=== PATIENT | male | born 1940 | race Caucasian/White ===

== ENCOUNTER 2018-01-15 08:14 | Day surgery (SDC) | payer OTHER, SELFPAY ==
[2018-01-15 08:55] VITALS: BP 142/69; PULSE 58; RESP 16; TEMP 36.2; O2SAT 99; BMI 28.5
[2018-01-15] MEDS: CATARACT EYE COMPOUND (10 DROPS/SYRINGE) 3 DROPS EYE-OP (09:00)
[2018-01-15] MEDS: PROPARACAINE 0.5% OPHTH SOL 2 DROPS EYE-OP (09:00)
--- NOTE | 2018-01-15 09:47 | P.OP_ITS ---
Operative Date/Time/Diagnoses Pre-op diagnosis: Cataract Right eye Post-op diagnosis: same Procedure & Clinicians Procedure: Cataract Surgery Same procedure as scheduled: Yes Surgeon: Ramiro Lubin Anesthesia Type: MAC +/- and Sedation Operative Notes Procedure in detail: Patient brought to the operating suite. Tetracaine drops placed in the right eye. Patient was prepped and draped in sterile manner. Wire lid speculum was placed in the eye. Betadine drops were placed on the eye. This was irrigated. Lidocaine jelly was placed on the eye. A paracentesis port was created with a side-port blade. 0.1 mL 1% preservative free lidocaine was injected into the anterior chamber. The anterior chamber was deepened with viscoelastic. 2.6 mm keratome was used to create a temporal clear corneal incision. Cystotome and Utrata forceps were used to create continuous tear capsulorrhexis. Balanced salt solution was used to hydro dissect the nucleus. The phacoemulsification handpiece was inserted and the nucleus was removed using the stop and chop technique. The irrigation aspiration handpiece was inserted and the remaining cortex was removed. Anterior chamber was deepened with viscoelastic. An Lua ZCB00 intraocular lens with a power of 20.0 was injected into the capsular bag. Irrigation aspiration handpiece was inserted and the remaining viscoelastic was removed. Incision was hydrated with balanced salt solution and found to be leak free with pressure with Weck- Esmer sponges. 0.1 mL Vigamox injected anterior chamber. 0.3 mL Kenalog 10 mg was injected subconjunctivally. Lid speculum was removed. The patient left the operating room in excellent condition. Complications: none Condition: stable Disposition: same day surgery
--- NOTE | 2018-01-15 09:47 | P.OP.PRE_ITS ---
Pre-operative Note Interval Note Changes: No
--- NOTE | 2018-01-15 09:47 | PM.PREOP ---
Pre-operative Note Interval Note Changes: No
--- NOTE | 2018-01-15 09:57 | SUR.OPER ---
Supine on eye stretcher, head on extension cradle secured with tape. Arms tucked at sides with blanket. Pillow under knees.
[2018-01-15] MEDS: BALANCED SALT IRRIG SOLN NO.2 500 ML, EPINEPHrine 1 MG IRR (10:00)
[2018-01-15] MEDS: TETRACAINE 0.5% OPHTH DROPS 15 ML 2 DROPS EYE-RIGHT (10:01)
[2018-01-15] MEDS: PHENYLEPHRINE/LIDOCAINE 3ML VIAL (OR) EYE-OP (10:02)
[2018-01-15] MEDS: MOXIFLOXACIN OPHTH DROPS 3 ML BOTTLE 2 DROPS INJ (10:02)
[2018-01-15] MEDS: LIDOCAINE JELLY 2% 5 ML 1 APPLIC TOP (10:02)
[2018-01-15] MEDS: TRIAMCINOLONE 50 MG/5 ML VIAL INJ (10:03)
[2018-01-15 10:19] VITALS: BP 120/62; PULSE 65; RESP 15; TEMP 36.1; O2SAT 99
== END 2018-01-15 10:34 | disposition home or self-care (01) ==
PROVIDERS: Family Provider Internal Medicine; PCP Internal Medicine; Visit Provider Ophthalmology
DX: H25.11 Age-related nuclear cataract, right eye (principal); I10 Essential (primary) hypertension
CPT/HCPCS: J0171; J2250; J3010; J3301

== ENCOUNTER 2018-01-29 08:52 | Day surgery (SDC) | payer OTHER, SELFPAY ==
[2018-01-29] MEDS: PROPARACAINE 0.5% OPHTH SOL 2 DROPS EYE-OP (09:15)
[2018-01-29 09:16] VITALS: BP 112/59; PULSE 66; RESP 20; TEMP 36; O2SAT 97; BMI 29.1
[2018-01-29] MEDS: CATARACT EYE COMPOUND (10 DROPS/SYRINGE) 3 DROPS EYE-OP (09:20)
--- NOTE | 2018-01-29 10:08 | SUR.OPER ---
Supine on eye stretcher, head on extension cradle secured with tape. Arms tucked at sides with blanket. Pillow under knees.
[2018-01-29] MEDS: MOXIFLOXACIN OPHTH DROPS 3 ML BOTTLE 2 DROPS INJ (10:13)
[2018-01-29] MEDS: TRIAMCINOLONE 50 MG/5 ML VIAL INJ (10:13)
[2018-01-29] MEDS: TETRACAINE 0.5% OPHTH DROPS 15 ML 2 DROPS EYE-LEFT (10:14)
[2018-01-29] MEDS: PHENYLEPHRINE/LIDOCAINE 3ML VIAL (OR) EYE-OP (10:14)
[2018-01-29] MEDS: LIDOCAINE JELLY 2% 5 ML 1 APPLIC TOP (10:14)
[2018-01-29] MEDS: BALANCED SALT IRRIG SOLN NO.2 500 ML, EPINEPHrine 1 MG IRR (10:15)
[2018-01-29] MEDS: CHONDROIDTIN/SOD HYALURONATE 1.05 ML SYRINGE INTRAOCULA (10:15)
--- NOTE | 2018-01-29 10:26 | P.OP.PRE_ITS ---
Pre-operative Note Interval Note Changes: No
--- NOTE | 2018-01-29 10:26 | P.OP_ITS ---
Operative Date/Time/Diagnoses Pre-op diagnosis: Cataract Left eye Post-op diagnosis: same Procedure & Clinicians Surgeon: Ramiro Lubin Anesthesia Type: MAC +/- and Sedation Operative Notes Procedure in detail: Patient brought to the operating suite. Tetracaine drops placed in the left eye. Patient was prepped and draped in sterile manner. Wire lid speculum was placed in the eye. Betadine drops were placed on the eye. This was irrigated. Lidocaine jelly was placed on the eye. A paracentesis port was created with a side-port blade. 0.1 mL 1% preservative free lidocaine was injected into the anterior chamber. The anterior chamber was deepened with viscoelastic. 2.6 mm keratome was used to create a temporal clear corneal incision. Cystotome and Utrata forceps were used to create continuous tear capsulorrhexis. Balanced salt solution was used to hydro dissect the nucleus. The phacoemulsification handpiece was inserted and the nucleus was removed using the stop and chop technique. The irrigation aspiration handpiece was inserted and the remaining cortex was removed. Anterior chamber was deepened with viscoelastic. An Lua ZCB00 intraocular lens with a power of 19.5 was injected into the capsular bag. Irrigation aspiration handpiece was inserted and the remaining viscoelastic was removed. Incision was hydrated with balanced salt solution and found to be leak free with pressure with Weck- Esmer sponges. 0.1 mL Vigamox injected anterior chamber. 0.3 mL Kenalog 10 mg was injected subconjunctivally. Lid speculum was removed. The patient left the operating room in excellent condition. Complications: none Condition: stable Disposition: same day surgery
--- NOTE | 2018-01-29 10:26 | PM.PREOP ---
Pre-operative Note Interval Note Changes: No
[2018-01-29 10:30] VITALS: BP 101/61; PULSE 66; RESP 20; TEMP 35.9; O2SAT 95
== END 2018-01-29 10:43 | disposition home or self-care (01) ==
PROVIDERS: Visit Provider Ophthalmology
DX: H25.12 Age-related nuclear cataract, left eye (principal); I10 Essential (primary) hypertension
CPT/HCPCS: J0171; J3301

== ENCOUNTER → 2018-09-27 12:10 | Outpatient (CLI) | payer MEDICARE, SELFPAY ==
--- NOTE | 2018-09-27 | DI.US.S_ITS ---
PROCEDURE: US SCROTUM INDICATIONS: PAIN IN SCROTUM TECHNIQUE: Real-time scanning was performed of the scrotum and testicles, with image documentation. Color and pulse Doppler interrogation was performed of both testicles. COMPARISON: None. FINDINGS: Right: Testicle is normal in size at 4.2 x 3.5 x 2.7 cm, and homogenous in echotexture. Epididymis is normal in overall size and morphology. No hydrocele or varicoceles. Overlying scrotal skin is normal in thickness. Left: Testicle is normal in size at 4.1 x 3.4 x 2.5 cm, and homogeneous in echotexture. 9 x 5 x 4 mm heterogeneously hypoechoic structure is noted in head of epididymis with no internal vascularity. No hydrocele or varicoceles. Overlying scrotal skin is normal in thickness. Doppler: Color and pulse Doppler demonstrate normal and symmetric arterial flow in both testicles. IMPRESSION: 1. Normal appearing bilateral testes. 2. Normal appearing right epididymis. 9 x 5 x 4 mm hypoechoic and avascular structure involving left epididymal head and is of indeterminant etiology. A followup ultrasound in six-month is recommended. 3. No significant hydrocele or varicocele. Dictated by: Ventura Ray M.D. on 09/27/2018 at 13:53 Approved by: Ventura Ray M.D. on 09/27/2018 at 14:02
== END ==
PROVIDERS: PCP Family Medicine; Visit Provider Urology
DX: N50.82 Scrotal pain (principal)
CPT/HCPCS: 76870

== ENCOUNTER → 2018-10-30 15:14 | Outpatient (CLI) | payer MEDICARE, SELFPAY ==
[2018-10-30 15:22] LABS: Bacteria Urine None Seen
[2018-10-30 15:56] LABS: Appearance Urine UA CLEAR; Bilirubin Urine UA NEGATIVE (NEGATIVE); Color Urine UA YELLOW; Glucose Urine UA NEGATIVE (Negative); Ketones Urine UA NEGATIVE (NEGATIVE); Leukocyte Esterase Urine UA NEGATIVE (NEGATIVE); Nitrite Urine UA NEGATIVE (Negative); Occult Blood Urine UA NEGATIVE (Negative); Protein Urine UA NEGATIVE (Negative); Urobilinogen Urine UA 0.2 E.U./dL (0.2); pH Urine UA 5.5 (4.5-8.0)
[2018-10-30 16:09] LABS: Add Manual Diff / Slide Review NO; Basophils Absolute Auto 0 /uL (0-100); Basophils Percent Auto 0.8 % (0-2); Eosinophils Absolute Auto 200 /uL (0-450); Eosinophils Percent Auto 2.9 % (2-4); Hematocrit 43.8 % (41-53); Hemoglobin 14.4 g/dL (13.5-17.5); Lymphocytes Absolute Auto 800 /uL (1100-4500); Lymphocytes Percent Auto 13.6 % (25-40); Mean Corpuscular HGB Conc 32.8 % (30-36); Mean Corpuscular Hemoglobin 29.7 PG (26-34); Mean Corpuscular Volume 90.6 fL (80-100); Monocytes Absolute Auto 400 /uL (0-900); Monocytes Percent Auto 7.3 % (3-14); Neutrophils Absolute Auto 4400 /uL (1500-7000); Neutrophils Percent Auto 75.4 % (50-75); Platelet Count 234 X10^3/uL (150-400); Red Blood Cell Count 4.83 X10^6/uL (4.5-5.9); Red Cell Distribution Width 14.1 % (11.6-14.8); White Blood Cell Count 5.8 X10^3/uL (4.5-11.0)
[2018-10-30 16:11] LABS: Hemoglobin A1C% w Est Avg Glu 5.4 % (4.0-6.0)
[2018-10-30 16:16] LABS: Culture Indicated Urine Cult Not Indicated; RBC Urine 0-1/HPF (0-5/HPF); Squamous Epithelial Cell Urine 0-1 /HPF (0-5/HPF); WBC Urine 0-1/HPF (0-5/HPF)
[2018-10-30 16:46] LABS: Blood Urea Nitrogen 16 mg/dL (9-20); Calcium 9.2 mg/dL (8.4-10.2); Carbon Dioxide 28 mmol/L (22-32); Chloride 93 mmol/L (98-107); Estimated Glomerular Filt Rate > 60.0 mL/min (>60); Glucose 99 mg/dL (80-110); HEMOLYSIS < 15 (0-50); Potassium 3.9 mmol/L (3.4-5.1); Sodium 132 mmol/L (137-145)
== END ==
PROVIDERS: PCP Family Medicine; Visit Provider Orthopaedic Surgery
DX: Z01.818 Encounter for other preprocedural examination (principal); N39.9 Disorder of urinary system, unspecified; R73.9 Hyperglycemia, unspecified; Z01.812 Encounter for preprocedural laboratory examination; Z13.1 Encounter for screening for diabetes mellitus
CPT/HCPCS: 36415; 80048; 81001; 83036; 85025; 93005

== ENCOUNTER 2018-11-11 11:03 | Inpatient (IN) | payer MEDICARE, SELFPAY ==
[2018-11-08 09:30] VITALS: BMI 30.2
[2018-11-11] VITALS (14 sets, daily range): BP systolic 83–166; BP diastolic 42–69; PULSE 51–63; RESP 10–16; TEMP 35.8–36.7; O2SAT 92–100; BMI 30.2
--- NOTE | 2018-11-11 | DI.RAD.S_ITS ---
PROCEDURE: XR PELVIS 1-2V INDICATIONS: INNER OP PELVIS TECHNIQUE: 1 view of the lower pelvis acquired. COMPARISON: [facility], RG, BILATERAL HIP 2VW, 12/06/2012, 14:52. [facility], CR, PELVIS W UNILATERAL HIP RIGHT, 11/09/2011, 13:07. FINDINGS: Bones: Patient is status post left hip arthroplasty, with hardware components in expected positions. The hip joint appears congruent. The visualized bony structures appear intact. Previous right hip arthroplasty is stable. Soft tissues: Overlying postoperative changes are noted. No suspicious soft tissue densities. IMPRESSION: Left hip arthroplasty as above. Dictated by: Sydni Del Cid M.D. on 11/11/2018 at 16:45 Approved by: Sydni Del Cid M.D. on 11/11/2018 at 16:45
--- NOTE | 2018-11-11 11:04 | DI.RAD.S_ITS ---
PROCEDURE: XR HIP W PEL IF DONE LT 2V INDICATIONS: post operative total left hip TECHNIQUE: AP pelvis and lateral view of the left hip acquired. COMPARISON: None. FINDINGS: Bones: Patient is status post bilateral hip arthroplasty, with hardware components in expected positions. The hip joint appears congruent. The visualized bony structures appear intact. Soft tissues: Overlying postoperative changes are noted. No suspicious soft tissue densities. IMPRESSION: Expected appearance of hip arthroplasty. Dictated by: Swapna Higgins M.D. on 11/11/2018 at 18:21 Approved by: Swapna Higgins M.D. on 11/11/2018 at 18:21
[2018-11-11] MEDS: PREGABALIN 75 MG CAPSULE PO (11:42)
[2018-11-11] MEDS: CELECOXIB 200 MG CAPSULE PO (11:42)
[2018-11-11] MEDS: ACETAMINOPHEN 325 MG TABLET 975 MG PO ×2 (11:43→21:02)
[2018-11-11] MEDS: LACTATED RINGERS 1,000 ML 42 ML IV ×2 (11:45→17:05)
[2018-11-11] MEDS: VANCOMYCIN 1,000 MG/200 ML FROZ.PIGGY 200 MG IV (13:10)
--- NOTE | 2018-11-11 14:14 | PM.PREOP ---
Pre-operative Note Interval Note History & Physical reviewed/Exam performed by Physician: Yes Changes to H&P: No
[2018-11-11] MEDS: CEFAZOLIN 2 GM/100 ML FROZ.PIGGY IV ×2 (14:17→21:05)
[2018-11-11] MEDS: BUPIVACAINE 0.25% W/ EPI 30 ML VIAL 60 ML INJ (15:11)
[2018-11-11] MEDS: BUPIVACAINE LIPOSOME 266 MG/20 ML VIAL INJ (15:12)
[2018-11-11] MEDS: POVIDONE-IODINE 15 ML, SODIUM CHLORIDE 0.9% 250 ML TOP (15:13)
[2018-11-11] MEDS: EPINEPHrine 1 MG/ML AMPUL IRR (15:22)
--- NOTE | 2018-11-11 17:36 | PM.OP.1 ---
Operative Date/Time/Diagnoses Date of procedure: 11/11/18 Time of procedure: 14:36 Pre-op diagnosis: Left hip osteoarthritis Post-op diagnosis: same Procedure & Clinicians Procedure: Left total hip arthroplasty Same procedure as scheduled: Yes Surgeon: Lena Valenzuela Heater Room Helper: Sommer Foster Anesthesia Type: General and Spinal Operative Notes Findings: Severe left hip osteoarthritis. Multiple loose bodies with a fairly large loose body in the posterolateral hip. Adequate quality bone, good stability. Closure Type: primary Specimen(s): none sent Prosthetic devices, grafts, tissues, transplants, or devices: Valenzuela and Nephew R3 size 56 cup, 56 neutral poly liner, +0 head, standard size 10 anthology stem Applied: drain(s) Estimated Blood Loss (mL): 250 Blood products transfused: none Procedure in detail: The patient was seen in the pre-operative area, where the patient identified the left hip as the operative site and this was marked with my initials. The patient received pre-operative antibiotics and was taken to the operating room and placed on the operative table in the right lateral decubitus position after satisfactory anesthesia. A time study technologist out was performed. The left leg was prepared from the ankle to the iliac crest with ChloroPrep in the usual fashion and draped through sterile drapes. The hip was approached through an approximately 20 cm incision centered over the greater trochanter and curving gently posteriorly as it went proximally. This was carried sharply to the fascia jewel, which was divided and retracted with a self retaining retractor. The trochanteric bursa was excised with care being taken to avoid the sciatic nerve, which was identified and protected throughout the case. The short external rotators were incised and the capsulomuscular flap was raised and tagged for later repair. The hip was dislocated, and a femoral neck osteotomy performed approximately 15 mm above the lesser trochanter. Retractors were placed around the femur. The canal was opened with a box cutting osteotome, followed by a T handled reamer and a lateralizing reamer. The chili pepper broach was then used, followed by sequential broaching until there was good stability of the broach in the femur. Retractors were placed to expose the acetabulum. The labrum and central soft tissues were removed. Reaming was performed initially going up in 2 mm increments, then 1 mm increments until good bite was obtained with an odd sized reamer. The cup 1 mm larger than the last reamer was then inserted using the appropriate anteversion guides. A trial neutral liner was placed. The broach was placed in the canal. A trial head and neck were then placed and the hip relocated and checked for leg length and stability. An intraoperative film confirmed the component position and no evidence of fracture. The patient was stable in the position of sleep, of squatting, and could be put through a range of motion with 45 degrees internal rotation without dislocation. At 90 degrees flexion, internal rotation to 70 was possible before dislocation. This was felt to be satisfactory and the appropriate components were opened, and the trials were removed. The acetabular liner was impacted into position. The final stem was then impacted into the prepared femoral canal. A brief Betadine soak was performed while trialing with head options. The hip was meticulously irrigated with normal saline. Finally the femoral head was impacted onto the stem. The acetabulum was cleared of all material and the hip relocated one final time. The capsulomuscular flap was then repaired to the greater trochanter though an awl hole using the tag sutures. The short external rotators were repaired with a nonabsorbable sutures. A deep drain was placed and brought out anteriorly. The fascia jewel was closed with Vicryl. The subcutaneous layer was closed with barbed sutures and SteriStrips. An Aquacel Ag dressing was applied and the patient was taken to recovery having tolerated the procedure well. Complications: none Condition: stable Disposition: Acute Care Plan for aftercare: The patient will be maintained on a standard total hip replacement protocol with weight bearing as tolerated and posterior hip precautions. The patient will receive Aspirin and sequential compression devices for DVT prophylaxis. The patient will be discharged home when safe for the home environment.
--- NOTE | 2018-11-11 17:36 | SUR.PHASEI ---
Dr. Corea and Nicolas have checked on the patient. Awake, oriented, denies pain, nausea. Tolerating ice chips well.
--- NOTE | 2018-11-11 18:03 | SUR.PHASEI ---
To room 207, family at bedside. Bed down and locked, call light within reach. Remains awake, oriented. Denies pain/nausea; L foot warm, + PP, refill 2 seconds. Clothing bag placed in closet. No questions from pt/staff. Pillow was in place between knees upon arrival from the OR and throughout the PACU stay.
[2018-11-11] MEDS: LACTATED RINGERS 1,000 ML 125 ML IV (18:55)
--- NOTE | 2018-11-11 20:48 | PC.NURSE ---
Roxana shift note: 1825 Patient admitted to AC S/P Left LYNN from PACU with Carmen RN. Awake, alert, and pleasant. NO c/o pain or nausea. Posterior Aqaucel CDI. CMS intact except mild numbness to LLE. Oriented to room, environment and plan of care. Call light within reach. Dr. Valenzuela stopped by to follow up at bedside.
[2018-11-11] MEDS: CILOSTAZOL 50 MG TABLET 100 MG PO (21:02)
[2018-11-11] MEDS: PANTOPRAZOLE 40 MG TABLET PO (21:02)
[2018-11-11] MEDS: ASPIRIN EC 81 MG TABLET PO (21:02)
[2018-11-11] MEDS: TAMSULOSIN 0.4 MG CAPSULE PO (21:02)
[2018-11-11] MEDS: DOCUSATE 100 MG CAPSULE PO (21:02)
[2018-11-12] VITALS (7 sets, daily range): BP systolic 120–139; BP diastolic 52–88; PULSE 56–80; RESP 14–20; TEMP 36.6–37.2; O2SAT 92–97
--- NOTE | 2018-11-12 00:47 | PC.NURSE ---
2300- Pt POD#0 L total hip posterior approach w/ hemovac in place. Ice pack to L hip w/ limited ROM; pt has not worked w/ PT yet. Cont SpO2 w/ stable sats on RA. R hand IV running LR as ordered; pt has not urinated yet--declining bladder scan until 0200. Will cont to monitor. CMS intact. 0200- Pt bladder scanned and 486 present in his bladder 0230- Pt straight cath'd w/ 55o cc out. This RN met no resistance and pt is now comfortable in bed.
[2018-11-12] MEDS: LACTATED RINGERS 1,000 ML 125 ML IV (02:44)
[2018-11-12] MEDS: PANTOPRAZOLE 40 MG TABLET PO ×2 (06:11→20:37)
[2018-11-12] MEDS: CEFAZOLIN 2 GM/100 ML FROZ.PIGGY IV (06:11)
[2018-11-12 06:52] LABS: Hematocrit 38.5 % (41-53); Hemoglobin 12.8 g/dL (13.5-17.5)
--- NOTE | 2018-11-12 07:24 | PM.PNPO.1 ---
Subjective Date Patient Seen: 11/12/18 Time Patient Seen: 07:24 Interval history: POD #1 s/p left total hip arthroplasty with Dr. Valenzuela. Patient's pain was well-controlled last night. He did need to be straight cathed and had 550 ml out. He is on Flomax. He has not been up with PT. Exam Vital Signs (past 8 hours): - 11/12/18 00:15 11/12/18 03:45 Temperature 97.8 F 97.8 F Pulse Rate 56 L 64 Respiratory Rate 14 16 Blood Pressure 120/69 134/88 Pulse Oximetry 97 96 Oxygen Delivery Method Nasal Cannula Narrative Exam Narrative: Patient is sitting up in bed in no acute distress. He is alert and oriented x3. Dressing on left hip is CDI. Drain in place. He is able to actively dorsiflex plantar flex. Calves are soft, compressible, nontender bilaterally. Pulses are symmetrical. Objective Labs Result Diagrams: 11/12/18 06:15 Labs: Laboratory Results - last 24 hr 11/12/18 06:15 Hgb 12.8 L Hct 38.5 L Assessment & Plan Post-op (1) S/P total hip arthroplasty: Postoperative Procedures Operation Date: 11/11/18 13:15 Actual Procedures Side Surgeon p Total Hip Arthroplasty-Posterior Left Lena Cori Valenzuela MD Patient will continue mobilize with physical therapy. Continue current pain management. Monitor urine output. Continue Flomax. Patient is mobilizing safely and urinating on his own may go home tonight or tomorrow.
[2018-11-12] MEDS: ONDANSETRON 4 MG/2 ML INJ IV (09:00)
[2018-11-12] MEDS: ACETAMINOPHEN 325 MG TABLET 975 MG PO ×3 (09:40→20:37)
[2018-11-12] MEDS: AMLODIPINE 5 MG TABLET PO (09:41)
[2018-11-12] MEDS: ASPIRIN EC 81 MG TABLET PO ×2 (09:41→20:37)
[2018-11-12] MEDS: DOCUSATE 100 MG CAPSULE PO ×2 (09:42→20:37)
[2018-11-12] MEDS: hydroCHLOROthiazide 25 MG TABLET PO (09:42)
[2018-11-12] MEDS: CILOSTAZOL 50 MG TABLET 100 MG PO ×2 (09:42→20:37)
[2018-11-12] MEDS: LOSARTAN 50 MG TABLET PO (09:43)
[2018-11-12] MEDS: TAMSULOSIN 0.4 MG CAPSULE PO ×2 (09:45→20:37)
--- NOTE | 2018-11-12 12:10 | PC.NURSE ---
Addendum entered by Danielle Nj R.N. 11/12/18 14:53: PAIN/MS - ambul hallway w/fww, gait slow, steady with phys therapy, ret to chair, states pain 1-2 on scale 0/10 and will continue with the scheduled tylenol and declines narcotic at this time. Original Note: AM NOTE - pt is alert, states l hip pain 1 on scale 0/10, +cms, edema greater r than l, per pt this is wnl for him, theo dsg cdi, hemovac compressed w/serosang, discussed pain medication, phys therapy in this am at breakfast and pt did get up slowly, some initial dizziness and has had some underlying nausea overnight, given 4mg zofran, after up w/PT, belching, states dizziness and nausea later resolved, was able to ambulate hallway and practice stairs, discussed pain mgt and pt continues to feel comfortable with the scheduled tylenol, later am ivf saline locked, mid am, assisted pt to brt, flatus and attempted to void only a few drops, had pt ret to bed and bladder scan indicated 569ml, called ortho parts counterperson pa and new order rec'd to place mcfarlane cath, placed with immediate return of greater 400ml clear, concentrated yellow urine, no discomfort expressed.
--- NOTE | 2018-11-12 12:24 | PT.IIE ---
Current Diagnoses Unilateral primary osteoarthritis, left hip (11/11/18) Presence of unspecified artificial hip joint (11/11/18) Surgery Performed Operation Date: 11/11/18 13:15 Actual Procedures p Total Hip Arthroplasty-Posterior(Left) - Lena Valenzuela MD Surgical History (Last Updated 11/08/18 @ 09:37 by Codi Narayan, RN) History of bilateral cataract extraction (Acute ~2018) History of colonoscopy (Acute) History of total right hip arthroplasty (Acute) Hx of appendectomy (Acute) Hx of bone graft (Acute) S/P cervical spinal fusion (Acute 08/09/15) Medical History (Last Updated 11/08/18 @ 10:04 by Codi Narayan RN) AAA (abdominal aortic aneurysm) (Acute) Arthritis (Acute) BPH (benign prostatic hyperplasia) (Acute) Former smoker (Acute) GERD (gastroesophageal reflux disease) (Acute) HLD (hyperlipidemia) (Acute) HTN (hypertension) (Acute) Hyponatremia (Acute) Osteoarthritis (Acute) PAD (peripheral artery disease) (Acute) PVD (peripheral vascular disease) (Acute) Shingles (Acute) TIA (transient ischemic attack) (Acute) Physical Therapy Inpatient Evaluation/Re-Eval M1 PT/OT-IP Prior Functional Status Start: 11/12/18 08:35 Freq: NEEDED Status: Active Protocol: Document 11/12/18 09:00 AMB (Rec: 11/12/18 12:21 AMB [email or web address]) Medical Review Prior Functional Status Medical History Reviewed Yes Mobility and Gait Junior lives alone and prior to surgery was ambulating without AD in the community and driving. Social History Household Members friend(s) none Living Arrangements Apartment/Condo Number of Floors (Floors) Two Floors Number of Stairs To Enter/Railing? 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 Additional Social History Comment Junior has a friend coming from [place] who will be staying with him M2 PT-IP Current Condition Start: 11/12/18 08:35 Freq: NEEDED Status: Active Protocol: Document 11/12/18 09:00 AMB (Rec: 11/12/18 12:21 AMB [email or web address]) Physical Therapy Current Condition Current Condition Evaluation Date 11/12/18 Treatment Diagnosis L LYNN (posterior) Onset Date 11/11/18 Precautions Posterior Hip Precautions No Hip Flexion > 90 degrees No Hip Internal Rotation No Hip Adduction Weight Bearing Status Weight Bearing Status Weight Bear as Tolerated M3 PT-IP Subjective Start: 11/12/18 08:35 Freq: NEEDED Status: Active Protocol: Document 11/12/18 09:00 AMB (Rec: 11/12/18 12:21 AMB [email or web address]) Subjective Physical Therapy Visit Type Type Initial Evaluation Visit Start Time 08:50 Visit Stop Time 09:25 Total Visit Minutes 35 Number of TAVERN CAR ATTENDANT Visits 0 Physical Therapy Visit Comments Patient Comments Pt is willing to get up with PT, he is a little nauseous but not in too much pain. Therapy Pain Assessment Pain When Pain Assessed At Rest Location Left Hip Intensity 1 Scale Used Numeric (1 - 10) M4 PT-IP Mobility and Gait Start: 11/12/18 08:35 Freq: NEEDED Status: Active Protocol: Document 11/12/18 09:00 AMB (Rec: 11/12/18 12:21 AMB [email or web address]) PT-Bed Mobility Assessment Rolling Type of Rolling Roll to Left Level of Assist Minimal Assistance Supine to Sit Supine to Sit Contact Guard Assistance Scooting Scooting to Edge of Bed Standby Assistance Scooting Up and Down in Bed Contact Guard Assistance PT-Transfer Assessment Sit to and From Stand Sit to and from Stand Contact Guard Assistance Equipment Transfer Assistive Device Front Wheeled Walker Transfers Transfer Destination Chair Transfer Technique Stand Step Pivot Transfer Ability Level of Assist Contact Guard Assistance Comments Mobility Comments Junior required cues for safety to adhere to his precautions with sit to stand. He was able to get up from the bed without physical assist, but lower surfaces require more assistance. Gait Assessment Gait Gait Assistance Required: Standby Assistance Distance (Feet) 80 Able to Maintain Weight Bearing Status Yes During Gait Assistive Devices Assistive Device Front Wheeled Walker Gait Deviations General Gait Pattern Antalgic Decreased Stride Length Decreased Feet Clearance Step-to Gait Factors Limiting Gait Function Factors Limiting Gait Function Decreased Strength Limited Range of Motion Pain Comments Gait Comments Pt's gait improved with practice. Antalgic gait with reduced hip flexion/swing through on the left. Pt has a FWW at home and will need to use it. BP 144/64 HR 100, slight nausea with supine to sit, none later with ambulation. Stair Climbing Assessment Evaluation Level of Assist On Stairs Contact Guard Assistance Devices Stair Climbing Assistive Devices Left Railing Right Railing Technique/Endurance Stair Climbing Direction Ascend and Descend Stair Climbing Technique Step to Step Number of Steps Climbed 3 Query Text: Stair Climbing Set # Repetitions (reps) 2 Comments Stair Climbing Comments Pt has 5 steps to enter with bilateral rails, and did well with that scenario today. He has 14 steps with one railing to get to his bedroom, but is planning to sleep downstairs for the first few days he has at home. He states that he was able to get up and down those stairs with 1 railing and SPC after his last LYNN, but did not demonstrate that technique today. PT-Balance Assessment Sitting Balance and Reactions Static Sitting Balance Ability Normal Dynamic Sitting Balance Ability Good Standing Balance and Reactions Static Standing Balance Ability Good Dynamic Standing Balance Ability Fair M5 PT-IP Objective Assessments Start: 11/12/18 08:35 Freq: NEEDED Status: Active Protocol: Document 11/12/18 09:00 AMB (Rec: 11/12/18 12:21 AMB [email or web address]) Orientation Orientation/Cognition Level of Alertness Alert Gross Range of Motion Lower Extremity ROM Assessment Left Impaired Strength Lower Extremity Strength Assessment Left Impaired Hip 2 Knee 4 Ankle 4 Sensation Assessment Comments Sensation Comments denies n/t M6 PT-IP Treatment Start: 11/12/18 08:35 Freq: NEEDED Status: Active Protocol: Document 11/12/18 09:00 AMB (Rec: 11/12/18 12:21 AMB [email or web address]) Physical Therapy Treatment Exercises Exercises Ankle Pumps Gluteal Sets Education Education Provided Precautions Weight Bearing Status Post-Op Packet Safety M7 PT-IP Assessment and Plan Start: 11/12/18 08:35 Freq: NEEDED Status: Active Protocol: Document 11/12/18 09:00 AMB (Rec: 11/12/18 12:21 AMB [email or web address]) PT Summary Assessment and Plan Potential Rehabilitation Potential Good Status of Condition at Evaluation Stable Summary Impairments Pain ROM Strength Balance Bed Mobility Transfers Gait Activity Tolerance Assessment Summary Junior presents 1 day s/p L posterior LYNN. He lives alone , but was able to safely ascend/descend 6 stairs with bilateral railings. His pain was well controlled at the time of evaluation, but he had not been able to urinate. He did need verbal cues and light Francisco for bed mobility, so would benefit from further practice of these skills with posterior hip precautions. He is going to have a friend stay with him at his house, and this sounds like an appropriate discharge plan when he is medically stable. Goals Bed Mobility Goal Independent Transfer Goal Standby Assistance Gait Goal Standby Assistance Gait Distance 150 Days to Meet Goals 3 Frequency of Treatment Frequency Of Treatment Twice a Day Treatment Plan Physical Therapy Treatment Plan Bed Mobility Training Transfer Training Gait Training Therapeutic Exercise Balance Retraining Post Op Education Other Recommendations and Next Treatment Bed mobility, sit to stand Focus safety Recommendations To Nursing Amount of Assist Needed 1 Person Assist Discharge Recommendations PT Discharge Recommendations Home Outpatient PT
--- NOTE | 2018-11-12 14:30 | PT.IPTN ---
Current Diagnoses Unilateral primary osteoarthritis, left hip (11/11/18) Presence of unspecified artificial hip joint (11/11/18) Surgery Performed Operation Date: 11/11/18 13:15 Actual Procedures p Total Hip Arthroplasty-Posterior(Left) - Lena Valenzuela MD Physical Therapy Treatment Note M2 PT-IP Current Condition Start: 11/12/18 08:35 Freq: NEEDED Status: Active Protocol: Document 11/12/18 09:00 AMB (Rec: 11/12/18 12:21 AMB [id number]) Physical Therapy Current Condition Current Condition Evaluation Date 11/12/18 Treatment Diagnosis L LYNN (posterior) Onset Date 11/11/18 Precautions Posterior Hip Precautions No Hip Flexion > 90 degrees No Hip Internal Rotation No Hip Adduction Weight Bearing Status Weight Bearing Status Weight Bear as Tolerated M3 PT-IP Subjective Start: 11/12/18 08:35 Freq: NEEDED Status: Active Protocol: Document 11/12/18 14:05 CLB (Rec: 11/12/18 15:53 CLB [id number]) Subjective Physical Therapy Visit Type Type Treatment Note Visit Start Time 14:05 Visit Stop Time 14:30 Total Visit Minutes 25 Number of NATIONAL GUARD MEMBER Visits 1 Physical Therapy Visit Comments Patient Comments Pt willing to do therapy. Therapy Pain Assessment Pain When Pain Assessed During Mobility Pain Present Pain Present Pain Reported Location Left Hip Intensity 2 Scale Used Numeric (1 - 10) M4 PT-IP Mobility and Gait Start: 11/12/18 08:35 Freq: NEEDED Status: Active Protocol: Document 11/12/18 14:05 CLB (Rec: 11/12/18 15:53 CLB [id number]) PT-Bed Mobility Assessment Supine to Sit Supine to Sit Standby Assistance Scooting Scooting to Edge of Bed Standby Assistance PT-Transfer Assessment Sit to and From Stand Sit to and from Stand Contact Guard Assistance Equipment Transfer Assistive Device Gait Belt Front Wheeled Walker Transfers Transfer Destination Bed Chair Transfer Technique Stand Step Pivot Transfer Ability Level of Assist Contact Guard Assistance Comments Mobility Comments Pt is SBA for all bed mobility with cues for no hip flx <90 degrees. Gait Assessment Gait Gait Assistance Required: Standby Assistance Distance (Feet) 260 Able to Maintain Weight Bearing Status Yes During Gait Assistive Devices Assistive Device Gait Belt Front Wheeled Walker Gait Deviations General Gait Pattern Antalgic Decreased Stride Length Decreased Feet Clearance Factors Limiting Gait Function Factors Limiting Gait Function Decreased Strength Limited Range of Motion Pain Comments Gait Comments Pt improved with gait and was able to ambulate with step through gait pattern and normal pacing. He has good safety awareness during ambulation. Pt had no nausea this tx. M5 PT-IP Objective Assessments Start: 11/12/18 08:35 Freq: NEEDED Status: Active Protocol: Document 11/12/18 09:00 AMB (Rec: 11/12/18 12:21 AMB [id number]) Orientation Orientation/Cognition Level of Alertness Alert Gross Range of Motion Lower Extremity ROM Assessment Left Impaired Strength Lower Extremity Strength Assessment Left Impaired Hip 2 Knee 4 Ankle 4 Sensation Assessment Comments Sensation Comments denies n/t M6 PT-IP Treatment Start: 11/12/18 08:35 Freq: NEEDED Status: Active Protocol: Document 11/12/18 14:05 CLB (Rec: 11/12/18 15:53 CLB [id number]) Physical Therapy Treatment Exercises Exercises Ankle Pumps Gluteal Sets Quad Sets Heel Slides Supine Hip Abduction Education Education Provided Precautions Weight Bearing Status Post-Op Packet Safety M7 PT-IP Assessment and Plan Start: 11/12/18 08:35 Freq: NEEDED Status: Active Protocol: Document 11/12/18 14:05 CLB (Rec: 11/12/18 15:53 CLB [id number]) PT Summary Assessment and Plan Summary Impairments Pain ROM Strength Balance Bed Mobility Transfers Gait Activity Tolerance Assessment Summary Pt doing well with all mobility, he is SBA for bed mobility and gait. Pt increased gait distance with step through gait pattern and has good pain control. Pt recalled 3/3 precautions but requires cues OOB as not to break precautions. Pt stated his friend that was going to assist him at home had a vehicle break down in [place] and may be delayed to assist. Goals Bed Mobility Goal Independent Transfer Goal Standby Assistance Gait Goal Standby Assistance Gait Distance 150 Days to Meet Goals 3 Frequency of Treatment Frequency Of Treatment Twice a Day Treatment Plan Physical Therapy Treatment Plan Bed Mobility Training Transfer Training Gait Training Therapeutic Exercise Balance Retraining Post Op Education Other Recommendations and Next Treatment Bed mobility, gait and ther ex Focus . Recommendations To Nursing Amount of Assist Needed 1 Person Assist Discharge Recommendations PT Discharge Recommendations Home Outpatient PT
--- NOTE | 2018-11-12 16:20 | CM.DANOTE ---
DCP/Assessment: Reviewed chart. Patient is a 78yr old male admitted to [facility] for elective left LYNN performed by on 11-11-18. PCP is Dr. Conroy. Primary payor is 1)Medicare 2)[facility]. Patient is [place] path patient. Current d/c recommendation is home with outpatient therapy f/u. Unable to see patient in person today secondary to caseload. No identified d/c planning needs or concerns noted. P: Home when medically stable. ABIGAIL Becker Discharge Planning/Care Management CM Discharge Assessment Start: 11/12/18 16:16 Freq: Status: Active Protocol: Document 11/12/18 16:17 KJS (Rec: 11/12/18 16:20 KJS [id number]) Discharge Planning Assessment Assigned Preparole Counseling Aide ABIGAIL Becker Advance Directives? No: Declines further information, has information History Provided By Medical Record Prior Living Arrangements Apartment/Condo Household Members friend(s) none Type of transporation used prior to Drives own vehicle admit Independent with ADL's Yes Is patient alert and oriented? Yes DME Already Rented / Owned FWW / Walker Patient/Family Preference OP PT Therapy Barriers to Discharge No Discharge Plan Home Referrals Initiated None needed Whiteboard Updated in Patient Room with Yes name and ext. # of Preparole Counseling Aide Review Status In Process Next Review Type Continued Stay Review Pre-Anesthesia Assessment Start: 11/08/18 09:30 Freq: Status: Active Protocol: Document 11/08/18 09:30 CAB (Rec: 11/08/18 11:50 CAB [id number]) Pre-Anesthesia Assessment Patient Also Known As (CHAYA Pacheco Patient Information Reviewed Via Phone Assessment Assessment Completed With Patient Diagnostic Results BMP/CMP CBC EKG Urinalysis Other Comment A1c. 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 Tajik Wrapper Cashier Required No Height 182.88 cm Weight 101.151 kg Body Mass Index (BMI) 30.2 Hearing Ability Normal Visual Assist Glasses Dentition Type Teeth, Natural Present Barriers to Learning None Other Aids No Hx Anesthesia Reactions No Hx Family Anesthesia Reaction No Hx Malignant Hyperthermia No Hx Blood Transfusions No Anesthesia Review Requested Yes: PAC Courtesy re: Abnormal Pre-op labs/EKG, hx AAA alcohol intake current Alcohol Intake Frequency Other: Occasional Smoking Status Former smoker Tobacco type cigarettes how long ago did patient quit smoking Quit 1995 Substance Use Type does not use Pain Present Pain Reported Musculoskeletal Symptoms Abnormal Gait Back Pain Difficulty Walking Joint Pain Limited Range of Motion Neck Pain History of Falling (Recent or History of No ) Patient is completely paralyzed or No completely immobile Mental Status Oriented to own ability Is patient on oxygen? No Does patient have HEARN/SOB No Hx Sleep Apnea No Suspected Sleep Apnea Yes: STOP BANG positive Currently Taking a Beta Daya No Can You Climb a Flight of Stairs Without Yes SOB Hx Chest Pain No Hx SOB No Hx Syncope or Dizziness No Anti-Coagulant Therapy Yes: 81mg Aspirin Cardiac Testing No Hx Pacemaker/ICD No Pacemaker Rep Required? No Cardiac Clearance Received Not Applicable Diet Type At Home Regular dysphagia No Bladder Pattern Urgency Urinary Catheter Present No Hx Urinary Self Catheterization No Diabetes No HgbA1C 5.4 Date 10/30/18 Hx Drug Resistant Organism No Presence of External or Internal Medical Yes: Cervical, right hip, left Devices clavicle hardware Have you traveled outside the [facility] in the last 30 days? Marital Status Single Lives With none Prior Living Arrangements Apartment/Condo Support System Friend(s) Does the Patient Have Assistance After Yes Surgery Patient Discharge Plan Description Return Home Comment Pt advised overnight length of stay per surgeon's office Feels Safe in Current Environment Yes Been Physically Hurt or Threatened By a No Person in Current Environment Do you have thoughts of harming yourself None or others? Are you currently considering suicide? No Do you have a plan to hurt yourself or No Plan others? Do You Have Any Spiritual Beliefs That No May Affect Your HC Choices? Do You Have Any Cultural Practices That No May Affect Your HC Choices? Spiritual Referral None Who Can We Speak to About Patient's Care Family, friends Identifying Code for Release of Patient Declines to issue Information Health Care Proxy/Next of Kin Ang Fierro (friend) Health Care Proxy Emergency Contact Name Ang Fierro (friend) Emergency Contact Advance Directives? No: Declines further information, has information Power of Division Operations Specialist No PAC Instructions Durable medical equipment Medications to take/avoid Nasal antibiotic No ETOH/petroleum product on skin DOS NPO Post-op transportation Pre-surgical wash Sturdy shoes/comfortable clothes Do not bring valuables and remove jewelry Stop Bang Assessment Do you snore loudly (louder than talking Yes or loud enough to be heard through closed doors) Do you often feel tired, fatigued or No sleepy during the daytime Has anyone ever observed you stop Yes breathing while sleeping? Do you have, or are you being treated Yes for, high blood pressure Is your BMI more than 35 kg/m2 No Age over 50 Yes Estimated neck circumference greater Yes than 40cm or 16in Gender male Yes Result Positive
--- NOTE | 2018-11-12 22:49 | PC.NURSE ---
Pt up to chair with family in room. Left hip aquacell CDI, HV to right above drsg compressed. POD-1, A/O x3. CMS+ PP+, denies pain at this time. 94-95%RA, LS clear denies SOB. Mcfarlane patent and draining clear yellow urine to gravity, mcfarlane to be DC'd 0600, 11/13/18. R wrist SL. BT+, denies nausea. SBA FWW back to bed. 2100- DC'd HV per Dr Valenzuela. Bed alarm on for safety.
--- NOTE | 2018-11-13 00:42 | PC.NURSE ---
2300- Pt POD#1 L total hip w/ aquacel dressing in place CDI. Mcfarlane catheter placed today for urinary retention, good output noted. Moving 1PA w/ FWW; tolerating regular diet; IV saline locked. VSS on RA. Hemovac was D/C'd at 2100 today, will cont to monitor. Order for mcfarlane catheter to be removed at 0600 tomorrow. 0600- Mcfarlane catheter removed as ordered. Pt denies any pain at this point, dressing remains CDI.
[2018-11-13 06:18] VITALS: BP 114/59; PULSE 70; RESP 16; TEMP 36.8; O2SAT 97
[2018-11-13] MEDS: PANTOPRAZOLE 40 MG TABLET PO (07:39)
[2018-11-13 08:00] VITALS: BP 121/58; PULSE 78; RESP 16; TEMP 36.6; O2SAT 96
--- NOTE | 2018-11-13 08:06 | PM.PNPO.1 ---
Subjective Date Patient Seen: 11/13/18 Time Patient Seen: 08:06 Interval history: Patient's pain is mild. Denies fever chills. No nausea vomiting. Has been up walking in the room with physical therapy. He did require straight catheterization yesterday for urinary retention. Still unable to void and required a catheter overnight. Patient states catheter was pulled around 6:00 a.m. this morning. Still is yet to urinate on his own. Exam Vital Signs (past 8 hours): - 11/13/18 06:18 Temperature 98.2 F Pulse Rate 70 Respiratory Rate 16 Blood Pressure 114/59 L Pulse Oximetry 97 Oxygen Delivery Method Room Air Const General: cooperative Nutritional Appearance: well nourished Orientation: alert and oriented x3 Skin Other: Left hip dressing is clean, dry and intact. Neuro Motor: other (Motor functions intact distal left lower extremity.) Sensory Exam: other (Sensation grossly intact bilateral lower extremities.) Objective Labs Result Diagrams: 11/12/18 06:15 Assessment & Plan Post-op Postoperative Procedures Operation Date: 11/11/18 13:15 Actual Procedures Side Surgeon p Total Hip Arthroplasty-Posterior Left Lena Valenzuela MD Postop day 2 status post left total hip arthroplasty. Patient progressing as expected. Patient having urinary retention issues. We will see if he can void on his own today and likely discharge afterwards.
[2018-11-13] MEDS: CILOSTAZOL 50 MG TABLET 100 MG PO (08:21)
[2018-11-13] MEDS: ACETAMINOPHEN 325 MG TABLET 975 MG PO (08:21)
[2018-11-13] MEDS: DOCUSATE 100 MG CAPSULE PO (08:22)
[2018-11-13] MEDS: hydroCHLOROthiazide 25 MG TABLET PO (08:22)
[2018-11-13 08:23] VITALS: BP 121/58
[2018-11-13] MEDS: ASPIRIN EC 81 MG TABLET PO (08:23)
[2018-11-13] MEDS: LOSARTAN 50 MG TABLET PO (08:23)
[2018-11-13] MEDS: TAMSULOSIN 0.4 MG CAPSULE PO (08:24)
[2018-11-13] MEDS: SODIUM CHLORIDE 0.9% FLUSH 10 ML IV (08:24)
--- NOTE | 2018-11-13 09:11 | CM.DPC ---
DCP Cont: Per Ortho PA, pt with some urinary retention and needing straight cath to void and discontinued this morning and if pt can void independently then likely can d/c home later today. Per PT, recommending safe d/c home with outpt PT and pt has friend planning to help him at discharge. Plan: SW to follow for possible pt d/c home today if his urinary retention improves. ABIGAIL Kapadia
[2018-11-13 09:17] VITALS: BP 110/49
--- NOTE | 2018-11-13 11:57 | PM.DS.1 ---
History of Present Illness Date Patient Seen: 11/13/18 Time Patient Seen: 11:57 Chief complaint: [id number] Left LYNN Narrative: See progress note. Discharge Providers Date of admission: 11/11/18 11:03 Discharge Date: 11/13/18 Primary care physician: Ian Conroy MD Consults: 11/08/18 11:50 Consult to Anesthesiology Routine Comment: Consulting Provider: Anesthesiologist Reason for consultation: PAC Courtesy re: Abnormal Pre-op labs/EKG, Cardiac/Hx AAA Consult to Respiratory Therapy Evaluate & Treat Comment: Stop Bang assessment positive Physician Instructions: Evaluate and treat 11/11/18 11:04 Consult to Anesthesiology Routine Comment: Consulting Provider: Anesthesiologist Reason for consultation: Regional block for post operative pain control 11/11/18 18:19 Consult to Discharge Planning Routine Comment: Consult to Physical Therapy Evaluate & Treat Comment: Physician Instructions: post op LYNN protocol Consult to Respiratory Therapy Evaluate & Treat Comment: Physician Instructions: Evaluate and treat Discharge provider: Pelon Tamez PA-C Summary Discharge Diagnosis: s/p left LYNN Hospital Course: Procedure: Left total hip arthroplasty Same procedure as scheduled: Yes Surgeon: Lena Valenzuela Produce Buyer: Sommer Foster Anesthesia Type: General and Spinal Operative Notes Findings: Severe left hip osteoarthritis. Multiple loose bodies with a fairly large loose body in the posterolateral hip. Adequate quality bone, good stability. Closure Type: primary Specimen(s): none sent Prosthetic devices, grafts, tissues, transplants, or devices: Valenzuela and Nephew R3 size 56 cup, 56 neutral poly liner, +0 head, standard size 10 anthology stem Applied: drain(s) Estimated Blood Loss (mL): 250 Blood products transfused: none Procedure in detail: The patient was seen in the pre-operative area, where the patient identified the left hip as the operative site and this was marked with my initials. The patient received pre-operative antibiotics and was taken to the operating room and placed on the operative table in the right lateral decubitus position after satisfactory anesthesia. A time study statistician out was performed. The left leg was prepared from the ankle to the iliac crest with ChloroPrep in the usual fashion and draped through sterile drapes. Patient recovering well status post left total hip arthroplasty. Patient had urinary retention. He has been able to void on his own this morning. He is ready for discharge home in stable condition. Status at Discharge Cognitive/behavioral status at discharge: at baseline, oriented and at baseline, confused Functional status at discharge: uses cane/walker Overall status at discharge: patient is progressing back to baseline Time Spent with Patient Less than 30 minutes Exam Vital Signs (past 8 hours): - 11/13/18 06:18 11/13/18 08:00 11/13/18 08:23 Temperature 98.2 F 97.9 F Pulse Rate 70 78 Respiratory Rate 16 16 Blood Pressure 114/59 L 121/58 L 121/58 L Pulse Oximetry 97 96 11/13/18 09:17 Temperature Pulse Rate Respiratory Rate Blood Pressure 110/49 L Pulse Oximetry Oxygen Delivery Method Room Air Oxygen Flow Rate 0 Narrative Exam Narrative: See progress note Objective Labs Result Diagrams: 11/12/18 06:15 Discharge Plan Discharge Plan Patient Disposition: Home Discharge comment: DC home today Discharge Med Rec/Prescriptions Prescriptions: New acetaminophen 325 mg Tablet 975 mg PO TID Qty: 0 RF: 0 aspirin 81 mg Tablet,Delayed Release (Dr/Ec) 81 mg PO BID Qty: 0 RF: 0 docusate sodium [DOK] 100 mg Capsule 100 mg PO BID Qty: 0 RF: 0 oxycodone 5 mg Tablet 5 mg PO Q3HR PRN (Reason: Pain, Moderate (4-6)) Qty: 0 RF: 0 Continued losartan-hydrochlorothiazide 100 MG/25 MG tablet 1 tab PO QDAY Qty: 0 RF: 0 omeprazole 20 MG capsule,delayed release(DR/EC) 40 mg PO BID Qty: 0 RF: 0 amlodipine 5 mg Tablet 5 mg PO DAILY RF: 0 tamsulosin 0.4 mg Capsule 0.4 mg PO BID RF: 0 cilostazol 100 mg 100 mg PO BID RF: 0 naproxen sodium [Aleve] 220 mg Capsule 440 mg PO DAILY PRN (Reason: Pain) RF: 0 Discontinued aspirin [Aspir-81] 81 mg Tablet,Delayed Release (Dr/Ec) 81 mg PO DAILY RF: 0 Follow up/Referrals: Lena Valenzuela MD [Physician] - (Follow up in 5-7 days at your previously scheduled post-operative appointment.) Provider Discharge Instructions Diet: Diet as Tolerated Activity: Weightbearing as tolerated, follow posterior hip precautions. Use walker until cleared by PT. Cold/Heat Therapy: Apply ice to affected area for 20 minutes at a time at least hourly while awake. Skin/Wound/Dressing Care Report to your healthcare provider any signs of infection, such as:: chills, fever, night sweats, increased pain, unusual drainage and unusual redness Dressing: Keep dressing clean, dry, and intact. May shower with it in place but no soaking. Visit Report/Discharge Packet Instructions: DI for Hip Replacement Stand Alone Forms: Surgery Discharge Discharge Data Primary Care Provider: Ian Conroy Attending Provider: Lena Valenzuela Admit Date/Time: 11/11/18 11:03
--- NOTE | 2018-11-13 12:01 | PT.IPTN ---
Current Diagnoses Unilateral primary osteoarthritis, left hip (11/11/18) Presence of unspecified artificial hip joint (11/11/18) Surgery Performed Operation Date: 11/11/18 13:15 Actual Procedures p Total Hip Arthroplasty-Posterior(Left) - Lena Valenzuela MD Physical Therapy Treatment Note M2 PT-IP Current Condition Start: 11/12/18 08:35 Freq: NEEDED Status: Active Protocol: Document 11/12/18 09:00 AMB (Rec: 11/12/18 12:21 AMB [email or web address]) Physical Therapy Current Condition Current Condition Evaluation Date 11/12/18 Treatment Diagnosis L LYNN (posterior) Onset Date 11/11/18 Precautions Posterior Hip Precautions No Hip Flexion > 90 degrees No Hip Internal Rotation No Hip Adduction Weight Bearing Status Weight Bearing Status Weight Bear as Tolerated M3 PT-IP Subjective Start: 11/12/18 08:35 Freq: NEEDED Status: Active Protocol: Document 11/13/18 11:54 SA (Rec: 11/13/18 12:01 SA [id number]) Subjective Physical Therapy Visit Type Type Treatment Note Visit Start Time 11:30 Visit Stop Time 11:50 Total Visit Minutes 20 Number of ENCODING CLERK Visits 2 Physical Therapy Visit Comments Patient Comments Pt up in chair with friend Sixto present, agreeable to PT. Patient Goals To go home today. Therapy Pain Assessment Pain When Pain Assessed During Mobility Pain Present Pain Present Pain Reported Location Left Hip Intensity 1 Scale Used Numeric (1 - 10) M4 PT-IP Mobility and Gait Start: 11/12/18 08:35 Freq: NEEDED Status: Active Protocol: Document 11/13/18 11:54 SA (Rec: 11/13/18 12:01 SA [id number]) PT-Transfer Assessment Sit to and From Stand Sit to and from Stand Standby Assistance Equipment Transfer Assistive Device Gait Belt Front Wheeled Walker Transfers Transfer Destination Bed Chair Transfer Technique Stand Step Pivot Transfer Ability Level of Assist Standby Assistance Comments Mobility Comments Verbal and visual review of posterior hip precautions. Pt SBA with transfers and bed mobility and progressing well. Gait Assessment Gait Gait Assistance Required: Standby Assistance Distance (Feet) 350 Able to Maintain Weight Bearing Status Yes During Gait Assistive Devices Assistive Device Gait Belt Front Wheeled Walker Gait Deviations General Gait Pattern Decreased Stride Length Decreased Feet Clearance Factors Limiting Gait Function Factors Limiting Gait Function Decreased Strength Limited Range of Motion Comments Gait Comments Pt with improving gait quality and distance, able to increase step length with cues and uses FWW safely, SBA. Stair Climbing Assessment Evaluation Level of Assist On Stairs Standby Assistance Devices Stair Climbing Assistive Devices Left Railing Right Railing Technique/Endurance Stair Climbing Direction Ascend and Descend Stair Climbing Technique Step to Step Number of Steps Climbed 3 Query Text: Stair Climbing Set # Repetitions (reps) 2 Comments Stair Climbing Comments Pt able to manage stairs well, has B rails and demonstrates safe technique, no LOB and no increase in pain with task. M5 PT-IP Objective Assessments Start: 11/12/18 08:35 Freq: NEEDED Status: Active Protocol: Document 11/12/18 09:00 AMB (Rec: 11/12/18 12:21 AMB [email or web address]) Orientation Orientation/Cognition Level of Alertness Alert Gross Range of Motion Lower Extremity ROM Assessment Left Impaired Strength Lower Extremity Strength Assessment Left Impaired Hip 2 Knee 4 Ankle 4 Sensation Assessment Comments Sensation Comments denies n/t M6 PT-IP Treatment Start: 11/12/18 08:35 Freq: NEEDED Status: Active Protocol: Document 11/13/18 11:54 SA (Rec: 11/13/18 12:01 SA [id number]) Physical Therapy Treatment Exercises Exercises Ankle Pumps Gluteal Sets Quad Sets Heel Slides Supine Hip Abduction Education Education Provided Precautions Weight Bearing Status Post-Op Packet Safety Other Treatments Other Treatment Performed Review of hip precautions with friend Sixto who will be staying with pt to assist when he returns home. M7 PT-IP Assessment and Plan Start: 11/12/18 08:35 Freq: NEEDED Status: Active Protocol: Document 11/13/18 11:54 SA (Rec: 11/13/18 12:01 [id number]) PT Summary Assessment and Plan Summary Progress Towards Goals Progressing Toward Goals Assessment Summary Pt has FWW, elevated toilet seat, shower chair and SPC. Progressing well with functional mobility and anticipate d/c home with friend Sixto this afternoon. Frequency of Treatment Frequency Of Treatment Twice a Day Treatment Plan Physical Therapy Treatment Plan Bed Mobility Training Transfer Training Gait Training Therapeutic Exercise Balance Retraining Post Op Education Other Recommendations and Next Treatment Bed mobility, gait and ther ex Focus . Recommendations To Nursing Amount of Assist Needed 1 Person Assist Discharge Recommendations PT Discharge Recommendations Home Outpatient PT
== END 2018-11-13 12:45 | disposition home or self-care (01) | DRG 470 ==
PROVIDERS: Admitting Provider Orthopaedic Surgery; PCP Family Medicine; Visit Provider Orthopaedic Surgery
PROC: 0SRB0JZ Replacement of Left Hip Joint with Synthetic Substitute, Open Approach (ICD-10-PCS; CPT 27130; principal; 2018-11-11 13:15)
DX: M16.12 Unilateral primary osteoarthritis, left hip (principal); I10 Essential (primary) hypertension; E78.5 Hyperlipidemia, unspecified; K21.9 Gastro-esophageal reflux disease without esophagitis; Z96.641 Presence of right artificial hip joint; Z87.891 Personal history of nicotine dependence; I45.10 Unspecified right bundle-branch block; R33.9 Retention of urine, unspecified
CPT/HCPCS: 36415; 72170; 73502; 85014; 85018; 94762; 97110; 97116; 97161; C1776; C9290; J0171; J0690; J2250; J2274; J2405; J2704; J3010; J3370

== ENCOUNTER → 2019-04-15 14:18 | Outpatient (CLI) | payer MEDICARE, SELFPAY ==
[2018-11-11 18:19] VITALS: BMI 30.2
--- NOTE | 2019-04-15 | DI.US.S_ITS ---
PROCEDURE: US SCROTUM INDICATIONS: SCROTAL PAIN TECHNIQUE: Real-time scanning was performed of the scrotum and testicles, with image documentation. Color and pulse Doppler interrogation was performed of both testicles. COMPARISON: [facility], , US SCROTUM, 09/27/2018, 12:36. FINDINGS: Right: Testicle is normal in size at 4.4 x 3.2 x 2.8 cm, and homogenous in echotexture. Epididymis is normal in overall size and morphology. Small axial. No varicoceles. Overlying scrotal skin is normal in thickness. Echogenic material noted within the hemiscrotum. Left: Testicle is normal in size at 4.3 x 2.9 x 2.3 cm, and homogeneous in echotexture. Epididymis is normal in overall size and morphology. Complex left epididymal head cyst redemonstrated unchanged measuring 0.5 x 0.5 x 0.7 cm. No varicoceles. Overlying scrotal skin is normal in thickness. Echogenic material noted within the hemiscrotum. Doppler: Color and pulse Doppler demonstrate normal and symmetric arterial flow in both testicles. IMPRESSION: 1. Normal appearance the testicles bilaterally. 2. Complex left epididymal cyst unchanged prior examination. 3. Fat seen within the left and right hemiscrotum which may be related to bilateral inguinal hernias. If indicated, CT could be performed. Dictated by: Js SERRANO Interpreted: Amisha Petersen MD on 04/15/2019 at 16:31 Approved by: Amisha Petersen M.D. on 04/15/2019 at 17:45
== END ==
PROVIDERS: Family Provider Student in an Organized Health Care Education/Training Program; PCP Student in an Organized Health Care Education/Training Program; Visit Provider Urology
DX: N50.82 Scrotal pain (principal); N50.3 Cyst of epididymis
CPT/HCPCS: 76870

== ENCOUNTER → 2019-08-13 10:13 | Outpatient (CLI) | payer MEDICARE, SELFPAY ==
[2018-11-11 18:19] VITALS: BMI 30.2
--- NOTE | 2019-08-13 10:24 | DI.CT.S_ITS ---
PROCEDURE: CT ABDOMEN PELVIS WO/W CON INDICATIONS: Gross hematuria TECHNIQUE: Optional 5 mm thick noncontrast images acquired from the diaphragm to the symphysis pubis. After the administration of intravenous contrast, 5 mm thick images acquired from the diaphragm to the symphysis pubis after a 10-minute delay. 2 mm thick coronal and sagittal reformats were then performed of the kidneys and ureters. For radiation dose reduction, the following was used: automated exposure control, adjustment of mA and/or kV according to patient size. COMPARISON: [facility], , L-SPINE WITHOUT CONTRAST, 03/16/2015, 17:27. FINDINGS: Image quality: Excellent. Lung bases: Lung bases are clear. Heart size is normal. Urinary system: Both kidneys are normal in size, without hydronephrosis or right-sided nephrolithiasis on pre-contrast images. There is a nonobstructive lower third collecting system 3 mm calculus on the left. A left-sided exophytic lower renal cortical cyst measures up to 2.6 cm, simple in character and water in density on postcontrast imaging. No perinephric fat stranding. There is normal bilateral renal enhancement. Renal calyces appear normal in morphology when filled with contrast. There is a left-sided extrarenal pelvis, also present on prior MR scanning of the LS-spine 03/16/15. Opacified portions of both ureters demonstrate normal caliber. Bladder wall thickness is normal. No calcified bladder stones. Other solid organs: Liver is normal in size and enhancement. Gallbladder appears normal. Biliary system is non dilated. Pancreas enhances normally. Spleen is normal in size and enhancement. No adrenal nodules. Peritoneum and bowel: Bowel loops demonstrate normal wall thickness and caliber. No free fluid or air. Nodes and vessels: No retroperitoneal or mesenteric adenopathy by size criteria. Aorta and inferior vena cava are normal in size. Abdominal wall: No ventral hernias. Pelvis: No pathologic free pelvic fluid. No inguinal hernias or adenopathy. A bladder mass or calculus is not found. Bones: No suspicious bony lesions. No vertebral body compression fractures. IMPRESSION: Source of hematuria is not seen other than a 3 mm nonobstructive calculus at the lower third collecting system on the left. No urothelial or renal cortical mass lesion is identified. 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 Dictated by: Alex Paiz M.D. on 08/13/2019 at 13:58 Approved by: Alex Paiz M.D. on 08/13/2019 at 14:13
== END ==
PROVIDERS: Family Provider Student in an Organized Health Care Education/Training Program; PCP Student in an Organized Health Care Education/Training Program; Referring Provider Urology; Visit Provider Urology
DX: R31.0 Gross hematuria (principal); N20.0 Calculus of kidney
CPT/HCPCS: 74178; Q9967

== ENCOUNTER 2021-04-01 13:46 | Emergency (ER) | payer MEDICARE, OTHER, SELFPAY ==
[2018-11-11 18:19] VITALS: BMI 30.2
[2021-04-01] VITALS (17 sets, daily range): BP systolic 122–169; BP diastolic 57–78; PULSE 46–62; RESP 0–37; TEMP 36.6; O2SAT 94–100; BMI 29.1
--- NOTE | 2021-04-01 13:59 | DI.RAD.S_ITS ---
PROCEDURE: XR CHEST 1V INDICATIONS: Chest pain TECHNIQUE: One view of the chest was acquired. COMPARISON: None. FINDINGS: Surgical changes and devices: None. Lungs and pleura: Lungs are clear. No pleural effusions or pneumothorax. Mediastinum: Mediastinal contours appear normal. Heart size is normal. Bones and chest wall: No suspicious bony lesions. Overlying soft tissues appear unremarkable. IMPRESSION: No acute cardiopulmonary process demonstrated radiographically. Dictated by: Theo Navarrete M.D. on 04/01/2021 at 14:39 Approved by: Theo Navarrete M.D. on 04/01/2021 at 14:42
[2021-04-01] MEDS: ASPIRIN 81 MG CHEW TAB 324 MG PO (14:20)
[2021-04-01 14:30] LABS: INR 1.1 (0.9-1.3); Prothrombin Time 11.9 SECONDS (10.1-12.7)
[2021-04-01 14:32] LABS: PTT Partial Thromboplastin Tim 38 SECONDS (26.4-36.2)
[2021-04-01 14:33] LABS: Add Manual Diff / Slide Review NO; Basophils Absolute Auto 0 /uL (0-100); Eosinophils Absolute Auto 300 /uL (0-450); Hematocrit 40.1 % (41-53); Hemoglobin 13.1 g/dL (13.5-17.5); Lymphocytes Absolute Auto 1000 /uL (1100-4500); Lymphocytes Percent Auto 22.2 % (25-40); Mean Corpuscular HGB Conc 32.6 % (30-36); Mean Corpuscular Hemoglobin 29.7 PG (26-34); Mean Corpuscular Volume 90.9 fL (80-100); Monocytes Absolute Auto 300 /uL (0-900); Monocytes Percent Auto 6.3 % (3-14); Neutrophils Absolute Auto 3000 /uL (1500-7000); Neutrophils Percent Auto 64.5 % (50-75); Platelet Count 211 X10^3/uL (150-400); Red Blood Cell Count 4.42 X10^6/uL (4.5-5.9); White Blood Cell Count 4.6 X10^3/uL (4.5-11.0)
[2021-04-01 14:34] LABS: Alanine Aminotransferase 15 IU/L (<50); Albumin 3.8 g/dL (3.5-5.0); Albumin Globulin Ratio 1.3 (1.0-2.8); Alkaline Phosphatase 53 U/L (38-126); Aspartate Aminotransferase 23 IU/L (17-59); BUN Creatinine Ratio 22.9 (6-22); Bilirubin Total 0.7 mg/dL (0.2-1.3); Blood Urea Nitrogen 16 mg/dL (9-20); Calcium 8.9 mg/dL (8.4-10.2); Carbon Dioxide 27 mmol/L (22-32); Chloride 103 mmol/L (98-107); Creatine Kinase 63 U/L (55-170); Estimated Glomerular Filt Rate > 60.0 mL/min (>60); Glucose 110 mg/dL (80-110); HEMOLYSIS < 15 (0-50); Lipase 51 U/L (23-300); Magnesium 1.8 mg/dL (1.6-2.3); Potassium 4.1 mmol/L (3.4-5.1); Sodium 134 mmol/L (137-145); Total Protein 6.8 g/dL (6.3-8.2)
[2021-04-01 14:45] LABS: NT-proBNP (BNP-Adult 18+) 212 pg/mL (<450); Troponin I < 0.012 ng/mL (0.01-0.034)
--- NOTE | 2021-04-01 15:21 | ED_ITS ---
HPI - Chest Pain General Chief Complaint: Chest Pain Stated Complaint: poss heart attack Time Seen by Provider: 04/01/21 14:41 Source: patient Mode of arrival: Ambulatory Limitations: no limitations History of Present Illness HPI narrative: This is an 80-year-old male comes to the emergency department with complaint of pain in his left shoulder blade, sometimes in left anterior chest and arm. He states it started while he was driving. Began around 11:00 a.m.. It has not been constant and has resolved or almost completely abated. Patient denies any exacerbating factors that he can clearly 0.2. He states ra nge of motion may affect it but is noncommittal. He denies any shortness of breath, no diaphoresis, no nausea or vomiting, no other GI or urinary symptoms. No skin changes. Patient states he has a known history of an leaking aorta which he has seen vascular surgery for at [place]. He states he never had any intervention or treatment and they had changed him to Q 2 year visits. He does have a history of hypertension, dyslipidemia, BPH and is on aspirin 81 mg daily. He does not take a statin daily because he did not tolerate them. He does not any known coronary artery disease has never had a catheterization or cardiac stents and his last treadmill was perhaps a decade or more. He has had bilateral hip replacement left clavicle plating, and cervical fusion as well as appendectomy. No tobacco, alcohol or illicit. His primary care is Dr. Zheng. He does not follow with cardiology or regular physician besides his vascular surgeon at [facility]. Related Data Home Medications Medication Instructions Recorded Confirmed losartan 100 1 tab PO QDAY #0 11/09/11 11/11/18 mg-hydrochlorothiazide 25 mg tablet omeprazole 20 mg capsule,delayed 40 mg PO BID #0 11/09/11 11/11/18 release amlodipine 5 mg tablet 5 mg PO DAILY 01/15/18 11/11/18 cilostazol 100 mg PO BID 01/15/18 11/11/18 tamsulosin 0.4 mg capsule 0.4 mg PO BID 01/15/18 11/11/18 naproxen sodium 220 mg capsule 440 mg PO DAILY PRN 11/08/18 11/11/18 (Aleve) Previous Rx's Medication Instructions Recorded acetaminophen 325 mg tablet 975 mg PO TID #0 tab 11/13/18 aspirin 81 mg tablet,delayed 81 mg PO BID #0 tab 11/13/18 release docusate sodium 100 mg capsule 100 mg PO BID #0 cap 11/13/18 (DOK) oxycodone 5 mg tablet 5 mg PO Q3HR PRN #0 tab 11/13/18 Allergies Allergy/AdvReac Type Severity Reaction Status Date / Time latex [LATEX] Allergy Mild Rash Verified 04/01/21 13:59 Review of Systems Review of Systems ROS Unobtainable: All systems reviewed & are unremarkable except as noted in HPI and below Patient History Medical History (Updated 04/01/21 @ 18:10 by Lexus Licona DO) AAA (abdominal aortic aneurysm) Arthritis BPH (benign prostatic hyperplasia) Former smoker GERD (gastroesophageal reflux disease) HLD (hyperlipidemia) HTN (hypertension) Hyponatremia Osteoarthritis PAD (peripheral artery disease) PVD (peripheral vascular disease) Shingles TIA (transient ischemic attack) Surgical History (Updated 11/12/18 @ 07:27 by Suzy Leiva PA-C) History of bilateral cataract extraction (~2018) History of colonoscopy History of total right hip arthroplasty Hx of appendectomy Hx of bone graft S/P cervical spinal fusion (08/09/15) Social History household members: friend(s) and none Smoking Status: Former smoker alcohol intake: current Smoking Status: Former smoker alcohol intake frequency: 3 or more drinks per day Substance Use Type: does not use Exam Narrative Exam Narrative: GENERAL: Alert and oriented x three, male in mild distress. HEENT: Head normocephalic, atraumatic, EOMI, pupils reactive, face symmetric, moist mucous membranes NECK: Supple, full range of motion CARDIOVASCULAR: Regular rate and rhythm without murmurs, rubs or gallops. RESPIRATORY: Breath sounds equal bilaterally, no wheezes rales or rhonchi. ABDOMEN: Soft, nontender. Normoactive bowel sounds all 4 quadrants. No guarding or rebound, rigidity, no mass : No CVA tenderness BACK: No cervical, thoracic or lumbar vertebral point tenderness. Patient has normal range of motion. Patient has 2+ radial pulses bilaterally. Skin changes. Unable to palpate any bony or soft tissue changes that are painful. EXTREMITIES: Normal range of motion, no clubbing or edema upper or lower extremities. Neurovascularly intact NEUROLOGICAL: Cranial nerves II through XII grossly intact. Moving all extremities SKIN: Warm, dry, no petechiae, no rashes or lesions. Initial Vital Signs Initial Vital Signs: Vital Signs Temperature 97.8 F 04/01/21 13:56 Pulse Rate 59 L 04/01/21 13:56 Respiratory Rate 19 04/01/21 13:56 Blood Pressure 124/57 L 04/01/21 13:56 Pulse Oximetry 97 04/01/21 13:56 Scores HEART Score Heart Score history: Moderately Suspicious Heart Score EKG: Normal Heart Score Age: > or = 65 years old Heart Score risk factors: 1-2 risk factors Heart Score troponin: < or = to normal limit Heart Score Total: 4 Course Orders Ordered: ED Orders 04/01/21 13:59 XR chest 1V Stat 04/01/21 14:09 EKG-12 Lead Stat 04/01/21 14:25 BNP [NT-proBNP (BNP-Adult 18+)] Stat Complete Blood Count AUTO DIFF Stat Comprehensive Metabolic Panel Stat Lipase Stat Magnesium Stat Partial Thromboplastin Time Stat Prothrombin Time INR Stat Troponin & CK Cardiac Panel Stat 04/01/21 16:18 CT angio chest abdomen pelvis Stat 04/01/21 16:30 Troponin I Stat Discontinued Medications Aspirin (Aspirin 81 Mg Chew Tab) 324 mg PO NOW ONE Stop: 04/01/21 14:00 Last Admin: 04/01/21 14:20 Dose: 243 mg Documented by: RLAZANI Nitroglycerin (Nitroglycerin 0.4 Mg Sl Tab) 0.4 mg SL [id number] PRN PRN Reason: Chest Pain Consultations Consultation #1: Dr. Smith for Dr. Zheng. Patient does have risk factors. Have not find a different clear cause for his symptoms today but no clear acute EKG changes or troponin changes. CT imaging does show thoracic ectasia but no other emergent changes. Patient prefers to return home although observation was offered. They will see the patient this week in the office and help him get set up for additional testing and evaluation. Vital Signs Vital signs: Vital Signs - 8 hr 04/01/21 13:56 04/01/21 14:09 04/01/21 14:30 Temperature 97.8 F Pulse Rate 59 L 60 62 Respiratory Rate 19 22 Blood Pressure 124/57 L Pulse Oximetry 97 97 96 04/01/21 15:00 04/01/21 15:05 04/01/21 15:30 Temperature Pulse Rate 51 L 53 L 49 L Respiratory Rate 12 14 13 Blood Pressure 122/61 Pulse Oximetry 94 95 95 04/01/21 15:31 04/01/21 15:49 04/01/21 16:00 Temperature Pulse Rate 51 L 60 47 L Respiratory Rate 19 22 16 Blood Pressure 125/60 169/78 H 141/65 H Pulse Oximetry 95 96 96 04/01/21 16:40 04/01/21 16:41 04/01/21 17:01 Temperature Pulse Rate 49 L 49 L 58 L Respiratory Rate 12 0 L 37 H Blood Pressure 155/72 H Pulse Oximetry 96 100 96 04/01/21 17:03 04/01/21 17:30 04/01/21 17:31 Temperature Pulse Rate 47 L 46 L 48 L Respiratory Rate 0 L 18 16 Blood Pressure 168/72 H 147/70 H Pulse Oximetry 100 99 98 04/01/21 18:00 04/01/21 18:20 Temperature Pulse Rate 48 L 49 L Respiratory Rate Blood Pressure 153/68 H Pulse Oximetry 97 98 MDM - Chest Pain Lab Data Result diagrams: 04/01/21 14:25 04/01/21 14:25 Labs: Lab Results 04/01/21 04/01/21 04/01/21 Range/Units 14:25 14:25 14:25 WBC 4.6 (4.5-11.0) X10^3/uL RBC 4.42 L (4.5-5.9) X10^6/uL Hgb 13.1 L (13.5-17.5) g/dL Hct 40.1 L (41-53) % MCV 90.9 (80-100) fL MCH 29.7 (26-34) PG MCHC 32.6 (30-36) % RDW 14.0 (11.6-14.8) % Plt Count 211 (150-400) X10^3/uL Neut % (Auto) 64.5 (50-75) % Lymph % (Auto) 22.2 L (25-40) % [place] % (Auto) 6.3 (3-14) % Eos % (Auto) 6.0 H (2-4) % Baso % (Auto) 1.0 (0-2) % Neut # (Auto) 3000 (4862-0119) /uL Lymph # (Auto) 1000 L (5987-0221) /uL [place] # (Auto) 300 (0-900) /uL Eos # (Auto) 300 (0-450) /uL Baso # (Auto) 0 (0-100) /uL PT 11.9 (10.1-12.7) SECONDS INR 1.1 (0.9-1.3) APTT 38 H (26.4-36.2) SECONDS Sodium 134 L (137-145) mmol/L Potassium 4.1 (3.4-5.1) mmol/L Chloride 103 (98-107) mmol/L Carbon Dioxide 27 (22-32) mmol/L BUN 16 (9-20) mg/dL Creatinine 0.70 (0.66-1.25) mg/dL Estimated GFR > 60.0 (>60) mL/min BUN/Creatinine Ratio 22.9 H (6-22) Glucose 110 (80-110) mg/dL Calcium 8.9 (8.4-10.2) mg/dL Magnesium 1.8 (1.6-2.3) mg/dL Total Bilirubin 0.7 (0.2-1.3) mg/dL AST 23 (17-59) IU/L ALT 15 (<50) IU/L Alkaline Phosphatase 53 (38-126) U/L Total Creatine Kinase 63 (55-170) U/L CK-MB (CK-2) TNP CK-MB (CK-2) Rel Index TNP Troponin I < 0.012 (0.01-0.034) ng/mL NT-Pro-B Natriuret Pep 212 (<450) pg/mL Total Protein 6.8 (6.3-8.2) g/dL Albumin 3.8 (3.5-5.0) g/dL Globulin 3.0 (1.7-4.1) g/dL Albumin/Globulin Ratio 1.3 (1.0-2.8) Lipase 51 (23-300) U/L 04/01/21 Range/Units 16:30 WBC (4.5-11.0) X10^3/uL RBC (4.5-5.9) X10^6/uL Hgb (13.5-17.5) g/dL Hct (41-53) % MCV (80-100) fL MCH (26-34) PG MCHC (30-36) % RDW (11.6-14.8) % Plt Count (150-400) X10^3/uL Neut % (Auto) (50-75) % Lymph % (Auto) (25-40) % [place] % (Auto) (3-14) % Eos % (Auto) (2-4) % Baso % (Auto) (0-2) % Neut # (Auto) (9935-9127) /uL Lymph # (Auto) (7861-1002) /uL [place] # (Auto) (0-900) /uL Eos # (Auto) (0-450) /uL Baso # (Auto) (0-100) /uL PT (10.1-12.7) SECONDS INR (0.9-1.3) APTT (26.4-36.2) SECONDS Sodium (137-145) mmol/L Potassium (3.4-5.1) mmol/L Chloride (98-107) mmol/L Carbon Dioxide (22-32) mmol/L BUN (9-20) mg/dL Creatinine (0.66-1.25) mg/dL Estimated GFR (>60) mL/min BUN/Creatinine Ratio (6-22) Glucose (80-110) mg/dL Calcium (8.4-10.2) mg/dL Magnesium (1.6-2.3) mg/dL Total Bilirubin (0.2-1.3) mg/dL AST (17-59) IU/L ALT (<50) IU/L Alkaline Phosphatase (38-126) U/L Total Creatine Kinase (55-170) U/L CK-MB (CK-2) CK-MB (CK-2) Rel Index Troponin I < 0.012 (0.01-0.034) ng/mL NT-Pro-B Natriuret Pep (<450) pg/mL Total Protein (6.3-8.2) g/dL Albumin (3.5-5.0) g/dL Globulin (1.7-4.1) g/dL Albumin/Globulin Ratio (1.0-2.8) Lipase (23-300) U/L Imaging Data Chest x-ray: Radiologist's Impression: Launch?[address] [address] XRay Report Signed Patient: Brennen Levin MR#: [id number] : 1940 Acct:[id number] Age/Sex: 80 / M Date of Service: 04/01/21 Loc: ED Accession Number: [id number] ?? Procedure: XR chest 1V Ordering Provider: Lexus Licona D.O. PROCEDURE:? XR CHEST 1V ? INDICATIONS:? Chest pain ? TECHNIQUE:? One view of the chest was acquired.? ? COMPARISON:? None. ? FINDINGS:? ? Surgical changes and devices:? None.? ? Lungs and pleura:? Lungs are clear.? No pleural effusions or pneumothorax.? ? Mediastinum:? Mediastinal contours appear normal.? Heart size is normal.? ? Bones and chest wall:? No suspicious bony lesions.? Overlying soft tissues appear unremarkable.? ? IMPRESSION:? No acute cardiopulmonary process demonstrated radiographically. ? ? Dictated by: Theo Navarrete M.D. on 04/01/2021 at 14:39 ? ? Approved by: Theo Navarrete M.D. on 04/01/2021 at 14:42?? CT angio chest/abd/pelvis: Radiologist's Impression: Brennen Levin??80??M??1940 ? Allergy/Adv: latex Close Chest/Abdomen/Pelvis CTA (Signed) Sanchez Moran - 04/01/21 Chest X-Ray (Signed) Theo Navarrete - 04/01/21 Abdomen/Pelvis CT (Signed) Alex Paiz - 08/13/19 [place] Ultrasound (Signed) Amisha Petersen - 04/15/19 Hip X-Ray (Signed) Swapna Higgins - 11/11/18 Bladder Scan 11/11/18 Pelvis X-Ray (Signed) Sydni Del Cid - 11/11/18 [place] Ultrasound (Signed) Ventura Ray - 09/27/18 Radiology - Historical 05/15/17 Radiology - Historical 04/26/17 Launch?[address] [address] [address] Scan Report Signed Patient: Brennen Levin MR#: [id number] : 1940 Acct:[id number] Age/Sex: 80 / M Date of Service: 04/01/21 Loc: ED Accession Number: [id number] ?? Procedure: CT angio chest abdomen pelvis Ordering Provider: Lexus Licona D.O. PROCEDURE:? CT ANGIO CHEST ABDOMEN PELVIS ? INDICATIONS:? shoulder pain, hx aortic rupture per patient remotely ? TECHNIQUE:? Precontrast 5 mm thick sections acquired from the lung apices to the iliac crests.? After the administration of intravenous contrast, 2.5 mm thick sections again acquired from the lung apices to the iliac crests.? Maximum intensity projection (MIP) oblique sagittal and coronal reformats were then acquired.? For radiation dose reduction, the following was used:? automated exposure control.? ? COMPARISON:? None. ? FINDINGS: ? Chest: ? Cardiovascular:? Ectatic ascending thoracic aorta measures 4 cm. No evidence of aortic aneurysm or dissection.? Mild atherosclerotic vascular calcification noted.? Pulmonary artery is also well opacified without filling defect or pulmonary embolism.? Dense coronary artery vascular calcification present. ? Lungs and pleural spaces:? The lung serna are clear without nodule, infiltrate or interstitial prominence.? Pleural spaces show no effusion or pneumothorax. ? Lymph nodes:? No mediastinal, hilar or axillary adenopathy. ? Mediastinum:? Unremarkable.? Small hiatal hernia.? Thyroid within normal limits. ? Chest Wall and Bones:? Unremarkable.? No acute fracture.? Cervical spine plate and screw hardware noted in the lower cervical spine. ? Abdomen and Pelvis: ? Liver:? Normal in size and attenuation. No contour deformity present. Biliary system:? No calcified cholelithiasis or pericholecystic inflammation.? No intra or extrahepatic bile duct dilatation. ? Pancreas:? Unremarkable without mass or inflammation evident. ? Spleen:? Normal in size and density. ? Adrenals:? Normal morphology and density. ? Reproductive system:? Unremarkable as visualized. ? Urinary system:? Normal renal size and attenuation.? 3 cm simple left renal cyst present. ?2 mm nonobstructive left renal calculus.? No hydronephrosis bilaterally. ? Urinary bladder unremarkable. ? Gastrointestinal system:? The bowel appears unremarkable with no evidence of b owel obstruction or inflammation. The stomach appears unremarkable.? No findings to suggest acute appendicitis.? Multiple diverticula arise from the sigmoid and descending colon without evidence of diverticulitis. ? ? Lymph nodes:? No mesenteric or retroperitoneal adenopathy. ? Peritoneal spaces: ? No free air.? No free fluid.? Bilateral inguinal hernias contain fat without bowel involvement. ? Vasculature:? Atherosclerotic aorta without evidence of aneurysm or dissection.? Major branches patent proximally.? Calcified and noncalcified atherosclerotic plaque results in moderate stenosis of the proximal left common iliac vessel with small focus of contained plaque ulceration. ? Musculoskeletal:? Normal bone mineralization.? No acute fractures.? Bilateral hip prosthesis noted.? Mild multilevel degenerative disc disease in the lower lumbar spine ? IMPRESSION: ? 1.? 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 ? 2. No evidence of abdominal aortic aneurysm.? 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 ? 3. Incidental diverticulosis without diverticulitis, lower lumbar spine degenerative disc disease,, and other chronic findings above. ? Approved by: Sanchez Moran M.D. on 04/01/2021 at 16:40? ECG Data Attestation: I personally reviewed and interpreted this ECG as follows: Interpretation: Sinus bradycardia, left axis deviation with a right bundle- branch block. Rate of 55, [place] 204 QRS of 138 QTC of 438. EKG 2. Shows sinus bradycardia, left axis deviation right bundle-branch cleared no acute changes on EKG appears similar to prior from today. Rate of 47, [place] 204 QRS of 130 QTC of 433. MDM Narrative Medical decision making narrative: This is an 80-year-old male with left-sided thoracic pain that radiates to his arm and chest. No exacerbating factors has resolved on its own here in the department. EKG do not show any acute changes with negative troponin but I still have suspicion. He has thoracic ectasia which is seen on his CT. Discussed with patient offered observation for chest pain he defers would like to return home and I did contact his primary care to help facilitate short-term follow-up. Patient is aware that I still have concerns about cardiac causes and he is to return if he has new or worsening symptoms. Discharge Plan Departure Patient Disposition: Home Clinical Impression: Atypical chest pain Instructions: DI for Atypical Chest Pain Activity Restrictions/Additional Instructions: Follow-up with your physician for recheck, I have talked with Dr. Zheng's partner (Dr. Smith) so they can schedule an appointment and get you set up for testing. Call first thing Sunday morning. Call for an appointment. I would recommend continuing daily aspirin 81 mg. Your EKG and imaging today did not show any acute changes. Your CT imaging shows some thoracic ectasia but no acute changes, signs of aneurysm, dissection or bleeding. Continue home medications as prescribed. Return for new or worsening symptoms, recurrent chest, back or thoracic pain, lightheadedness or passing out, sweatiness, nausea vomiting, persistent vomiting, new swelling in her extremities or other new or concerning symptoms. Prescriptions: No Action losartan-hydrochlorothiazide 100 MG/25 MG tablet 1 tab PO QDAY Qty: 0 RF: 0 omeprazole 20 MG capsule,delayed release(DR/EC) 40 mg PO BID Qty: 0 RF: 0 amlodipine 5 mg Tablet 5 mg PO DAILY RF: 0 tamsulosin 0.4 mg Capsule 0.4 mg PO BID RF: 0 cilostazol 100 mg 100 mg PO BID RF: 0 naproxen sodium [Aleve] 220 mg Capsule 440 mg PO DAILY PRN (Reason: Pain) RF: 0 acetaminophen 325 mg Tablet 975 mg PO TID Qty: 0 RF: 0 aspirin 81 mg Tablet,Delayed Release (Dr/Ec) 81 mg PO BID Qty: 0 RF: 0 docusate sodium [DOK] 100 mg Capsule 100 mg PO BID Qty: 0 RF: 0 oxycodone 5 mg Tablet 5 mg PO Q3HR PRN (Reason: Pain, Moderate (4-6)) Qty: 0 RF: 0 Referrals: Tawana Zheng MD [Primary Care Provider] -
--- NOTE | 2021-04-01 16:18 | DI.CT.S_ITS ---
PROCEDURE: CT ANGIO CHEST ABDOMEN PELVIS INDICATIONS: shoulder pain, hx aortic rupture per patient remotely TECHNIQUE: Precontrast 5 mm thick sections acquired from the lung apices to the iliac crests. After the administration of intravenous contrast, 2.5 mm thick sections again acquired from the lung apices to the iliac crests. Maximum intensity projection (MIP) oblique sagittal and coronal reformats were then acquired. For radiation dose reduction, the following was used: automated exposure control. COMPARISON: None. FINDINGS: Chest: Cardiovascular: Ectatic ascending thoracic aorta measures 4 cm. No evidence of aortic aneurysm or dissection. Mild atherosclerotic vascular calcification noted. Pulmonary artery is also well opacified without filling defect or pulmonary embolism. Dense coronary artery vascular calcification present. Lungs and pleural spaces: The lung serna are clear without nodule, infiltrate or interstitial prominence. Pleural spaces show no effusion or pneumothorax. Lymph nodes: No mediastinal, hilar or axillary adenopathy. Mediastinum: Unremarkable. Small hiatal hernia. Thyroid within normal limits. Chest Wall and Bones: Unremarkable. No acute fracture. Cervical spine plate and screw hardware noted in the lower cervical spine. Abdomen and Pelvis: Liver: Normal in size and attenuation. No contour deformity present. Biliary system: No calcified cholelithiasis or pericholecystic inflammation. No intra or extrahepatic bile duct dilatation. Pancreas: Unremarkable without mass or inflammation evident. Spleen: Normal in size and density. Adrenals: Normal morphology and density. Reproductive system: Unremarkable as visualized. Urinary system: Normal renal size and attenuation. 3 cm simple left renal cyst present. 2 mm nonobstructive left renal calculus. No hydronephrosis bilaterally. Urinary bladder unremarkable. Gastrointestinal system: The bowel appears unremarkable with no evidence of bowel obstruction or inflammation. The stomach appears unremarkable. No findings to suggest acute appendicitis. Multiple diverticula arise from the sigmoid and descending colon without evidence of diverticulitis. Lymph nodes: No mesenteric or retroperitoneal adenopathy. Peritoneal spaces: No free air. No free fluid. Bilateral inguinal hernias contain fat without bowel involvement. Vasculature: Atherosclerotic aorta without evidence of aneurysm or dissection. Major branches patent proximally. Calcified and noncalcified atherosclerotic plaque results in moderate stenosis of the proximal left common iliac vessel with small focus of contained plaque ulceration. Musculoskeletal: Normal bone mineralization. No acute fractures. Bilateral hip prosthesis noted. Mild multilevel degenerative disc disease in the lower lumbar spine IMPRESSION: 1. 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 2. No evidence of abdominal aortic aneurysm. 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 3. Incidental diverticulosis without diverticulitis, lower lumbar spine degenerative disc disease,, and other chronic findings above. Approved by: Sanchez Moran M.D. on 04/01/2021 at 16:40
[2021-04-01 16:59] LABS: Troponin I < 0.012 ng/mL (0.01-0.034)
== END 2021-04-01 18:26 | disposition home or self-care (01) ==
PROVIDERS: Emergency Provider Emergency Medicine; Family Provider Student in an Organized Health Care Education/Training Program; PCP Student in an Organized Health Care Education/Training Program
DX: R07.89 Other chest pain (principal); M54.6 Pain in thoracic spine
CPT/HCPCS: 36415; 71045; 71275; 74174; 80053; 82550; 83690; 83735; 83880; 84484; 85025; 85610; 85730; 93005; 99284; Q9967

== ENCOUNTER 2021-05-13 07:53 | Emergency (ER) | payer MEDICARE, OTHER, SELFPAY ==
[2018-11-11 18:19] VITALS: BMI 30.2
[2021-05-13] VITALS (20 sets, daily range): BP systolic 89–144; BP diastolic 52–65; PULSE 64–81; RESP 17–25; TEMP 38.7; O2SAT 92–98; BMI 30.7
--- NOTE | 2021-05-13 08:31 | ED.FEVER ---
HPI - Fever General Chief Complaint: Fever Stated Complaint: body pains Time Seen by Provider: 05/13/21 08:04 Source: patient Mode of arrival: Ambulatory Limitations: no limitations History of Present Illness HPI Narrative: The patient presents with low back pain. He has a history of recurrent back pain. Current discomfort started about 1 week ago. He had severe increase in pain last night, while asleep. He has no recent trauma. He has no issues with bowel or bladder incontinence. He has no abdominal discomfort. He has no pain radiating to his legs. He has no numbness or weakness in his lower extremities. He was unaware fever, but he has fever at triage. He has no headache, sore throat, or change in taste or smell. He denies chest pain. He has no cough or dyspnea. He has no nausea, vomiting or diarrhea. He denies dysuria or genital pain. He has urinary urgency. He is on medications for BPH. He is unsure of history of prostatitis. Related Data Home Medications Medication Instructions Recorded Confirmed losartan 100 1 tab PO QDAY #0 11/09/11 11/11/18 mg-hydrochlorothiazide 25 mg tablet omeprazole 20 mg capsule,delayed 40 mg PO BID #0 11/09/11 11/11/18 release amlodipine 5 mg tablet 5 mg PO DAILY 01/15/18 11/11/18 cilostazol 100 mg PO BID 01/15/18 11/11/18 tamsulosin 0.4 mg capsule 0.4 mg PO BID 01/15/18 11/11/18 naproxen sodium 220 mg capsule 440 mg PO DAILY PRN 11/08/18 11/11/18 (Aleve) Previous Rx's Medication Instructions Recorded acetaminophen 325 mg tablet 975 mg PO TID #0 tab 11/13/18 aspirin 81 mg tablet,delayed 81 mg PO BID #0 tab 11/13/18 release docusate sodium 100 mg capsule 100 mg PO BID #0 cap 11/13/18 (DOK) oxycodone 5 mg tablet 5 mg PO Q3HR PRN #0 tab 11/13/18 ciprofloxacin HCl 250 mg tablet 250 mg PO BID #42 tab 05/13/21 (Cipro) Allergies Allergy/AdvReac Type Severity Reaction Status Date / Time latex [LATEX] Allergy Mild Rash Verified 04/01/21 13:59 Review of Systems Constitutional Constitutional: Reports fatigue, Reports fever(s), Denies headache(s), Reports lethargy and Reports poor appetite Eyes Eyes: Denies change in vision ENT Ears, Nose, Mouth, and Throat: Denies vertigo, Denies dizziness, Denies headache(s), Denies neck pain, Denies sinus pressure and Denies sore throat Cardiovascular Cardiovascular: Denies chest pain, Denies pedal edema, Denies irregular heart rhythm and Denies dyspnea Respiratory Respiratory: Denies chest congestion, Denies cough and Denies dyspnea Gastrointestinal Gastrointestinal: Denies abdominal pain, Denies diarrhea, Denies nausea and Denies vomiting Genitourinary Genitourinary: Reports as per HPI Musculoskeletal Musculoskeletal: Reports back pain and Denies neck pain Integumentary/Breasts Skin/Breast: Denies lesions and Denies rash Neurologic Neurologic: Denies confusion, Denies vertigo, Denies dizziness and Denies headache(s) Psychiatric Psychiatric: Denies confusion Endocrine Endocrine: Reports fatigue Hematologic/Lymphatic On Anticoagulants: No Patient History Medical History AAA (abdominal aortic aneurysm) Arthritis BPH (benign prostatic hyperplasia) Former smoker GERD (gastroesophageal reflux disease) HLD (hyperlipidemia) HTN (hypertension) Hyponatremia Osteoarthritis PAD (peripheral artery disease) PVD (peripheral vascular disease) Shingles TIA (transient ischemic attack) Surgical History History of bilateral cataract extraction (~2017) History of colonoscopy History of total right hip arthroplasty Hx of appendectomy Hx of bone graft S/P cervical spinal fusion (08/09/15) Social History household members: friend(s) and none Smoking Status: Former smoker alcohol intake: current Smoking Status: Former smoker alcohol intake frequency: 3 or more drinks per day Substance Use Type: does not use Exam Initial Vital Signs Initial Vital Signs: Vital Signs Temperature 101.6 F H 05/13/21 07:55 Pulse Rate 81 05/13/21 07:55 Respiratory Rate 17 05/13/21 07:55 Blood Pressure 139/65 05/13/21 07:55 Pulse Oximetry 96 05/13/21 07:55 Const General: cooperative, healthy appearing and comfortable [facility] Head: normocephalic and atraumatic Mouth: oral mucosae normal Throat: posterior oropharynx normal Eyes Sclera: sclerae normal Pupils: PERRL EOM: EOM intact bilaterally Neck Neck: supple and No JVD Chest Chest: No crepitus and No tenderness Resp Auscultation: clear to auscultation bilaterally Cardio Rate: regular rate Rhythm: regular rhythm Heart Sounds: S1 normal, S2 normal and no murmurs GI Palpation: soft, No guarding and No mass Auscultation: normal bowel sounds Rectal Exam: normal sphincter tone, heme negative stool and prostate abnormal ( The prostate is enlarged, boggy and tender.) External: normal external exam Back/Spine/Pelvis Other: Tenderness over the central lumbar spine. No paraspinal tenderness. No SI tenderness. Skin General: no rashes or lesions noted Neuro General: patient alert, patient awake, patient oriented x3 and no focal motor deficits Extrem General: normal to inspection, no pedal edema and no calf tenderness Psych Mental Status: mental status grossly normal Course Course Course Narrative: The patient had a slight elevation to the lactic acid, normal saline bolus was initiated. Levaquin was given for prostatitis. His lactic acid has improved. He is feeling significantly better. He will be discharged home with [facility]. He is instructed to arrange follow-up with his PCM. Orders Ordered: ED Orders 05/13/21 08:37 COVID19 - ADMIT ([employer] swab/PCR) Stat Complete Blood Count AUTO DIFF Stat Comprehensive Metabolic Panel Stat Lactate (Lactic Acid) Stat Lipase Stat Procalcitonin Stat Troponin & CK Cardiac Panel Stat 05/13/21 09:17 Blood Culture Stat 05/13/21 11:44 Urinalysis and Microscopic Stat Urine Culture Stat 05/13/21 11:47 CXR [XR chest 1V] Stat Sodium Chloride (Normal Saline 0.9%) 1,000 mls @ 250 mls/hr IV CONT MARSHA Last Admin: 05/13/21 09:42 Dose: Not Given Documented by: KRISH Discontinued Medications Levofloxacin (Levaquin) 500 mg in 100 mls @ 100 mls/hr IV NOW ONE Stop: 05/13/21 09:40 Last Infusion: 05/13/21 11:35 Dose: 0 mls/hr Documented by: Admin: 05/13/21 09:36 Dose: 100 mls/hr Documented by: KRISH Sodium Chloride (Normal Saline 0.9%) 3,084 mls @ 1,028 mls/hr 30 ml/kg infuse over 3 hr (3084 ml) IV NOW ONE Stop: 05/13/21 12:08 Last Infusion: 05/13/21 12:47 Dose: 0 mls/hr Documented by: Admin: 05/13/21 09:35 Dose: 1,028 mls/hr Documented by: KRISH Vital Signs Vital signs: Vital Signs - 8 hr 05/13/21 07:55 05/13/21 08:35 05/13/21 09:00 Temperature 101.6 F H Pulse Rate 81 77 72 Respiratory Rate 17 Blood Pressure 139/65 144/63 H Pulse Oximetry 96 95 94 05/13/21 09:30 05/13/21 09:39 05/13/21 10:00 Temperature Pulse Rate 69 68 66 Respiratory Rate 19 Blood Pressure 126/59 L 135/60 Pulse Oximetry 95 93 05/13/21 10:30 05/13/21 11:00 05/13/21 11:15 Temperature Pulse Rate 67 67 68 Respiratory Rate 19 18 20 Blood Pressure 122/60 124/59 L Pulse Oximetry 95 92 92 05/13/21 11:30 05/13/21 11:31 05/13/21 11:32 Temperature Pulse Rate 81 71 71 Respiratory Rate 22 18 Blood Pressure 89/54 L 95/52 L Pulse Oximetry 92 96 97 MDM - Fever Lab Data Result diagrams: 05/13/21 08:37 05/13/21 08:37 Labs: Lab Results 05/13/21 05/13/21 05/13/21 Range/Units 08:37 08:37 08:37 WBC 12.6 H (4.5-11.0) X10^3/uL RBC 4.43 L (4.5-5.9) X10^6/uL Hgb 13.2 L (13.5-17.5) g/dL Hct 39.4 L (41-53) % MCV 88.8 (80-100) fL MCH 29.9 (26-34) PG MCHC 33.6 (30-36) % RDW 13.8 (11.6-14.8) % Plt Count 184 (150-400) X10^3/uL Neut % (Auto) 94.1 H (50-75) % Lymph % (Auto) 2.0 L (25-40) % Mercer % (Auto) 3.5 (3-14) % Eos % (Auto) 0.3 L (2-4) % Baso % (Auto) 0.1 (0-2) % Neut # (Auto) 62145 H (4091-8568) /uL Lymph # (Auto) 300 L (8929-6803) /uL Mercer # (Auto) 400 (0-900) /uL Eos # (Auto) 0 (0-450) /uL Baso # (Auto) 0 (0-100) /uL Sodium 132 L (137-145) mmol/L Potassium 4.3 (3.4-5.1) mmol/L Chloride 102 (98-107) mmol/L Carbon Dioxide 25 (22-32) mmol/L BUN 21 H (9-20) mg/dL Creatinine 0.94 (0.66-1.25) mg/dL Estimated GFR > 60.0 (>60) mL/min BUN/Creatinine Ratio 22.3 H (6-22) Glucose 129 H (80-110) mg/dL Lactate 2.4 H (0.7-2.1) mmol/L Calcium 8.6 (8.4-10.2) mg/dL Total Bilirubin 0.8 (0.2-1.3) mg/dL AST 39 (17-59) IU/L ALT 24 (<50) IU/L Alkaline Phosphatase 60 (38-126) U/L Total Creatine Kinase (55-170) U/L CK-MB (CK-2) CK-MB (CK-2) Rel Index Troponin I (0.01-0.034) ng/mL Total Protein 6.6 (6.3-8.2) g/dL Albumin 3.7 (3.5-5.0) g/dL Globulin 2.9 (1.7-4.1) g/dL Albumin/Globulin Ratio 1.3 (1.0-2.8) Lipase 55 (23-300) U/L Procalcitonin (<0.5) ng/mL Urine Color Urine Appearance Urine pH (4.5-8.0) Ur Specific Harrison (1.000-1.035) Urine Protein (Negative) Urine Glucose (UA) (Negative) g/dL Urine Ketones (NEGATIVE) Urine Occult Blood (Negative) Urine Nitrate (Negative) Urine Bilirubin (NEGATIVE) Urine Urobilinogen (0.2) E.U./dL Ur Leukocyte Esterase (NEGATIVE) Urine RBC (0-5/HPF) Urine WBC (0-5/HPF) Amorphous Sediment Urine Bacteria (None) Ur Culture Indicated? SARS-CoV-2 (PCR) (Negative) 05/13/21 05/13/21 05/13/21 Range/Units 08:37 08:37 11:44 WBC (4.5-11.0) X10^3/uL RBC (4.5-5.9) X10^6/uL Hgb (13.5-17.5) g/dL Hct (41-53) % MCV (80-100) fL MCH (26-34) PG MCHC (30-36) % RDW (11.6-14.8) % Plt Count (150-400) X10^3/uL Neut % (Auto) (50-75) % Lymph % (Auto) (25-40) % Mercer % (Auto) (3-14) % Eos % (Auto) (2-4) % Baso % (Auto) (0-2) % Neut # (Auto) (3015-9162) /uL Lymph # (Auto) (5302-3560) /uL Mercer # (Auto) (0-900) /uL Eos # (Auto) (0-450) /uL Baso # (Auto) (0-100) /uL Sodium (137-145) mmol/L Potassium (3.4-5.1) mmol/L Chloride (98-107) mmol/L Carbon Dioxide (22-32) mmol/L BUN (9-20) mg/dL Creatinine (0.66-1.25) mg/dL Estimated GFR (>60) mL/min BUN/Creatinine Ratio (6-22) Glucose (80-110) mg/dL Lactate (0.7-2.1) mmol/L Calcium (8.4-10.2) mg/dL Total Bilirubin (0.2-1.3) mg/dL AST (17-59) IU/L ALT (<50) IU/L Alkaline Phosphatase (38-126) U/L Total Creatine Kinase 95 (55-170) U/L CK-MB (CK-2) TNP CK-MB (CK-2) Rel Index TNP Troponin I < 0.012 (0.01-0.034) ng/mL Total Protein (6.3-8.2) g/dL Albumin (3.5-5.0) g/dL Globulin (1.7-4.1) g/dL Albumin/Globulin Ratio (1.0-2.8) Lipase (23-300) U/L Procalcitonin 0.66 H (<0.5) ng/mL Urine Color Yellow Urine Appearance Clear Urine pH 8.0 (4.5-8.0) Ur Specific Harrison 1.010 (1.000-1.035) Urine Protein Trace H (Negative) Urine Glucose (UA) Negative (Negative) g/dL Urine Ketones Negative (NEGATIVE) Urine Occult Blood Negative (Negative) Urine Nitrate Negative (Negative) Urine Bilirubin Negative (NEGATIVE) Urine Urobilinogen 1.0 (0.2) E.U./dL Ur Leukocyte Esterase Trace H (NEGATIVE) Urine RBC None seen (0-5/HPF) Urine WBC 0-1/hpf (0-5/HPF) Amorphous Sediment 1+ Urine Bacteria None seen (None) Ur Culture Indicated? Specimen cultured SARS-CoV-2 (PCR) Negative (Negative) 05/13/21 Range/Units 11:52 WBC (4.5-11.0) X10^3/uL RBC (4.5-5.9) X10^6/uL Hgb (13.5-17.5) g/dL Hct (41-53) % MCV (80-100) fL MCH (26-34) PG MCHC (30-36) % RDW (11.6-14.8) % Plt Count (150-400) X10^3/uL Neut % (Auto) (50-75) % Lymph % (Auto) (25-40) % Mercer % (Auto) (3-14) % Eos % (Auto) (2-4) % Baso % (Auto) (0-2) % Neut # (Auto) (1359-7436) /uL Lymph # (Auto) (8058-9353) /uL Mercer # (Auto) (0-900) /uL Eos # (Auto) (0-450) /uL Baso # (Auto) (0-100) /uL Sodium (137-145) mmol/L Potassium (3.4-5.1) mmol/L Chloride (98-107) mmol/L Carbon Dioxide (22-32) mmol/L BUN (9-20) mg/dL Creatinine (0.66-1.25) mg/dL Estimated GFR (>60) mL/min BUN/Creatinine Ratio (6-22) Glucose (80-110) mg/dL Lactate 1.9 (0.7-2.1) mmol/L Calcium (8.4-10.2) mg/dL Total Bilirubin (0.2-1.3) mg/dL AST (17-59) IU/L ALT (<50) IU/L Alkaline Phosphatase (38-126) U/L Total Creatine Kinase (55-170) U/L CK-MB (CK-2) CK-MB (CK-2) Rel Index Troponin I (0.01-0.034) ng/mL Total Protein (6.3-8.2) g/dL Albumin (3.5-5.0) g/dL Globulin (1.7-4.1) g/dL Albumin/Globulin Ratio (1.0-2.8) Lipase (23-300) U/L Procalcitonin (<0.5) ng/mL Urine Color Urine Appearance Urine pH (4.5-8.0) Ur Specific Harrison (1.000-1.035) Urine Protein (Negative) Urine Glucose (UA) (Negative) g/dL Urine Ketones (NEGATIVE) Urine Occult Blood (Negative) Urine Nitrate (Negative) Urine Bilirubin (NEGATIVE) Urine Urobilinogen (0.2) E.U./dL Ur Leukocyte Esterase (NEGATIVE) Urine RBC (0-5/HPF) Urine WBC (0-5/HPF) Amorphous Sediment Urine Bacteria (None) Ur Culture Indicated? SARS-CoV-2 (PCR) (Negative) Urine Dip Bedside Urine Glucose Negative Bedside Urine Bilirubin - Negative Bedside Urine Ketone - Negative Urine Specific Harrison 1.010 Bedside Urine Occult Blood - Negative Bedside Urine pH 8 Bedside Urine Protein +/- 15 Bedside Urine Urobilinogen +/- 1mg Bedside Urine Nitrite - Negative Bedside Urine Leukocytes - Negative Esterase Imaging Data Chest x-ray: Radiologist's Impression: No acute cardiopulmonary process. Discharge Plan Departure Patient Disposition: Home Clinical Impression: Acute prostatitis Instructions: Prostatitis Activity Restrictions/Additional Instructions: Aleve 2 times daily as needed for pain. Be sure you are drinking plenty of fluids. Cipro 250 mg 2 times daily for 3 weeks. Arrange follow-up with her doctor in 3-4 weeks. Return here for increased pain or worsening fever. Prescriptions: New ciprofloxacin HCl [Cipro] 250 mg tablet 250 mg PO BID Qty: 42 0RF No Action losartan-hydrochlorothiazide 100 MG/25 MG tablet 1 tab PO QDAY Qty: 0 0RF omeprazole 20 MG capsule,delayed release(DR/EC) 40 mg PO BID Qty: 0 0RF amlodipine 5 mg Tablet 5 mg PO DAILY 0RF tamsulosin 0.4 mg Capsule 0.4 mg PO BID 0RF cilostazol 100 mg 100 mg PO BID 0RF naproxen sodium [Aleve] 220 mg Capsule 440 mg PO DAILY PRN (Reason: Pain) 0RF acetaminophen 325 mg Tablet 975 mg PO TID Qty: 0 0RF aspirin 81 mg Tablet,Delayed Release (Dr/Ec) 81 mg PO BID Qty: 0 0RF docusate sodium [DOK] 100 mg Capsule 100 mg PO BID Qty: 0 0RF oxycodone 5 mg Tablet 5 mg PO Q3HR PRN (Reason: Pain, Moderate (4-6)) Qty: 0 0RF Referrals: Tawana Zheng MD [Primary Care Provider] -
[2021-05-13 08:46] LABS: Add Manual Diff / Slide Review NO; Basophils Absolute Auto 0 /uL (0-100); Basophils Percent Auto 0.1 % (0-2); Eosinophils Absolute Auto 0 /uL (0-450); Eosinophils Percent Auto 0.3 % (2-4); Hematocrit 39.4 % (41-53); Hemoglobin 13.2 g/dL (13.5-17.5); Lymphocytes Absolute Auto 300 /uL (1100-4500); Mean Corpuscular HGB Conc 33.6 % (30-36); Mean Corpuscular Hemoglobin 29.9 PG (26-34); Mean Corpuscular Volume 88.8 fL (80-100); Monocytes Absolute Auto 400 /uL (0-900); Monocytes Percent Auto 3.5 % (3-14); Neutrophils Absolute Auto 11800 /uL (1500-7000); Neutrophils Percent Auto 94.1 % (50-75); Platelet Count 184 X10^3/uL (150-400); Red Blood Cell Count 4.43 X10^6/uL (4.5-5.9); Red Cell Distribution Width 13.8 % (11.6-14.8); White Blood Cell Count 12.6 X10^3/uL (4.5-11.0)
[2021-05-13 08:57] LABS: Alanine Aminotransferase 24 IU/L (<50); Albumin 3.7 g/dL (3.5-5.0); Alkaline Phosphatase 60 U/L (38-126); Aspartate Aminotransferase 39 IU/L (17-59); BUN Creatinine Ratio 22.3 (6-22); Bilirubin Total 0.8 mg/dL (0.2-1.3); Blood Urea Nitrogen 21 mg/dL (9-20); Calcium 8.6 mg/dL (8.4-10.2); Carbon Dioxide 25 mmol/L (22-32); Chloride 102 mmol/L (98-107); Estimated Glomerular Filt Rate > 60.0 mL/min (>60); Globulin 2.9 g/dL (1.7-4.1); Glucose 129 mg/dL (80-110); Potassium 4.3 mmol/L (3.4-5.1); Sodium 132 mmol/L (137-145); Total Protein 6.6 g/dL (6.3-8.2)
[2021-05-13 08:58] LABS: Albumin Globulin Ratio 1.3 (1.0-2.8); HEMOLYSIS < 15 (0-50); Lactate (Lactic Acid) 2.4 mmol/L (0.7-2.1); Lipase 55 U/L (23-300)
[2021-05-13] MEDS: SODIUM CHLORIDE 0.9% 1028 ML IV (09:35)
[2021-05-13] MEDS: levoFLOXacin 500 MG/100 ML PIGGYBACK 100 MG IV (09:36)
[2021-05-13 10:43] LABS: Reflexed Lactate in 2 Hours Y
[2021-05-13 11:19] LABS: COVID19 - ADMIT (NP swab/PCR) Negative (Negative)
[2021-05-13 11:28] LABS: Creatine Kinase 95 U/L (55-170)
[2021-05-13 11:41] LABS: Troponin I < 0.012 ng/mL (0.01-0.034)
[2021-05-13 11:46] LABS: Procalcitonin 0.66 ng/mL (<0.5)
--- NOTE | 2021-05-13 11:47 | DI.RAD.S_ITS ---
PROCEDURE: XR CHEST 1V INDICATIONS: fever, TECHNIQUE: One view of the chest was acquired. COMPARISON: [facility], CT, CT ANGIO CHEST ABDOMEN PELVIS, 04/01/2021, 16:50. [facility], CR, XR CHEST 1V, 04/01/2021, 14:10. FINDINGS: Surgical changes and devices: Cervical fixation plate and left clavicular fixation is noted. Lungs and pleura: Lungs are clear. No pleural effusions or pneumothorax. Mediastinum: Mediastinal contours appear normal. Heart size is enlarged. Bones and chest wall: No suspicious bony lesions. Overlying soft tissues appear unremarkable. IMPRESSION: No acute pulmonary process. Dictated by: Sydni Del Cid M.D. on 05/13/2021 at 12:53 Approved by: Sydni Del Cid M.D. on 05/13/2021 at 12:53
[2021-05-13 12:28] LABS: Appearance Urine UA CLEAR; Bilirubin Urine UA NEGATIVE (NEGATIVE); Color Urine UA YELLOW; Glucose Urine UA NEGATIVE (Negative); Ketones Urine UA NEGATIVE (NEGATIVE); Leukocyte Esterase Urine UA TRACE (NEGATIVE); Nitrite Urine UA NEGATIVE (Negative); Occult Blood Urine UA NEGATIVE (Negative); Protein Urine UA TRACE (Negative)
[2021-05-13 12:31] LABS: Lactate 2HR (Lactic Acid Rflx) 1.9 mmol/L (0.7-2.1)
[2021-05-13 12:45] LABS: Amorphous Sediment Urine 1+; Bacteria Urine None Seen; Culture Indicated Urine Specimen Cultured; RBC Urine None Seen (0-5/HPF); WBC Urine 0-1/HPF (0-5/HPF)
== END 2021-05-13 13:30 | disposition home or self-care (01) ==
PROVIDERS: Emergency Provider Emergency Medicine; Family Provider Student in an Organized Health Care Education/Training Program; PCP Student in an Organized Health Care Education/Training Program
DX: N41.9 Inflammatory disease of prostate, unspecified (principal); R50.9 Fever, unspecified; Z20.822 Contact with and (suspected) exposure to COVID-19
CPT/HCPCS: 36415; 51798; 71045; 80053; 81001; 81003; 82550; 83605; 83690; 84145; 84484; 85025; 87040; 87086; 87635; 96361; 96365; 96366; 99284; C9803; J1956

== ENCOUNTER → 2021-05-23 09:59 | Outpatient (CLI) | payer MEDICARE, OTHER, SELFPAY ==
[2018-11-11 18:19] VITALS: BMI 30.2
[2021-05-23 13:42] LABS: COVID19 -Nasal RAPID Negative (Negative)
== END ==
PROVIDERS: Family Provider Student in an Organized Health Care Education/Training Program; PCP Student in an Organized Health Care Education/Training Program; Visit Provider Physician Assistant
DX: Z20.822 Contact with and (suspected) exposure to COVID-19 (principal)
CPT/HCPCS: 87635; C9803

== ENCOUNTER → 2021-05-24 08:36 | Outpatient (CLI) | payer MEDICARE, OTHER, SELFPAY ==
[2018-11-11 18:19] VITALS: BMI 30.2
--- NOTE | 2021-05-24 18:18 | DI.NM.S_ITS ---
DATE OF SERVICE: 05/24/2021 PROCEDURE: Pharmacological perfusion study. DATE OF STUDY: May 24, 2021. INDICATIONS: Chest pain with underlying hypertension and hyperlipidemia. RADIOPHARMACEUTICAL: 25.9 millicurie technetium-99m Myoview IV was injected at stress and 12.9 millicurie technetium-99m Myoview IV was injected at rest. It was one day protocol. CARDIAC STRESS: Initially, the patient attempted exercise stress test. He walked on Stuart protocol for 3 minutes and achieved 82 percent of target heart rate and normal blood pressure response, but he was unable to continue on the treadmill. He was not able to tolerate the speed. Exercise stress test got converted to a pharmacological perfusion study. The patient received IV Lexiscan as per protocol. The patient remained hemodynamically stable. No anginal symptoms. Baseline rhythm was sinus with right bundle branch block and left anterior fascicular block. During exercise as well as during Lexiscan, no convincing ischemic changes seen. The patient has some PVCs without any ventricular tachycardia. RAW DATA: There is increased subdiaphragmatic activity. The patient's weight is 225 pounds. GATED STUDY: Resting LV ejection fraction 71 percent and stress LV ejection fraction 73 percent without any obvious wall motion abnormalities. Resting end- diastolic volume 130 mL. TID ratio 0.95, which is within normal limits. Lung/heart ratio 0.31, which is within normal limits. MYOCARDIAL PERFUSION SCAN: Stress supine, resting supine and stress prone images were compared to each other. Stress supine and resting supine images revealed small to moderate size, moderate to severely decreased perfusion of inferior wall extending into the distal inferolateral wall which got completely resolved during prone images suggestive of diaphragmatic tissue attenuation artifact. No convincing ischemia or infarction during stress prone images. CONCLUSION: I will call this study a normal myocardial perfusion study with evidence of diaphragmatic tissue attenuation artifact which got resolved during prone images. Diminished exercise tolerance. Preserved left ventricular function. No complex arrhythmias during exercise other than some PVCs. Overall low-risk myocardial perfusion scan. Brennen Levin - DEBORAH/prudencio/tino doc#: [id number]/job#: [id number] dd: 05/24/2021 17:00:00 dt: 05/24/2021 18:10:00 DICTATING MD/COPIES TO: Thor Unger MD COPIES MNE: RODNEY;
== END ==
PROVIDERS: Family Provider Student in an Organized Health Care Education/Training Program; PCP Student in an Organized Health Care Education/Training Program; Referring Provider Student in an Organized Health Care Education/Training Program; Visit Provider Student in an Organized Health Care Education/Training Program
DX: R07.9 Chest pain, unspecified (principal); I10 Essential (primary) hypertension; E78.5 Hyperlipidemia, unspecified
CPT/HCPCS: 78452; 93017; A9502; J2785

== ENCOUNTER 2021-08-19 17:59 | Emergency (ER) | payer MEDICARE, OTHER, SELFPAY ==
[2018-11-11 18:19] VITALS: BMI 30.2
[2021-08-19] VITALS (11 sets, daily range): BP systolic 139–157; BP diastolic 65–76; PULSE 54–63; RESP 15–23; TEMP 36–36.1; O2SAT 96–100; BMI 30.6
--- NOTE | 2021-08-19 18:02 | DI.RAD.S_ITS ---
PROCEDURE: XR CHEST 1V INDICATIONS: trauma TECHNIQUE: One view of the chest was acquired. COMPARISON: [facility], , XR CHEST 1V, 05/13/2021, 12:27. FINDINGS: Surgical changes and devices: None. Lungs and pleura: Lungs are clear. No pleural effusions or pneumothorax. Mediastinum: Mediastinal contours appear normal. Heart size is enlarged. Bones and chest wall: No suspicious bony lesions. Overlying soft tissues appear unremarkable. IMPRESSION: Cardiomegaly without vascular congestion Approved by: Sanchez Moran M.D. on 08/19/2021 at 17:28
--- NOTE | 2021-08-19 18:02 | DI.RAD.S_ITS ---
PROCEDURE: XR PELVIS 1-2V INDICATIONS: trauma TECHNIQUE: 1 view of the lower pelvis acquired. COMPARISON: [facility], , XR PELVIS 1-2V, 11/11/2018, 16:05. FINDINGS: Bones: Patient is status post bilateral hip arthroplasty, with hardware components in expected positions. The hip joint appears congruent. The visualized bony structures appear intact. Soft tissues: Overlying postoperative changes are noted. No suspicious soft tissue densities. IMPRESSION: Bilateral hip prosthesis in place. No evidence of hardware failure loosening Approved by: Sanchez Moran M.D. on 08/19/2021 at 17:29
--- NOTE | 2021-08-19 18:03 | DI.CT.S_ITS ---
PROCEDURE: CT CERVICAL SPINE WO CON INDICATIONS: Trauma TECHNIQUE: Noncontrast 3 mm thick sections acquired from the skull base to the T4 level. Sagittal and coronal reformats were then constructed. For radiation dose reduction, the following was used: automated exposure control, adjustment of mA and/or kV according to patient size. COMPARISON: [facility], MR, C-SPINE WITHOUT CONTRAST, 05/18/2015, 7:45. [facility], CT, SOFT TISSUE NECK W CONTRAST, 04/26/2017, 15:46. [facility], CT, CT HEAD/BRAIN WO CON, 08/19/2021, 18:09. [facility], CR, XR CHEST 1V, 08/19/2021, 17:56. FINDINGS: Image quality: Excellent. Bones: There is a complex fracture seen of the C7 level, with moderate displacement, which is best seen on series 5, image 40. At C7-T1, there is grade 1 anterolisthesis, with moderate to severe disc space narrowing anteriorly, with 6 mm malalignment. At least moderate central canal narrowing can be seen posterior to the C7 level. This fracture and the bony mild alignment cannot be seen in 2017. Visualized superior ribs are intact. Plate and screw fixation can be seen the left clavicle. Lower cervical spine fixation hardware is seen anteriorly C4 through C7. Disc spacers are seen at C4-C5, C5-C6, and C6-C7. No findings of hardware failure or hardware loosening are seen. There is moderate disc space narrowing seen at C2-C3, with partial bony fusion. There is at least moderate disc space narrowing seen at C3-C4, with partially bridging anterior osteophytes. 3 Soft tissues: Prevertebral soft tissues are normal in thickness. No paravertebral hematomas. No apical pneumothoraces. IMPRESSION: C7 fracture with 6 mm mild alignment seen along the anterior aspect of C7-T1. At least moderate central canal narrowing can be seen posterior to C7. Spine surgery consultation is recommended. A dedicated cervical spine MRI may also be helpful for further evaluation. Intact appearing hardware seen C4 through C7. Note: Findings and recommendations discussed by telephone with bones Dr. Maxwell at 5:31 p.m. [place] time on August 19, 2021. Dictated by: Evaristo Roa M.D. on 08/19/2021 at 17:25 Approved by: Evaristo Roa M.D. on 08/19/2021 at 17:34
--- NOTE | 2021-08-19 18:03 | DI.CT.S_ITS ---
PROCEDURE: CT HEAD/BRAIN WO CON INDICATIONS: Trauma TECHNIQUE: Noncontrast 4.5 mm thick angled axial sections acquired from the foramen magnum to the vertex, with coronal and sagittal reformats. For radiation dose reduction, the following was used: automated exposure control, adjustment of mA and/or kV according to patient size. COMPARISON: [facility], CT, CT CERVICAL SPINE WO CON, 08/19/2021, 18:09. [facility], MR, BRAIN W&WO CONTRAST, 05/16/2017, 13:49. FINDINGS: Image quality: Excellent. CSF spaces: Basal cisterns are patent. No extra-axial fluid collections. The ventricles are symmetric in size and shape. Brain: No intracranial bleeds or masses. There is cerebral volume loss for age, with resultant ventricular and sulcal prominence. There are periventricular and deep white matter chronic small vessel ischemic changes. There is intracranial internal carotid artery atherosclerosis. Skull and face: Calvarium and visualized facial bones appear intact, without suspicious lesions. Sinuses: Mucous retention cysts can be seen within the inferior aspects the maxillary sinuses. Visualized sinuses and mastoids are otherwise relatively clear. IMPRESSION: No acute intracranial hemorrhage is seen. No acute intracranial process is seen. Note is made of age-appropriate brain parenchymal volume loss and chronic small vessel ischemic changes. Dictated by: Evaristo Roa M.D. on 08/19/2021 at 17:36 Approved by: Evaristo Roa M.D. on 08/19/2021 at 17:37
--- NOTE | 2021-08-19 18:13 | ED_ITS ---
HPI - Fall General Chief Complaint: Fall Stated Complaint: Unwit. Fall with +LOC Time Seen by Provider: 08/19/21 18:01 Source: patient and EMS Mode of arrival: EMS History of Present Illness HPI Narrative: 81-year-old male former smoker with history of hypertension presents by EMS for evaluation of a ground level mechanical fall in his kitchen which he fell backwards and struck his head. Per EMS he thinks he had a brief loss of conscio usness but denies any nausea, vomiting nor focal neurologic symptoms such as numbness, tingling or weakness. He states he was in his normal state of health and denies any obvious prodromal symptoms. He complains low neck pain and is otherwise well and free of complaint. He is activated as a modified trauma given fall, suspected injury and age > 81. Related Data Home Medications Medication Instructions Recorded Confirmed losartan 100 1 tab PO QDAY #0 11/09/11 11/11/18 mg-hydrochlorothiazide 25 mg tablet omeprazole 20 mg capsule,delayed 40 mg PO BID #0 11/09/11 11/11/18 release amlodipine 5 mg tablet 5 mg PO DAILY 01/15/18 11/11/18 cilostazol 100 mg PO BID 01/15/18 11/11/18 tamsulosin 0.4 mg capsule 0.4 mg PO BID 01/15/18 11/11/18 naproxen sodium 220 mg capsule 440 mg PO DAILY PRN 11/08/18 11/11/18 (Aleve) Previous Rx's Medication Instructions Recorded acetaminophen 325 mg tablet 975 mg PO TID #0 tab 11/13/18 aspirin 81 mg tablet,delayed 81 mg PO BID #0 tab 11/13/18 release docusate sodium 100 mg capsule 100 mg PO BID #0 cap 11/13/18 (DOK) oxycodone 5 mg tablet 5 mg PO Q3HR PRN #0 tab 11/13/18 ciprofloxacin HCl 250 mg tablet 250 mg PO BID #42 tab 05/13/21 (Cipro) Allergies Allergy/AdvReac Type Severity Reaction Status Date / Time latex [LATEX] Allergy Mild Rash Verified 04/01/21 13:59 Review of Systems Review of Systems Narrative: GENERAL: See HPI HEENT: Denies sinus pain, ear pain, sore throat, difficulty swallowing, dizziness. RESPIRATORY: Denies dyspnea, cough, wheezing, hemoptysis, sputum. CARDIOVASCULAR: Denies chest pain, palpitations, orthopnea, edema, GASTROINTESTINAL: Denies nausea, vomiting, abdominal pain, diarrhea, constipation, melena. : Denies dysuria, frequency, incontinence, hematuria, urinary retention. MUSCULOSKELETAL: See HPI SKIN: Denies rash, skin lesions, or other NEUROLOGIC: See HPI PSYCHIATRIC: No concerning psychosocial issues. 12 point review of systems is negative except for those stated above Patient History Medical History AAA (abdominal aortic aneurysm) Arthritis BPH (benign prostatic hyperplasia) Former smoker GERD (gastroesophageal reflux disease) HLD (hyperlipidemia) HTN (hypertension) Hyponatremia Osteoarthritis PAD (peripheral artery disease) PVD (peripheral vascular disease) Shingles TIA (transient ischemic attack) Surgical History History of bilateral cataract extraction (~2018) History of colonoscopy History of total right hip arthroplasty Hx of appendectomy Hx of bone graft S/P cervical spinal fusion (08/09/15) Social History household members: friend(s) and none Smoking Status: Former smoker alcohol intake: current Smoking Status: Former smoker alcohol intake frequency: 3 or more drinks per day Substance Use Type: does not use Exam Narrative Exam Narrative: GENERAL: [81] year old patient appears stated age. Well-developed patient, in mild distress. GCS 15 HEAD: Atraumatic. Normocephalic. EYES: Pupils equal round and reactive. No hyphema Extraocular motions intact. No scleral icterus. No injection or drainage. ENT: Nose without bleeding, purulent drainage. No nasal septal hematoma or hemotympanum Throat without erythema, tonsillar hypertrophy or exudate. Airway patent. NECK: Cervical collar in place, midline tenderness in the lower cervical spine, no step-offs or crepitance noted CARDIOVASCULAR: Regular rate and rhythm without murmurs, gallops, or rubs. RESPIRATORY: Clear to auscultation. Breath sounds equal bilaterally. No wheezes, rales, or rhonchi. GASTROINTESTINAL: Abdomen soft, non-tender, nondistended. EXTREMITIES: No edema or joint tenderness. BACK: Nontender without deformity or crepitance. No flank tenderness. NEURO: AOx3. Cranial nerves 2-12 grossly intact. No measurable weakness, no saddle anesthesia, tingling noted in fingers of left hand. SKIN: No rash or erythema of visible areas Initial Vital Signs Initial Vital Signs: Vital Signs Temperature 96.9 F L 08/19/21 18:02 Pulse Rate 63 08/19/21 18:02 Respiratory Rate 16 08/19/21 18:02 Blood Pressure 154/65 H 08/19/21 18:02 Pulse Oximetry 97 08/19/21 18:02 Course Orders Ordered: ED Orders 08/19/21 18:02 XR chest 1V Stat XR pelvis 1-2V Stat EKG-12 Lead Stat 08/19/21 18:03 CT cervical spine wo con Stat CT head/brain wo con Stat 08/19/21 18:40 Complete Blood Count AUTO DIFF Stat Comprehensive Metabolic Panel Stat Ethanol (ETOH) Stat Lipase Stat Type and Screen Stat 08/19/21 18:44 COVID19 -Nasal swab/Pre-Proc Stat Discontinued Medications Fentanyl (Fentanyl 100 Mcg/2 Ml Inj) 50 mcg IV Q1H PRN PRN Reason: Pain, Severe (7-10) Last Admin: 08/19/21 20:05 Dose: 50 mcg Documented by: Admin: 08/19/21 19:01 Dose: 50 mcg Documented by: CATRACHITA Ondansetron HCl (Ondansetron 4 Mg/2 Ml Inj) 4 mg IV NOW ONE Stop: 08/19/21 18:57 Last Admin: 08/19/21 19:01 Dose: 4 mg Documented by: CATRACHITA Consultations Consultation #1: call to [facility] [place]. Dr. Fried happy to accept. Images pushed, face sheet sent. [facility] activated. Patient friend nAg Fierro contacted at Mr. Levin's request ([phone]) Vital Signs Vital signs: Vital Signs - 8 hr 08/19/21 18:24 08/19/21 18:26 08/19/21 18:30 Temperature Pulse Rate 60 57 L 57 L Respiratory Rate 15 17 Blood Pressure 157/65 H Pulse Oximetry 97 100 99 08/19/21 19:00 08/19/21 19:30 08/19/21 19:43 Temperature Pulse Rate 56 L 55 L 55 L Respiratory Rate 18 19 18 Blood Pressure 152/69 H Pulse Oximetry 97 98 96 08/19/21 20:00 08/19/21 20:01 08/19/21 20:30 Temperature 96.8 F L Pulse Rate 54 L 56 L 58 L Respiratory Rate 21 23 21 Blood Pressure 157/76 H Pulse Oximetry 97 97 98 08/19/21 20:31 Temperature Pulse Rate 57 L Respiratory Rate 16 Blood Pressure 139/69 Pulse Oximetry 99 MDM - Fall Lab Data Result diagrams: 08/19/21 18:40 08/19/21 18:40 Labs: Lab Results 08/19/21 08/19/21 08/19/21 Range/Units 18:40 18:40 18:40 WBC 6.4 (4.5-11.0) X10^3/uL RBC 4.61 (4.5-5.9) X10^6/uL Hgb 13.4 L (13.5-17.5) g/dL Hct 40.8 L (41-53) % MCV 88.6 (80-100) fL MCH 29.0 (26-34) PG MCHC 32.7 (30-36) % RDW 14.7 (11.6-14.8) % Plt Count 198 (150-400) X10^3/uL Neut % (Auto) 73.8 (50-75) % Lymph % (Auto) 15.7 L (25-40) % Emanuel % (Auto) 7.3 (3-14) % Eos % (Auto) 2.6 (2-4) % Baso % (Auto) 0.6 (0-2) % Neut # (Auto) 4700 (4945-9043) /uL Lymph # (Auto) 1000 L (5265-1920) /uL Emanuel # (Auto) 500 (0-900) /uL Eos # (Auto) 200 (0-450) /uL Baso # (Auto) 0 (0-100) /uL Sodium 131 L (137-145) mmol/L Potassium 4.7 (3.4-5.1) mmol/L Chloride 101 (98-107) mmol/L Carbon Dioxide 26 (22-32) mmol/L BUN 18 (9-20) mg/dL Creatinine 0.85 (0.66-1.25) mg/dL Estimated GFR > 60.0 (>60) mL/min BUN/Creatinine Ratio 21.2 (6-22) Glucose 112 H (80-110) mg/dL Calcium 8.9 (8.4-10.2) mg/dL Total Bilirubin 0.6 (0.2-1.3) mg/dL AST 38 (17-59) IU/L ALT 19 (<50) IU/L Alkaline Phosphatase 51 (38-126) U/L Total Protein 7.4 (6.3-8.2) g/dL Albumin 4.0 (3.5-5.0) g/dL Globulin 3.4 (1.7-4.1) g/dL Albumin/Globulin Ratio 1.2 (1.0-2.8) Lipase 79 (23-300) U/L Ethyl Alcohol < 10 ( - 10) mg/dL SARS-CoV-2 (PCR) (Negative) Blood Type O Positive Antibody Screen Negative 08/19/21 Range/Units 18:44 WBC (4.5-11.0) X10^3/uL RBC (4.5-5.9) X10^6/uL Hgb (13.5-17.5) g/dL Hct (41-53) % MCV (80-100) fL MCH (26-34) PG MCHC (30-36) % RDW (11.6-14.8) % Plt Count (150-400) X10^3/uL Neut % (Auto) (50-75) % Lymph % (Auto) (25-40) % Emanuel % (Auto) (3-14) % Eos % (Auto) (2-4) % Baso % (Auto) (0-2) % Neut # (Auto) (0157-3834) /uL Lymph # (Auto) (6018-4644) /uL Emanuel # (Auto) (0-900) /uL Eos # (Auto) (0-450) /uL Baso # (Auto) (0-100) /uL Sodium (137-145) mmol/L Potassium (3.4-5.1) mmol/L Chloride (98-107) mmol/L Carbon Dioxide (22-32) mmol/L BUN (9-20) mg/dL Creatinine (0.66-1.25) mg/dL Estimated GFR (>60) mL/min BUN/Creatinine Ratio (6-22) Glucose (80-110) mg/dL Calcium (8.4-10.2) mg/dL Total Bilirubin (0.2-1.3) mg/dL AST (17-59) IU/L ALT (<50) IU/L Alkaline Phosphatase (38-126) U/L Total Protein (6.3-8.2) g/dL Albumin (3.5-5.0) g/dL Globulin (1.7-4.1) g/dL Albumin/Globulin Ratio (1.0-2.8) Lipase (23-300) U/L Ethyl Alcohol ( - 10) mg/dL SARS-CoV-2 (PCR) Negative (Negative) Blood Type Antibody Screen Point of Care Testing Glucose POC [address] scan - head: Radiologist's Impression: [address] [address] [address] Scan Report Signed Patient: Brennen Levin MR#: [id number] : 1940 Acct:[id number] Age/Sex: 81 / M Date of Service: 08/19/21 Loc: ED Accession Number: [id number] ?? Procedure: CT head/brain wo con Ordering Provider: Enrique Maxwell D.O. PROCEDURE:? CT HEAD/BRAIN WO CON ? INDICATIONS:? Trauma ? TECHNIQUE:? Noncontrast 4.5 mm thick angled axial sections acquired from the foramen magnum to the vertex, with coronal and sagittal reformats.? For radiation dose reduction, the following was used:? automated exposure control, adjustment of mA and/or kV according to patient size.? ? COMPARISON:? [facility], CT, CT CERVICAL SPINE WO CON, 08/19/2021, 18:09.? [facility], MR, BRAIN W&WO CONTRAST, 05/16/2017, 13:49. ? FINDINGS:? Image quality:? Excellent.? ? CSF spaces:? Basal cisterns are patent.? No extra-axial fluid collections.? The ventricles are symmetric in size and shape.? ? Brain:? No intracranial bleeds or masses.? There is cerebral volume loss for age, with resultant ventricular and sulcal prominence.? There are periventricular and deep white matter chronic small vessel ischemic changes.? There is intracranial internal carotid artery atherosclerosis.? ? Skull and face:? Calvarium and visualized facial bones appear intact, without suspicious lesions.? ? Sinuses:? Mucous retention cysts can be seen within the inferior aspects the maxillary sinuses.? Visualized sinuses and mastoids are otherwise relatively clear.? ? ? IMPRESSION:? No acute intracranial hemorrhage is seen.? ? No acute intracranial process is seen.? ? Note is made of age-appropriate brain parenchymal volume loss and chronic small vessel ischemic changes. ? ? Dictated by: Evaristo Roa M.D. on 08/19/2021 at 17:36 ? ? Approved by: Evaristo Roa M.D. on 08/19/2021 at 17:37 ? CT - cervical spine: Radiologist's Impression: Brennen Levin??81??M??1940 ? Allergy/Adv: latex Close Head CT (Signed) Evaristo Roa - 08/19/[address] (Signed) Evaristo Roa - 08/19/21 Pelvis X-Ray (Signed) Moran,Sanchez - 08/19/21 Chest X-Ray (Signed) Moran,Sanchez - 08/19/21 Radiology Report (Cancelled) Thor Unger - 05/24/21 Myocardial Perfusion Scan Nuc Med (Signed) Laurie Ungeru - 05/24/21 Chest X-Ray (Signed) Sydni Del Cid - 05/13/21 Chest/Abdomen/Pelvis CTA (Signed) Moran,Sanchez - 04/01/21 Chest X-Ray (Signed) Theo Navarrete - 04/01/21 Abdomen/Pelvis CT (Signed) Alex Paiz - 08/13/19 Scrotum Ultrasound (Signed) Amisha Petersen - 04/15/19 Hip X-Ray (Signed) Swapna Higgins - 11/11/18 Bladder Scan 11/11/18 Pelvis X-Ray (Signed) Sydni Del Cid - 11/11/18 Scrotum Ultrasound (Signed) Ventura Ray - 09/27/18 Radiology - Historical 05/15/17 Radiology - Historical 04/26/17 Launch?[address] [address] [address] Scan Report Signed Patient: Brennen Levin MR#: [id number] : 1940 Acct:[id number] Age/Sex: 81 / M Date of Service: 08/19/21 Loc: ED Accession Number: [id number] ?? Procedure: CT cervical spine wo con Ordering Provider: Enrique Maxwell D.O. PROCEDURE:? CT CERVICAL SPINE WO CON ? INDICATIONS:? Trauma ? TECHNIQUE:? Noncontrast 3 mm thick sections acquired from the skull base to the T4 level.? Sagittal and coronal reformats were then constructed.? For radiation dose reduction, the following was used:? automated exposure control, adjustment of mA and/or kV according to patient size.? ? COMPARISON:? [facility], MR, C-SPINE WITHOUT CONTRAST, 05/18/2015, 7:45.? [facility], CT, SOFT TISSUE NECK W CONTRAST, 04/26/2017, 15:46.? [facility], CT, CT HEAD/BRAIN WO CON, 08/19/2021, 18:09.? [facility], CR, XR CHEST 1V, 08/19/2021, 17:56. ? FINDINGS:? Image quality:? Excellent.? ? Bones:? There is a complex fracture seen of the C7 level, with moderate dis placement, which is best seen on series 5, image 40. At C7-T1, there is grade 1 anterolisthesis, with moderate to severe disc space narrowing anteriorly, with 6 mm malalignment.? At least moderate central canal narrowing can be seen posterior to the C7 level.? This fracture and the bony mild alignment cannot be seen in 2017.? ? Visualized superior ribs are intact.? Plate and screw fixation can be seen the left clavicle. ? Lower cervical spine fixation hardware is seen anteriorly C4 through C7.? Disc spacers are seen at C4-C5, C5-C6, and C6-C7.? No findings of hardware failure or hardware loosening are seen. ? There is moderate disc space narrowing seen at C2-C3, with partial bony fusion.? There is at least moderate disc space narrowing seen at C3-C4, with partially bridging anterior osteophytes. 3 Soft tissues:? Prevertebral soft tissues are normal in thickness.? No paravertebral hematomas.? No apical pneumothoraces.? IMPRESSION:? C7 fracture with 6 mm mild alignment seen along the anterior aspect of C7-T1.? At least moderate central canal narrowing can be seen posterior to C7. ? Spine surgery consultation is recommended. ? A dedicated cervical spine MRI may also be helpful for further evaluation. ? Intact appearing hardware seen C4 through C7. ? Note: Findings and recommendations discussed by telephone with bones Dr. Maxwell at 5:31 p.m. [place] time on August 19, 2021. ? Dictated by: Evaristo Roa M.D. on 08/19/2021 at 17:25 ? ? Approved by: Evaristo Roa M.D. on 08/19/2021 at 17:34 ? Chest x-ray: Radiologist's Impression: [address] [address] XRay Report Signed Patient: Brennen Levin MR#: [id number] : 1940 Acct:[id number] Age/Sex: 81 / M Date of Service: 08/19/21 Loc: ED Accession Number: [id number] ?? Procedure: XR chest 1V Ordering Provider: Enrique Maxwell D.O. PROCEDURE:? XR CHEST 1V ? INDICATIONS:? trauma ? TECHNIQUE:? One view of the chest was acquired.? ? COMPARISON:? [facility], , XR CHEST 1V, 05/13/2021, 12:27. ? FINDINGS:? ? Surgical changes and devices:? None.? ? Lungs and pleura:? Lungs are clear.? No pleural effusions or pneumothorax.? ? Mediastinum:? Mediastinal contours appear normal.? Heart size is enlarged.? ? Bones and chest wall:? No suspicious bony lesions.? Overlying soft tissues appear unremarkable.? ? IMPRESSION:? ? Cardiomegaly without vascular congestion ? ? ? Approved by: Sanchez Moran M.D. on 08/19/2021 at 17:28? Pelvic Xray: Radiologist's Impression: [address] [address] XRay Report Signed Patient: Brennen Levin MR#: [id number] : 1940 Acct:[id number] Age/Sex: 81 / M Date of Service: 08/19/21 Loc: ED Accession Number: [id number] ?? Procedure: XR pelvis 1-2V Ordering Provider: Enrique Maxwell D.O. PROCEDURE:? XR PELVIS 1-2V ? INDICATIONS:? trauma ? TECHNIQUE:? 1 view of the lower pelvis acquired.? ? COMPARISON:? [facility], CR, XR PELVIS 1-2V, 11/11/2018, 16:05. ? FINDINGS:? ? Bones:? Patient is status post bilateral hip arthroplasty, with hardware components in expected positions.? The hip joint appears congruent.? The visualized bony structures appear intact.? ? Soft tissues:? Overlying postoperative changes are noted.? No suspicious soft tissue densities.? ? ? IMPRESSION:? ? Bilateral hip prosthesis in place.? No evidence of hardware failure loosening ? Approved by: Sanchez Moran M.D. on 08/19/2021 at 17:29? [facility] Narrative Medical decision making narrative: Patient with ground level fall and traumatic C7 fracture resulting in neurologic deficits including numbness tingling, and perhaps a bit a weakness of his left arm. Patient's GCS 15, head CT unremarkable vitals are stable. Patient will be transported to [facility] under the care and acceptance of Dr. Fried for ongoing evaluation and treatment of this likely unstable cervical fracture. Patient is awake and alert, he understands and agrees with the plan. Critical Care Time Critical Care Time Critical Care Time: Yes Total Critical Care Time: 30 Attestation: The high probability of a clinically significant, sudden or life threatening deterioration of the [MSK/Neuro] system(s) required my full and direct attention, intervention and personal management. The aggregate critical care time was [30] minutes. This time is in addition to time spent performing reported procedures but includes the following: [x] Data Review and interpretation [x] Patient assessment and monitoring of vital signs [x] Documentation [x] Medication orders and management Discharge Plan Departure Patient Disposition: [facility] Clinical Impression: C7 cervical fracture Prescriptions: No Action losartan-hydrochlorothiazide 100 MG/25 MG tablet 1 tab PO QDAY Qty: 0 0RF omeprazole 20 MG capsule,delayed release(DR/EC) 40 mg PO BID Qty: 0 0RF ciprofloxacin HCl [Cipro] 250 mg tablet 250 mg PO BID Qty: 42 0RF amlodipine 5 mg Tablet 5 mg PO DAILY 0RF tamsulosin 0.4 mg Capsule 0.4 mg PO BID 0RF cilostazol 100 mg 100 mg PO BID 0RF naproxen sodium [Aleve] 220 mg Capsule 440 mg PO DAILY PRN (Reason: Pain) 0RF acetaminophen 325 mg Tablet 975 mg PO TID Qty: 0 0RF aspirin 81 mg Tablet,Delayed Release (Dr/Ec) 81 mg PO BID Qty: 0 0RF docusate sodium [DOK] 100 mg Capsule 100 mg PO BID Qty: 0 0RF oxycodone 5 mg Tablet 5 mg PO Q3HR PRN (Reason: Pain, Moderate (4-6)) Qty: 0 0RF Referrals: Tawana Zheng MD [Primary Care Provider] -
[2021-08-19] MEDS: fentaNYL 100 MCG/2 ML INJ 50 MCG IV ×2 (19:01→20:05)
[2021-08-19] MEDS: ONDANSETRON 4 MG/2 ML INJ IV (19:01)
[2021-08-19 19:05] LABS: Alanine Aminotransferase 19 IU/L (<50); Albumin Globulin Ratio 1.2 (1.0-2.8); Alkaline Phosphatase 51 U/L (38-126); Aspartate Aminotransferase 38 IU/L (17-59); BUN Creatinine Ratio 21.2 (6-22); Bilirubin Total 0.6 mg/dL (0.2-1.3); Blood Urea Nitrogen 18 mg/dL (9-20); Calcium 8.9 mg/dL (8.4-10.2); Carbon Dioxide 26 mmol/L (22-32); Chloride 101 mmol/L (98-107); Estimated Glomerular Filt Rate > 60.0 mL/min (>60); Ethanol (ETOH) < 10 mg/dL; Globulin 3.4 g/dL (1.7-4.1); Glucose 112 mg/dL (80-110); HEMOLYSIS 42 (0-50); Lipase 79 U/L (23-300); Potassium 4.7 mmol/L (3.4-5.1); Sodium 131 mmol/L (137-145); Total Protein 7.4 g/dL (6.3-8.2)
[2021-08-19 19:13] LABS: Add Manual Diff / Slide Review NO; Basophils Absolute Auto 0 /uL (0-100); Basophils Percent Auto 0.6 % (0-2); Eosinophils Absolute Auto 200 /uL (0-450); Eosinophils Percent Auto 2.6 % (2-4); Hematocrit 40.8 % (41-53); Hemoglobin 13.4 g/dL (13.5-17.5); Lymphocytes Absolute Auto 1000 /uL (1100-4500); Lymphocytes Percent Auto 15.7 % (25-40); Mean Corpuscular HGB Conc 32.7 % (30-36); Mean Corpuscular Volume 88.6 fL (80-100); Monocytes Absolute Auto 500 /uL (0-900); Monocytes Percent Auto 7.3 % (3-14); Neutrophils Absolute Auto 4700 /uL (1500-7000); Neutrophils Percent Auto 73.8 % (50-75); Platelet Count 198 X10^3/uL (150-400); Red Blood Cell Count 4.61 X10^6/uL (4.5-5.9); Red Cell Distribution Width 14.7 % (11.6-14.8); White Blood Cell Count 6.4 X10^3/uL (4.5-11.0)
[2021-08-19 19:24] LABS: COVID19 -Nasal RAPID Negative (Negative)
== END 2021-08-19 20:55 | disposition short-term general hospital (02) ==
PROVIDERS: Emergency Provider Emergency Medicine; Family Provider Student in an Organized Health Care Education/Training Program; PCP Student in an Organized Health Care Education/Training Program
DX: S12.600A Unspecified displaced fracture of seventh cervical vertebra, initial encounter for closed fracture (principal); Z87.891 Personal history of nicotine dependence; W18.30XA Fall on same level, unspecified, initial encounter; Y92.89 Other specified places as the place of occurrence of the external cause; Z20.822 Contact with and (suspected) exposure to COVID-19
CPT/HCPCS: 36415; 70450; 71045; 72125; 72170; 80053; 80320; 82962; 83690; 85025; 86850; 86900; 86901; 87635; 93005; 96374; 96375; 99284; 99291; C9803; G0390; J2405; J3010

== ENCOUNTER → 2021-11-14 13:21 | Outpatient (CLI) | payer MEDICARE, OTHER, SELFPAY ==
[2018-11-11 18:19] VITALS: BMI 30.2
--- NOTE | 2021-11-14 | DI.RAD.S_ITS ---
PROCEDURE: XR CERVICAL SPINE 2V OR 3V INDICATIONS: STATUS POST CERVICAL SPINAL FUSION TECHNIQUE: 3 view(s) of the cervical spine were acquired. COMPARISON: [facility], CT, CT CERVICAL SPINE WO [facility], 08/19/2021, 18:09. FINDINGS: Bones: No fractures or dislocations to the T1 level. The lateral masses of C1 appear intact on the odontoid view. No suspicious bony lesions. Posterior fusion hardware at C5-T2. Anterior fusion hardware at C4-C7. Disc space narrowing and endplate osteophyte formation at C3-C4, indicating degenerative disc disease. Soft tissues: No prevertebral soft tissue swelling. IMPRESSION: Postsurgical sequelae. Degenerative disc disease. Dictated by: Swapna Higgins M.D. on 11/14/2021 at 15:54 Approved by: Swapna Higgins M.D. on 11/14/2021 at 15:56
== END ==
PROVIDERS: Family Provider Student in an Organized Health Care Education/Training Program; PCP Student in an Organized Health Care Education/Training Program; Referring Provider Physician Assistant; Visit Provider Physician Assistant
DX: M50.31 Other cervical disc degeneration, high cervical region (principal); Z98.1 Arthrodesis status
CPT/HCPCS: 72040

== ENCOUNTER → 2021-12-08 06:49 | Outpatient (CLI) | payer MEDICARE, OTHER, SELFPAY ==
[2018-11-11 18:19] VITALS: BMI 30.2
--- NOTE | 2021-12-08 | DI.ECHO.S_ITS ---
[facility]---------[facility] +---------+ : : [address] : : : : [address] : : : : Phone: [phone]+ Echocardiogram Report + + :Name: STAN MATTHEWS Study Date: 12/08/2021 Height: 72 in : :[facility] ReadingLocation: Weight: 200 lb : : Gender: Male BSA: 2.1 m2 : :: 1940 Age: 81 yrs BP: 129/53 mmHg: :Reason For Study: Syncope : :Ordering Physician: CHUCK, : :NEIL Performed By: Matthew Fitzpatrick : :Referring: NEIL VAZQUEZ : + + Interpretation Summary 1) Normal left ventricular thickness, size, wall motion, and systolic function (EF 60-65%). 2) Normal right ventricular size and function. 3) There is mild aortic regurgitation. 4) No prior Echo available for comparison. Procedure: A two-dimensional transthoracic echocardiogram with color flow and Doppler was performed. The study quality was technically adequate. There is no prior echocardiogram noted for this patient. Left Ventricle: The left ventricle is normal in size and wall thickness. Left ventricular systolic function is normal. The ejection fraction is estimated to be 60-65%. There are no focal wall motion abnormalities. Diastolic function could not be accurately assessed due to unobtainable data. Right Ventricle: The right ventricle is normal in size and function. Atria: The left atrial size is normal. The right atrium is mildly dilated. The interatrial septum grossly appears intact with no obvious evidence for an atrial septal defect. Mitral Valve: The mitral valve is normal in structure and function. There is no mitral regurgitation noted. Aortic Valve: There is moderate aortic valve sclerosis. There is no aortic valve stenosis. There is mild aortic regurgitation. Tricuspid Valve: The tricuspid valve is normal in structure and function. No tricuspid regurgitation. Pulmonary artery pressures cannot be estimated because of the lack of a measurable TR jet velocity. Pulmonic Valve: The pulmonic valve is not well visualized. There is no pulmonic valvular regurgitation. Great Vessels: The aortic root is normal size. The ascending aorta is mildly enlarged. The IVC is of normal diameter and collapses greater than 50% with a sniff. This suggests a low right atrial pressure of 3 mm Hg. Pericardium/ Pleura There is no pericardial effusion. There is no pleural effusion. MMode/2D Measurements & Calculations LVIDd: 5.4 cm LVOT diam: 2.4 cm LVIDs: 3.7 cm Ao root diam: 3.5 cm FS: 31.5 % asc Aorta Diam: 3.8 cm IVSd: 1.1 cm LVPWd: 1.1 cm LV valles. diameter/BSA (cm/m^2): 2.5 LV sys. diameter/BSA (cm/m^2): 1.7 LA dimension: 3.7 cm RA long axis: 6.1 cm LA A2 area: 22.0 cm2 LA A4 area: 18.4 cm2 LA length (vol): 6.0 cm LA vol: 57.5 ml LA vol index: 27.0 ml/m2 TAPSE_phl: 3.4 cm Doppler Measurements & Calculations Ao V2 max: 175.0 cm/sec LVOT Max Erick: 99.9 cm/sec Ao V2 mean: 124.0 cm/sec LV V1 max P.0 mmHg Ao max P.0 mmHg LV V1 VTI: 24.3 cm Ao mean P.0 mmHg DAVID(I,D): 2.7 cm2 Ao V2 VTI: 40.1 cm DAVID(V,D): 2.6 cm2 sev ratio: 0.61 DAVID indexed to BSA (cm^2/m^2): 1.3 AI P1/2t: 785.2 msec AI dec slope: 166.0 cm/sec2 MV E max erick: 66.4 cm/sec SV(LVOT): 109.9 ml MV A max erick: 88.3 cm/sec MV E/A: 0.75 Med Peak E' Erick: 5.6 cm/sec E/E' med: 11.8 Lat Peak E' Erick: 6.7 cm/sec E/E' lat: 10.0 E/e' average: 10.9 MV dec time: 0.30 sec AV P1/2t-pr_phl: 786.0 msec MV P1/2t-pr_phl: 89.0 msec AV VR_phl: 0.57 DAVID(VTI)/BSA_phl: 1.3 Reading Physician:10:38 AM
== END ==
PROVIDERS: Family Provider Student in an Organized Health Care Education/Training Program; PCP Student in an Organized Health Care Education/Training Program; Referring Provider Internal Medicine Cardiovascular Disease; Visit Provider Internal Medicine Cardiovascular Disease
DX: I35.1 Nonrheumatic aortic (valve) insufficiency (principal); I77.89 Other specified disorders of arteries and arterioles; R55 Syncope and collapse; R06.02 Shortness of breath
CPT/HCPCS: 93306

== ENCOUNTER → 2022-01-29 14:20 | Outpatient (CLI) | payer MEDICARE, OTHER, SELFPAY ==
[2018-11-11 18:19] VITALS: BMI 30.2
[2022-01-29 14:45] LABS: COVID19 -Nasal RAPID Negative (Negative)
== END ==
PROVIDERS: Family Provider Student in an Organized Health Care Education/Training Program; PCP Student in an Organized Health Care Education/Training Program; Visit Provider Physician Assistant
DX: Z20.822 Contact with and (suspected) exposure to COVID-19 (principal)
CPT/HCPCS: 87635

== ENCOUNTER 2022-02-10 16:55 | Inpatient (IN) | payer MEDICARE, OTHER, SELFPAY ==
[2018-11-11 18:19] VITALS: BMI 30.2
[2022-02-10] VITALS (16 sets, daily range): BP systolic 101–198; BP diastolic 50–83; PULSE 76–98; RESP 19–30; TEMP 37.4–38.1; O2SAT 93–98; BMI 27.8
--- NOTE | 2022-02-10 17:05 | DI.RAD.S_ITS ---
PROCEDURE: XR CHEST 2V INDICATIONS: shortness of breath TECHNIQUE: 2 views of the chest were acquired. COMPARISON: [facility], CR, XR CHEST 1V, 08/19/2021, 17:56. FINDINGS: Surgical changes and devices: None. Lungs and pleura: Lungs are clear. No pleural effusions or pneumothorax. Mediastinum: Mediastinal contours are normal. Heart size is normal. Bones and chest wall: No suspicious bony abnormalities. Soft tissues appear unremarkable. IMPRESSION: No acute cardiopulmonary process demonstrated radiographically. Dictated by: Theo Navarrete M.D. on 02/10/2022 at 18:12 Approved by: Theo Navarrete M.D. on 02/10/2022 at 18:12
[2022-02-10 17:33] LABS: COVID19 -Nasal RAPID Negative (Negative)
[2022-02-10 17:37] LABS: Add Manual Diff / Slide Review NO; Basophils Absolute Auto 0 /uL (0-100); Basophils Percent Auto 0.2 % (0-2); Eosinophils Absolute Auto 0 /uL (0-450); Eosinophils Percent Auto 0.3 % (2-4); Hematocrit 40.9 % (41-53); Hemoglobin 13.7 g/dL (13.5-17.5); Lymphocytes Absolute Auto 200 /uL (1100-4500); Mean Corpuscular HGB Conc 33.5 % (30-36); Mean Corpuscular Hemoglobin 27.1 PG (26-34); Mean Corpuscular Volume 80.9 fL (80-100); Monocytes Absolute Auto 200 /uL (0-900); Monocytes Percent Auto 1.6 % (3-14); Neutrophils Absolute Auto 10400 /uL (1500-7000); Neutrophils Percent Auto 95.9 % (50-75); Platelet Count 202 X10^3/uL (150-400); Red Blood Cell Count 5.06 X10^6/uL (4.5-5.9); Red Cell Distribution Width 17.6 % (11.6-14.8); White Blood Cell Count 10.9 X10^3/uL (4.5-11.0)
[2022-02-10 17:50] LABS: Lactate (Lactic Acid) 1.5 mmol/L (0.7-2.1)
[2022-02-10 17:51] LABS: Alanine Aminotransferase 24 IU/L (<50); Albumin 4.4 g/dL (3.5-5.0); Albumin Globulin Ratio 1.2 (1.0-2.8); Alkaline Phosphatase 70 U/L (38-126); Aspartate Aminotransferase 24 IU/L (17-59); BUN Creatinine Ratio 22.3 (6-22); Bilirubin Total 0.8 mg/dL (0.2-1.3); Blood Urea Nitrogen 21 mg/dL (9-20); Calcium 9.2 mg/dL (8.4-10.2); Carbon Dioxide 28 mmol/L (22-32); Chloride 101 mmol/L (98-107); Estimated Glomerular Filt Rate > 60 mL/min (>60); Globulin 3.7 g/dL (1.7-4.1); Glucose 98 mg/dL (80-110); HEMOLYSIS < 15 (0-50); Potassium 4.1 mmol/L (3.4-5.1); Sodium 137 mmol/L (137-145); Total Protein 8.1 g/dL (6.3-8.2)
--- NOTE | 2022-02-10 19:44 | DI.RAD.S_ITS ---
PROCEDURE: XR CHEST 1V INDICATIONS: Fever TECHNIQUE: One view of the chest was acquired. COMPARISON: [facility], CR, XR CHEST 1V, 05/13/2021, 12:27. [facility], CR, XR CHEST 1V, 08/19/2021, 17:56. [facility], CR, XR CHEST 2V, 02/10/2022, 17:52. FINDINGS: Surgical changes and devices: Extensive cervical spine fixation hardware is seen. Left clavicle fixation hardware is seen. Lungs and pleura: Low lung volumes are noted. This causes a crowded appearance to the lung markings and limits evaluation. Mild generalized interstitial prominence can be seen. No large pneumothorax or large pleural effusions are seen. Mediastinum: The cardiac contours are within normal limits. The aorta demonstrates calcification and tortuosity. Bones and chest wall: No suspicious bony lesions. Age-appropriate bony degenerative changes are seen. Overlying soft tissues appear unremarkable. IMPRESSION: Low lung volumes with mild interstitial prominence. Please consider pulmonary edema, artifact, or atypical infection (including COVID pneumonia). If clinically appropriate, a short-term followup chest series (with PA and lateral views) performed in deep inspiration is suggested for further evaluation. Postoperative and degenerative changes are seen. Dictated by: Evaristo Roa M.D. on 02/10/2022 at 19:05 Approved by: Evaristo Roa M.D. on 02/10/2022 at 19:06
--- NOTE | 2022-02-10 19:44 | ED.SEPSIS ---
HPI - Sepsis General Chief Complaint: Fever Mode of arrival: Ambulatory Source: patient Limitations: no limitations Evaluation Sepsis Screen: Possible Sepsis Risk Sepsis Infection Criteria Present: Suspected New Infection Narrative: This 81-year-old man comes to the ER today feeling poorly for a few weeks but now with fever in the past day or so. He denies cough, congestion he endorses mild headache. He denies sore throat or shortness of breath. He denies nausea vomiting or diarrhea. No abdominal pain. He says he is somewhat constipated. He says he has no dysuria urgency or frequency. He does endorse neck and back pain but says these are chronic and no different than usual. He also reports that the swelling in his right leg is chronic. Review of Systems Review of Systems Narrative: Complete review of systems is negative other than as noted above. Patient History Medical History AAA (abdominal aortic aneurysm) Arthritis BPH (benign prostatic hyperplasia) Former smoker GERD (gastroesophageal reflux disease) HLD (hyperlipidemia) HTN (hypertension) Hyponatremia Osteoarthritis PAD (peripheral artery disease) PVD (peripheral vascular disease) Shingles TIA (transient ischemic attack) Surgical History History of bilateral cataract extraction (~2018) History of colonoscopy History of total right hip arthroplasty Hx of appendectomy Hx of bone graft S/P cervical spinal fusion (08/09/15) Social History household members: friend(s) and none Smoking Status: Former smoker alcohol intake: current Smoking Status: Former smoker alcohol intake frequency: 3 or more drinks per day Substance Use Type: does not use Exam Narrative Exam Narrative: GENERAL: Alert, cooperative and in no distress. The patient's skin is diffusely hot to touch HEAD: Atraumatic. Normocephalic. EYES: Sclera are clear without icterus. Extraocular movements are full. ENT: No rhinorrhea. Oropharynx is moist. Mouth exam is benign. NECK: Supple. Full range of motion. CARDIOVASCULAR: Normal rate and rhythm without murmur gallop or rub. RESPIRATORY: Clear to auscultation. Breath sounds equal bilaterally. No wheezes, rales, or rhonchi. GASTROINTESTINAL: Abdomen soft, non-tender, nondistended. EXTREMITIES: Significant edema in the right leg but the patient reports that this is chronic., full range of motion. No obvious trauma. BACK: Normal inspection, no CVA tenderness. NEURO: Nonfocal examination, normal speech, normal gait. SKIN: No rash or erythema of visible areas PSYCH: Normally oriented. Normal range of affect. Appropriate behavior Initial Vital Signs Initial Vital Signs: Vital Signs Temperature 100.6 F H 02/10/22 16:57 Pulse Rate 98 H 02/10/22 16:57 Respiratory Rate 20 02/10/22 16:57 Blood Pressure 198/83 H 02/10/22 16:57 Pulse Oximetry 98 02/10/22 16:57 Oxygen Delivery Method 02/10/22 16:57 Course Course Course Narrative: Workup is mostly unremarkable. Laboratory data is reassuring except for his markedly elevated procalcitonin. His lung exam and chest x-ray are unremarkable. Tried to ambulate this man and is complete non starter. Orders Ordered: ED Orders 02/10/22 17:05 XR chest 2V Stat Measure peak expiratory flow ONCE RT Consult Eval and Treat Now 02/10/22 17:19 COVID19 -Nasal RAPID/Pre-Proc Stat 02/10/22 17:20 Complete Blood Count AUTO DIFF Stat Comprehensive Metabolic Panel Stat Lactate (Lactic Acid) Stat 02/10/22 17:46 EKG-12 Lead Stat 02/10/22 19:44 XR chest 1V Stat 02/10/22 20:39 Blood Culture Stat Complete Blood Count AUTO DIFF Stat Comprehensive Metabolic Panel Stat Lactate (Lactic Acid) Stat Procalcitonin Stat Troponin & CK Cardiac Panel Stat 02/10/22 21:55 Urinalysis and Microscopic Stat Urine Culture Stat 02/10/22 22:53 CBC Auto Diff [Complete Blood Count AUTO DIFF] DAILY 02/10/22 23:00 BMP [Basic Metabolic Panel] DAILY Sodium Chloride (Normal Saline 0.45%) 1,000 mls @ 100 mls/hr IV CONT MARSHA Discontinued Medications Acetaminophen (Acetaminophen 325 Mg Tablet) 650 mg PO NOW ONE Stop: 02/10/22 19:45 Last Admin: 02/10/22 20:22 Dose: 650 mg Documented By: THIEN Sodium Chloride (Normal Saline 0.9%) 2,871.24 mls @ 957.08 mls/hr 30 ml/kg infuse over 3 hr (2871.24 ml) IV NOW ONE Stop: 02/10/22 22:43 Last Infusion: 02/10/22 23:40 Dose: 957.08 mls/hr Documented By: Admin: 02/10/22 20:20 Dose: 957.08 mls/hr Documented By: THIEN Piperacillin Sod/Tazobactam (Sod 4.5 gm/ Sodium Chloride) 100 mls @ 200 mls/hr IV NOW ONE Stop: 02/10/22 19:45 Last Infusion: 02/10/22 21:29 Dose: 0 mls/hr Documented By: Admin: 02/10/22 20:55 Dose: 200 mls/hr Documented By: THIEN Consultations Consultation #1: Discussed the case with Dr. Kahn who agrees to admit. Vital Signs Vital signs: Vital Signs - 8 hr 02/10/22 16:57 02/10/22 20:22 02/10/22 20:56 Temperature 100.6 F H 99.3 F 99.3 F Pulse Rate 98 H Respiratory Rate 20 Blood Pressure 198/83 H Pulse Oximetry 98 Oxygen Delivery Method Room Air 02/10/22 20:00 02/10/22 20:30 02/10/22 20:31 Temperature Pulse Rate 84 85 Respiratory Rate 26 H Blood Pressure 123/60 Pulse Oximetry 96 97 Oxygen Delivery Method 02/10/22 20:31 02/10/22 22:17 02/10/22 21:00 Temperature Pulse Rate 84 Respiratory Rate 26 H Blood Pressure 101/50 L 136/60 Pulse Oximetry 97 Oxygen Delivery Method 02/10/22 21:00 02/10/22 21:30 02/10/22 21:31 Temperature Pulse Rate 81 82 Respiratory Rate 23 29 H Blood Pressure 161/60 H Pulse Oximetry 98 97 Oxygen Delivery Method 02/10/22 21:31 02/10/22 22:00 02/10/22 22:17 Temperature Pulse Rate 81 76 Respiratory Rate 30 H 24 Blood Pressure 101/50 L Pulse Oximetry 97 94 Oxygen Delivery Method 02/10/22 22:17 02/10/22 22:19 02/10/22 22:19 Temperature Pulse Rate 78 76 Respiratory Rate 22 23 Blood Pressure 106/51 L Pulse Oximetry 93 97 Oxygen Delivery Method 02/10/22 22:30 02/10/22 22:31 02/10/22 22:31 Temperature Pulse Rate 79 78 Respiratory Rate 21 19 Blood Pressure 119/56 L Pulse Oximetry 93 93 Oxygen Delivery Method 02/10/22 23:00 02/10/22 23:00 Temperature Pulse Rate 77 Respiratory Rate 22 Blood Pressure 115/56 L Pulse Oximetry 93 Oxygen Delivery Method Sepsis Guideline Criteria Level 1 - Infection Sepsis Infection Criteria Present: Suspected New Infection Treatment Initiated Antibiotics:: IV antimicrobials will be initiated as soon as possible after recognition of sepsis state and within one hour for both sepsis and septic shock. MDM - Sepsis Lab Data Result diagrams: 02/10/22 20:39 02/10/22 20:39 Labs: Lab Results 02/10/22 02/10/22 02/10/22 Range/Units 17:19 17:20 17:20 WBC 10.9 (4.5-11.0) X10^3/uL RBC 5.06 (4.5-5.9) X10^6/uL Hgb 13.7 (13.5-17.5) g/dL Hct 40.9 L (41-53) % MCV 80.9 (80-100) fL MCH 27.1 (26-34) PG MCHC 33.5 (30-36) % RDW 17.6 H (11.6-14.8) % Plt Count 202 (150-400) X10^3/uL Neut % (Auto) 95.9 H (50-75) % Lymph % (Auto) 2.0 L (25-40) % [place] % (Auto) 1.6 L (3-14) % Eos % (Auto) 0.3 L (2-4) % Baso % (Auto) 0.2 (0-2) % Neut # (Auto) 95798 H (3492-2407) /uL Lymph # (Auto) 200 L (7235-0056) /uL [place] # (Auto) 200 (0-900) /uL Eos # (Auto) 0 (0-450) /uL Baso # (Auto) 0 (0-100) /uL Sodium 137 (137-145) mmol/L Potassium 4.1 (3.4-5.1) mmol/L Chloride 101 (98-107) mmol/L Carbon Dioxide 28 (22-32) mmol/L BUN 21 H (9-20) mg/dL Creatinine 0.94 (0.66-1.25) mg/dL Estimated GFR > 60 (>60) mL/min BUN/Creatinine Ratio 22.3 H (6-22) Glucose 98 (80-110) mg/dL Lactate (0.7-2.1) mmol/L Calcium 9.2 (8.4-10.2) mg/dL Total Bilirubin 0.8 (0.2-1.3) mg/dL AST 24 (17-59) IU/L ALT 24 (<50) IU/L Alkaline Phosphatase 70 (38-126) U/L Total Creatine Kinase (55-170) U/L CK-MB (CK-2) CK-MB (CK-2) Rel Index Troponin I (0.01-0.034) ng/mL Total Protein 8.1 (6.3-8.2) g/dL Albumin 4.4 (3.5-5.0) g/dL Globulin 3.7 (1.7-4.1) g/dL Albumin/Globulin Ratio 1.2 (1.0-2.8) Procalcitonin (<0.5) ng/mL Urine Color Urine Appearance Urine pH (4.5-8.0) Ur Specific [place] (1.000-1.035) Urine Protein (Negative) Urine Glucose (UA) (Negative) g/dL Urine Ketones (NEGATIVE) Urine Occult Blood (Negative) Urine Nitrate (Negative) Urine Bilirubin (NEGATIVE) Urine Urobilinogen (0.2) E.U./dL Ur Leukocyte Esterase (NEGATIVE) Urine RBC (0-5/HPF) Urine WBC (0-5/HPF) Ur Squamous Epith Cells (0-5/HPF) Urine Bacteria (None) Ur Culture Indicated? SARS-CoV-2 (PCR) Negative (Negative) 02/10/22 02/10/22 02/10/22 Range/Units 17:20 20:39 20:39 WBC 12.3 H (4.5-11.0) X10^3/uL RBC 4.82 (4.5-5.9) X10^6/uL Hgb 12.8 L (13.5-17.5) g/dL Hct 39.0 L (41-53) % MCV 80.8 (80-100) fL MCH 26.6 (26-34) PG MCHC 32.9 (30-36) % RDW 16.9 H (11.6-14.8) % Plt Count 191 (150-400) X10^3/uL Neut % (Auto) 94.5 H (50-75) % Lymph % (Auto) 2.0 L (25-40) % [place] % (Auto) 3.3 (3-14) % Eos % (Auto) 0.0 L (2-4) % Baso % (Auto) 0.2 (0-2) % Neut # (Auto) 65038 H (9752-8602) /uL Lymph # (Auto) 200 L (5926-7096) /uL [place] # (Auto) 400 (0-900) /uL Eos # (Auto) 0 (0-450) /uL Baso # (Auto) 0 (0-100) /uL Sodium 135 L (137-145) mmol/L Potassium 3.7 (3.4-5.1) mmol/L Chloride 100 (98-107) mmol/L Carbon Dioxide 27 (22-32) mmol/L BUN 21 H (9-20) mg/dL Creatinine 0.88 (0.66-1.25) mg/dL Estimated GFR > 60 (>60) mL/min BUN/Creatinine Ratio 23.9 H (6-22) Glucose 101 (80-110) mg/dL Lactate 1.5 (0.7-2.1) mmol/L Calcium 8.6 (8.4-10.2) mg/dL Total Bilirubin 0.9 (0.2-1.3) mg/dL AST 20 (17-59) IU/L ALT 16 (<50) IU/L Alkaline Phosphatase 58 (38-126) U/L Total Creatine Kinase 47 L (55-170) U/L CK-MB (CK-2) TNP CK-MB (CK-2) Rel Index TNP Troponin I 0.018 (0.01-0.034) ng/mL Total Protein 7.0 (6.3-8.2) g/dL Albumin 3.7 (3.5-5.0) g/dL Globulin 3.3 (1.7-4.1) g/dL Albumin/Globulin Ratio 1.1 (1.0-2.8) Procalcitonin 6.78 H (<0.5) ng/mL Urine Color Urine Appearance Urine pH (4.5-8.0) Ur Specific [place] (1.000-1.035) Urine Protein (Negative) Urine Glucose (UA) (Negative) g/dL Urine Ketones (NEGATIVE) Urine Occult Blood (Negative) Urine Nitrate (Negative) Urine Bilirubin (NEGATIVE) Urine Urobilinogen (0.2) E.U./dL Ur Leukocyte Esterase (NEGATIVE) Urine RBC (0-5/HPF) Urine WBC (0-5/HPF) Ur Squamous Epith Cells (0-5/HPF) Urine Bacteria (None) Ur Culture Indicated? SARS-CoV-2 (PCR) (Negative) 02/10/22 02/10/22 Range/Units 20:39 21:55 WBC (4.5-11.0) X10^3/uL RBC (4.5-5.9) X10^6/uL Hgb (13.5-17.5) g/dL Hct (41-53) % MCV (80-100) fL MCH (26-34) PG MCHC (30-36) % RDW (11.6-14.8) % Plt Count (150-400) X10^3/uL Neut % (Auto) (50-75) % Lymph % (Auto) (25-40) % [place] % (Auto) (3-14) % Eos % (Auto) (2-4) % Baso % (Auto) (0-2) % Neut # (Auto) (3440-0222) /uL Lymph # (Auto) (5074-0320) /uL [place] # (Auto) (0-900) /uL Eos # (Auto) (0-450) /uL Baso # (Auto) (0-100) /uL Sodium (137-145) mmol/L Potassium (3.4-5.1) mmol/L Chloride (98-107) mmol/L Carbon Dioxide (22-32) mmol/L BUN (9-20) mg/dL Creatinine (0.66-1.25) mg/dL Estimated GFR (>60) mL/min BUN/Creatinine Ratio (6-22) Glucose (80-110) mg/dL Lactate 1.6 (0.7-2.1) mmol/L Calcium (8.4-10.2) mg/dL Total Bilirubin (0.2-1.3) mg/dL AST (17-59) IU/L ALT (<50) IU/L Alkaline Phosphatase (38-126) U/L Total Creatine Kinase (55-170) U/L CK-MB (CK-2) CK-MB (CK-2) Rel Index Troponin I (0.01-0.034) ng/mL Total Protein (6.3-8.2) g/dL Albumin (3.5-5.0) g/dL Globulin (1.7-4.1) g/dL Albumin/Globulin Ratio (1.0-2.8) Procalcitonin (<0.5) ng/mL Urine Color Yellow Urine Appearance Clear Urine pH 6.0 (4.5-8.0) Ur Specific [place] 1.010 (1.000-1.035) Urine Protein Negative (Negative) Urine Glucose (UA) Trace H (Negative) g/dL Urine Ketones Negative (NEGATIVE) Urine Occult Blood Trace-lysed (Negative) Urine Nitrate Negative (Negative) Urine Bilirubin Negative (NEGATIVE) Urine Urobilinogen 0.2 (0.2) E.U./dL Ur Leukocyte Esterase Trace H (NEGATIVE) Urine RBC 0-1/hpf (0-5/HPF) Urine WBC 0-1/hpf (0-5/HPF) Ur Squamous Epith Cells 0-1 /hpf (0-5/HPF) Urine Bacteria Occasional (0-1) (None) Ur Culture Indicated? Specimen cultured SARS-CoV-2 (PCR) (Negative) Imaging Data Chest x-ray: Radiologist's Impression: IMPRESSION:? Low lung volumes with mild interstitial prominence.? Please consider pulmonary edema, artifact, or atypical infection (including COVID pneumonia). ? If clinically appropriate, a short-term followup chest series (with PA and lateral views) performed in deep inspiration is suggested for further evaluation.? ? Postoperative and degenerative changes are seen.? ? ? Dictated by: Evaristo Roa M.D. on 02/10/2022 at 19:05 ? ? Approved by: Evaristo Roa M.D. on 02/10/2022 at 19:06 ? IMPRESSION:? No acute cardiopulmonary process demonstrated radiographically. ? ? Dictated by: Theo Navarrete M.D. on 02/10/2022 at 18:12 ? ? Approved by: Theo Navarrete M.D. on 02/10/2022 at 18:12 ? MDM Narrative Medical decision making narrative: This gentleman appears weak and tired. No clear-cut diagnosis but with elevated procalcitonin and tachypnea will treat empirically for pneumonia for now. He is certainly too weak to go home by himself. Discharge Plan Departure Patient Disposition: Admitted As Inpatient Clinical Impression: Pneumonia Admit Date/Time: 02/10/22 23:07 Admit Provider: Slim Kahn
[2022-02-10] MEDS: SODIUM CHLORIDE 0.9% 957.08 ML IV (20:20)
[2022-02-10] MEDS: ACETAMINOPHEN 325 MG TABLET 650 MG PO (20:22)
[2022-02-10 20:54] LABS: Add Manual Diff / Slide Review NO; Basophils Absolute Auto 0 /uL (0-100); Basophils Percent Auto 0.2 % (0-2); Eosinophils Absolute Auto 0 /uL (0-450); Hemoglobin 12.8 g/dL (13.5-17.5); Lymphocytes Absolute Auto 200 /uL (1100-4500); Mean Corpuscular HGB Conc 32.9 % (30-36); Mean Corpuscular Hemoglobin 26.6 PG (26-34); Mean Corpuscular Volume 80.8 fL (80-100); Monocytes Absolute Auto 400 /uL (0-900); Monocytes Percent Auto 3.3 % (3-14); Neutrophils Absolute Auto 11600 /uL (1500-7000); Neutrophils Percent Auto 94.5 % (50-75); Platelet Count 191 X10^3/uL (150-400); Red Blood Cell Count 4.82 X10^6/uL (4.5-5.9); Red Cell Distribution Width 16.9 % (11.6-14.8); White Blood Cell Count 12.3 X10^3/uL (4.5-11.0)
[2022-02-10] MEDS: PIPERACILLIN/TAZO 4.5 GM in SODIUM CHLORIDE 0.9% 100 ML IV (20:55)
[2022-02-10 21:05] LABS: Alanine Aminotransferase 16 IU/L (<50); Albumin 3.7 g/dL (3.5-5.0); Albumin Globulin Ratio 1.1 (1.0-2.8); Alkaline Phosphatase 58 U/L (38-126); Aspartate Aminotransferase 20 IU/L (17-59); BUN Creatinine Ratio 23.9 (6-22); Bilirubin Total 0.9 mg/dL (0.2-1.3); Blood Urea Nitrogen 21 mg/dL (9-20); Calcium 8.6 mg/dL (8.4-10.2); Carbon Dioxide 27 mmol/L (22-32); Chloride 100 mmol/L (98-107); Creatine Kinase 47 U/L (55-170); Estimated Glomerular Filt Rate > 60 mL/min (>60); Globulin 3.3 g/dL (1.7-4.1); Glucose 101 mg/dL (80-110); HEMOLYSIS < 15 (0-50); Potassium 3.7 mmol/L (3.4-5.1); Sodium 135 mmol/L (137-145)
[2022-02-10 21:06] LABS: Lactate (Lactic Acid) 1.6 mmol/L (0.7-2.1)
[2022-02-10 21:17] LABS: Troponin I 0.018 ng/mL (0.01-0.034)
[2022-02-10 21:22] LABS: Procalcitonin 6.78 ng/mL (<0.5)
--- NOTE | 2022-02-10 21:49 | PC.NURSE ---
Pt stood from bed and immediately began staggering in room. This RN assisted pt back to a sitting position in bed. Pt reports severe dizziness and nausea and proceeds to dry heave. After being assisted into a semi-rm position in bed by two staff members, pt reports relief of dizziness and nausea. Pt HR and SpO2 WNL. notified.
[2022-02-10 22:03] LABS: Appearance Urine UA CLEAR; Bilirubin Urine UA NEGATIVE (NEGATIVE); Color Urine UA YELLOW; Glucose Urine UA TRACE g/dL (Negative); Ketones Urine UA NEGATIVE (NEGATIVE); Leukocyte Esterase Urine UA TRACE (NEGATIVE); Nitrite Urine UA NEGATIVE (Negative); Occult Blood Urine UA TRACE-LYSED (Negative); Protein Urine UA NEGATIVE (Negative); Urobilinogen Urine UA 0.2 E.U./dL (0.2)
[2022-02-10 22:12] LABS: Bacteria Urine Occasional (0-1); Culture Indicated Urine Specimen Cultured; RBC Urine 0-1/HPF (0-5/HPF); Squamous Epithelial Cell Urine 0-1 /HPF (0-5/HPF); WBC Urine 0-1/HPF (0-5/HPF)
--- NOTE | 2022-02-10 22:20 | PC.NURSE ---
Patient sleeping, awakes to verbal stimulation. Patient blood pressure trending down. Dr Keen aware, IVF infusing per sepsis protocol.
[2022-02-11] VITALS (9 sets, daily range): BP systolic 82–124; BP diastolic 43–69; PULSE 57–79; RESP 15–17; TEMP 36.5–37.6; O2SAT 93–100; BMI 27.8
--- NOTE | 2022-02-11 | PC.NURSE ---
Per patient request Ubaldo Fry updated on plan of care.
[2022-02-11] MEDS: SODIUM CHLORIDE 0.45% 1,000 ML 100 ML IV (01:07)
[2022-02-11] MEDS: diphenhydrAMINE 25 MG TABLET PO ×4 (01:32→22:59)
[2022-02-11] MEDS: diphenhydrAMINE 25 MG TABLET 50 MG PO (05:35)
[2022-02-11 05:42] LABS: BUN Creatinine Ratio 26.9 (6-22); Blood Urea Nitrogen 21 mg/dL (9-20); Calcium 7.1 mg/dL (8.4-10.2); Carbon Dioxide 21 mmol/L (22-32); Chloride 104 mmol/L (98-107); Estimated Glomerular Filt Rate > 60 mL/min (>60); Glucose 106 mg/dL (80-110); HEMOLYSIS < 15 (0-50); Sodium 132 mmol/L (137-145)
[2022-02-11 05:44] LABS: Add Manual Diff / Slide Review NO; Basophils Absolute Auto 0 /uL (0-100); Basophils Percent Auto 0.1 % (0-2); Eosinophils Absolute Auto 0 /uL (0-450); Hematocrit 39.9 % (41-53); Hemoglobin 13.1 g/dL (13.5-17.5); Lymphocytes Absolute Auto 400 /uL (1100-4500); Lymphocytes Percent Auto 2.4 % (25-40); Mean Corpuscular HGB Conc 32.8 % (30-36); Mean Corpuscular Hemoglobin 26.5 PG (26-34); Mean Corpuscular Volume 80.6 fL (80-100); Monocytes Absolute Auto 300 /uL (0-900); Monocytes Percent Auto 2.3 % (3-14); Neutrophils Absolute Auto 14200 /uL (1500-7000); Neutrophils Percent Auto 95.2 % (50-75); Platelet Count 188 X10^3/uL (150-400); Red Blood Cell Count 4.95 X10^6/uL (4.5-5.9); Red Cell Distribution Width 17.6 % (11.6-14.8); White Blood Cell Count 14.9 X10^3/uL (4.5-11.0)
[2022-02-11] MEDS: SODIUM CHLORIDE 0.9% 250 ML 1000 ML IV (05:46)
--- NOTE | 2022-02-11 06:22 | PC.NURSE ---
Addendum entered by Charla Garcia R.N. 02/11/22 06:28: Correction - order to increase fluids to 125/hr, pt is on 1/2 NS. Addendum entered by Charla Garcia R.N. 02/11/22 06:24: Blood pressure 82/41, MAP 59. Noted hives up patients arms. Tongue swollen and patient unable to speak clearly. Notified Dr. Kahn and received order for 60mg solu-medrol, 50mg PO Benadryl, 250 NS bolus, and increase fluids to 125 NS/hr. Addendum entered by Charla Garcia R.N. 02/11/22 06:23: Received order for General diet and Tylenol 650mg. Original Note: Patient reported that he was itchy stating that it only happens when he's in the hospital. Contacted Dr. Polanco and got order for Benadryl. Administered as ordered.
[2022-02-11] MEDS: SODIUM CHLORIDE 0.9% 1,000 ML 125 ML IV (09:04)
[2022-02-11] MEDS: ASPIRIN EC 81 MG TABLET PO ×2 (09:14→20:54)
[2022-02-11] MEDS: TAMSULOSIN 0.4 MG CAPSULE PO ×2 (09:14→20:54)
[2022-02-11] MEDS: ENOXAPARIN 40 MG/0.4 ML SYRINGE SUBCUT (09:14)
[2022-02-11] MEDS: PANTOPRAZOLE DR 40 MG TABLET PO ×2 (09:14→20:54)
[2022-02-11] MEDS: MAGNESIUM HYDROXIDE 30 ML UDC PO (09:15)
--- NOTE | 2022-02-11 10:56 | PC.NURSE ---
Day shift: Pt stood and pivot to BSC. Not steady on his feet. Unable to void. Back in bed. Bed alarm is on and call light in reach. Door to room is open also.
--- NOTE | 2022-02-11 11:26 | PM.HP.1 ---
History of Present Illness History of Present Illness Date Patient Seen: 02/11/22 Time Patient Seen: 11:26 Date of Onset of Symptoms: 02/08/22 Chief complaint: Dizzy, 102.5 fever Narrative: Patient is an 81-year-old man with history of feeling poorly really for maybe a few weeks although he does not feel like it was a major issue. But within the last day or 2 feels like he has had increasing weakness and fever. He has had no headaches visual symptoms numbness tingling neck pain chest pain shortness of breath cough abdominal pain change in his bowel movements or urinary changes. Patient really other than being weak has not had any real changes. He has not had any friends or any limp but he that he knows that he is associated with who is been sick. Has not been around many people. Negative COVID in an ER. Otherwise no significant new change. T-max in the emergency room was 100.6 Patient developed a rash in the middle the night was given Benadryl and then began having swelling of his tongue and an increase rest. He was given antibiotics in the ER. Although he has no definitive allergies other than latex. Patient was given steroids last night. Patient with still some feeling as if his tongue is in lips are swollen. Breathing okay. Does not feel like he is having issues swallowing. No other change. Reviewed chart and clinic. Patient apparently has been having some low blood pressures for a while. they have been adjusting his medication as an outpatient. He has had no other significant new changes or complaints. This is been going on for a while. Patient History Medical History AAA (abdominal aortic aneurysm) Arthritis BPH (benign prostatic hyperplasia) Former smoker GERD (gastroesophageal reflux disease) HLD (hyperlipidemia) HTN (hypertension) Hyponatremia Osteoarthritis PAD (peripheral artery disease) PVD (peripheral vascular disease) Shingles TIA (transient ischemic attack) Surgical History History of bilateral cataract extraction (~2018) History of colonoscopy History of total right hip arthroplasty Hx of appendectomy Hx of bone graft S/P cervical spinal fusion (08/09/15) Family & Social History Social History: household members friend(s),none Prior Living Arrangements Apartment/Condo Safety & Behavioral: Feels Safe in Current Yes Environment Been Physically Hurt or No Threatened By a Person Tobacco & Substance use: Tobacco type cigarettes Smoking Status Former smoker alcohol intake current alcohol intake frequency 3 or more drinks per day Substance Use Type does not use Meds Home Medications and Allergies Home Medications Medication Instructions Recorded Confirmed Type losartan 100 1 tab PO QDAY ##0 11/09/11 02/11/22 History mg-hydrochlorothiazide 25 mg tablet omeprazole 20 mg capsule,delayed 40 mg PO BID ##0 11/09/11 02/11/22 History release tamsulosin 0.4 mg capsule 0.4 mg PO BID 01/15/18 02/11/22 History aspirin 81 mg tablet,delayed 81 mg PO BID #0 tabs 11/13/18 02/11/22 Rx release acetaminophen 325 mg tablet 650 mg PO TID PRN Pain, Mild 02/11/22 02/11/22 History Allergies Allergy/AdvReac Type Severity Reaction Status Date / Time latex [LATEX] Allergy Mild Rash Verified 01/29/22 14:18 Review of Systems Review of Systems Narrative: Negative as above Exam Vital Signs (past 8 hours): - 02/11/22 05:11 02/11/22 05:35 02/11/22 06:39 Temperature 97.9 F Pulse Rate 57 L 67 Respiratory Rate 15 Blood Pressure 82/47 L 118/69 100/43 L Pulse Oximetry 95 93 Oxygen Delivery Method Oxygen Flow Rate 02/11/22 08:11 02/11/22 08:10 02/11/22 09:08 Temperature 98.4 F 98.4 F Pulse Rate 71 71 Respiratory Rate 16 16 Blood Pressure 97/43 L 97/43 L Pulse Oximetry 94 94 Oxygen Delivery Method Room Air Oxygen Flow Rate 0 0 Oxygen Delivery Method Room Air Oxygen Flow Rate 0 Narrative Exam Narrative: Alert but sleeping male drowsy in appearance in no acute distress. HEENT exam TMs are normal conjunctiva clear tongue is swollen and he has some lip swelling. Is able to swallow. Is tolerating his own fluids. Not having any respiratory issues breathing comfortably. Neck supple without adenopathy lungs are clear. Heart regular rate and rhythm. Abdomen is soft positive bowel sounds nontender. Extremities without significant edema. Skin shows a diffuse erythematous rash with plaques essentially over entire body. Capillary refill is normal Objective Labs Result Diagrams: 02/11/22 04:53 02/11/22 04:53 Labs: Laboratory Results - last 24 hr 02/10/22 02/10/22 02/10/22 17:19 17:20 17:20 WBC 10.9 RBC 5.06 Hgb 13.7 Hct 40.9 L MCV 80.9 MCH 27.1 MCHC 33.5 RDW 17.6 H Plt Count 202 Neut % (Auto) 95.9 H Lymph % (Auto) 2.0 L [place] % (Auto) 1.6 L Eos % (Auto) 0.3 L Baso % (Auto) 0.2 Neut # (Auto) 05024 H Lymph # (Auto) 200 L [place] # (Auto) 200 Eos # (Auto) 0 Baso # (Auto) 0 Sodium 137 Potassium 4.1 Chloride 101 Carbon Dioxide 28 BUN 21 H Creatinine 0.94 Estimated GFR > 60 BUN/Creatinine Ratio 22.3 H Glucose 98 Lactate Calcium 9.2 Total Bilirubin 0.8 AST 24 ALT 24 Alkaline Phosphatase 70 Total Creatine Kinase CK-MB (CK-2) CK-MB (CK-2) Rel Index Troponin I Total Protein 8.1 Albumin 4.4 Globulin 3.7 Albumin/Globulin Ratio 1.2 Procalcitonin Urine Color Urine Appearance Urine pH Ur Specific [place] Urine Protein Urine Glucose (UA) Urine Ketones Urine Occult Blood Urine Nitrate Urine Bilirubin Urine Urobilinogen Ur Leukocyte Esterase Urine RBC Urine WBC Ur Squamous Epith Cells Urine Bacteria Ur Culture Indicated? SARS-CoV-2 (PCR) Negative 02/10/22 02/10/22 02/10/22 17:20 20:39 20:39 WBC 12.3 H RBC 4.82 Hgb 12.8 L Hct 39.0 L MCV 80.8 MCH 26.6 MCHC 32.9 RDW 16.9 H Plt Count 191 Neut % (Auto) 94.5 H Lymph % (Auto) 2.0 L [place] % (Auto) 3.3 Eos % (Auto) 0.0 L Baso % (Auto) 0.2 Neut # (Auto) 04822 H Lymph # (Auto) 200 L [place] # (Auto) 400 Eos # (Auto) 0 Baso # (Auto) 0 Sodium 135 L Potassium 3.7 Chloride 100 Carbon Dioxide 27 BUN 21 H Creatinine 0.88 Estimated GFR > 60 BUN/Creatinine Ratio 23.9 H Glucose 101 Lactate 1.5 Calcium 8.6 Total Bilirubin 0.9 AST 20 ALT 16 Alkaline Phosphatase 58 Total Creatine Kinase 47 L CK-MB (CK-2) TNP CK-MB (CK-2) Rel Index TNP Troponin I 0.018 Total Protein 7.0 Albumin 3.7 Globulin 3.3 Albumin/Globulin Ratio 1.1 Procalcitonin 6.78 H Urine Color Urine Appearance Urine pH Ur Specific [place] Urine Protein Urine Glucose (UA) Urine Ketones Urine Occult Blood Urine Nitrate Urine Bilirubin Urine Urobilinogen Ur Leukocyte Esterase Urine RBC Urine WBC Ur Squamous Epith Cells Urine Bacteria Ur Culture Indicated? SARS-CoV-2 (PCR) 02/10/22 02/10/22 02/11/22 20:39 21:55 04:53 WBC 14.9 H RBC 4.95 Hgb 13.1 L Hct 39.9 L MCV 80.6 MCH 26.5 MCHC 32.8 RDW 17.6 H Plt Count 188 Neut % (Auto) 95.2 H Lymph % (Auto) 2.4 L [place] % (Auto) 2.3 L Eos % (Auto) 0.0 L Baso % (Auto) 0.1 Neut # (Auto) 66375 H Lymph # (Auto) 400 L [place] # (Auto) 300 Eos # (Auto) 0 Baso # (Auto) 0 Sodium Potassium Chloride Carbon Dioxide BUN Creatinine Estimated GFR BUN/Creatinine Ratio Glucose Lactate 1.6 Calcium Total Bilirubin AST ALT Alkaline Phosphatase Total Creatine Kinase CK-MB (CK-2) CK-MB (CK-2) Rel Index Troponin I Total Protein Albumin Globulin Albumin/Globulin Ratio Procalcitonin Urine Color Yellow Urine Appearance Clear Urine pH 6.0 Ur Specific [place] 1.010 Urine Protein Negative Urine Glucose (UA) Trace H Urine Ketones Negative Urine Occult Blood Trace-lysed Urine Nitrate Negative Urine Bilirubin Negative Urine Urobilinogen 0.2 Ur Leukocyte Esterase Trace H Urine RBC 0-1/hpf Urine WBC 0-1/hpf Ur Squamous Epith Cells 0-1 /hpf Urine Bacteria Occasional (0-1) Ur Culture Indicated? Specimen cultured SARS-CoV-2 (PCR) 02/11/22 04:53 WBC RBC Hgb Hct MCV MCH MCHC RDW Plt Count Neut % (Auto) Lymph % (Auto) [place] % (Auto) Eos % (Auto) Baso % (Auto) Neut # (Auto) Lymph # (Auto) [place] # (Auto) Eos # (Auto) Baso # (Auto) Sodium 132 L Potassium 4.0 Chloride 104 Carbon Dioxide 21 L BUN 21 H Creatinine 0.78 Estimated GFR > 60 BUN/Creatinine Ratio 26.9 H Glucose 106 Lactate Calcium 7.1 L Total Bilirubin AST ALT Alkaline Phosphatase Total Creatine Kinase CK-MB (CK-2) CK-MB (CK-2) Rel Index Troponin I Total Protein Albumin Globulin Albumin/Globulin Ratio Procalcitonin Urine Color Urine Appearance Urine pH Ur Specific [place] Urine Protein Urine Glucose (UA) Urine Ketones Urine Occult Blood Urine Nitrate Urine Bilirubin Urine Urobilinogen Ur Leukocyte Esterase Urine RBC Urine WBC Ur Squamous Epith Cells Urine Bacteria Ur Culture Indicated? SARS-CoV-2 (PCR) Assessment & Plan Assessment & Plan narrative: Fever. Etiology is unclear at this time. Chest x-ray is normal he really has no specific complaints. Does have an elevated pro calcification. White count was mildly more elevated today but probably secondary to steroids given in the middle of the night. Patient continues to have no definitive source with complaints. Given that his reaction to the antibiotic IV for for not to treat at this time because I do not know exactly what and treating. Discussed with him. At this point were going to repeat his labs in the morning. Were going to watch for a fever. If he develops that may need to consider CT scan of chest abdomen and pelvis. Although it would seem chest would be the most likely possibility. He understands. Questions answered. Re-evaluate in a.m.. Probable penicillin allergy. Patient was given antibiotics in the ER. Patient has pretty severe reaction with tongue swelling and lip swelling and diffuse rash which appears to be hives. Patient is not having at this time any throat issues and it is unclear whether that will developed but hopefully not will do scheduled Benadryl continue IV steroids and watch closely. Currently not an issue. Metabolic encephalopathy. He is somewhat fatigued and I think that is probably from the doses of Benadryl he got last night. But will have to watch closely we are going to continue the Benadryl through the night and then hopefully can discontinue tomorrow based on his rash. Hopefully that all is better by tomorrow. Hypotension. Patient with persistent hypotension. Is is more related to his infection potentially or is it just something that has been in the treatment of his blood pressure. It is unclear at this time. We have to assume it is related somewhat to his infection and will hydrate slowly at this time. But will not be aggressive will hold his blood pressure medicines and re-evaluate over the next few days. Weakness. Probably secondary to his infection but it is unclear. Will continue to follow. Certainly nonfocal. Will begin physical therapy tomorrow. Hopefully he will be recovering and expect full recovery without major issue. BPH. Stable. Will continue to follow. Usual medicine. I do not think this is causes hypotension but may need to be discontinued over time. History of syphilis. Stable. History of aortic aneurysm. Followed. No changes and do not believe this is active. Esophageal reflux. Will continue current PPI. Code status. DNR. Patient pretty clear on that. Will have to discuss if he were to get worse as far as his airway whether he would want short-term intubation. Patient is thinking about it. DVT prophylaxis. Lovenox low-dose. Disposition. Clearly patient with significant allergic reaction and an unknown infection with hypotension unclear whether it is related. At this point will repeat labs and follow he will be here at least 48 hours will see how things go. 42 minutes spent in evaluation, nursing discussion, labs, ordering and dictating. Time Spent With Patient Critical Care time: I spent a total of [] minutes of critical care time on this patient's care today; this time is exclusive of procedural time. Quality VTE Deep Vein Thrombosis/Pulmonary Embolism Present on Admission: No
--- NOTE | 2022-02-11 11:35 | CM.DANOTE ---
Initial DCP Assessment Note Pt is an 81 yo male, resident of [place], arrives with neighbors, complains of feeling poorly with new fever, admitted for further w/u with suspected new infection, possibly septic. According to Dr Kahn, patient started on IVabx in the ER and has developed a rash, IV benadryl given and patient quite somnolent this morning PCP: [facility], formerly Dr Zheng Payer: BRUNO/Edna Reviewed chart, pt discussed w/RN Asa and Dr Kahn. Patient lists friend Ang Edwards# [phone] as emergency contact. Attempted bedside assessment and patient too lethargic, wants to rest. Will plan to attempt later today if patient is feeling better. Expect return home upon DC, r/o need for HH services Following closely as medical POC unfolds ABIGAIL Griggs Discharge Planning/Care Management CM Discharge Assessment Start: 02/11/22 10:53 Freq: Status: Active Protocol: Document 02/11/22 10:56 MARIELOS (Rec: 02/11/22 11:34 MARIELOS [id number]) Discharge Planning Assessment Assigned Underliner ABIGAIL Underwood DPOA/Assigned Designee Name sister Tijerina Contact Information [phone] Advance Directives? No: Declines further information, has information History Provided By Patient,Medical Record Prior Living Arrangements Apartment/Condo Household Members friend(s),none Type of transporation used prior to Drives own vehicle admit Independent with ADL's Yes Is patient alert and oriented? Yes Patient/Family Preference Home with Home Health Comment Patient may benefit from HH, will discuss as medical POC unfolds Barriers to Discharge Yes Comment Not medically stable at this time, likely home w/friends, r /o need for HH Discharge Plan Home with Home Health
--- NOTE | 2022-02-11 13:01 | PC.NURSE ---
Day shift: Dr Polanco aware of Pt's hypotension. BP meds on hold. Also stated that BP has been on the lower side for several months now.
[2022-02-11] MEDS: SODIUM CHLORIDE 0.9% 1,000 ML 100 ML IV (17:31)
--- NOTE | 2022-02-11 18:14 | PC.NURSE ---
Day shift: Pt's keys given to Huber Vazquez (Family friend). This was set up by Pt's Friend Ang. The keys being given to Huber was ok with Pt. This was done this nasir at approx 181.
[2022-02-12] MEDS: SODIUM CHLORIDE 0.9% 1,000 ML 100 ML IV (03:08)
--- NOTE | 2022-02-12 03:21 | PC.NURSE ---
Patient removed ring d/t swollen hands and it is locked in safe.
[2022-02-12 04:00] VITALS: BP 110/53; PULSE 74; RESP 16; O2SAT 98
[2022-02-12 06:00] VITALS: O2SAT 97
[2022-02-12] MEDS: diphenhydrAMINE 25 MG TABLET PO (06:10)
[2022-02-12 07:37] LABS: Add Manual Diff / Slide Review NO; Basophils Absolute Auto 0 /uL (0-100); Basophils Percent Auto 0.1 % (0-2); Eosinophils Absolute Auto 0 /uL (0-450); Hematocrit 38.6 % (41-53); Hemoglobin 12.7 g/dL (13.5-17.5); Lymphocytes Absolute Auto 500 /uL (1100-4500); Lymphocytes Percent Auto 12.7 % (25-40); Mean Corpuscular Hemoglobin 26.6 PG (26-34); Mean Corpuscular Volume 80.5 fL (80-100); Monocytes Absolute Auto 400 /uL (0-900); Neutrophils Absolute Auto 3300 /uL (1500-7000); Neutrophils Percent Auto 77.2 % (50-75); Platelet Count 194 X10^3/uL (150-400); Red Blood Cell Count 4.79 X10^6/uL (4.5-5.9); White Blood Cell Count 4.3 X10^3/uL (4.5-11.0)
[2022-02-12 07:41] LABS: Lactate (Lactic Acid) 1.2 mmol/L (0.7-2.1)
[2022-02-12 07:42] LABS: Alanine Aminotransferase 19 IU/L (<50); Albumin 2.4 g/dL (3.5-5.0); Albumin Globulin Ratio 0.9 (1.0-2.8); Alkaline Phosphatase 33 U/L (38-126); Aspartate Aminotransferase 23 IU/L (17-59); BUN Creatinine Ratio 18.6 (6-22); Bilirubin Total 0.2 mg/dL (0.2-1.3); Blood Urea Nitrogen 50 mg/dL (9-20); Calcium 6.9 mg/dL (8.4-10.2); Carbon Dioxide 20 mmol/L (22-32); Chloride 103 mmol/L (98-107); Estimated Glomerular Filt Rate 23 mL/min (>60); Globulin 2.7 g/dL (1.7-4.1); Glucose 132 mg/dL (80-110); HEMOLYSIS < 15 (0-50); Potassium 4.4 mmol/L (3.4-5.1); Sodium 131 mmol/L (137-145); Total Protein 5.1 g/dL (6.3-8.2)
[2022-02-12 07:44] VITALS: PULSE 66; O2SAT 94
[2022-02-12 08:25] LABS: Procalcitonin 16.6 ng/mL (<0.5)
[2022-02-12] MEDS: ASPIRIN EC 81 MG TABLET PO ×2 (08:39→20:24)
[2022-02-12] MEDS: TAMSULOSIN 0.4 MG CAPSULE PO ×2 (08:39→20:24)
[2022-02-12] MEDS: PANTOPRAZOLE DR 40 MG TABLET PO ×2 (08:39→20:24)
[2022-02-12] MEDS: ENOXAPARIN 40 MG/0.4 ML SYRINGE SUBCUT (08:39)
[2022-02-12 09:26] VITALS: BP 121/65; PULSE 72; O2SAT 95
--- NOTE | 2022-02-12 10:11 | DI.CT.S_ITS ---
PROCEDURE: CT HEAD/BRAIN WO CON INDICATIONS: right visual change TECHNIQUE: Noncontrast 4.5 mm thick angled axial sections acquired from the foramen magnum to the vertex, with coronal and sagittal reformats. For radiation dose reduction, the following was used: automated exposure control, adjustment of mA and/or kV according to patient size. COMPARISON: [facility], CT, CT HEAD/BRAIN WO CON, 08/19/2021, 18:09. FINDINGS: Image quality: Excellent. CSF spaces: Basal cisterns are patent. No extra-axial fluid collections. Ventricles are normal in size and shape. Brain: No midline shift. No intracranial masses or hemorrhage. Dubois-white matter interface is normal. Moderate cerebral and cerebellar volume loss with multifocal white matter chronic ischemic change noted. Atherosclerotic calcification noted associated with cavernous segments of both internal carotid arteries. Wedge-shaped hypodensities in the left occipital and right and left cerebellum are new from the prior exam Skull and face: Calvarium and visualized facial bones are intact, without suspicious lesions. Sinuses: Visualized sinuses and mastoids are clear. 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 No intracranial hemorrhage or mass effect. Atrophy and chronic ischemic change Approved by: Sanchez Moran M.D. on 02/12/2022 at 10:22
--- NOTE | 2022-02-12 10:37 | DI.RAD.S_ITS ---
PROCEDURE: XR CHEST 2V INDICATIONS: change in breathing TECHNIQUE: 2 views of the chest were acquired. COMPARISON: [facility], CR, XR CHEST 1V, 02/10/2022, 19:50. FINDINGS: Surgical changes and devices: Lower cervical spine and left clavicular instrumentation. Lungs and pleura: Left basilar atelectasis and or infiltrate Mediastinum: Mediastinal contours are normal. Heart size is normal. Bones and chest wall: No suspicious bony abnormalities. Soft tissues appear unremarkable. IMPRESSION: Left basilar atelectasis and or infiltrate. Approved by: Sanchez Moran M.D. on 02/12/2022 at 10:42
--- NOTE | 2022-02-12 11:00 | PM.PN.1 ---
Subjective Subjective Date Patient Seen: 02/12/22 Time Patient Seen: 11:00 Interval history: Patient seen in follow-up for multiple issues. Patient feeling like his itching is better in his rash is better had catheter placed last night. No real cough. No pain. No abdominal pain. No other changes. Patient feels as if when he is looking at the TV the right solid edges are becoming quite blurred. No headaches. No nausea no vomiting no other changes no numbness or tingling Exam Vital Signs (past 8 hours): - 02/12/22 04:00 02/12/22 07:44 02/12/22 09:26 Pulse Rate 74 66 72 Respiratory Rate 16 Blood Pressure 110/53 L 121/65 Pulse Oximetry 98 94 95 Oxygen Flow Rate 3 0 0 Oxygen Delivery Method Nasal Cannula Oxygen Flow Rate 0 Narrative Exam Narrative: Alert elderly male much more awake in no acute distress. HEENT exam unremarkable. Tongue and lips appear normal Neck supple without adenopathy lungs are clear. Heart regular rate and rhythm. Abdomen is soft positive bowel sounds nontender. Extremities without cyanosis clubbing edema. Neurologic exam shows cranial nerves 2-12 are intact as far as I can see with testing on visual serna he has normal testing. Reflexes are 2+ and symmetric motor seems normal I did not get him up and walk him. Skin shows much improved. Still has diffuse erythematous rash which is now small 1 cm lesions distributed across entire body Objective Labs Result Diagrams: 02/12/22 07:10 02/12/22 07:10 Labs: Laboratory Results - last 24 hr 02/12/22 02/12/22 02/12/22 07:10 07:10 07:10 WBC 4.3 L D RBC 4.79 Hgb 12.7 L Hct 38.6 L MCV 80.5 MCH 26.6 MCHC 33.0 RDW 18.0 H Plt Count 194 Neut % (Auto) 77.2 H Lymph % (Auto) 12.7 L [place] % (Auto) 10.0 Eos % (Auto) 0.0 L Baso % (Auto) 0.1 Neut # (Auto) 3300 Lymph # (Auto) 500 L [place] # (Auto) 400 Eos # (Auto) 0 Baso # (Auto) 0 Sodium 131 L Potassium 4.4 Chloride 103 Carbon Dioxide 20 L BUN 50 H Creatinine 2.69 H Estimated GFR 23 L BUN/Creatinine Ratio 18.6 Glucose 132 H Lactate 1.2 Calcium 6.9 L Total Bilirubin 0.2 AST 23 ALT 19 Alkaline Phosphatase 33 L Total Protein 5.1 L Albumin 2.4 L Globulin 2.7 Albumin/Globulin Ratio 0.9 L Procalcitonin 02/12/22 07:10 WBC RBC Hgb Hct MCV MCH MCHC RDW Plt Count Neut % (Auto) Lymph % (Auto) [place] % (Auto) Eos % (Auto) Baso % (Auto) Neut # (Auto) Lymph # (Auto) [place] # (Auto) Eos # (Auto) Baso # (Auto) Sodium Potassium Chloride Carbon Dioxide BUN Creatinine Estimated GFR BUN/Creatinine Ratio Glucose Lactate Calcium Total Bilirubin AST ALT Alkaline Phosphatase Total Protein Albumin Globulin Albumin/Globulin Ratio Procalcitonin 16.6 H [facility] Medical History AAA (abdominal aortic aneurysm) Arthritis BPH (benign prostatic hyperplasia) Former smoker GERD (gastroesophageal reflux disease) HLD (hyperlipidemia) HTN (hypertension) Hyponatremia Osteoarthritis PAD (peripheral artery disease) PVD (peripheral vascular disease) Shingles TIA (transient ischemic attack) Surgical History History of bilateral cataract extraction (~2018) History of colonoscopy History of total right hip arthroplasty Hx of appendectomy Hx of bone graft S/P cervical spinal fusion (08/09/15) Social History household members: friend(s) and none Smoking Status: Former smoker alcohol intake: current Assessment & Plan Assessment & Plan narrative: New visual changes. I can not document any specific changes on exam certainly no other neurologic changes but at this point I think we need to get a CT scan. I am going to do it without contrast initially given his renal failure. And will see what that shows. May need to follow-up with MRI or other imaging depending on how things go. Certainly not much to see visually on exam. There is some data that I was reading a procalcitonin where central nervous system events can affect it will have to see how that goes certainly is a acute phase reactant. Elevated procalcitonin and in face of normal eyes white count and no further fevers. Etiology is unclear. Certainly clinically things are not well. He does have a small O2 requirement no obvious source. Certainly normal exam. We discussed options. We elected for Levaquin. Will be dosed by pharmacist. We talked about Rocephin but with recent reaction to probable penicillin would be choice we will make today. Will obtain chest x-ray. Will also going to look at ultrasound of abdomen to evaluate kidneys and make sure there is no unknown infection there and will follow-up in a.m.. With repeat procalcitonin. Renal failure acute etiology is unclear. Could this be secondary to obstruction and BPH which I think was probably from his Benadryl. Catheter was placed. An maybe this will fix the problem. Will obtain ultrasound to make sure there is no acute obstruction. Will bone fluid slightly to follow. He is making urine. No new medications that should affect that. Patient has had a low blood pressure but this is been chronic and I do not think that much changed. Will continue off his medication and re-evaluate. A.m.. Hopefully it will be trending in the right direction. Penicillin allergy. New. Much improved. Discontinue Benadryl and continue steroids for now. Probably hopefully can discontinue those tomorrow depending on how he does. Re-evaluate at that point. Fever. Question whether not there is infection he has not had a fever since he has been in the hospital. We are placing level: Will have to follow. Chest x-ray today. Re-evaluate after that. Metabolic encephalopathy. I think this is more related to his Benadryl he actually is much more alert today. And clearly oriented. Hopefully with discontinue Benadryl completely things will completely clear up. I do not think he has a central infection certainly has no complaints of that. Weakness. This is a combination of multiple issues not want definitive abnormality will see what to CT scan shows. Physical therapy today. And follow from there. BPH. Probably worsened secondary to medication. Will continue his Flomax but will continue catheterization for now. History of aortic aneurysm. Does not appear to be significant at this time. Esophageal reflux. Continue PPI. Code status DNR. DVT prophylaxis Lovenox. Disposition. Clearly not going in the direction that we may want to go. Were going to need at least 24 more to 48 more hours. And will have to see how things go in response to treatment today. Patient understands questions answered. 40 minute spent with patient and discussing case with care team and orders and dictation. Time Spent With Patient Critical Care time: I spent a total of [] minutes of critical care time on this patient's care today; this time is exclusive of procedural time. Quality VTE Deep Vein Thrombosis/Pulmonary Embolism Present on Admission: No
[2022-02-12 11:15] LABS: Appearance Urine UA SL CLOUDY; Bilirubin Urine UA NEGATIVE (NEGATIVE); Color Urine UA YELLOW; Glucose Urine UA TRACE g/dL (Negative); Ketones Urine UA TRACE (NEGATIVE); Leukocyte Esterase Urine UA 1+ (NEGATIVE); Nitrite Urine UA NEGATIVE (Negative); Occult Blood Urine UA 3+ (Negative); Protein Urine UA 1+ (Negative); Specific Gravity Urine UA >=1.030 (1.000-1.035); Urobilinogen Urine UA 0.2 E.U./dL (0.2)
[2022-02-12 11:22] LABS: Amorphous Sediment Urine 2+; Bacteria Urine Moderate (10-30); Culture Indicated Urine Specimen Cultured; Mucus Urine 2+ (Negative); RBC Urine 10-30/HPF (0-5/HPF); Squamous Epithelial Cell Urine 0-1 /HPF (0-5/HPF); WBC Urine 5-10/HPF (0-5/HPF)
[2022-02-12] MEDS: levoFLOXacin 750 MG/150 ML PIGGYBACK 100 MG IV (11:25)
[2022-02-12] MEDS: SODIUM CHLORIDE 0.9% 1,000 ML 125 ML IV ×2 (11:30→22:26)
[2022-02-12] MEDS: CALCIUM CARBONATE 500 MG TAB PO ×2 (16:50→20:24)
[2022-02-12 17:00] VITALS: PULSE 76; O2SAT 96
--- NOTE | 2022-02-12 17:24 | PT.IIE ---
Surgical History (Last Reviewed 02/11/22 @ 11:30 by Slim Kahn MD) History of bilateral cataract extraction (~2018) History of colonoscopy History of total right hip arthroplasty Hx of appendectomy Hx of bone graft S/P cervical spinal fusion (08/09/15) Medical History (Last Reviewed 02/11/22 @ 11:30 by Slim Kahn MD) AAA (abdominal aortic aneurysm) Arthritis BPH (benign prostatic hyperplasia) Former smoker GERD (gastroesophageal reflux disease) HLD (hyperlipidemia) HTN (hypertension) Hyponatremia Osteoarthritis PAD (peripheral artery disease) PVD (peripheral vascular disease) Shingles TIA (transient ischemic attack) Physical Therapy Inpatient Evaluation/Re-Eval M1 PT/OT-IP Prior Functional Status Start: 02/12/22 17:24 Freq: NEEDED Status: Active Protocol: Document 02/12/22 17:24 DLM (Rec: 02/12/22 17:38 DL [id number]) Medical Review Prior Functional Status Medical History Reviewed Yes Diet/Fluid Consistency Regular Communication WFL, wears glasses Mobility and Gait Independent without device, walks for exercise 3-5 miles Activities of Daily Living and IADL's Independent, drives Social History Household Members none Living Arrangements Apartment/Condo Number of Floors (Floors) One Floor Number of Stairs To Enter/Railing? 8 with rail Home Environment High Toilet,Walk in Shower Home Equipment Front Wheel Walker,Shower Seat without Backrest,Grab Bars In Shower Additional Social History Comment just finished out-PT Jan 23. He used a walker when discharged home from [facility] after cervical fx and surgery. He fractured his neck after passing out and falling. 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 He reports having choking problems in the past. Patient Goals get well and go home M4 PT-IP Mobility and Gait Start: 02/12/22 17:24 Freq: NEEDED Status: Active Protocol: Document 02/12/22 17:24 DL (Rec: 02/12/22 17:38 [facility] [id number]) PT-Bed Mobility Assessment Supine to Sit Supine to Sit Standby Assistance Scooting Scooting to Edge of Bed Standby Assistance PT-Transfer Assessment Sit to and From Stand Sit to and from Stand Contact Guard Assistance,Use of Upper Extremities Equipment Transfer Assistive Device Gait Belt,Front Wheeled Walker Transfers Transfer Destination Bed,Chair Transfer Technique Stand Step Pivot Transfer Ability Level of Assist Contact Guard Assistance,Use of Upper Extremities Comments Mobility Comments up to recliner and set-up for dinner at the end of this visit Gait Assessment Gait Gait Assistance Required: Contact Guard Assist Distance (Feet) 150 Assistive Devices Assistive Device Gait Belt,Front Wheeled Walker Factors Limiting Gait Function Factors Limiting Gait Function Poor Balance Comments Gait Comments Shortness of breath with gait managed by standing rest break , O2 sats 97% on room air. Pt deviates laterally during gait with moving his head to look around. When he does a standing stop during gait he initially sways ant/post before able to stabalize his balance. PT-Balance Assessment Sitting Balance and Reactions Static Sitting Balance Ability Good Dynamic Sitting Balance Ability Good Standing Balance and Reactions Static Standing Balance Ability Fair Dynamic Standing Balance Ability Fair Device Used FWW M5 PT-IP Objective Assessments Start: 02/12/22 17:24 Freq: NEEDED Status: Active Protocol: Document 02/12/22 17:24 DLM (Rec: 02/12/22 17:38 [facility] [id number]) Orientation Orientation/Cognition Level of Alertness Alert Orientation Name,Age,Birthday,Month,Date, Year,Day of Week,Place, Situation Language Function Ability No Deficits Noted Safety Awareness Understands Safety Issues Memory Description No Deficits Noted Comments he reports blurry vision on right side, able to read by moving paper in front of him for better vision Gross Range of Motion Upper Extremity ROM Assessment Within Functional Limits Impairments mild end range stiffness Lower Extremity ROM Assessment Within Functional Limits Strength Upper Extremity Strength Assessment Within Functional Limits Lower Extremity Strength Assessment Within Functional Limits Comments Strength Comments limited cervical spine AROM following fx and surgery, at rest he holds head deviated left and anterior Coordination Assessment Gross Coordination Gross Coordination Impaired Assessment Foot Tapping Test Minimal Impairment Coordination Comments distal edema UE's and LE's at this time Sensation Assessment Sensation Gross Sensation WNL Muscle Tone Muscle Tone WNL Yes M6 PT-IP Treatment Start: 02/12/22 17:24 Freq: NEEDED Status: Active Protocol: Document 02/12/22 17:24 DLM (Rec: 02/12/22 17:38 DLM [id number]) Physical Therapy Treatment Education Education Provided Safety M7 PT-IP Assessment and Plan Start: 02/12/22 17:24 Freq: NEEDED Status: Active Protocol: Document 02/12/22 17:24 DLM (Rec: 02/12/22 17:38 DLM [id number]) PT Summary Assessment and Plan Potential Rehabilitation Potential Good Status of Condition at Evaluation Evolving Summary Impairments Balance,Coordination,Transfers ,Gait,Activity Tolerance Assessment Summary Brennen is alert and resting in bed at start of visit. Clinically he presents with decreased standing balance and c/o right vision impairments. He tolerated gait in the beavers well with the FWW to manage his balance. He has increases sway in standing with a positive romberg test. He ambulates without an assistive device at baseline. He believes he can get a friend to help him at home. He lives alone and will need to be independent ambulating before discharge. Will continue to assess for safe discharge planning. Recommend OT and ST evaluations also. Goals Bed Mobility Goal Independent Transfer Goal Independent,Front Wheeled Walker Gait Goal Independent,Front Wheel Walker Gait Distance 200 feet Other Goals up and down 8 steps with rail and SBA. 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
--- NOTE | 2022-02-12 17:24 | PT.IIE ---
Surgical History (Last Reviewed 02/11/22 @ 11:30 by Slim Kahn MD) History of bilateral cataract extraction (~2018) History of colonoscopy History of total right hip arthroplasty Hx of appendectomy Hx of bone graft S/P cervical spinal fusion (08/09/15) Medical History (Last Reviewed 02/11/22 @ 11:30 by Slim Kahn MD) AAA (abdominal aortic aneurysm) Arthritis BPH (benign prostatic hyperplasia) Former smoker GERD (gastroesophageal reflux disease) HLD (hyperlipidemia) HTN (hypertension) Hyponatremia Osteoarthritis PAD (peripheral artery disease) PVD (peripheral vascular disease) Shingles TIA (transient ischemic attack) Physical Therapy Inpatient Evaluation/Re-Eval M1 PT/OT-IP Prior Functional Status Start: 02/12/22 17:24 Freq: NEEDED Status: Active Protocol: Document 02/12/22 17:24 DLM (Rec: 02/12/22 17:38 DL [id number]) Medical Review Prior Functional Status Medical History Reviewed Yes Diet/Fluid Consistency Regular Communication WFL, wears glasses Mobility and Gait Independent without device, walks for exercise 3-5 miles Activities of Daily Living and IADL's Independent, drives Social History Household Members none Living Arrangements Apartment/Condo Number of Floors (Floors) One Floor Number of Stairs To Enter/Railing? 8 with rail Home Environment High Toilet,Walk in Shower Home Equipment Front Wheel Walker,Shower Seat without Backrest,Grab Bars In Shower Additional Social History Comment just finished out-PT Jan 23. He used a walker when discharged home from [facility] after cervical fx and surgery. He fractured his neck after passing out and falling. M2 PT-IP Current Condition Start: 02/12/22 17:24 Freq: NEEDED Status: Active Protocol: Document 02/12/22 17:24 DLM (Rec: 02/12/22 17:38 DL [id number]) Physical Therapy Current Condition Current Condition Evaluation Date 02/12/22 Treatment Diagnosis dizziness, vision changes, impaired balance and gait Onset Date 02/10/22 M3 PT-IP Subjective Start: 02/12/22 17:24 Freq: NEEDED Status: Active Protocol: Document 02/12/22 17:24 DLM (Rec: 02/12/22 17:38 DL [id number]) Subjective Physical Therapy Visit Type Type Initial Evaluation Visit Start Time 16:45 Visit Stop Time 17:24 Total Visit Minutes 39 Number of HORSESHOER Visits 0 Physical Therapy Visit Comments Patient Comments He reports he choked earlier today. He reports having choking problems in the past. Patient Goals get well and go home M4 PT-IP Mobility and Gait Start: 02/12/22 17:24 Freq: NEEDED Status: Active Protocol: Document 02/12/22 17:24 DL (Rec: 02/12/22 17:38 [facility] [id number]) PT-Bed Mobility Assessment Supine to Sit Supine to Sit Standby Assistance Scooting Scooting to Edge of Bed Standby Assistance PT-Transfer Assessment Sit to and From Stand Sit to and from Stand Contact Guard Assistance,Use of Upper Extremities Equipment Transfer Assistive Device Gait Belt,Front Wheeled Walker Transfers Transfer Destination Bed,Chair Transfer Technique Stand Step Pivot Transfer Ability Level of Assist Contact Guard Assistance,Use of Upper Extremities Comments Mobility Comments up to recliner and set-up for dinner at the end of this visit Gait Assessment Gait Gait Assistance Required: Contact Guard Assist Distance (Feet) 150 Assistive Devices Assistive Device Gait Belt,Front Wheeled Walker Factors Limiting Gait Function Factors Limiting Gait Function Poor Balance Comments Gait Comments Shortness of breath with gait managed by standing rest break , O2 sats 97% on room air. Pt deviates laterally during gait with moving his head to look around. When he does a standing stop during gait he initially sways ant/post before able to stabalize his balance. PT-Balance Assessment Sitting Balance and Reactions Static Sitting Balance Ability Good Dynamic Sitting Balance Ability Good Standing Balance and Reactions Static Standing Balance Ability Fair Dynamic Standing Balance Ability Fair Device Used FWW M5 PT-IP Objective Assessments Start: 02/12/22 17:24 Freq: NEEDED Status: Active Protocol: Document 02/12/22 17:24 DLM (Rec: 02/12/22 17:38 [facility] [id number]) Orientation Orientation/Cognition Level of Alertness Alert Orientation Name,Age,Birthday,Month,Date, Year,Day of Week,Place, Situation Language Function Ability No Deficits Noted Safety Awareness Understands Safety Issues Memory Description No Deficits Noted Comments he reports blurry vision on right side, able to read by moving paper in front of him for better vision Gross Range of Motion Upper Extremity ROM Assessment Within Functional Limits Impairments mild end range stiffness Lower Extremity ROM Assessment Within Functional Limits Strength Upper Extremity Strength Assessment Within Functional Limits Lower Extremity Strength Assessment Within Functional Limits Comments Strength Comments limited cervical spine AROM following fx and surgery, at rest he holds head deviated left and anterior Coordination Assessment Gross Coordination Gross Coordination Impaired Assessment Foot Tapping Test Minimal Impairment Coordination Comments distal edema UE's and LE's at this time Sensation Assessment Sensation Gross Sensation WNL Muscle Tone Muscle Tone WNL Yes M6 PT-IP Treatment Start: 02/12/22 17:24 Freq: NEEDED Status: Active Protocol: Document 02/12/22 17:24 DLM (Rec: 02/12/22 17:38 DL [id number]) Physical Therapy Treatment Education Education Provided Safety M7 PT-IP Assessment and Plan Start: 02/12/22 17:24 Freq: NEEDED Status: Active Protocol: Document 02/12/22 17:24 DLM (Rec: 02/12/22 17:38 DL [id number]) PT Summary Assessment and Plan Potential Rehabilitation Potential Good Status of Condition at Evaluation Evolving Summary Impairments Balance,Coordination,Transfers ,Gait,Activity Tolerance Goals Bed Mobility Goal Independent Transfer Goal Independent,Front Wheeled Walker Gait Goal Independent,Front Wheel Walker Gait Distance 200 feet Other Goals up and down 8 steps with rail and SBA. Days to Meet Goals 5 Frequency of Treatment Frequency Of Treatment Once a Day Treatment Plan Physical Therapy Treatment Plan Transfer Training,Gait Training,Therapeutic Exercise, Balance Retraining,Discharge Planning,Neuromuscular Re-ed, Coordination Retraining Other Recommendations and Next Treatment further vision training as Focus coordinated with OT Precautions Other Precautions hx of falls with injury Recommendations To Nursing Amount of Assist Needed 1 Person Assist Discharge Recommendations PT Discharge Recommendations Home with Assistance,Home Health Other Discharge Recommendations continue to assess for discharge planning as medical team assessed new deficits Transportation Needs at Discharge Private Vehicle
[2022-02-12 19:45] VITALS: BP 129/56; PULSE 68; RESP 14; TEMP 36.5; O2SAT 96
[2022-02-13] VITALS: BP 151/67; PULSE 62; RESP 14; TEMP 37.1; O2SAT 96
[2022-02-13 04:15] VITALS: BP 139/76; PULSE 67; RESP 14; TEMP 36.6; O2SAT 97
--- NOTE | 2022-02-13 04:46 | PC.NURSE ---
Pt is AxOx4, quite and calm. VSS, pt denies pain. Pt still has redness from reaction of IV ABO. Pt slept well all night. Continued mcfarlane catheter. No BN overnigh. Continue monitor.
[2022-02-13 05:36] LABS: Add Manual Diff / Slide Review NO; Basophils Absolute Auto 0 /uL (0-100); Basophils Percent Auto 0.3 % (0-2); Eosinophils Absolute Auto 0 /uL (0-450); Eosinophils Percent Auto 0.1 % (2-4); Hematocrit 31.3 % (41-53); Hemoglobin 10.5 g/dL (13.5-17.5); Lymphocytes Absolute Auto 300 /uL (1100-4500); Lymphocytes Percent Auto 11.1 % (25-40); Mean Corpuscular HGB Conc 33.5 % (30-36); Mean Corpuscular Hemoglobin 26.8 PG (26-34); Monocytes Absolute Auto 200 /uL (0-900); Monocytes Percent Auto 6.7 % (3-14); Neutrophils Absolute Auto 2400 /uL (1500-7000); Neutrophils Percent Auto 81.8 % (50-75); Platelet Count 159 X10^3/uL (150-400); Red Blood Cell Count 3.91 X10^6/uL (4.5-5.9); Red Cell Distribution Width 17.9 % (11.6-14.8)
[2022-02-13 05:44] LABS: Alanine Aminotransferase 15 IU/L (<50); Albumin 2.4 g/dL (3.5-5.0); Alkaline Phosphatase 29 U/L (38-126); Aspartate Aminotransferase 23 IU/L (17-59); BUN Creatinine Ratio 31.4 (6-22); Bilirubin Total 0.2 mg/dL (0.2-1.3); Blood Urea Nitrogen 49 mg/dL (9-20); Calcium 7.3 mg/dL (8.4-10.2); Carbon Dioxide 19 mmol/L (22-32); Chloride 108 mmol/L (98-107); Estimated Glomerular Filt Rate 44 mL/min (>60); Globulin 2.5 g/dL (1.7-4.1); Glucose 130 mg/dL (80-110); HEMOLYSIS < 15 (0-50); Potassium 4.3 mmol/L (3.4-5.1); Sodium 132 mmol/L (137-145); Total Protein 4.9 g/dL (6.3-8.2)
--- NOTE | 2022-02-13 07:00 | DI.US.S_ITS ---
PROCEDURE: US RENAL COMPLETE INDICATIONS: ACUTE RENAL FAILURE TECHNIQUE: Real-time scanning was performed of the kidneys and bladder, with image documentation. COMPARISON: None. FINDINGS: Kidneys: Kidneys are normal in size. Right kidney measures 12.2 cm long; left kidney measures 11.6 cm long. Right renal cortical thickness is 1.9 cm; left renal cortical thickness is 1.6 cm. Renal cortical echotexture is normal. No hydronephrosis or nephrolithiasis. No suspicious solid mass lesions. There is a 3.7 x 3.2 x 2.8 simple left renal cyst. Bladder: A Deshpande catheter is present within the bladder and the bladder is decompressed. Miscellaneous: No free pelvic fluid. IMPRESSION: No hydronephrosis. Dictated by: Lyn Reinoso M.D. on 02/13/2022 at 8:14 Approved by: Lyn Reinoso M.D. on 02/13/2022 at 8:18
[2022-02-13 08:18] VITALS: BP 140/84; PULSE 61; RESP 14; TEMP 36.1; O2SAT 97
--- NOTE | 2022-02-13 08:32 | DI.US.S_ITS ---
PROCEDURE: US CAROTID DOPPLER BI INDICATIONS: previous stroke TECHNIQUE: Color and pulse Doppler interrogation was performed of both carotid systems, with image documentation and velocity measurements. COMPARISON: [facility], US, US RENAL COMPLETE, 02/13/2022, 6:52. FINDINGS: Stenosis calculations are based on SRU (Society of Radiologists in Ultrasound) criteria. The flow velocities and the arterial waveforms are normal within both carotid arterial systems. Atherosclerotic plaque is seen on both sides. The estimated degree of internal carotid artery stenosis is less than 50%. Antegrade flow is confirmed within both vertebral arteries. IMPRESSION: No hemodynamically significant stenosis is seen. Atherosclerotic plaque is noted bilaterally. Dictated by: Evaristo Roa M.D. on 02/13/2022 at 10:37 Approved by: Evaristo Roa M.D. on 02/13/2022 at 10:38
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
[2022-02-13] MEDS: CALCIUM CARBONATE 500 MG TAB PO ×3 (09:36→20:28)
[2022-02-13] MEDS: CLOPIDOGREL 75 MG TABLET PO (09:36)
[2022-02-13] MEDS: PANTOPRAZOLE DR 40 MG TABLET PO ×2 (09:36→20:28)
[2022-02-13] MEDS: ENOXAPARIN 30 MG/0.3 ML SYRINGE SUBCUT (09:36)
[2022-02-13 09:37] VITALS: BP 140/84; PULSE 61
[2022-02-13] MEDS: LOSARTAN 25 MG TABLET PO (09:37)
[2022-02-13] MEDS: TAMSULOSIN 0.4 MG CAPSULE PO ×2 (09:38→20:28)
[2022-02-13] MEDS: ASPIRIN EC 81 MG TABLET PO (09:38)
--- NOTE | 2022-02-13 10:39 | PC.NURSE ---
Addendum entered by Kade Colby R.N. 02/13/22 17:53: Rn removed mcfarlane catheter. pt tolerated well. Swelling on R hand has reduced to 1+. Original Note: Pt walked around unit with OT this am. Pt has 3+ swelling on L hand, 4+ swelling on R hand, and 3+ on R leg. Pt states R leg swelling is his baseline after hip surgery in past. Pt still has rash on torso from antibx reaction. Lungs clear on auscultation.
--- NOTE | 2022-02-13 10:52 | CM.DPC ---
DCP Cont: Per MD, pt to have MRI today to r/o new CVA and pt continuing to have occular changes and PT requesting OT eval for vision and cog assessment. Per PT, recommending home with assist and HH and SW met bedside with pt and explained role at the end of his PT session and PT discussed recommendation of HH and reasons why driving would not be advisable right at d/c until pt has follow up. Pt confirms that he has a hx of [facility] in the past and also was recently established with outpt PT locally but recently discharged from PT services. Pt confirms he would be agreeable with HH at d/c and preference is [facility] again. Pt states he has a few people that can transport him home at d/c and assist or stay with him for a bit until he gets closer to baseline. SW made [facility] referral and faxed clinicals and F2F and HH orders completed but not faxed yet. Plan: SW to follow for likely pt d/c home tonight vs tomorrow pending MRI results and to fax [facility] pt's F2F, HH orders, and d/c summary. Kalyn Dill, PRINTING GRAY CLOTH TENDER
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
--- NOTE | 2022-02-13 15:11 | PT.IPTN ---
Physical Therapy Treatment Note M2 PT-IP Current Condition Start: 02/12/22 17:24 Freq: NEEDED Status: Active Protocol: Document 02/13/22 14:46 SP (Rec: 02/13/22 16:40 SP [id number]) Physical Therapy Current Condition Current Condition Evaluation Date 02/12/22 Treatment Diagnosis dizziness, vision changes, impaired balance and gait Onset Date 02/10/22 M3 PT-IP Subjective Start: 02/12/22 17:24 Freq: NEEDED Status: Active Protocol: Document 02/13/22 14:46 SP (Rec: 02/13/22 16:40 SP [id number]) Subjective Physical Therapy Visit Type Type Treatment Note Visit Start Time 14:46 Visit Stop Time 15:11 Total Visit Minutes 25 Notes Vitals taken: supine BP 136/62 HR 56 Number of BIOLOGIST AIDE Visits 1 Physical Therapy Visit Comments Patient Comments Pt reports having a headache upon arrival, willing to mobilize with BIOLOGIST AIDE. Patient Goals Discharge home and return to normal activities including going to the pool M4 PT-IP Mobility and Gait Start: 02/12/22 17:24 Freq: NEEDED Status: Active Protocol: Document 02/13/22 14:46 SP (Rec: 02/13/22 16:40 SP [id number]) PT-Bed Mobility Assessment Rolling Level of Assist Independent Supine to Sit Supine to Sit Independent Sit to Supine Sit to Supine Independent Scooting Scooting to Edge of Bed Independent PT-Transfer Assessment Sit to and From Stand Sit to and from Stand Standby Assistance,Contact Guard Assistance,Use of Upper Extremities Equipment Transfer Assistive Device Gait Belt,Front Wheeled Walker Transfers Transfer Destination Chair Transfer Technique Stand Step Pivot Transfer Ability Level of Assist Standby Assistance Comments Mobility Comments Pt up to front recliner, standing stationary balance activities CGA- Min A for recovery LOB stagger stance EC , tandem unable to maintain stability EO. Gait into hallway 300 ft w/ FWW CG- 5%A step over step gait, cued head turns noted R trunk lean with head turn R and heavier heel strike on LLE, states vision not very good to R, approx 300 ft total. Pt returned to bed when back in room, sit<>supine I. BIOLOGIST AIDE discussed with pt recommending SNF vs HHPT with 24/7 support due to [place] for support trunk sway during gait fall risk and head turns/ EO stationary LOB needing support recovery. Pt stated doesn't have assist at appt would be renting, might consider SNF to improve strength, balance before returning to an appt. Will continue to assess progress. Gait Assessment Gait Gait Assistance Required: Contact Guard Assist,1 Person Assist Distance (Feet) 300 Assistive Devices Assistive Device Gait Belt,Front Wheeled Walker Orthotic/Prosthetic Devices or Brace: No Gait Deviations General Gait Pattern Antalgic,Decreased Stride Length,Lateral Trunk Lean,Wide Based Gait Factors Limiting Gait Function Factors Limiting Gait Function Decreased Activity Tolerance, Poor Balance,Poor Safety Awareness Comments Gait Comments See mobililty comments, CG- Min A for trunk stability during gait w/FWW due to lateral deviations during gait with any head turns, decreased R field vision deficits, lack of ROM R>L of CS and increased heel strike that may play a roll in decreased stability. PT-Balance Assessment Sitting Balance and Reactions Static Sitting Balance Ability Normal Dynamic Sitting Balance Ability Good Standing Balance and Reactions Static Standing Balance Ability Good Dynamic Standing Balance Ability Fair Device Used FWW Comments Other Balance Tests/Deviations/Treatment NBOS: EO HTs and EC up to 30s : sways but no LOB able to center. Stagger: EO HTs LOB Min A recover. Tandem: EO stationay looking forward LOB Min A recovery. M5 PT-IP Objective Assessments Start: 02/12/22 17:24 Freq: NEEDED Status: Active Protocol: Document 02/12/22 17:24 [facility] (Rec: 02/12/22 17:38 [facility] [id number]) Orientation Orientation/Cognition Level of Alertness Alert Orientation Name,Age,Birthday,Month,Date, Year,Day of Week,Place, Situation Language Function Ability No Deficits Noted Safety Awareness Understands Safety Issues Memory Description No Deficits Noted Comments he reports blurry vision on right side, able to read by moving paper in front of him for better vision Gross Range of Motion Upper Extremity ROM Assessment Within Functional Limits Impairments mild end range stiffness Lower Extremity ROM Assessment Within Functional Limits Strength Upper Extremity Strength Assessment Within Functional Limits Lower Extremity Strength Assessment Within Functional Limits Comments Strength Comments limited cervical spine AROM following fx and surgery, at rest he holds head deviated left and anterior Coordination Assessment Gross Coordination Gross Coordination Impaired Assessment Foot Tapping Test Minimal Impairment Coordination Comments distal edema UE's and LE's at this time Sensation Assessment Sensation Gross Sensation WNL Muscle Tone Muscle Tone WNL Yes M6 PT-IP Treatment Start: 02/12/22 17:24 Freq: NEEDED Status: Active Protocol: Document 02/13/22 14:46 SP (Rec: 02/13/22 16:40 SP [id number]) Physical Therapy Treatment Education Education Provided Safety Other Treatments Other Treatment Performed fall risk education due to decreased balance M7 PT-IP Assessment and Plan Start: 02/12/22 17:24 Freq: NEEDED Status: Active Protocol: Document 02/13/22 14:46 SP (Rec: 02/13/22 16:40 SP [id number]) PT Summary Assessment and Plan Potential Rehabilitation Potential Good Status of Condition at Evaluation Evolving Summary Impairments Balance,Coordination,Transfers ,Gait,Activity Tolerance Progress Towards Goals Progressing Toward Goals Assessment Summary Brennen requires CG- Min A during out of bed mobility using FWW due to vision deficits on R and trunk viering R unstable longer distances requiring Min A for recovery, see mobility details . Recommending SNF vs 15/01 assist available. Pt reports doesn't have friend/family support that could stay with him, open to suggestion SNF if available to progress balance , strength toward PLOF independence. Goals Bed Mobility Goal Independent Transfer Goal Independent,Front Wheeled Walker Gait Goal Independent,Front Wheel Walker Gait Distance 200 feet Other Goals up and down 8 steps with rail and SBA. Days to Meet Goals 5 Frequency of Treatment Frequency Of Treatment Twice a Day Treatment Plan Physical Therapy Treatment Plan Transfer Training,Gait Training,Therapeutic Exercise, Balance Retraining,Discharge Planning,Neuromuscular Re-ed, Coordination Retraining Other Recommendations and Next Treatment further vision training as Focus coordinated with OT, dynamic balance activities, gait w/ LRAD if stable. 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
[2022-02-13 15:44] VITALS: BP 151/86; PULSE 58; RESP 18; TEMP 36.1; O2SAT 97
[2022-02-13 23:51] VITALS: BP 139/69; PULSE 56; RESP 17; TEMP 36.4; O2SAT 94
[2022-02-14 05:52] LABS: Hematocrit 32.7 % (41-53); Mean Corpuscular HGB Conc 33.7 % (30-36); Mean Corpuscular Hemoglobin 26.9 PG (26-34); Platelet Count 177 X10^3/uL (150-400); Red Blood Cell Count 4.09 X10^6/uL (4.5-5.9); Red Cell Distribution Width 18.1 % (11.6-14.8); White Blood Cell Count 3.8 X10^3/uL (4.5-11.0)
[2022-02-14 06:00] LABS: Alanine Aminotransferase 20 IU/L (<50); Albumin 2.9 g/dL (3.5-5.0); Alkaline Phosphatase 34 U/L (38-126); Aspartate Aminotransferase 25 IU/L (17-59); BUN Creatinine Ratio 37.6 (6-22); Bilirubin Total 0.3 mg/dL (0.2-1.3); Blood Urea Nitrogen 41 mg/dL (9-20); Calcium 8.1 mg/dL (8.4-10.2); Carbon Dioxide 22 mmol/L (22-32); Chloride 109 mmol/L (98-107); Estimated Glomerular Filt Rate > 60 mL/min (>60); Globulin 2.8 g/dL (1.7-4.1); Glucose 108 mg/dL (80-110); HEMOLYSIS < 15 (0-50); Potassium 4.3 mmol/L (3.4-5.1); Sodium 136 mmol/L (137-145); Total Protein 5.7 g/dL (6.3-8.2)
[2022-02-14 06:36] LABS: Neutrophils Absolute Manual 2926 /uL (3000-5900); Total Cells Counted 100
[2022-02-14 06:37] LABS: RBC Morphology Normal Morphology
[2022-02-14 08:00] VITALS: BP 160/81; PULSE 51; RESP 17; TEMP 35.8
[2022-02-14 09:07] VITALS: BP 160/81
[2022-02-14] MEDS: CLOPIDOGREL 75 MG TABLET PO (09:07)
[2022-02-14] MEDS: PANTOPRAZOLE DR 40 MG TABLET PO (09:07)
[2022-02-14] MEDS: CALCIUM CARBONATE 500 MG TAB PO (09:07)
[2022-02-14] MEDS: TAMSULOSIN 0.4 MG CAPSULE PO (09:07)
[2022-02-14] MEDS: LOSARTAN 25 MG TABLET 50 MG PO (09:07)
[2022-02-14] MEDS: ENOXAPARIN 30 MG/0.3 ML SYRINGE SUBCUT (09:08)
[2022-02-14] MEDS: ASPIRIN EC 81 MG TABLET PO (09:08)
--- NOTE | 2022-02-14 09:30 | OT.IP.TRT ---
Occupational Therapy Treatment Note M2 OT-IP Current Condition Start: 02/13/22 10:46 Freq: Status: Active Protocol: Document 02/13/22 10:46 [facility] (Rec: 02/13/22 11:15 [facility] [id number]) Occupational Therapy Current Condition Current Condition Evaluation Date 02/13/22 Treatment Diagnosis subacute cva Diagnosis Onset Date 02/10/22 M3 OT- IP Subjective and Pain Start: 02/13/22 10:46 Freq: Status: Active Protocol: Document 02/14/22 09:30 [facility] (Rec: 02/14/22 10:36 [facility] [id number]) OT- Subjective Occupational Therapy Visit Type Visit Start Time 09:30 Visit Stop Time 09:45 Total Visit Minutes 15 Occupational Therapy Visit Comments Patient Comments Pt agreed to do visual assessment and [place] making Part B. Patient/Caregiver Goals TO go home. OT Pain Assessment Pain When Pain Assessed At Rest Pain Present Pain Present Denied Pain M5 OT- IP IADL's Start: 02/13/22 10:46 Freq: Status: Active Protocol: Document 02/13/22 10:46 [facility] (Rec: 02/13/22 11:15 R [id number]) OT-Instrumental Activities of Daily Living Deficits IADL Deficits Identified No Deficits Home Safety Awareness Awareness of Need for Assistance at Home Good Awareness Ability to Problem Solve Emergency Able to Problem Solve Situations Medication Management Medication Management No Deficits Identified Money Management Money Management No Deficits Identified Meal Preparation Meal Preparation No Deficits Identified Physical Chemistry Professor Physical Chemistry Professor No Deficits Identified Driving Driving Comments Pt should not be driving given new onset of vision deficit. M6 OT- IP Functional Cognition Start: 02/13/22 10:46 Freq: Status: Active Protocol: Document 02/14/22 09:30 [facility] (Rec: 02/14/22 10:36 [facility] [id number]) Cognitive Factors Limiting Selfcare Function Cognitive Comments Cognitive Assessment Comments Pt scored 164 seconds on [place] Making Part B and LIGIA vc to complete the take which implies severe impairments for visual attention, speed of processing, mental flexibility , executive functioning, and task switching. At this time suggested pt not drive and pt agrees will not drive until he can get his eyes check out. Pt able to states good accuracy for all home safety situations. Pt insists will call a friend if needing assist. OT- Vision and Hearing OT- Vision Assessment Vision Assessment Comments Pt left eye mildly decreased right aide of his left eye vision. Intact for right peripheral. At times pt having difficulty to see the items directly in front on him on [place] Part B. Pt would greatly benefit from getting his eyes checked M7 OT- IP Mobility and Balance Start: 02/13/22 10:46 Freq: Status: Active Protocol: Document 02/14/22 09:30 [facility] (Rec: 02/14/22 10:36 [facility] [id number]) OT-Transfer Assessment Sit to and From Stand Sit to and from Stand Independent Transfers Transfer Ability Independent Technique Transfer Destination Chair Comments Mobility Comments Independent in the room. Per pt zurdo not be doing any yard word at this time. OT- Balance Assessment Sitting Balance and Reactions Static Sitting Balance Ability Normal Dynamic Sitting Balance Ability Normal Standing Balance and Reactions Static Standing Balance Ability Good Dynamic Standing Balance Ability Fair Comments Other Balance Tests/Deviations/Treatment Pt able to carry flower vase : and place on the counter with good balance but slight lean to the right. M9 OT- IP Assessment and Plan Start: 02/13/22 10:46 Freq: Status: Active Protocol: Document 02/14/22 09:30 [facility] (Rec: 02/14/22 10:36 [facility] [id number]) OT Summary Assessment and Plan Potential Rehabilitation Potential Excellent Analytic Complexity at Evaluation Low Summary OT Impairments Strength,Balance,Functional Mobility,Bathing,Shower Transfers,Activity Tolerance Progress Towards Goals Progressing Toward Goals Assessment Summary Pt insistent on going home and will benefit from increased assist especially for IADL needs and benefit form getting his eyes checked. Pt scored 164 seconds on [place] Making Part B and LIGIA vc to complete the take which implies severe impairments for visual attention, speed of processing , mental flexibility, executive functioning, and task switching. At this time suggested pt not drive and pt agrees will not drive until he can get his eyes checked out. Discharge Recommendations OT Discharge Recommendations Home with Assistance, home health Transportation Needs at Discharge Private Vehicle
--- NOTE | 2022-02-14 10:37 | PT-IP ANOTE ---
Checked i with pt at 9:30 am but he was already preparing for discharge.
--- NOTE | 2022-02-14 10:40 | PC.NURSE ---
Pt is dressed and ready for discharge home with Friend. IV has been removed. Ring has been returned and signed for by Pt. Appointment for follow up with Dr. Kahn has been made. Went over d/c instructions with Pt - discussed d/c meds, time of last dose, reviewed stroke education, TIA information, encouraged deep breathing and ankle waving exercises, reminded Pt that he must get up slowly secondary to an increase in his blood pressure medication, reminded Pt not to take more than 3000mg of Tylenol during a 24 hour period, reminded Pt to drink plenty of fluids to prevent constipation or dehydration, and discussed blood thinners (he started Plavix today and is also taking ASA) so reminded him that he can have an increased risk of bleeding and to speak to his MD if his bleeding increases when he cuts himself. Pt denies further questions and was taken out via w/c by LICENSED PRACTICAL NURSE to POV with friend and all belongings.
--- NOTE | 2022-02-14 13:17 | CM.DPNOTE ---
DC Note DC home w/friend today, cleared by therapies for this plan. STERLING Nelson, alerting [facility]. No available DC Summary at this time. Plan: DC home w/friends and [facility] via friends pov JW
--- NOTE | 2022-02-14 13:32 | PM.DS.1 ---
History of Present Illness History of Present Illness Date Patient Seen: 02/14/22 Time Patient Seen: 08:00 Chief complaint: Dizzy, 102.5 fever Narrative: Patient is an 81-year-old man with history of feeling poorly really for maybe a few weeks although he does not feel like it was a major issue. But within the last day or 2 feels like he has had increasing weakness and fever. He has had no headaches visual symptoms numbness tingling neck pain chest pain shortness of breath cough abdominal pain change in his bowel movements or urinary changes. Patient really other than being weak has not had any real changes. He has not had any friends or any limp but he that he knows that he is associated with who is been sick. Has not been around many people. Negative COVID in an ER. Otherwise no significant new change. T-max in the emergency room was 100.6 Patient developed a rash in the middle the night was given Benadryl and then began having swelling of his tongue and an increase rest. He was given antibiotics in the ER. Although he has no definitive allergies other than latex. Patient was given steroids last night. Patient with still some feeling as if his tongue is in lips are swollen. Breathing okay. Does not feel like he is having issues swallowing. No other change. Reviewed chart and clinic. Patient apparently has been having some low blood pressures for a while. they have been adjusting his medication as an outpatient. He has had no other significant new changes or complaints. This is been going on for a while. Discharge Providers Provider Date of admission: 02/10/22 23:07 Discharge Date: 02/14/22 Primary care physician: Tawana Zheng MD Consults: 02/12/22 10:07 Consult to Physical Therapy Evaluate & Treat Comment: Physician Instructions: Evaluate and Treat 02/12/22 17:49 Consult to Speech Therapy Evaluate & Treat Comment: difficulty swallowing Physician Instructions: Evaluate and treat 02/12/22 17:50 Consult to Occupational Therapy Evaluate & Treat Comment: Physician Instructions: Evaluate and treat 02/13/22 10:56 Consult to Home Health Routine Comment: allergic reaction, r/o CVA Reason For Exam: Set up RN/PT/OT for d/c to home Discharge provider: Slim Kahn MD Summary Hospital Course Discharge Diagnosis: CVA Anemia Renal failure Left lower lobe pneumonia Allergic reaction Weakness BPH Metabolic encephalopathy Hospital Course: CVA. Patient was noted on the day 2 to be complaining of right eye visual changes. On testing he had no definitive abnormality but MRI was ordered. He found to have 2 subacute infarcts. He has had recent echocardiogram which showed no abnormality. He has had no evidence of atrial fibrillation well present. Either on exam or initial presentation. He had a normal carotid workup. He is already on aspirin so Plavix was added. He will continue on that. We will set up 2 week monitoring as outpatient. Patient feels comfortable resumed what he feels is is normal ability to care for himself. And will follow. Anemia. No evidence of low blood loss. Pry secondary to hydration. Will be followed as an outpatient in fit test will be done. Renal failure. Appears to be acute. Completely resolved. With hydration. [place] to be pre renal. No other changes. Left lower lobe pneumonia. Patient was admitted with a procalcitonin and weakness. He was initially given piperacillin and did do well without. He was switched to Levaquin and has been doing well. He is feeling better. Question is whether he was having swallowing dysfunction he had none after a few days was felt to be secondary really not to aspiration will continue Levaquin and follow as an outpatient. Allergic reaction. Patient was given piperacillin in the emergency room and 4 hours later developed a diffuse hives plus mouth and are lip and tongue swelling. He was given Benadryl and stat Solu-Medrol and within 48 hours at resolved. No other follow-up needed. Weakness. It is improving over several days. Refills combination of his stroke which was probably a couple weeks ago and his infection. But he seems to be doing well he was given physical therapy and will be followed as an outpatient BPH. Initially patient was having retention which was probably secondary to the Benadryl that he was given for his allergic reaction Deshpande was placed it was discontinued 24 hours before he left and he did well without problems. History of aneurysm stable. Metabolic encephalopathy. [place] to be secondary to his infection his mild dehydration and Benadryl given in the hospital. Was completely normal on discharge. No further follow-up was not felt to be secondary to stroke which was out a ways. Without other changes. History of aortic aneurysm stable Esophageal reflux stable throughout course Exam Vital Signs (past 8 hours): - 02/14/22 08:00 02/14/22 09:07 Temperature 96.4 F L Pulse Rate 51 L Respiratory Rate 17 Blood Pressure 160/81 H 160/81 H Oxygen Delivery Method Room Air Oxygen Flow Rate 0 Narrative Exam Narrative: Alert elderly male in no acute distress smiling interactive requesting to go home HEENT exam no swelling of lips or tongue lungs are clear heart regular rate and rhythm extremities without edema neurologic exam appears nonfocal. Objective Labs Result Diagrams: 02/14/22 05:32 02/14/22 05:32 Labs: Laboratory Results - last 24 hr 02/14/22 02/14/22 05:32 05:32 WBC 3.8 L RBC 4.09 L Hgb 11.0 L Hct 32.7 L MCV 80.0 MCH 26.9 MCHC 33.7 RDW 18.1 H Plt Count 177 Total Counted 100 Seg Neutrophils % 77.0 H Lymphocytes % (Manual) 13.0 L Monocytes % (Manual) 10.0 Neutrophils # (Manual) 2926 L RBC Morphology Normal morphology Sodium 136 L Potassium 4.3 Chloride 109 H Carbon Dioxide 22 BUN 41 H Creatinine 1.09 Estimated GFR > 60 BUN/Creatinine Ratio 37.6 H Glucose 108 Calcium 8.1 L Total Bilirubin 0.3 AST 25 ALT 20 Alkaline Phosphatase 34 L Total Protein 5.7 L Albumin 2.9 L Globulin 2.8 Albumin/Globulin Ratio 1.0 PFSH Medical History AAA (abdominal aortic aneurysm) Arthritis BPH (benign prostatic hyperplasia) Former smoker GERD (gastroesophageal reflux disease) HLD (hyperlipidemia) HTN (hypertension) Hyponatremia Osteoarthritis PAD (peripheral artery disease) PVD (peripheral vascular disease) Shingles TIA (transient ischemic attack) Surgical History History of bilateral cataract extraction (~2018) History of colonoscopy History of total right hip arthroplasty Hx of appendectomy Hx of bone graft S/P cervical spinal fusion (08/09/15) Social History household members: none Smoking Status: Former smoker alcohol intake: current Discharge Assessment & Plan Assessment and Plan Assessment: Discharge home Plan of Treatment: Follow-up 1 week Discharge Plan Discharge Plan Patient Disposition: Home Discharge orders & Medications Prescriptions: New clopidogrel 75 mg Tablet 75 mg PO DAILY Qty: 30 1RF calcium carbonate 200 mg calcium (500 mg) Tablet,Chewable 500 mg PO TID Qty: 100 0RF losartan 25 mg Tablet 50 mg PO DAILY 60 Days Qty: 60 2RF levofloxacin 500 mg tablet 500 mg PO DAILY Qty: 7 0RF Continued omeprazole 20 MG capsule,delayed release(DR/EC) 40 mg PO BID Qty: 0 acetaminophen 325 mg tablet 650 mg PO TID PRN (Reason: Pain, Mild) tamsulosin 0.4 mg Capsule 0.4 mg PO BID Discontinued losartan-hydrochlorothiazide 100 MG/25 MG tablet 1 tab PO QDAY Qty: 0 aspirin 81 mg Tablet,Delayed Release (Dr/Ec) 81 mg PO BID Qty: 0 0RF Follow up/Referrals: Tawana Zheng MD [Primary Care Provider] - Slim Kahn MD [Physician] - 1 Week (please call for appointment) Discharge Health Status Multidrug resistant organism: No MDRO Diet/Activity/Treatments Diet: Diet as Tolerated Activity: as tolerated Skin/Wound/Dressing Care Report to your healthcare provider any signs of infection, such as:: chills, fever, night sweats, increased pain and unusual redness Visit Report/Discharge Packet Instructions: Recommendations to Help Prevent High Blood Pressure, DI for Transient Ischemic Attack, Clopidogrel, Losartan, Levofloxacin Discharge Data Primary Care Provider: Tawana Zheng Quality VTE Deep Vein Thrombosis/Pulmonary Embolism Present on Admission: No
--- NOTE | 2022-02-14 14:17 | CM.DPNOTE ---
Faxed dc sum, order and face to face to [facility] and followed up with Kristina. She will communicate this information to her team. Leslie Ward CM Assist.
== END 2022-02-14 10:46 | disposition home health service (06) | DRG 193 ==
LOC: ED 19:39 → AC 23:42
PROVIDERS: Emergency Medicine; Admitting Provider Family Medicine; Emergency Provider Family Medicine Addiction Medicine; Family Provider Student in an Organized Health Care Education/Training Program; PCP Student in an Organized Health Care Education/Training Program; Referring Provider Family Medicine; Visit Provider Family Medicine
DX: J18.9 Pneumonia, unspecified organism (principal); I63.9 Cerebral infarction, unspecified; G93.41 Metabolic encephalopathy; N17.9 Acute kidney failure, unspecified; L50.0 Allergic urticaria; I95.9 Hypotension, unspecified; H53.9 Unspecified visual disturbance; T36.0X5A Adverse effect of penicillins, initial encounter; N40.0 Benign prostatic hyperplasia without lower urinary tract symptoms; K21.9 Gastro-esophageal reflux disease without esophagitis; E83.51 Hypocalcemia; Z20.822 Contact with and (suspected) exposure to COVID-19; Z66 Do not resuscitate; Z87.891 Personal history of nicotine dependence
CPT/HCPCS: 36415; 70450; 71045; 71046; 76770; 80048; 80053; 81001; 82550; 83605; 84145; 84484; 85025; 87040; 87086; 87635; 92610; 93005; 93010; 93880; 94762; 96365; 97112; 97116; 97162; 97165; 97530; 97535; 99284; C9803; J1650; J1956; J2543; J2920; J7050

== ENCOUNTER 2022-03-02 06:59 | Observation (INO) | payer MEDICARE, OTHER, SELFPAY ==
[2022-02-11 00:08] VITALS: BMI 27.8
[2022-03-02] VITALS (31 sets, daily range): BP systolic 134–174; BP diastolic 56–74; PULSE 36–66; RESP 11–20; TEMP 36.2–36.7; O2SAT 96–100; BMI 28.5; BMI 28.0
--- NOTE | 2022-03-02 07:16 | DI.CT.S_ITS ---
PROCEDURE: CT ANGIO CHEST ABDOMEN PELVIS INDICATIONS: chest pain/AAA TECHNIQUE: Precontrast 5 mm thick sections acquired from the lung apices to the iliac crests. After the administration of intravenous contrast, 2.5 mm thick sections again acquired from the lung apices to the iliac crests. Maximum intensity projection (MIP) oblique sagittal and coronal reformats were then acquired. For radiation dose reduction, the following was used: automated exposure control. COMPARISON: [facility], CT, CT ANGIO CHEST ABDOMEN PELVIS, 04/01/2021, 16:50. FINDINGS: Image quality: Excellent. AORTA: The thoracoabdominal aorta is normal in caliber with no evidence of aneurysm, dissection, or significant stenosis. Moderate diffuse plaque causes mild diffuse stenosis of the thoracoabdominal aorta. CHEST: Lungs and pleura: No acute airspace opacities. There is an 8 mm diameter subpleural nodule within the right lower lobe anteromedially, as before. No pleural effusions or pneumothorax. Central and peripheral airways are patent and normal in caliber. Mediastinum: Heart size is normal. There is moderate calcification of the coronary vasculature. No pericardial effusion. No mediastinal or hilar adenopathy by size criteria. Central pulmonary arteries are normal in size. Esophagus is normal in caliber and demonstrates mild diffuse thickening, new since the prior examination. No hiatal hernias. Bones and chest wall: No axillary adenopathy by size criteria. Thyroid gland is within normal limits . No suspicious bony lesions. No vertebral body compression fractures. ABDOMEN: Vasculature: Celiac trunk and mesenteric arteries are patent. Renal arteries are also patent. Solid organs: Liver is normal in size and enhancement. Gallbladder is within normal limits . Biliary system is non dilated. Pancreas enhances normally. Spleen is normal in size and enhancement. No adrenal nodules. Both kidneys are normal in size and enhancement, without hydronephrosis. There is a nonobstructing 5 mm calculus within the inferior pole left kidney. Left inferior pole renal cyst is present, measuring 34 mm. Peritoneum and bowel: No free fluid or air. Bowel loops are normal in caliber and wall thickness. Nodes and vessels: No retroperitoneal or mesenteric adenopathy by size criteria. Inferior vena cava is normal in morphology. Miscellaneous: No ventral hernias. PELVIS: Genitourinary: Bladder wall thickness is normal. Miscellaneous: No inguinal hernias or adenopathy. No ventral hernias. Bones: Bilateral hip arthroplasty has been performed. No suspicious bony lesions. No vertebral body compression fractures. IMPRESSION: 1. No acute process involving the thoracoabdominal aorta. 2. Mild diffuse esophageal thickening, possibly indicating esophagitis. 3. Coronary artery disease. 4. No change in right lower lobe pulmonary nodule. Follow-up is recommended as below. Fleischner Society criteria for SOLID lung nodule followup. Nodule size (mm)Low-risk patientHigh-risk patient<6 (single or multiple)No routine followup.Optional CT at 12 months. 6-8 (single or multiple)CT at 6-12 months, then optional CT at 18-24 mo.CT at 6-12 months, then CT at 18-24 months. >8 (single)CT, PET-CT, or biopsy at 3 months. Same as for low-risk pts. >8 (multiple)CT at 3-6 months, then optional CT at 18-24 mo.CT at 3-6 months, then CT at 18-24 months. Fleischner Society criteria for SUB-SOLID lung nodule followup. Solitary pure ground-glass nodules<6 mm (ground glass or part solid)No followup needed. 6 mm or larger (ground glass)CT at 6-12 months to confirm persistence, then CT every 2 years until 5 years.6 mm or larger (part solid)CT at 3-6 months to confirm persistence, then annual CT until 5 years if unchanged and solid component remains <6 mm. Multiple sub-solid nodules<6 mmCT at 3-6 months, then CT consider at 2 & 4 years for high risk patients. [address] at 3-6 months. Subsequent management based on most suspicious lesions. Recommendations do not apply to lung cancer screening, patients with immunosuppression, or patients with known primary cancer. Dictated by: Swapna Higgins M.D. on 03/02/2022 at 8:14 Approved by: Swapna Higgins M.D. on 03/02/2022 at 8:19
--- NOTE | 2022-03-02 07:17 | ED_ITS ---
HPI - Chest Pain General Chief Complaint: Chest Pain Stated Complaint: possible heart attack Time Seen by Provider: 03/02/22 07:02 Mode of arrival: Ambulatory History of Present Illness HPI narrative: Patient here for sudden onset of sternal sharp chest pain at 4:00 a.m. this morning lasted less than 10 seconds. Patient states it awoke him from sleep. No nausea no syncope with the discomfort. No diaphoresis. Pain did not radiate. No abdominal pain no back pain. No numbness tingling or weakness. Patient lives alone. Drove himself here this morning. Currently denies any chest pain. History of aortic abdominal aneurysm without any surgical intervent ion. Has been monitored by [facility]. Recently admitted here last month for pneumonia and also worked up for subacute stroke during his course of stay with complaints of visual disturbance. Is on Plavix. No known history of arrhythmia. However he states his provider has had discussion about pacemaker because of cardiomyopathy question-danielle no history of CHF or atrial fibrillation. Patient otherwise denies any associated recent illness with this problem today. Related Data Home Medications Medication Instructions Recorded Confirmed omeprazole 20 mg capsule,delayed 40 mg PO BID ##0 11/09/11 03/02/22 release tamsulosin 0.4 mg capsule 0.4 mg PO BID 01/15/18 03/02/22 acetaminophen 325 mg tablet 650 mg PO TID PRN Pain, Mild 02/11/22 03/02/22 Previous Rx's Medication Instructions Recorded calcium carbonate 200 mg calcium 500 mg PO TID #100 tabs 02/14/22 (500 mg) chewable tablet clopidogrel 75 mg tablet 75 mg PO DAILY #30 tabs 02/14/22 levofloxacin 500 mg tablet 500 mg PO DAILY #7 tabs 02/14/22 losartan 25 mg tablet 50 mg PO DAILY 60 days #60 tabs 02/14/22 Allergies Allergy/AdvReac Type Severity Reaction Status Date / Time piperacillin [From Zosyn] Allergy Severe Swelling Verified 02/11/22 13:47 of Lip/Tongue/Throat tazobactam [From Zosyn] Allergy Severe Swelling Verified 02/11/22 13:47 of Lip/Tongue/Throat latex [LATEX] Allergy Mild Rash Verified 01/29/22 14:18 Review of Systems Review of Systems Narrative: GENERAL: Denies chills, fatigue, malaise, fever, sweats. HEENT: Denies sinus pain, ear pain, sore throat RESPIRATORY: Denies dyspnea, cough CARDIOVASCULAR: Positive chest pain, negative palpitations GASTROINTESTINAL: Denies nausea, vomiting, abdominal pain : Denies dysuria, frequency, hematuria MUSCULOSKELETAL: denies muscle or bony pain SKIN: Denies rash, skin lesions NEUROLOGIC: Denies weakness, numbness ROS Unobtainable: All systems reviewed & are unremarkable except as noted in HPI and below Patient History Medical History AAA (abdominal aortic aneurysm) Arthritis BPH (benign prostatic hyperplasia) Former smoker GERD (gastroesophageal reflux disease) HLD (hyperlipidemia) HTN (hypertension) Hyponatremia Osteoarthritis PAD (peripheral artery disease) PVD (peripheral vascular disease) Shingles TIA (transient ischemic attack) Surgical History History of bilateral cataract extraction (~2018) History of colonoscopy History of total right hip arthroplasty Hx of appendectomy Hx of bone graft S/P cervical spinal fusion (08/09/15) Social History household members: friend(s) and none Smoking Status: Former smoker alcohol intake: current Smoking Status: Former smoker alcohol intake frequency: 3 or more drinks per day Substance Use Type: does not use Exam Narrative Exam Narrative: GENERAL: in no distress, not toxic not dyspneic HEAD: Normocephalic. EYES: Pupils equal round No scleral icterus. ENT: Mucous membranes moist. NECK: Trachea midline. CARDIOVASCULAR: Regular rate and rhythm without murmurs RESPIRATORY: Clear to auscultation. Breath sounds equal bilaterally. No wheezes, rales, or rhonchi. GASTROINTESTINAL: Abdomen soft, non-tender, no bruit, no pulsatile mass. No pain out of proportion to exam. No peritoneal signs EXTREMITIES: No gross deformities. BACK: No flank tenderness. NEURO: AOx4. SKIN: Warm and dry PSYCH: Not anxious, is cooperative Initial Vital Signs Initial Vital Signs: Vital Signs Pulse Rate 58 L 03/02/22 07:06 Respiratory Rate 16 03/02/22 07:06 Blood Pressure 161/73 H 03/02/22 07:06 Pulse Oximetry 99 03/02/22 07:06 Oxygen Delivery Method 09/08/22 07:06 Course Course Course Narrative: No new issues during course of stay Orders Ordered: ED Orders 03/02/22 10:30 Troponin I Stat 03/02/22 13:14 COVID19 -Nasal RAPID/Pre-Proc Stat Acetaminophen (Acetaminophen 325 Mg Tablet) 650 mg PO TID PRN PRN Reason: Pain, Mild Al Hydrox/Mg Hydrox/Simethicone (Mag Hydrox/Alum/Simeth 30 Ml Udc) 30 ml PO Q6HR PRN PRN Reason: Dyspepsia Last Admin: 03/02/22 14:50 Dose: 30 ml Documented By: MS Calcium Carbonate (Calcium Carbonate 500 Mg Tab) 500 mg PO TID MARSHA Clopidogrel Bisulfate (Clopidogrel 75 Mg Tablet) 75 mg PO DAILY MARSHA Docusate Sodium (Docusate 100 Mg Capsule) 100 mg PO BID MARSHA Enoxaparin Sodium (Enoxaparin 40 Mg/0.4 Ml Syringe) 40 mg SUBCUT DAILY MARSHA Last Admin: 03/02/22 14:50 Dose: 40 mg Documented By: MS Hydralazine HCl (Hydralazine 20 Mg/Ml Vial) 10 mg IV Q6HR PRN PRN Reason: Hypertension Losartan Potassium (Losartan 25 Mg Tablet) 25 mg PO BID MARSHA Pantoprazole Sodium (Pantoprazole Dr 20 Mg Tablet) 20 mg PO 0600 MARSHA Pantoprazole Sodium (Pantoprazole Dr 40 Mg Tablet) 40 mg PO 0700,2100 MARSHA Tamsulosin HCl (Tamsulosin 0.4 Mg Capsule) 0.4 mg PO BID MARSHA Discontinued Medications Acetaminophen (Acetaminophen 325 Mg Tablet) 650 mg PO Q6HR PRN PRN Reason: Fever/Mild Pain (1-3) Aspirin (Aspirin 81 Mg Chew Tab) 324 mg PO NOW ONE Stop: 03/02/22 12:58 Last Admin: 03/02/22 13:13 Dose: 324 mg Documented By: AT Sodium Chloride (Normal Saline 0.9%) 500 mls @ 1,000 mls/hr IV BOLUS ONE Stop: 03/02/22 07:44 Last Infusion: 03/02/22 09:08 Dose: 0 mls/hr Documented By: Admin: 03/02/22 07:48 Dose: 1,000 mls/hr Documented By: RAMA Reevaluation(s) Reevaluation #1: Updated patient results. Currently chest pain-free. Blood pressure improved. Agrees for admit Time: 12:58 Consultations Consultation #1: Spoke with cardiology Dr. Vazquez, recommends patient be admitted for stress test Time: 12:45 Consultation #2: laura mcrae, will admit Time: 13:34 Vital Signs Vital signs: Vital Signs - 8 hr 03/02/22 10:30 03/02/22 10:30 03/02/22 10:45 Pulse Rate 54 L 57 L Respiratory Rate 14 13 Blood Pressure 148/67 H Pulse Oximetry 98 97 Oxygen Delivery Method 03/02/22 10:45 03/02/22 11:00 03/02/22 11:00 Pulse Rate 53 L Respiratory Rate 12 Blood Pressure 142/61 H 142/65 H Pulse Oximetry 98 Oxygen Delivery Method 03/02/22 11:16 03/02/22 11:16 03/02/22 11:30 Pulse Rate 55 L 66 Respiratory Rate 13 20 Blood Pressure 169/72 H Pulse Oximetry 98 Oxygen Delivery Method Room Air 03/02/22 11:46 03/02/22 11:46 03/02/22 12:00 Pulse Rate 57 L Respiratory Rate 15 Blood Pressure 144/62 H 139/65 Pulse Oximetry 99 Oxygen Delivery Method 03/02/22 12:00 03/02/22 12:15 03/02/22 12:15 Pulse Rate 54 L 55 L Respiratory Rate 15 15 Blood Pressure 147/66 H Pulse Oximetry 99 100 Oxygen Delivery Method 03/02/22 12:30 03/02/22 12:30 03/02/22 12:45 Pulse Rate 55 L 55 L Respiratory Rate 14 14 Blood Pressure 149/67 H Pulse Oximetry 97 98 Oxygen Delivery Method 03/02/22 12:45 03/02/22 13:00 03/02/22 13:01 Pulse Rate 54 L 57 L Respiratory Rate 13 16 Blood Pressure 136/56 L Pulse Oximetry 98 97 Oxygen Delivery Method 03/02/22 13:01 Pulse Rate Respiratory Rate Blood Pressure 171/74 H Pulse Oximetry Oxygen Delivery Method MDM - Chest Pain Differential Diagnosis Differential diagnosis: Likely stable angina, unstable angina pectoris, atypical chest pain, chest pain and other (Aortic aneurysm/dissection) Lab Data Result diagrams: 03/02/22 07:14 03/02/22 08:11 Labs: Lab Results 03/02/22 03/02/22 03/02/22 Range/Units 07:14 07:14 08:11 WBC 3.9 L (4.5-11.0) X10^3/uL RBC 4.61 (4.5-5.9) X10^6/uL Hgb 12.2 L (13.5-17.5) g/dL Hct 38.0 L (41-53) % MCV 82.4 (80-100) fL MCH 26.5 (26-34) PG MCHC 32.2 (30-36) % RDW 18.2 H (11.6-14.8) % Plt Count 237 (150-400) X10^3/uL Neut % (Auto) 45.8 L (50-75) % Lymph % (Auto) 39.1 (25-40) % [place] % (Auto) 9.9 (3-14) % Eos % (Auto) 4.0 (2-4) % Baso % (Auto) 1.2 (0-2) % Neut # (Auto) 1800 (7577-0587) /uL Lymph # (Auto) 1500 (0390-8825) /uL [place] # (Auto) 400 (0-900) /uL Eos # (Auto) 200 (0-450) /uL Baso # (Auto) 0 (0-100) /uL PT 11.9 (10.1-12.7) SECONDS INR 1.0 (0.9-1.3) APTT 33 (26-36) SECONDS Sodium 137 (137-145) mmol/L Potassium 4.2 (3.4-5.1) mmol/L Chloride 107 (98-107) mmol/L Carbon Dioxide 25 (22-32) mmol/L BUN 25 H (9-20) mg/dL Creatinine 0.95 (0.66-1.25) mg/dL Estimated GFR > 60 (>60) mL/min BUN/Creatinine Ratio 26.3 H (6-22) Glucose 96 (80-110) mg/dL Calcium 8.1 L (8.4-10.2) mg/dL Total Bilirubin 0.4 (0.2-1.3) mg/dL AST 18 (17-59) IU/L ALT 12 (<50) IU/L Alkaline Phosphatase 55 (38-126) U/L Total Creatine Kinase 29 L (55-170) U/L CK-MB (CK-2) TNP CK-MB (CK-2) Rel Index TNP Troponin I < 0.012 (0.01-0.034) ng/mL Total Protein 6.3 (6.3-8.2) g/dL Albumin 3.1 L (3.5-5.0) g/dL Globulin 3.2 (1.7-4.1) g/dL Albumin/Globulin Ratio 1.0 (1.0-2.8) SARS-CoV-2 (PCR) (Negative) 03/02/22 03/02/22 Range/Units 10:30 13:14 WBC (4.5-11.0) X10^3/uL RBC (4.5-5.9) X10^6/uL Hgb (13.5-17.5) g/dL Hct (41-53) % MCV (80-100) fL MCH (26-34) PG MCHC (30-36) % RDW (11.6-14.8) % Plt Count (150-400) X10^3/uL Neut % (Auto) (50-75) % Lymph % (Auto) (25-40) % [place] % (Auto) (3-14) % Eos % (Auto) (2-4) % Baso % (Auto) (0-2) % Neut # (Auto) (9062-1356) /uL Lymph # (Auto) (1134-9689) /uL [place] # (Auto) (0-900) /uL Eos # (Auto) (0-450) /uL Baso # (Auto) (0-100) /uL PT (10.1-12.7) SECONDS INR (0.9-1.3) APTT (26-36) SECONDS Sodium (137-145) mmol/L Potassium (3.4-5.1) mmol/L Chloride (98-107) mmol/L Carbon Dioxide (22-32) mmol/L BUN (9-20) mg/dL Creatinine (0.66-1.25) mg/dL Estimated GFR (>60) mL/min BUN/Creatinine Ratio (6-22) Glucose (80-110) mg/dL Calcium (8.4-10.2) mg/dL Total Bilirubin (0.2-1.3) mg/dL AST (17-59) IU/L ALT (<50) IU/L Alkaline Phosphatase (38-126) U/L Total Creatine Kinase (55-170) U/L CK-MB (CK-2) CK-MB (CK-2) Rel Index Troponin I < 0.012 (0.01-0.034) ng/mL Total Protein (6.3-8.2) g/dL Albumin (3.5-5.0) g/dL Globulin (1.7-4.1) g/dL Albumin/Globulin Ratio (1.0-2.8) SARS-CoV-2 (PCR) Negative (Negative) Urine Dip Bedside Urine Glucose Negative Bedside Urine Bilirubin - Negative Bedside Urine Ketone - Negative Urine Specific [place] 1.010 Bedside Urine Occult Blood - Negative Bedside Urine pH 7.5 Bedside Urine Protein - Negative Bedside Urine Urobilinogen - Negative Bedside Urine Nitrite - Negative Bedside Urine Leukocytes - Negative Esterase Imaging Data CT angiogram chest abdomen and pelvis: Radiologist's Impression: [address] [address] [address] Scan Report Signed Patient: Brennen Levin MR#: [id number] : 1940 Acct:[id number] Age/Sex: 81 / M Date of Service: 03/02/22 Loc: ED Accession Number: [id number] ?? Procedure: CT angio chest abdomen pelvis Ordering Provider: Donavon Lr MD PROCEDURE:? CT ANGIO CHEST ABDOMEN PELVIS ? INDICATIONS:? chest pain/AAA ? TECHNIQUE:? Precontrast 5 mm thick sections acquired from the lung apices to the iliac crests.? After the administration of intravenous contrast, 2.5 mm thick sections again acquired from the lung apices to the iliac crests.? Maximum intensity projection (MIP) oblique sagittal and coronal reformats were then acquired.? For radiation dose reduction, the following was used:? automated exposure control.? ? COMPARISON:? [facility], CT, CT ANGIO CHEST ABDOMEN PELVIS, 04/01/2021, 16:50. ? FINDINGS:? Image quality:? Excellent.? ? AORTA:? The thoracoabdominal aorta is normal in caliber with no evidence of aneurysm, dissection, or significant stenosis.? Moderate diffuse plaque causes mild diffus e stenosis of the thoracoabdominal aorta. ? CHEST:? Lungs and pleura:? No acute airspace opacities.? There is an 8 mm diameter subpleural nodule within the right lower lobe anteromedially, as before.? No pleural effusions or pneumothorax.? Central and peripheral airways are patent and normal in caliber.? ? Mediastinum:? Heart size is normal.? There is moderate calcification of the coronary vasculature.? No pericardial effusion.? No mediastinal or hilar adenopathy by size criteria.? Central pulmonary arteries are normal in size.? Esophagus is normal in caliber and demonstrates mild diffuse thickening, new since the prior examination.? No hiatal hernias.? ? Bones and chest wall:? No axillary adenopathy by size criteria.? Thyroid gland is within normal limits .? No suspicious bony lesions.? No vertebral body compression fractures.? ? ? ABDOMEN:? Vasculature:? Celiac trunk and mesenteric arteries are patent.? Renal arteries are also patent.? ? Solid organs:? Liver is normal in size and enhancement.? Gallbladder is within normal limits .? Biliary system is non dilated.? Pancreas enhances normally.? Spleen is normal in size and enhancement.? No adrenal nodules.? Both kidneys are normal in size and enhancement, without hydronephrosis.? There is a nonobstructing 5 mm calculus within the inferior pole left kidney.? Left inferior pole renal cyst is present, measuring 34 mm. ? Peritoneum and bowel:? No free fluid or air.? Bowel loops are normal in caliber and wall thickness.? ? Nodes and vessels:? No retroperitoneal or mesenteric adenopathy by size criteria.? Inferior vena cava is normal in morphology.? ? Miscellaneous:? No ventral hernias.? ? ? PELVIS:? Genitourinary:? Bladder wall thickness is normal.? ? Miscellaneous:? No inguinal hernias or adenopathy.? No ventral hernias.? ? Bones:? Bilateral hip arthroplasty has been performed.? No suspicious bony lesions.? No vertebral body compression fractures.? ? ? IMPRESSION:? 1. No acute process involving the thoracoabdominal aorta. 2. Mild diffuse esophageal thickening, possibly indicating esophagitis. 3. Coronary artery disease. 4. No change in right lower lobe pulmonary nodule.? Follow-up is recommended as below. ? Fleischner Society criteria for SOLID lung nodule followup.? Nodule size (mm)Low-risk patientHigh-risk patient<6 (single or multiple)No routine followup.Optional CT at 12 months. 6-8 (single or multiple)CT at 6-12 months, then optional CT at 18-24 mo.CT at 6-12 months, then CT at 18-24 months.? >8 (single)CT, PET-CT, or biopsy at 3 months. Same as for low-risk pts.? >8 (multiple)CT at 3-6 months, then optional CT at 18-24 mo.CT at 3-6 months, then CT at 18-24 months.? Fleischner Society criteria for SUB-SOLID lung nodule followup.? Solitary pure ground-glass nodules<6 mm (ground glass or part solid)No followup needed.? 6 mm or larger (ground glass)CT at 6-12 months to confirm persistence, then CT every 2 years until 5 years.6 mm or larger (part solid)CT at 3-6 months to confirm persistence, then annual CT until 5 years if unchanged and solid component remains <6 mm.? Multiple sub-solid nodules<6 mmCT at 3-6 months, then CT consider at 2 & 4 years for high risk patients. 6 mm or larger.? CT at 3-6 months. Subsequent management based on most suspicious lesions. Recommendations do not apply to lung cancer screening, patients with immunosuppression, or patients with known primary cancer. ? ? Dictated by: Swapna Higgins M.D. on 03/02/2022 at 8:14 ? ? Approved by: Swapna Higgins M.D. on 03/02/2022 at 8:19 ? ECG Data Interpretation: Sinus rhythm rate [address] elevation or depression. Right bundle-branch block MDM Narrative Medical decision making narrative: Appropriate for admission for chest pain rule out and stress test. Patient recently admitted here for pneumonia and had evolution into workup for stroke. Hemodynamically stable at this time. 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 Reviewed with primary care on-call and will admit Discharge Plan Departure Patient Disposition: Admitted as Observation Clinical Impression: Chest pain Admit Date/Time: 03/02/22 13:19 Admit Provider: Norberto Mcrae
[2022-03-02 07:24] LABS: Add Manual Diff / Slide Review NO; Basophils Absolute Auto 0 /uL (0-100); Basophils Percent Auto 1.2 % (0-2); Eosinophils Absolute Auto 200 /uL (0-450); Hemoglobin 12.2 g/dL (13.5-17.5); Lymphocytes Absolute Auto 1500 /uL (1100-4500); Lymphocytes Percent Auto 39.1 % (25-40); Mean Corpuscular HGB Conc 32.2 % (30-36); Mean Corpuscular Hemoglobin 26.5 PG (26-34); Mean Corpuscular Volume 82.4 fL (80-100); Monocytes Absolute Auto 400 /uL (0-900); Monocytes Percent Auto 9.9 % (3-14); Neutrophils Absolute Auto 1800 /uL (1500-7000); Neutrophils Percent Auto 45.8 % (50-75); Platelet Count 237 X10^3/uL (150-400); Red Blood Cell Count 4.61 X10^6/uL (4.5-5.9); Red Cell Distribution Width 18.2 % (11.6-14.8); White Blood Cell Count 3.9 X10^3/uL (4.5-11.0)
[2022-03-02 07:37] LABS: Prothrombin Time 11.9 SECONDS (10.1-12.7)
[2022-03-02 07:39] LABS: PTT Partial Thromboplastin Tim 33 SECONDS (26-36)
[2022-03-02] MEDS: SODIUM CHLORIDE 0.9% 500 ML 1000 ML IV (07:48)
[2022-03-02 09:53] LABS: Alanine Aminotransferase 12 IU/L (<50); Albumin 3.1 g/dL (3.5-5.0); Alkaline Phosphatase 55 U/L (38-126); Aspartate Aminotransferase 18 IU/L (17-59); BUN Creatinine Ratio 26.3 (6-22); Bilirubin Total 0.4 mg/dL (0.2-1.3); Blood Urea Nitrogen 25 mg/dL (9-20); Calcium 8.1 mg/dL (8.4-10.2); Carbon Dioxide 25 mmol/L (22-32); Chloride 107 mmol/L (98-107); Creatine Kinase 29 U/L (55-170); Estimated Glomerular Filt Rate > 60 mL/min (>60); Globulin 3.2 g/dL (1.7-4.1); Glucose 96 mg/dL (80-110); HEMOLYSIS < 15 (0-50); Potassium 4.2 mmol/L (3.4-5.1); Sodium 137 mmol/L (137-145); Total Protein 6.3 g/dL (6.3-8.2)
[2022-03-02 10:03] LABS: Troponin I < 0.012 ng/mL (0.01-0.034)
[2022-03-02 11:10] LABS: Troponin I < 0.012 ng/mL (0.01-0.034)
[2022-03-02] MEDS: ASPIRIN 81 MG CHEW TAB 324 MG PO (13:13)
[2022-03-02 13:56] LABS: COVID19 -Nasal RAPID Negative (Negative)
--- NOTE | 2022-03-02 14:05 | PM.HP.1 ---
History of Present Illness History of Present Illness Date Patient Seen: 03/02/22 Time Patient Seen: 13:30 Date of Onset of Symptoms: 03/02/22 Chief complaint: possible heart attack Narrative: sudden onset awakened by intense chest pain at 5am this morning. which resolved on its own fairly quickly, he did take a nitro tab which didn't have much effect. ED evaluation generally reassuring but per discussion wt Dr. Vazquez recommended for observation and stress test given concerning history. Reports he feels fine today no pain anywhere no chest pain in particular breathing fine feels ok. Otherwise has been fine no illness taking all his meds as prescribed Patient History Medical History AAA (abdominal aortic aneurysm) Arthritis BPH (benign prostatic hyperplasia) Former smoker GERD (gastroesophageal reflux disease) HLD (hyperlipidemia) HTN (hypertension) Hyponatremia Osteoarthritis PAD (peripheral artery disease) PVD (peripheral vascular disease) Shingles TIA (transient ischemic attack) Surgical History History of bilateral cataract extraction (~2017) History of colonoscopy History of total right hip arthroplasty Hx of appendectomy Hx of bone graft S/P cervical spinal fusion (08/09/15) Family & Social History Social History: household members none Tobacco & Substance use: Tobacco type cigarettes Smoking Status Former smoker alcohol intake current alcohol intake frequency 3 or more drinks per day Substance Use Type does not use Meds Home Medications and Allergies Home Medications Medication Instructions Recorded Confirmed Type omeprazole 20 mg capsule,delayed 40 mg PO BID ##0 11/09/11 03/02/22 History release tamsulosin 0.4 mg capsule 0.4 mg PO BID 01/15/18 03/02/22 History acetaminophen 325 mg tablet 650 mg PO TID PRN Pain, Mild 02/11/22 03/02/22 History calcium carbonate 200 mg calcium 500 mg PO TID #100 tabs 02/14/22 03/02/22 Rx (500 mg) chewable tablet clopidogrel 75 mg tablet 75 mg PO DAILY #30 tabs 02/14/22 03/02/22 Rx levofloxacin 500 mg tablet 500 mg PO DAILY #7 tabs 02/14/22 03/02/22 Rx losartan 25 mg tablet 50 mg PO DAILY 60 days #60 tabs 02/14/22 03/02/22 Rx Allergies Allergy/AdvReac Type Severity Reaction Status Date / Time piperacillin [From Zosyn] Allergy Severe Swelling Verified 02/11/22 13:47 of Lip/Tongue/Throat tazobactam [From Zosyn] Allergy Severe Swelling Verified 02/11/22 13:47 of Lip/Tongue/Throat latex [LATEX] Allergy Mild Rash Verified 01/29/22 14:18 Review of Systems Review of Systems Narrative: all systems reviewed and negative except as otherwise documented in HPI Exam Vital Signs (past 8 hours): - 03/02/22 07:06 03/02/22 07:37 03/02/22 08:00 Pulse Rate 58 L 53 L 57 L Respiratory Rate 16 16 17 Blood Pressure 161/73 H Pulse Oximetry 99 98 96 Oxygen Delivery Method Room Air 03/02/22 08:30 03/02/22 09:00 03/02/22 09:13 Pulse Rate 53 L 58 L 52 L Respiratory Rate 15 17 20 Blood Pressure Pulse Oximetry 97 97 99 Oxygen Delivery Method 03/02/22 09:13 03/02/22 09:15 03/02/22 09:15 Pulse Rate 36 L 48 L Respiratory Rate 18 Blood Pressure 155/67 H 169/72 H Pulse Oximetry 100 Oxygen Delivery Method 03/02/22 09:30 03/02/22 09:31 03/02/22 09:31 Pulse Rate 55 L 54 L 38 L Respiratory Rate 18 16 Blood Pressure 145/67 H Pulse Oximetry 98 100 Oxygen Delivery Method 03/02/22 09:45 03/02/22 09:45 03/02/22 10:00 Pulse Rate 54 L Respiratory Rate 14 Blood Pressure 152/67 H 145/65 H Pulse Oximetry 99 Oxygen Delivery Method 03/02/22 10:00 03/02/22 10:15 03/02/22 10:15 Pulse Rate 53 L 55 L Respiratory Rate 14 11 L Blood Pressure 145/65 H Pulse Oximetry 99 98 Oxygen Delivery Method 03/02/22 10:30 03/02/22 10:30 03/02/22 10:45 Pulse Rate 54 L 57 L Respiratory Rate 14 13 Blood Pressure 148/67 H Pulse Oximetry 98 97 Oxygen Delivery Method 03/02/22 10:45 03/02/22 11:00 03/02/22 11:00 Pulse Rate 53 L Respiratory Rate 12 Blood Pressure 142/61 H 142/65 H Pulse Oximetry 98 Oxygen Delivery Method 03/02/22 11:16 03/02/22 11:16 03/02/22 11:30 Pulse Rate 55 L 66 Respiratory Rate 13 20 Blood Pressure 169/72 H Pulse Oximetry 98 Oxygen Delivery Method Room Air 03/02/22 11:46 03/02/22 11:46 03/02/22 12:00 Pulse Rate 57 L Respiratory Rate 15 Blood Pressure 144/62 H 139/65 Pulse Oximetry 99 Oxygen Delivery Method 03/02/22 12:00 03/02/22 12:15 03/02/22 12:15 Pulse Rate 54 L 55 L Respiratory Rate 15 15 Blood Pressure 147/66 H Pulse Oximetry 99 100 Oxygen Delivery Method 03/02/22 12:30 03/02/22 12:30 03/02/22 12:45 Pulse Rate 55 L 55 L Respiratory Rate 14 14 Blood Pressure 149/67 H Pulse Oximetry 97 98 Oxygen Delivery Method 03/02/22 12:45 03/02/22 13:00 03/02/22 13:01 Pulse Rate 54 L 57 L Respiratory Rate 13 16 Blood Pressure 136/56 L Pulse Oximetry 98 97 Oxygen Delivery Method 03/02/22 13:01 03/02/22 13:30 03/02/22 13:31 Pulse Rate 56 L 53 L Respiratory Rate 17 16 Blood Pressure 171/74 H Pulse Oximetry 97 97 Oxygen Delivery Method 03/02/22 13:31 Pulse Rate Respiratory Rate Blood Pressure 156/69 H Pulse Oximetry Oxygen Delivery Method Oxygen Delivery Method Room Air Const Other: cheerful [place] alert in emergency room [facility] Head: normal to inspection, normocephalic and atraumatic Eyes General: appearance normal, both eyes and all related structures Resp Auscultation: clear to auscultation bilaterally Cardio Other: regular rate and rhythm S1/S2 no m/r/g GI Other: soft nontender nondistended normal bowel sounds Skin General: no rashes or lesions noted Neuro General: patient alert, patient awake, patient oriented x3, moves all extremities, CN's II-XI intact bilaterally and deep tendon reflexes 2+ bilaterally Extrem General: normal to inspection and full ROM Psych Appearance: grossly normal Mental Status: mental status grossly normal Speech and Movement: speech and movement normal Objective Labs Result Diagrams: 03/02/22 07:14 03/02/22 08:11 Labs: Laboratory Results - last 24 hr 03/02/22 03/02/22 03/02/22 07:14 07:14 08:11 WBC 3.9 L RBC 4.61 Hgb 12.2 L Hct 38.0 L MCV 82.4 MCH 26.5 MCHC 32.2 RDW 18.2 H Plt Count 237 Neut % (Auto) 45.8 L Lymph % (Auto) 39.1 [place] % (Auto) 9.9 Eos % (Auto) 4.0 Baso % (Auto) 1.2 Neut # (Auto) 1800 Lymph # (Auto) 1500 [place] # (Auto) 400 Eos # (Auto) 200 Baso # (Auto) 0 PT 11.9 INR 1.0 APTT 33 Sodium 137 Potassium 4.2 Chloride 107 Carbon Dioxide 25 BUN 25 H Creatinine 0.95 Estimated GFR > 60 BUN/Creatinine Ratio 26.3 H Glucose 96 Calcium 8.1 L Total Bilirubin 0.4 AST 18 ALT 12 Alkaline Phosphatase 55 Total Creatine Kinase 29 L CK-MB (CK-2) TNP CK-MB (CK-2) Rel Index TNP Troponin I < 0.012 Total Protein 6.3 Albumin 3.1 L Globulin 3.2 Albumin/Globulin Ratio 1.0 SARS-CoV-2 (PCR) 03/02/22 03/02/22 10:30 13:14 WBC RBC Hgb Hct MCV MCH MCHC RDW Plt Count Neut % (Auto) Lymph % (Auto) [place] % (Auto) Eos % (Auto) Baso % (Auto) Neut # (Auto) Lymph # (Auto) [place] # (Auto) Eos # (Auto) Baso # (Auto) PT INR APTT Sodium Potassium Chloride Carbon Dioxide BUN Creatinine Estimated GFR BUN/Creatinine Ratio Glucose Calcium Total Bilirubin AST ALT Alkaline Phosphatase Total Creatine Kinase CK-MB (CK-2) CK-MB (CK-2) Rel Index Troponin I < 0.012 Total Protein Albumin Globulin Albumin/Globulin Ratio SARS-CoV-2 (PCR) Negative Assessment & Plan Assessment & Plan narrative: #Chest pain r/o ACS Initial workup unconcerning, benign exam, asymptomatic now Dr. Vazquez consulted in ED and recommended stress test, will go ahead and perform treadmill inpatient to determine discharge plan admit obs with cardiac surgeon, get stress test #HTN controlled continue losartan 25 bid with prn hydralazin #hx of stroke suspected - continue plavix pt unable to tolerate statin #GERD controlled continue prazole Code: Full Diet: heart healthy DVT ppx: Lovenox dispo: admit obs for now Time Spent With Patient Critical Care time: I spent a total of [] minutes of critical care time on this patient's care today; this time is exclusive of procedural time.
[2022-03-02] MEDS: ENOXAPARIN 40 MG/0.4 ML SYRINGE SUBCUT (14:50)
[2022-03-02] MEDS: MAG HYDROX/ALUM/SIMETH 30 ML UDC PO (14:50)
--- NOTE | 2022-03-02 17:04 | PC.NURSE ---
1400 Pt arrived via gurney from ED, VSS, denies pain, no c/o chest pain. Oriented to room and call light system. Bed low and locked call light within reach, will continue to monitor
[2022-03-02] MEDS: DOCUSATE 100 MG CAPSULE PO (20:17)
[2022-03-02] MEDS: TAMSULOSIN 0.4 MG CAPSULE PO (20:17)
[2022-03-02] MEDS: CALCIUM CARBONATE 500 MG TAB PO (20:17)
[2022-03-02] MEDS: LOSARTAN 25 MG TABLET PO (20:18)
[2022-03-02] MEDS: PANTOPRAZOLE DR 40 MG TABLET PO (20:19)
[2022-03-02] MEDS: SODIUM CHLORIDE 0.9% FLUSH 10 ML IV (22:31)
[2022-03-03 06:15] VITALS: BP 157/57; PULSE 61; RESP 14; TEMP 36.5; O2SAT 100
[2022-03-03 07:03] LABS: Add Manual Diff / Slide Review NO; Basophils Absolute Auto 0 /uL (0-100); Basophils Percent Auto 1.3 % (0-2); Eosinophils Absolute Auto 100 /uL (0-450); Eosinophils Percent Auto 4.6 % (2-4); Hematocrit 37.8 % (41-53); Hemoglobin 12.1 g/dL (13.5-17.5); Lymphocytes Absolute Auto 1000 /uL (1100-4500); Lymphocytes Percent Auto 33.4 % (25-40); Mean Corpuscular HGB Conc 32.1 % (30-36); Mean Corpuscular Hemoglobin 26.5 PG (26-34); Mean Corpuscular Volume 82.5 fL (80-100); Monocytes Absolute Auto 200 /uL (0-900); Monocytes Percent Auto 8.1 % (3-14); Neutrophils Absolute Auto 1600 /uL (1500-7000); Neutrophils Percent Auto 52.6 % (50-75); Platelet Count 223 X10^3/uL (150-400); Red Blood Cell Count 4.58 X10^6/uL (4.5-5.9); Red Cell Distribution Width 17.8 % (11.6-14.8); White Blood Cell Count 3.1 X10^3/uL (4.5-11.0)
[2022-03-03 08:00] VITALS: BP 153/67; PULSE 60; RESP 16; TEMP 36.7; O2SAT 98
--- NOTE | 2022-03-03 11:15 | CM.DANOTE ---
DCP Assessment: Payor: Medicare & [facility] PCP: Dr. Kapoor Pt is an 81 y.o. M who presented to the ED with sudden onset of chest pain. Pt currently on Plavix and is being monitored by Antony. Pt was recently admitted last month for pneumonia and work up of stroke. Pt admitted for further observation and management of his symptoms. Pt to get a stress test today @ 1130. DCP met with pt this morning to discuss discharge needs. Pt sitting up in bed watching TV. DCP introduced self and role. Pt lives alone in a condo in [place]. Pt does not drive POV. Pt states he does not have any family in the area. Pt states that he gets friends to drive him to appointments and errands. DCP inquired about meals and states he goes to the store but hasn't gone in awhile because he has enough food. Pt states that he is currently under [facility]. DCP asked pt about who would pick him up from the hospital. Pt states, my phone is so I can't call anyone. DCP to inquire about pinion staker. White board updated. Instructed to call. DCP asked RN for pinion staker. [employer] Attendant was given. Pt to call friends upon discharge. [facility] was contacted in updated on pt situation. [facility] thankful. P: Pt to have stress test at 1130. If normal, pt will be discharged home via friend POV. Eunice Velásquez RN/EDILP Discharge Planning/Care Management CM Discharge Assessment Start: 03/03/22 11:14 Freq: Status: Active Protocol: Document 03/03/22 11:14 TELMA (Rec: 03/03/22 11:15 TELMA [id number]) Discharge Planning Assessment Assigned Access Lead Eunice Velásquez RN/EDILP History Provided By Patient,Medical Record Prior Living Arrangements Apartment/Condo Household Members none Type of transporation used prior to Relies on Others admit Independent with ADL's Yes Is patient alert and oriented? Yes Discharge Plan Home Referrals Initiated None needed Additional Comment At this time. Pt already [facility]. Whiteboard Updated in Patient Room with Yes name and ext. # of Access Lead Comment Instructed to call. Review Status In Process Please Provide Date Initial DC 03/03/22 Assessment Was Performed Next Review Type Continued Stay Review
--- NOTE | 2022-03-03 12:22 | PC.NURSE ---
pt back to AC from stress test. Denies any pain. Tele monitor on. Lunch provided.
[2022-03-03] MEDS: ENOXAPARIN 40 MG/0.4 ML SYRINGE SUBCUT (12:31)
[2022-03-03] MEDS: DOCUSATE 100 MG CAPSULE PO (12:31)
[2022-03-03] MEDS: SODIUM CHLORIDE 0.9% FLUSH 10 ML IV (12:31)
[2022-03-03] MEDS: CLOPIDOGREL 75 MG TABLET PO (12:31)
[2022-03-03] MEDS: PANTOPRAZOLE DR 40 MG TABLET PO (12:31)
[2022-03-03] MEDS: TAMSULOSIN 0.4 MG CAPSULE PO (12:31)
[2022-03-03] MEDS: CALCIUM CARBONATE 500 MG TAB PO (12:31)
[2022-03-03 12:35] VITALS: PULSE 73
[2022-03-03] MEDS: LOSARTAN 25 MG TABLET PO (12:35)
--- NOTE | 2022-03-03 14:31 | P.DS_ITS ---
History of Present Illness History of Present Illness Date Patient Seen: 03/03/22 Time Patient Seen: 14:00 Date of Onset of Symptoms: 03/02/22 Chief complaint: possible heart attack Narrative: sudden onset awakened by intense chest pain at 5am 03/02/22 morning. which resolved on its own fairly quickly within 10 seconds, he did take a nitro tab which didn't have much effect. ED evaluation generally reassuring but per discussion [facility] Dr. Vazquez recommended for observation and stress test given concerning history. Reports he feels fine today no pain anywhere no chest pain in particular breathing fine feels ok. Otherwise has been fine no illness taking all his meds as prescribed. Discharge Providers Provider Date of admission: 03/02/22 13:19 Discharge Date: 03/03/22 Primary care physician: Tawana Zheng MD Discharge provider: Norberto Kapoor MD Summary Hospital Course Discharge Diagnosis: #Chest pain r/o ACS #HTN #hx of stroke suspected #GERD Hospital Course: Mr. Levin did fine during this admission without any recurrence of the chest pain. His treadmill test was unconcerning but indicative of deconditioning. His clinical research monitor had no significant arrhythmic findings. He will follow up as outpt in clinic next week. Status at Discharge Cognitive/behavioral status at discharge: at baseline, oriented Functional status at discharge: independent ambulation Overall status at discharge: patient is back to baseline Exam Vital Signs (past 8 hours): - 03/03/22 08:00 03/03/22 12:35 Temperature 98.1 F Pulse Rate 60 73 Respiratory Rate 16 Blood Pressure 153/67 H Pulse Oximetry 98 Oxygen Flow Rate 0 Oxygen Delivery Method Room Air Oxygen Flow Rate 0 Const General: cooperative, healthy appearing and comfortable [facility] Head: normal to inspection, normocephalic and atraumatic Eyes General: appearance normal, both eyes and all related structures Resp Auscultation: clear to auscultation bilaterally Cardio Other: regular rate and rhythm S1/S2 no M/R/G GI Other: soft nontender nondistended normal bowel sounds Skin General: no rashes or lesions noted Neuro General: patient alert, patient awake, patient oriented x3, moves all extremities and CN's II-XI intact bilaterally Extrem General: normal to inspection and full ROM Psych Appearance: grossly normal Mental Status: mental status grossly normal Objective Labs Result Diagrams: 03/03/22 06:52 03/02/22 08:11 Labs: Laboratory Results - last 24 hr 03/03/22 06:52 WBC 3.1 L RBC 4.58 Hgb 12.1 L Hct 37.8 L MCV 82.5 MCH 26.5 MCHC 32.1 RDW 17.8 H Plt Count 223 Neut % (Auto) 52.6 Lymph % (Auto) 33.4 [place] % (Auto) 8.1 Eos % (Auto) 4.6 H Baso % (Auto) 1.3 Neut # (Auto) 1600 Lymph # (Auto) 1000 L [place] # (Auto) 200 Eos # (Auto) 100 Baso # (Auto) 0 PFSH Medical History AAA (abdominal aortic aneurysm) Arthritis BPH (benign prostatic hyperplasia) Former smoker GERD (gastroesophageal reflux disease) HLD (hyperlipidemia) HTN (hypertension) Hyponatremia Osteoarthritis PAD (peripheral artery disease) PVD (peripheral vascular disease) Shingles TIA (transient ischemic attack) Surgical History History of bilateral cataract extraction (~2018) History of colonoscopy History of total right hip arthroplasty Hx of appendectomy Hx of bone graft S/P cervical spinal fusion (08/09/15) Social History household members: none Smoking Status: Former smoker alcohol intake: current Discharge Assessment & Plan Assessment and Plan Assessment: #Chest pain r/o ACS Initial workup unconcerning, benign exam, asymptomatic on and since admission Dr. Vazquez consulted in ED and recommended stress test, treadmill test was unconcerning, per report his PVCs went away with exercise and there was no sign of concerning EKG changes. Given absence of other issues he feels comfortable goign home and following up as an outpatient for now. advise continue PPI at bedtime and keep nitro tabs handy. #HTN controlled continue losartan 25 bid with prn hydralazine #hx of stroke suspected - continue plavix pt unable to tolerate statin #GERD controlled continue prazole Code: Full Diet: heart healthy DVT ppx: Lovenox dispo: dc home to f/u as outpt Discharge Plan Discharge Plan Patient Disposition: Home Discharge orders & Medications Prescriptions: Continued omeprazole 20 MG capsule,delayed release(/EC) 40 mg PO BID Qty: 0 acetaminophen 325 mg tablet 650 mg PO TID PRN (Reason: Pain, Mild) clopidogrel 75 mg Tablet 75 mg PO DAILY Qty: 30 1RF calcium carbonate 200 mg calcium (500 mg) Tablet,Chewable 500 mg PO TID Qty: 100 0RF losartan 25 mg Tablet 50 mg PO DAILY 60 Days Qty: 60 2RF levofloxacin 500 mg tablet 500 mg PO DAILY Qty: 7 0RF tamsulosin 0.4 mg Capsule 0.4 mg PO BID Follow up/Referrals: Tawana Zheng MD [Primary Care Provider] - Diet/Activity/Treatments Diet: Diet as Tolerated Skin/Wound/Dressing Care Report to your healthcare provider any signs of infection, such as:: increased pain Discharge Data Primary Care Provider: Tawana Zheng Attending Provider: Norberto Kapoor VTE Deep Vein Thrombosis/Pulmonary Embolism Present on Admission: No
--- NOTE | 2022-03-03 18:45 | DI.NM.S_ITS ---
DATE OF SERVICE: PROCEDURE: Exercise stress test. INDICATION: Chest pain. CARDIAC STRESS: The patient underwent exercise stress test under the supervision of an attending staff. The patient walked on Stuart protocol for 4 minutes. He could not walk further. He felt fatigued. At the second stage of exercise, treadmill speed was decreased from 2.5 miles per hour to 2 miles per hour. The patient achieved maximum heart rate of 114, which was 83 percent of target heart rate. Baseline blood pressure 120/70 mmHg. Peak blood pressure 180/80 mmHg. Achieved 6.1 METs of workload. Baseline rhythm was sinus with right bundle branch as well as left anterior fascicular block and intermittent isolated PVCs. At peak exercise, PVCs got suppressed but reappeared in recovery. No chest pain. No sustained ventricular tachycardia. CONCLUSION: Submaximal exercise test is negative for inducible ischemia. Diminished exercise tolerance. Achieved 6.1 metabolic equivalents of workload. Normal blood pressure response. Baseline electrocardiogram sinus rhythm with right bundle branch block, left anterior fascicular block, as well as intermittent premature ventricular contractions. Premature ventricular contractions got suppressed during exercise, but reappeared in recovery. No ventricular tachycardia. Brennen Levin - DEBORAH/prudencio/RUBEN doc#: [id number]/job#: [id number] dd: 03/03/2022 12:49:00 dt: 03/03/2022 18:36:00 DICTATING /COPIES TO: Thor Unger MD COPIES MNE: RODNEY;
== END 2022-03-03 15:06 | disposition home or self-care (01) ==
LOC: ED 12:59 → AC 13:20
PROVIDERS: Admitting Provider Family Medicine; Emergency Provider Emergency Medicine; Family Provider Student in an Organized Health Care Education/Training Program; PCP Student in an Organized Health Care Education/Training Program; Referring Provider Emergency Medicine; Visit Provider Family Medicine
DX: R07.9 Chest pain, unspecified (principal); E78.5 Hyperlipidemia, unspecified; I10 Essential (primary) hypertension; Z86.73 Personal history of transient ischemic attack (TIA), and cerebral infarction without residual deficits; K21.9 Gastro-esophageal reflux disease without esophagitis; I73.9 Peripheral vascular disease, unspecified; Z79.01 Long term (current) use of anticoagulants; Z20.822 Contact with and (suspected) exposure to COVID-19
CPT/HCPCS: 36415; 71275; 74174; 80053; 81003; 82550; 84484; 85025; 85610; 85730; 87635; 93005; 93010; 93017; 99285; C9803; G0378; J1650; Q9967

== ENCOUNTER 2022-10-03 12:12 | Emergency (ER) | payer MEDICARE, OTHER, SELFPAY ==
[2022-03-02 13:36] VITALS: BMI 28.0
[2022-10-03] VITALS (27 sets, daily range): BP systolic 105–162; BP diastolic 54–70; PULSE 55–66; RESP 12–24; TEMP 36.5–36.6; O2SAT 61–99; BMI 28.5
--- NOTE | 2022-10-03 12:15 | DI.RAD.S_ITS ---
PROCEDURE: XR CHEST 1V INDICATIONS: syncope TECHNIQUE: One view of the chest was acquired. COMPARISON: [facility], CR, XR CHEST 1V, 02/10/2022, 19:50. FINDINGS: Surgical changes and devices: Cervicothoracic spine and left clavicle fixation hardware are stable. Lungs and pleura: Lungs are clear. No pleural effusions or pneumothorax. Mediastinum: Mediastinal contours appear normal. Heart size is normal. Bones and chest wall: No suspicious bony lesions. Overlying soft tissues appear unremarkable. IMPRESSION: No acute cardiopulmonary disease process. Dictated by: Matilda Simmons MD, PhD on 10/03/2022 at 13:25 Approved by: Matilda Simmons MD, PhD on 10/03/2022 at 13:26
--- NOTE | 2022-10-03 12:15 | DI.CT.S_ITS ---
PROCEDURE: CT CERVICAL SPINE WO CON INDICATIONS: fall, neck pain, prior cervical fx TECHNIQUE: Noncontrast 3 mm thick sections acquired from the skull base to the T4 level. Sagittal and coronal reformats were then constructed. For radiation dose reduction, the following was used: automated exposure control, adjustment of mA and/or kV according to patient size. COMPARISON: [facility], CT, CT CERVICAL SPINE WO CON, 08/19/2021, 18:09. FINDINGS: Image quality: Excellent. Bones: Remote ACDF from C4 through C7, with no evidence of hardware failure or loosening. Interval posterior laminectomy at C6 through T1 with posterior lateral mechelle and pedicle screw fixation with pedicle screws through C5, C6, T1, and T2 to treat the recent C7 fracture. No evidence of hardware failure or loosening. No acute fracture or dislocation noted. Soft tissues: Prevertebral soft tissues are normal in thickness. No paravertebral hematomas. No apical pneumothoraces. IMPRESSION: 1. Extensive surgical hardware intact. 2. Findings include recent posterior laminectomy and posterior lateral mechelle and pedicle screw fixation, to treat the recent C7 vertebral body fracture. 3. No acute fracture or dislocation noted involving the cervical spine. Dictated by: Jeremiah Abrams M.D. on 10/03/2022 at 13:12 Approved by: Jeremiah Abrams M.D. on 10/03/2022 at 13:17
--- NOTE | 2022-10-03 12:15 | DI.CT.S_ITS ---
PROCEDURE: CT HEAD/BRAIN WO CON INDICATIONS: fall, neck pain, plavix TECHNIQUE: Noncontrast 4.5 mm thick angled axial sections acquired from the foramen magnum to the vertex, with coronal and sagittal reformats. For radiation dose reduction, the following was used: automated exposure control, adjustment of mA and/or kV according to patient size. COMPARISON: [facility], CT, CT HEAD/BRAIN WO CON, 02/12/2022, 10:47. FINDINGS: Image quality: Excellent. CSF spaces: Basal cisterns are patent. No extra-axial fluid collections. The ventricles are symmetric in size and shape. Brain: No intracranial bleeds or masses. There is cerebral volume loss for age, with resultant ventricular and sulcal prominence. There are periventricular and deep white matter chronic small vessel ischemic changes. Stable findings. 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 There is intracranial internal carotid artery atherosclerosis. Skull and face: Calvarium and visualized facial bones appear intact, without suspicious lesions. Sinuses: Visualized sinuses and mastoids are clear. IMPRESSION: 1. No evidence of acute stroke, hemorrhage, or mass. 2. Multiple old infarcts. Dictated by: Jeremiah Abrams M.D. on 10/03/2022 at 13:18 Approved by: Jeremiah Abrams M.D. on 10/03/2022 at 13:20
[2022-10-03 12:24] LABS: Add Manual Diff / Slide Review NO; Basophils Absolute Auto 0 /uL (0-100); Basophils Percent Auto 0.5 % (0-2); Eosinophils Absolute Auto 100 /uL (0-450); Eosinophils Percent Auto 1.6 % (2-4); Hemoglobin 11.7 g/dL (13.5-17.5); Lymphocytes Absolute Auto 1000 /uL (1100-4500); Lymphocytes Percent Auto 15.1 % (25-40); Mean Corpuscular HGB Conc 33.5 % (30-36); Mean Corpuscular Hemoglobin 28.6 PG (26-34); Mean Corpuscular Volume 85.5 fL (80-100); Monocytes Absolute Auto 500 /uL (0-900); Monocytes Percent Auto 7.6 % (3-14); Neutrophils Absolute Auto 4800 /uL (1500-7000); Neutrophils Percent Auto 75.2 % (50-75); Platelet Count 255 X10^3/uL (150-400); Red Blood Cell Count 4.09 X10^6/uL (4.5-5.9); Red Cell Distribution Width 14.5 % (11.6-14.8); White Blood Cell Count 6.4 X10^3/uL (4.5-11.0)
[2022-10-03] MEDS: SODIUM CHLORIDE 0.9% 500 ML 1000 ML IV (12:26)
[2022-10-03 12:38] LABS: Alanine Aminotransferase 18 IU/L (<50); Albumin 3.3 g/dL (3.5-5.0); Albumin Globulin Ratio 0.9 (1.0-2.8); Alkaline Phosphatase 74 U/L (38-126); Aspartate Aminotransferase 25 IU/L (17-59); BUN Creatinine Ratio 25.6 (6-22); Bilirubin Total 0.5 mg/dL (0.2-1.3); Blood Urea Nitrogen 20 mg/dL (9-20); Calcium 8.3 mg/dL (8.4-10.2); Carbon Dioxide 26 mmol/L (22-32); Chloride 102 mmol/L (98-107); Creatine Kinase 36 U/L (55-170); Estimated Glomerular Filt Rate > 60 mL/min (>60); Globulin 3.5 g/dL (1.7-4.1); Glucose 93 mg/dL (80-110); HEMOLYSIS < 15 (0-50); Potassium 3.9 mmol/L (3.4-5.1); Sodium 135 mmol/L (137-145); Total Protein 6.8 g/dL (6.3-8.2)
[2022-10-03 12:51] LABS: NT-proBNP (BNP-Adult 18+) 1070 pg/mL (<450); Troponin I 0.019 ng/mL (0.01-0.034)
--- NOTE | 2022-10-03 13:27 | ED_ITS ---
HPI - Fall General Chief Complaint: Fall Stated Complaint: Dizzy/ GLF/ Neck Pain Time Seen by Provider: 10/03/22 12:14 Source: patient and EMS Mode of arrival: EMS History of Present Illness HPI Narrative: 82-year-old male former smoker with prior cervical injury and fracture presents by EMS for evaluation of a ground level fall and resultant neck pain. He states that he was on the toilet and got off the toilet, took a few steps then began to feel a bit dizzy and lightheaded. He was able to reach out to try to stabilize himself but ended up falling onto his buttocks and back and felt a crunching sensation in his neck and is concerned that perhaps his prior fracture had become injured. He does not think he struck his head. He does take Plavix, he was activated as a modified trauma given these elements. He has no chest pain o r shortness of breath. He denies nausea, vomiting or diarrhea. He denies any neurologic symptoms such as numbness, tingling or weakness Related Data Home Medications Medication Instructions Recorded Confirmed omeprazole 20 mg capsule,delayed 40 mg PO BID ##0 11/09/11 03/02/22 release tamsulosin 0.4 mg capsule 0.4 mg PO BID 01/15/18 03/02/22 acetaminophen 325 mg tablet 650 mg PO TID PRN Pain, Mild 02/11/22 03/02/22 Previous Rx's Medication Instructions Recorded calcium carbonate 200 mg calcium 500 mg PO TID #100 tabs 02/14/22 (500 mg) chewable tablet clopidogrel 75 mg tablet 75 mg PO DAILY #30 tabs 02/14/22 levofloxacin 500 mg tablet 500 mg PO DAILY #7 tabs 02/14/22 losartan 25 mg tablet 50 mg PO DAILY 60 days #60 tabs 02/14/22 Allergies Allergy/AdvReac Type Severity Reaction Status Date / Time piperacillin [From Zosyn] Allergy Severe Swelling Verified 02/11/22 13:47 of Lip/Tongue/Throat tazobactam [From Zosyn] Allergy Severe Swelling Verified 02/11/22 13:47 of Lip/Tongue/Throat latex [LATEX] Allergy Mild Rash Verified 01/29/22 14:18 Review of Systems Review of Systems Narrative: GENERAL: Denies chills, fatigue, malaise, fever, sweats. HEENT: Denies sinus pain, ear pain, sore throat, difficulty swallowing, dizziness. RESPIRATORY: Denies dyspnea, cough, wheezing, hemoptysis, sputum. CARDIOVASCULAR: Denies chest pain, palpitations, orthopnea, edema, GASTROINTESTINAL: Denies nausea, vomiting, abdominal pain, diarrhea, constipation, melena. : Denies dysuria, frequency, incontinence, hematuria, urinary retention. MUSCULOSKELETAL: See HPI SKIN: Denies rash, skin lesions, or other NEUROLOGIC: See HPI PSYCHIATRIC: No concerning psychosocial issues. 12 point review of systems is negative except for those stated above Patient History Medical History AAA (abdominal aortic aneurysm) Arthritis BPH (benign prostatic hyperplasia) Former smoker GERD (gastroesophageal reflux disease) HLD (hyperlipidemia) HTN (hypertension) Hyponatremia Osteoarthritis PAD (peripheral artery disease) PVD (peripheral vascular disease) Shingles TIA (transient ischemic attack) Surgical History History of bilateral cataract extraction (~2018) History of colonoscopy History of total right hip arthroplasty Hx of appendectomy Hx of bone graft S/P cervical spinal fusion (08/09/15) Social History household members: none Smoking Status: Former smoker alcohol intake: current Smoking Status: Former smoker alcohol intake frequency: 3 or more drinks per day Substance Use Type: does not use Exam Narrative Exam Narrative: GENERAL: [82] year old patient appears stated age. Well-developed patient, in mild distress. GCS 15 HEAD: Atraumatic. Normocephalic. EYES: Pupils equal round and reactive. Extraocular motions intact. No scleral icterus. No injection or drainage. ENT: Nose without bleeding, purulent drainage. Throat without erythema, to nsillar hypertrophy or exudate. Airway patent. NECK: Trachea midline. Midline cervical tenderness, no crepitance. No pain with axial loading. Neuro symptoms such as weakness, tingling CARDIOVASCULAR: Regular rate and rhythm without murmurs, gallops, or rubs. RESPIRATORY: Clear to auscultation. Breath sounds equal bilaterally. No wheezes, rales, or rhonchi. GASTROINTESTINAL: Abdomen soft, non-tender, nondistended. EXTREMITIES: No edema or joint tenderness. BACK: Nontender without deformity or crepitance. No flank tenderness. NEURO: AOx3. SKIN: No rash or erythema of visible areas Initial Vital Signs Initial Vital Signs: Vital Signs Temperature 97.8 F 10/03/22 12:18 Pulse Rate 63 10/03/22 12:18 Respiratory Rate 18 10/03/22 12:18 Blood Pressure 162/70 H 10/03/22 12:18 Pulse Oximetry 99 10/03/22 12:18 Oxygen Delivery Method Room Air 10/03/22 12:18 Course Orders Ordered: ED Orders 10/03/22 12:10 Complete Blood Count AUTO DIFF Stat Comprehensive Metabolic Panel Stat NT-proBNP (BNP-Adult 18+) Stat Troponin & CK Cardiac Panel Stat 10/03/22 12:15 CT cervical spine wo con Stat CT head/brain wo con Stat Chest [XR chest 1V] Stat EKG-12 Lead Stat 10/03/22 14:45 MR cervical spine wo con Stat Discontinued Medications Sodium Chloride (Normal Saline 0.9%) 500 mls @ 1,000 mls/hr IV BOLUS ONE Stop: 10/03/22 12:43 Last Infusion: 10/03/22 12:52 Dose: 0 mls/hr Documented By: Admin: 10/03/22 12:26 Dose: 1,000 mls/hr Documented By: ANNY Vital Signs Vital signs: Vital Signs - 8 hr 10/03/22 12:18 10/03/22 12:30 10/03/22 12:31 Temperature 97.8 F Pulse Rate 63 62 58 L Respiratory Rate 18 Blood Pressure 162/70 H Pulse Oximetry 99 96 97 Oxygen Delivery Method Room Air 10/03/22 12:31 10/03/22 13:01 10/03/22 13:04 Temperature Pulse Rate Respiratory Rate Blood Pressure 140/63 149/58 H 114/55 L Pulse Oximetry Oxygen Delivery Method 10/03/22 13:30 10/03/22 14:00 10/03/22 14:15 Temperature Pulse Rate 55 L 57 L 58 L Respiratory Rate 18 19 20 Blood Pressure Pulse Oximetry 97 97 99 Oxygen Delivery Method 10/03/22 14:15 10/03/22 14:18 10/03/22 14:18 Temperature Pulse Rate 62 Respiratory Rate 21 Blood Pressure 137/63 105/54 L Pulse Oximetry 99 Oxygen Delivery Method 10/03/22 14:20 10/03/22 14:20 10/03/22 14:30 Temperature Pulse Rate 66 58 L Respiratory Rate 21 Blood Pressure 112/58 L Pulse Oximetry 97 97 Oxygen Delivery Method 10/03/22 14:57 10/03/22 14:57 10/03/22 15:00 Temperature Pulse Rate 58 L Respiratory Rate Blood Pressure 142/64 H 127/61 Pulse Oximetry 98 Oxygen Delivery Method 10/03/22 15:00 10/03/22 15:50 10/03/22 15:50 Temperature Pulse Rate 57 L 61 Respiratory Rate 17 Blood Pressure 132/60 Pulse Oximetry 98 99 Oxygen Delivery Method 10/03/22 16:00 10/03/22 16:00 10/03/22 16:30 Temperature Pulse Rate 59 L 58 L Respiratory Rate 14 15 Blood Pressure 136/62 Pulse Oximetry 97 97 Oxygen Delivery Method 10/03/22 16:31 10/03/22 16:31 Temperature Pulse Rate 58 L Respiratory Rate 17 Blood Pressure 137/61 Pulse Oximetry 96 Oxygen Delivery Method MDM - Fall Lab Data 10/03/22 12:10 10/03/22 12:10 Labs: Lab Results 10/03/22 10/03/22 Range/Units 12:10 12:10 WBC 6.4 (4.5-11.0) X10^3/uL RBC 4.09 L (4.5-5.9) X10^6/uL Hgb 11.7 L (13.5-17.5) g/dL Hct 35.0 L (41-53) % MCV 85.5 (80-100) fL MCH 28.6 (26-34) PG MCHC 33.5 (30-36) % RDW 14.5 (11.6-14.8) % Plt Count 255 (150-400) X10^3/uL Neut % (Auto) 75.2 H (50-75) % Lymph % (Auto) 15.1 L (25-40) % [place] % (Auto) 7.6 (3-14) % Eos % (Auto) 1.6 L (2-4) % Baso % (Auto) 0.5 (0-2) % Neut # (Auto) 4800 (6657-8153) /uL Lymph # (Auto) 1000 L (9432-2575) /uL [place] # (Auto) 500 (0-900) /uL Eos # (Auto) 100 (0-450) /uL Baso # (Auto) 0 (0-100) /uL Sodium 135 L (137-145) mmol/L Potassium 3.9 (3.4-5.1) mmol/L Chloride 102 (98-107) mmol/L Carbon Dioxide 26 (22-32) mmol/L BUN 20 (9-20) mg/dL Creatinine 0.78 (0.66-1.25) mg/dL Estimated GFR > 60 (>60) mL/min BUN/Creatinine Ratio 25.6 H (6-22) Glucose 93 (80-110) mg/dL Calcium 8.3 L (8.4-10.2) mg/dL Total Bilirubin 0.5 (0.2-1.3) mg/dL AST 25 (17-59) IU/L ALT 18 (<50) IU/L Alkaline Phosphatase 74 (38-126) U/L Total Creatine Kinase 36 L (55-170) U/L CK-MB (CK-2) TNP CK-MB (CK-2) Rel Index TNP Troponin I 0.019 (0.01-0.034) ng/mL NT-Pro-B Natriuret Pep 1070 H (<450) pg/mL Total Protein 6.8 (6.3-8.2) g/dL Albumin 3.3 L (3.5-5.0) g/dL Globulin 3.5 (1.7-4.1) g/dL Albumin/Globulin Ratio 0.9 L (1.0-2.8) MDM Narrative Medical decision making narrative: [82] year old patient presents with a fall resulting in neck pain, thankfully there were no associated neurologic symptoms such as numbness, tingling or weakness Multiple etiologies for patient's symptoms considered including, but not limited to: [Electrolyte abnormality comp anemia, cervical fracture, ligamentous injury versus other Prior Charts reviewed in our EMR Primary Historian: patient Labs reviewed and interpreted by myself: No significant abnormal findings requiring intervention Imaging reviewed: CT of head, C-spine and MRI of C-spine without evidence of acute findings Consultations: Discussed with radiology Patient's symptoms improved over duration of stay with above-stated therapies. Patient ambulatory through the department. No longer dizzy, weak or lightheaded, no neurosurgical symptoms Findings and discharge diagnosis discussed with patient/family followed by isa king of understanding Return precautions discussed with patient/family whom verbalize understanding of diagnosis and plan Discharge Plan Departure Patient Disposition: Home Clinical Impression: Acute neck pain, Fall Instructions: How to Prevent Falls Activity Restrictions/Additional Instructions: *You have been diagnosed with [fall with neck pain. As we discussed your history and physical exam, labs and imaging are very reassuring. We did CT scan and MRI of your neck that showed no acute findings] *What to do: *Please continue to take your regular medications as directed. [ ] New medication prescriptions sent to your pharmacy: [ ] [ ] New medication written as a paper prescription [ ] No new medications given *Please follow up with your primary care provider in 2-3 days, call for an appointment. Let them know you were seen in the Emergency Department and that we ask that you be seen in follow up. We will electronically transmit a record of today's note if your PCP is in our system *If you do not have a primary care provider please contact the [facility] Resource line at [phone]. They will ask some questions about your medical history and help get you set up with a doctor in the community. *Return to Emergency Department if you should have any new, worsening or concerning symptoms, such as [fever greater than 101 F, shaking chills, worsening pain, persistent vomiting or other bothersome symptoms] Prescriptions: No Action omeprazole 20 MG capsule,delayed release(DR/EC) 40 mg PO BID Qty: 0 acetaminophen 325 mg tablet 650 mg PO TID PRN (Reason: Pain, Mild) clopidogrel 75 mg Tablet 75 mg PO DAILY Qty: 30 1RF calcium carbonate 200 mg calcium (500 mg) Tablet,Chewable 500 mg PO TID Qty: 100 0RF losartan 25 mg Tablet 50 mg PO DAILY 60 Days Qty: 60 2RF levofloxacin 500 mg tablet 500 mg PO DAILY Qty: 7 0RF tamsulosin 0.4 mg Capsule 0.4 mg PO BID Referrals: Norberto Kapoor MD [Primary Care Provider] - Stand Alone Forms: Patient Portal/API
--- NOTE | 2022-10-03 14:45 | DI.MRI.S_ITS ---
PROCEDURE: MR CERVICAL SPINE WO CON INDICATIONS: neck pain, sense of instability, fall, prior surgery TECHNIQUE: Noncontrast sagittal T1 spin echo and T2 fast spin echo, sagittal STIR, foraminal oblique sagittal T2 fast spin echo, and axial gradient echo or T2 fast spin echo through the cervical spine. COMPARISON: [facility], CT, CT CERVICAL SPINE WO CON, 08/19/2021, 18:09. [facility], CT, CT HEAD/BRAIN WO CON, 10/03/2022, 12:56. [facility], CT, CT CERVICAL SPINE WO CON, 10/03/2022, 12:56. [facility], MR, C-SPINE WITHOUT CONTRAST, 05/18/2015, 7:45. FINDINGS: Image quality: Excellent. Alignment and Curvature: There is normal bony alignment. Remote C4 through C7 ACDF. Recent posterior laminectomy at C6 through T1 with posterior lateral mechelle and pedicle screw fixation, with pedicle screws through C5, C6, T1, and T2, to treat a relatively recent C7 fracture. Bone Marrow: Marrow demonstrates normal overall signal. Spinal Cord: Visualized spinal cord has normal size and signal. No cerebellar tonsillar herniation. Paraspinous Soft Tissues: No paravertebral masses. Prevertebral soft tissues are normal in thickness. C2-C3: No canal stenosis or significant foraminal stenosis. C3-C4: Disc bulge. AP diameter of the canal is 9.1 mm. Bilateral uncovertebral joint hypertrophy. Moderate bilateral foraminal narrowing. C4-C5: Fused. AP diameter of the canal is 10.5 mm. Left uncovertebral joint hypertrophy. Moderate left foraminal narrowing. C5-C6: Fused. No central canal stenosis. The moderate to severe left foraminal narrowing. C6-C7: Fused. No canal stenosis. Severe left foraminal narrowing. C7-T1: No canal stenosis or foraminal stenosis. IMPRESSION: 1. There is no evidence of acute cervical ligamentous injury. 2. Extensive cervical fusion, lower cervical posterior decompression. 3. 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 4. Multilevel foraminal narrowing as described above. Dictated by: Jeremiah Abrams M.D. on 10/03/2022 at 16:11 Approved by: Jeremiah Abrams M.D. on 10/03/2022 at 16:27
--- NOTE | 2022-10-03 18:52 | DI.RAD.S_ITS ---
PROCEDURE: XR HIP W PEL IF DONE LT 2V INDICATIONS: fall with pain TECHNIQUE: AP pelvis with lateral view(s) of the 3 hip(s). COMPARISON: [facility], CR, XR HIP W PEL IF DONE LT 2V, 11/11/2018, 17:30. FINDINGS: Bones: Stable postsurgical changes and alignment status post bilateral total hip arthroplasties. No evidence for hardware loosening or failure on either side. Otherwise, no acute fractures. No dislocations. Pelvic ring appears intact. No suspicious bony lesions. Soft tissues: The visualized bowel gas pattern is normal. No suspicious soft tissue calcifications. IMPRESSION: Pelvis and left hip without acute fracture or dislocation. Stable postsurgical changes of bilateral total hip arthroplasties without evidence for hardware complication. Dictated by: Holland Palma M.D. on 10/03/2022 at 19:30 Approved by: Holland Palma M.D. on 10/03/2022 at 19:31
== END 2022-10-03 19:50 | disposition home or self-care (01) ==
PROVIDERS: Emergency Provider Emergency Medicine; Family Provider Student in an Organized Health Care Education/Training Program; PCP Family Medicine
DX: M54.2 Cervicalgia (principal); W18.11XA Fall from or off toilet without subsequent striking against object, initial encounter
CPT/HCPCS: 36415; 70450; 71045; 72125; 72141; 73502; 80053; 82550; 83880; 84484; 85025; 93005; 99284; 99285

== ENCOUNTER 2022-11-24 13:10 | Emergency (ER) | payer MEDICARE, OTHER, SELFPAY ==
[2022-03-02 13:36] VITALS: BMI 28.0
[2022-11-24] VITALS (25 sets, daily range): BP systolic 122–189; BP diastolic 56–122; PULSE 54–95; RESP 13–27; TEMP 36.6; O2SAT 95–100; BMI 27.5
--- NOTE | 2022-11-24 13:22 | DI.RAD.S_ITS ---
PROCEDURE: XR CHEST 1V INDICATIONS: chest pain TECHNIQUE: One view of the chest was acquired. COMPARISON: [facility], CR, XR CHEST 1V, 10/03/2022, 12:28. [facility], CR, XR CHEST 2V, 02/12/2022, 10:42. FINDINGS: Surgical changes and devices: None. Lungs and pleura: Lungs are clear. No pleural effusions or pneumothorax. Mediastinum: Mediastinal contours appear normal. Heart size is normal. Bones and chest wall: No suspicious bony lesions. Overlying soft tissues appear unremarkable. IMPRESSION: No acute cardiopulmonary process. Dictated by: Martir Rosario M.D. on 11/24/2022 at 13:57 Approved by: Martir Rosario M.D. on 11/24/2022 at 13:57
--- NOTE | 2022-11-24 13:51 | PC.NURSE ---
Patient has been battling dizziness for the 30 days and today is the first time he has had the sense of the room spinning. He said the room stops spinning when he closes his eyes. He denies chest pain, nausea, vomiting, SOB.
[2022-11-24 13:53] LABS: Add Manual Diff / Slide Review NO; Basophils Absolute Auto 100 /uL (0-100); Basophils Percent Auto 0.9 % (0-2); Eosinophils Absolute Auto 300 /uL (0-450); Eosinophils Percent Auto 4.7 % (2-4); Hematocrit 31.4 % (41-53); Hemoglobin 10.6 g/dL (13.5-17.5); Lymphocytes Absolute Auto 1000 /uL (1100-4500); Mean Corpuscular HGB Conc 33.7 % (30-36); Mean Corpuscular Hemoglobin 28.1 PG (26-34); Mean Corpuscular Volume 83.3 fL (80-100); Monocytes Absolute Auto 500 /uL (0-900); Monocytes Percent Auto 8.1 % (3-14); Neutrophils Absolute Auto 3800 /uL (1500-7000); Neutrophils Percent Auto 68.3 % (50-75); Platelet Count 247 X10^3/uL (150-400); Red Blood Cell Count 3.77 X10^6/uL (4.5-5.9); Red Cell Distribution Width 15.1 % (11.6-14.8); White Blood Cell Count 5.6 X10^3/uL (4.5-11.0)
[2022-11-24 14:01] LABS: INR 1.3 (0.9-1.3); Prothrombin Time 14.4 SECONDS (10.1-12.7)
[2022-11-24 14:04] LABS: PTT Partial Thromboplastin Tim 33 SECONDS (26-36)
[2022-11-24 14:08] LABS: Alanine Aminotransferase 15 IU/L (<50); Albumin 3.4 g/dL (3.5-5.0); Albumin Globulin Ratio 0.9 (1.0-2.8); Alkaline Phosphatase 69 U/L (38-126); Aspartate Aminotransferase 25 IU/L (17-59); BUN Creatinine Ratio 23.8 (6-22); Bilirubin Total 0.4 mg/dL (0.2-1.3); Blood Urea Nitrogen 19 mg/dL (9-20); Calcium 8.6 mg/dL (8.4-10.2); Carbon Dioxide 31 mmol/L (22-32); Chloride 101 mmol/L (98-107); Creatine Kinase < 20 U/L (55-170); Estimated Glomerular Filt Rate > 60 mL/min (>60); Ethanol (ETOH) < 10 mg/dL; Globulin 3.8 g/dL (1.7-4.1); Glucose 90 mg/dL (80-110); HEMOLYSIS < 15 (0-50); Lipase 68 U/L (23-300); Magnesium 2.1 mg/dL (1.6-2.3); Potassium 4.2 mmol/L (3.4-5.1); Sodium 136 mmol/L (137-145); Total Protein 7.2 g/dL (6.3-8.2)
[2022-11-24 14:15] LABS: NT-proBNP (BNP-Adult 18+) 1500 pg/mL (<450)
[2022-11-24 14:18] LABS: Troponin I < 0.012 ng/mL (0.01-0.034)
--- NOTE | 2022-11-24 14:32 | PC.NURSE ---
patient denies chest pain, SOB, chest pressure. He has been dizzy for several weeks and today he began having a spinning sensation like vertigo.
--- NOTE | 2022-11-24 14:36 | ED.DIZZY ---
HPI - Dizziness General Chief Complaint: Dizziness Stated Complaint: Dizziness Time Seen by Provider: 11/24/22 14:18 Source: patient and EMS Mode of arrival: EMS Related Data Home Medications Medication Instructions Recorded Confirmed omeprazole 20 mg capsule,delayed 40 mg PO BID ##0 11/09/11 03/02/22 release tamsulosin 0.4 mg capsule 0.4 mg PO BID 01/15/18 03/02/22 acetaminophen 325 mg tablet 650 mg PO TID PRN Pain, Mild 02/11/22 03/02/22 Previous Rx's Medication Instructions Recorded calcium carbonate 200 mg calcium 500 mg PO TID #100 tabs 02/14/22 (500 mg) chewable tablet clopidogrel 75 mg tablet 75 mg PO DAILY #30 tabs 02/14/22 levofloxacin 500 mg tablet 500 mg PO DAILY #7 tabs 02/14/22 losartan 25 mg tablet 50 mg PO DAILY 60 days #60 tabs 02/14/22 Allergies Allergy/AdvReac Type Severity Reaction Status Date / Time piperacillin [From Zosyn] Allergy Severe Swelling Verified 11/24/22 13:23 of Lip/Tongue/Throat tazobactam [From Zosyn] Allergy Severe Swelling Verified 11/24/22 13:23 of Lip/Tongue/Throat latex [LATEX] Allergy Mild Rash Verified 11/24/22 13:23 Patient History Medical History AAA (abdominal aortic aneurysm) Arthritis BPH (benign prostatic hyperplasia) Former smoker GERD (gastroesophageal reflux disease) HLD (hyperlipidemia) HTN (hypertension) Hyponatremia Osteoarthritis PAD (peripheral artery disease) PVD (peripheral vascular disease) Shingles TIA (transient ischemic attack) Surgical History History of bilateral cataract extraction (~2018) History of colonoscopy History of total right hip arthroplasty Hx of appendectomy Hx of bone graft S/P cervical spinal fusion (08/09/15) Social History household members: none Smoking Status: Former smoker alcohol intake: current Smoking Status: Former smoker alcohol intake frequency: 3 or more drinks per day Substance Use Type: does not use Exam Initial Vital Signs Initial Vital Signs: Vital Signs Temperature 97.8 F 11/24/22 13:10 Pulse Rate 60 06/02/23 13:10 Respiratory Rate 14 11/24/22 13:10 Blood Pressure 150/65 H 11/24/22 13:10 Pulse Oximetry 99 11/24/22 13:10 Oxygen Delivery Method Room Air 11/24/22 13:10 Course Orders Ordered: ED Orders 11/24/22 13:22 XR chest 1V Stat 11/24/22 13:25 BNP [NT-proBNP (BNP-Adult 18+)] Stat Complete Blood Count AUTO DIFF Stat Comprehensive Metabolic Panel Stat Ethanol (ETOH) Stat Lipase Stat Magnesium Stat PTT Partial Thromboplastin Jeffrey Stat Prothrombin Time INR Stat Troponin & CK Cardiac Panel Stat 11/24/22 13:58 EKG-12 Lead Stat 11/24/22 14:19 Consult to [facility] [place] - Public Health Worker Stat 11/24/22 14:39 CT angio head and neck Stat 11/24/22 15:37 COVID19 -Nasal RAPID Stat 11/24/22 17:08 Urine Culture Stat Urine Microscopic Stat 11/24/22 17:57 MR head/brain wo con Stat 11/24/22 18:36 Consult to Home Health Stat Vital Signs Vital signs: Vital Signs - 8 hr 11/24/22 13:10 11/24/22 13:16 11/24/22 13:16 Temperature 97.8 F Pulse Rate 60 61 Respiratory Rate 14 15 Blood Pressure 150/65 H 153/65 H Pulse Oximetry 99 97 Oxygen Delivery Method Room Air 11/24/22 13:30 11/24/22 13:30 11/24/22 14:00 Temperature Pulse Rate 61 58 L Respiratory Rate 13 23 Blood Pressure 122/56 L Pulse Oximetry 100 99 Oxygen Delivery Method 11/24/22 14:01 11/24/22 14:01 11/24/22 14:30 Temperature Pulse Rate 59 L 56 L Respiratory Rate 20 19 Blood Pressure 141/61 H Pulse Oximetry 99 98 Oxygen Delivery Method 11/24/22 14:31 11/24/22 14:31 11/24/22 14:52 Temperature Pulse Rate 56 L Respiratory Rate 17 Blood Pressure 123/58 L 150/64 H Pulse Oximetry 98 Oxygen Delivery Method 11/24/22 14:52 11/24/22 15:00 11/24/22 15:00 Temperature Pulse Rate 56 L 56 L Respiratory Rate 16 20 Blood Pressure 158/70 H Pulse Oximetry 96 98 Oxygen Delivery Method 11/24/22 15:30 11/24/22 15:31 11/24/22 15:31 Temperature Pulse Rate 57 L 57 L Respiratory Rate 16 19 Blood Pressure 189/74 H Pulse Oximetry 100 100 Oxygen Delivery Method 11/24/22 16:00 11/24/22 16:00 11/24/22 16:30 Temperature Pulse Rate 54 L Respiratory Rate 26 H Blood Pressure 177/122 H 139/65 Pulse Oximetry Oxygen Delivery Method 11/24/22 16:30 11/24/22 16:31 11/24/22 16:31 Temperature Pulse Rate 57 L 58 L Respiratory Rate 20 21 Blood Pressure 139/65 Pulse Oximetry 95 96 Oxygen Delivery Method 11/24/22 16:43 11/24/22 16:43 11/24/22 17:00 Temperature Pulse Rate 57 L 61 Respiratory Rate 22 Blood Pressure 132/63 Pulse Oximetry 96 100 Oxygen Delivery Method 11/24/22 17:04 11/24/22 17:04 11/24/22 17:30 Temperature Pulse Rate 57 L 60 Respiratory Rate 20 21 Blood Pressure 162/72 H Pulse Oximetry 99 100 Oxygen Delivery Method 11/24/22 17:31 11/24/22 17:31 11/24/22 18:00 Temperature Pulse Rate 57 L 57 L Respiratory Rate 20 21 Blood Pressure 185/82 H Pulse Oximetry 100 98 Oxygen Delivery Method 11/24/22 18:01 11/24/22 18:01 11/24/22 18:30 Temperature Pulse Rate 56 L Respiratory Rate 22 Blood Pressure 142/64 H 143/68 H Pulse Oximetry 98 Oxygen Delivery Method 11/24/22 18:30 11/24/22 19:12 11/24/22 19:30 Temperature Pulse Rate 59 L 95 H Respiratory Rate 27 H 24 Blood Pressure Pulse Oximetry 98 97 97 Oxygen Delivery Method 11/24/22 19:37 11/24/22 19:37 Temperature Pulse Rate 60 Respiratory Rate 22 20 Blood Pressure 169/69 H Pulse Oximetry 98 98 Oxygen Delivery Method Room Air MDM - Dizziness Lab Data 11/24/22 13:25 11/24/22 13:25 Labs: Lab Results 11/24/22 11/24/22 11/24/22 Range/Units 13:25 13:25 13:25 WBC 5.6 (4.5-11.0) X10^3/uL RBC 3.77 L (4.5-5.9) X10^6/uL Hgb 10.6 L (13.5-17.5) g/dL Hct 31.4 L (41-53) % MCV 83.3 (80-100) fL MCH 28.1 (26-34) PG MCHC 33.7 (30-36) % RDW 15.1 H (11.6-14.8) % Plt Count 247 (150-400) X10^3/uL Neut % (Auto) 68.3 (50-75) % Lymph % (Auto) 18.0 L (25-40) % [place] % (Auto) 8.1 (3-14) % Eos % (Auto) 4.7 H (2-4) % Baso % (Auto) 0.9 (0-2) % Neut # (Auto) 3800 (7879-6558) /uL Lymph # (Auto) 1000 L (6229-4531) /uL [place] # (Auto) 500 (0-900) /uL Eos # (Auto) 300 (0-450) /uL Baso # (Auto) 100 (0-100) /uL PT 14.4 H (10.1-12.7) SECONDS INR 1.3 (0.9-1.3) APTT 33 (26-36) SECONDS Sodium 136 L (137-145) mmol/L Potassium 4.2 (3.4-5.1) mmol/L Chloride 101 (98-107) mmol/L Carbon Dioxide 31 (22-32) mmol/L BUN 19 (9-20) mg/dL Creatinine 0.80 (0.66-1.25) mg/dL Estimated GFR > 60 (>60) mL/min BUN/Creatinine Ratio 23.8 H (6-22) Glucose 90 (80-110) mg/dL Calcium 8.6 (8.4-10.2) mg/dL Magnesium 2.1 (1.6-2.3) mg/dL Total Bilirubin 0.4 (0.2-1.3) mg/dL AST 25 (17-59) IU/L ALT 15 (<50) IU/L Alkaline Phosphatase 69 (38-126) U/L Total Creatine Kinase < 20 L (55-170) U/L CK-MB (CK-2) TNP CK-MB (CK-2) Rel Index TNP Troponin I < 0.012 (0.01-0.034) ng/mL NT-Pro-B Natriuret Pep (<450) pg/mL Total Protein 7.2 (6.3-8.2) g/dL Albumin 3.4 L (3.5-5.0) g/dL Globulin 3.8 (1.7-4.1) g/dL Albumin/Globulin Ratio 0.9 L (1.0-2.8) Lipase 68 (23-300) U/L Urine RBC (0-5/HPF) Urine WBC (0-5/HPF) Ur Squamous Epith Cells (0-5/HPF) Ur Transition Epith Cell (0-5/HPF) Urine Bacteria (None) Ur Culture Indicated? Ethyl Alcohol < 10 ( - 10) mg/dL SARS-CoV-2 (PCR) (Negative) 11/24/22 11/24/22 11/24/22 Range/Units 13:25 15:37 17:08 WBC (4.5-11.0) X10^3/uL RBC (4.5-5.9) X10^6/uL Hgb (13.5-17.5) g/dL Hct (41-53) % MCV (80-100) fL MCH (26-34) PG MCHC (30-36) % RDW (11.6-14.8) % Plt Count (150-400) X10^3/uL Neut % (Auto) (50-75) % Lymph % (Auto) (25-40) % [place] % (Auto) (3-14) % Eos % (Auto) (2-4) % Baso % (Auto) (0-2) % Neut # (Auto) (8281-0589) /uL Lymph # (Auto) (8159-0104) /uL [place] # (Auto) (0-900) /uL Eos # (Auto) (0-450) /uL Baso # (Auto) (0-100) /uL PT (10.1-12.7) SECONDS INR (0.9-1.3) APTT (26-36) SECONDS Sodium (137-145) mmol/L Potassium (3.4-5.1) mmol/L Chloride (98-107) mmol/L Carbon Dioxide (22-32) mmol/L BUN (9-20) mg/dL Creatinine (0.66-1.25) mg/dL Estimated GFR (>60) mL/min BUN/Creatinine Ratio (6-22) Glucose (80-110) mg/dL Calcium (8.4-10.2) mg/dL Magnesium (1.6-2.3) mg/dL Total Bilirubin (0.2-1.3) mg/dL AST (17-59) IU/L ALT (<50) IU/L Alkaline Phosphatase (38-126) U/L Total Creatine Kinase (55-170) U/L CK-MB (CK-2) CK-MB (CK-2) Rel Index Troponin I (0.01-0.034) ng/mL NT-Pro-B Natriuret Pep 1500 H (<450) pg/mL Total Protein (6.3-8.2) g/dL Albumin (3.5-5.0) g/dL Globulin (1.7-4.1) g/dL Albumin/Globulin Ratio (1.0-2.8) Lipase (23-300) U/L Urine RBC 5-10/hpf H (0-5/HPF) Urine WBC 10-30/hpf H (0-5/HPF) Ur Squamous Epith Cells 0-1 /hpf (0-5/HPF) Ur Transition Epith Cell 0-1/hpf (0-5/HPF) Urine Bacteria Few (2-10) H (None) Ur Culture Indicated? Specimen cultured Ethyl Alcohol ( - 10) mg/dL SARS-CoV-2 (PCR) Negative (Negative) Urine Dip Bedside Urine Glucose Negative Bedside Urine Bilirubin - Negative Bedside Urine Ketone - Negative Urine Specific [place] 1.010 Bedside Urine Occult Blood +/- Bedside Urine pH 7.0 Bedside Urine Protein ++ 100 Bedside Urine Urobilinogen - Negative Bedside Urine Nitrite - Negative Bedside Urine Leukocytes +/- 15 Esterase Discharge Plan Departure Patient Disposition: Home Clinical Impression: Vertigo Activity Restrictions/Additional Instructions: Please continue Plavix 75 mg daily along with an aspirin 81 mg daily for the next 21 days. After this you may continue with her Plavix and may 5 mg daily only. It is also recommended you take atorvastatin 80mg daily. Please follow-up with your physician for recheck, call to set up an appointment. Please return for new or worsening symptoms, recurrent vertigo, lightheadedness or passing out, new numbness, tingling weakness, loss of sensation, persistent vomiting, sudden vision changes or other new or concerning changes. Prescriptions: No Action omeprazole 20 MG capsule,delayed release(DR/EC) 40 mg PO BID Qty: 0 acetaminophen 325 mg tablet 650 mg PO TID PRN (Reason: Pain, Mild) clopidogrel 75 mg Tablet 75 mg PO DAILY Qty: 30 1RF calcium carbonate 200 mg calcium (500 mg) Tablet,Chewable 500 mg PO TID Qty: 100 0RF losartan 25 mg Tablet 50 mg PO DAILY 60 Days Qty: 60 2RF levofloxacin 500 mg tablet 500 mg PO DAILY Qty: 7 0RF tamsulosin 0.4 mg Capsule 0.4 mg PO BID Referrals: Norberto Kapoor MD [Primary Care Provider] - Stand Alone Forms: Patient Portal/API
--- NOTE | 2022-11-24 14:39 | DI.CT.S_ITS ---
PROCEDURE: CT ANGIO HEAD AND NECK INDICATIONS: dizziness, h/o CVA TECHNIQUE: Pre-contrast 4.5 mm thick sections acquired from the foramen magnum to the vertex. After the administration of intravenous contrast, 1 mm thick sections acquired from the aortic arch through the [place] of [place]. Post-contrast 4.5 mm thick sections then re-acquired from the foramen magnum to the vertex. 3-dimensional npumttu-ppqucwhrp-vkjdophyns (MIP) and/or volume rendering reformats were acquired of the central intracranial vasculature and neck separately. For radiation dose reduction, the following was used: automated exposure control, adjustment of mA and/or kV according to patient size. COMPARISON: [facility], CT, CT HEAD/BRAIN WO CON, 10/03/2022, 12:56. FINDINGS: Image quality: Excellent. BRAIN: CSF spaces: Ventricles are normal in size and shape. Basal cisterns are patent. No extra-axial fluid collections. Brain: No midline shift. No intracranial bleeds or masses. [place]-white matter interface appears intact. 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 Dense cavernous carotid calcifications. Dense left vertebral artery calcifications. Age-related volume loss and mild small vessel ischemic change. Skull and face: Calvarium and facial bones appear intact, without suspicious lesions. Orbits appear normal. Sinuses: Bilateral maxillary sinus mucous retention cyst. Mastoids are clear. HEAD CT ANGIOGRAPHY: Anterior circulation: Intracranial internal carotid arteries are normal in size and flow. The right A1 segment anterior cerebral artery is widely patent. The left A1 segment anterior cerebral artery is diminutive. There is a patent anterior communicating artery. There is variant anatomy in which the A2 segment is a single prominent vessel. No aneurysms are seen. Posterior circulation: The entirety of the right vertebral artery is diffusely diminutive. There is probable V4 segment occlusion rather than the vertebral artery ending in PICA. The left vertebral artery is a dominant vessel. There is a focal filling defect causing a focal severe or high-grade stenosis in the V4 segment in a location with significant calcifications. The filling defect measures 3 mm in length. Reference image 34/12. The vertebral arteries join to form a normal proximal basilar artery. The distal basilar artery is somewhat diminutive. Flow within the posterior cerebral arteries is normal and symmetric. No aneurysms are seen. NECK CT ANGIOGRAPHY: Carotid system: The great vessels demonstrate a conventional anatomy as they arise from the aortic arch. The origins of the common carotid arteries appear patent. The common carotid arteries demonstrate normal caliber and courses. The bifurcation regions are both widely patent. The internal carotid arteries demonstrate normal calibers and courses. Posterior circulation: The entirety of the right vertebral artery is diffusely diminutive. There is probable V4 segment occlusion rather than the vertebral artery ending in PICA. The left vertebral artery is a dominant vessel. There is a focal filling defect causing a focal severe or high-grade stenosis in the V4 segment in a location with significant calcifications. The filling defect measures 3 mm in length. Reference image 34/12. The vertebral arteries join to form a normal proximal basilar artery. The distal basilar artery is somewhat diminutive. Soft tissues: Visualized neck soft tissues demonstrate no suspicious abnormalities. Extensive cervical orthopedic surgeries. This includes multilevel ACDF and multilevel posterior lateral mechelle and pedicle screw fixation and posterior decompression. Bones: No suspicious bony lesions. Visualized cervical spine appears normally aligned. IMPRESSION: 1. 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 2. The right vertebral artery is diffusely diminutive in is likely occluded at the V4 segment, likely a chronic finding. 3. In an area of significant left vertebral artery V4 segment calcifications, there is a focal low-density filling defect measuring 3 mm which results in focal severe or high-grade left V4 segment stenosis. This is most likely a chronic finding. However, cannot exclude a small acute distal left vertebral artery clot. 4. Patent carotids. 5. No acute intracranial process. Comment: Findings were discussed with Dr. Licona on 11/24/2022 at 1531 hours. Any quantitative measurements of stenosis were performed using NASCET criteria. Dictated by: Jeremiah Abrams M.D. on 11/24/2022 at 15:16 Approved by: Jeremiah Abrams M.D. on 11/24/2022 at 15:36
[2022-11-24 16:37] LABS: COVID19 -Nasal RAPID Negative (Negative)
--- NOTE | 2022-11-24 16:47 | ED.DIZZY ---
HPI - Dizziness <Lexus Licona, - Last Filed: 11/29/22 02:17> General Chief Complaint: Dizziness Stated Complaint: Dizziness Time Seen by Provider: 11/24/22 14:18 Source: patient and EMS Mode of arrival: EMS Limitations: no limitations History of Present Illness HPI Narrative: This is an 82-year-old male with prior stroke with hemianopsia, prior cervical injury and fracture, hypertension and reported leaky aortic valve. Patient states he had a stroke last January he had hemianopsia or vision impairment can see stuff more on the left side. He states he is had dizziness for several weeks that has been persistent but this morning at about 11 20 had significant worsening of symptoms with a spinning sensation. He states he feels off balance he states his symptoms have improved but he has been seated here in the department. He states no dizziness currently. He denies any vision changes, he denies any numbness, tingling or weakness. No speech changes. No facial droop reported. No chest pain, no shortness of breath, no nausea or vomiting. Patient states he normally uses walking sticks to get around. Patient notes symptoms have been worse with movement of his head. Patient states he is on Plavix, he does not think he is on any other blood thinners. He states his blood pressure medications and tamsulosin have been stopped it appears he used to be on losartan. Patient states he is had prior hip surgery, plate for his clavicle, cervical fusion. Patient states allergy to penicillin possibly latex. No tobacco, occasional alcohol, no illicit. He notes he has a leaky valve or an aneurysm he is unsure, patient see's Dr. Pandey with vascular surgery. CTA chest/abd/pelvis notes no aneurysm in 2021. Related Data Home Medications Medication Instructions Recorded Confirmed omeprazole 20 mg capsule,delayed 40 mg PO BID ##0 11/09/11 03/02/22 release tamsulosin 0.4 mg capsule 0.4 mg PO BID 01/15/18 03/02/22 acetaminophen 325 mg tablet 650 mg PO TID PRN Pain, Mild 02/11/22 03/02/22 Previous Rx's Medication Instructions Recorded calcium carbonate 200 mg calcium 500 mg PO TID #100 tabs 02/14/22 (500 mg) chewable tablet clopidogrel 75 mg tablet 75 mg PO DAILY #30 tabs 02/14/22 levofloxacin 500 mg tablet 500 mg PO DAILY #7 tabs 02/14/22 losartan 25 mg tablet 50 mg PO DAILY 60 days #60 tabs 02/14/22 Allergies Allergy/AdvReac Type Severity Reaction Status Date / Time piperacillin [From Zosyn] Allergy Severe Swelling Verified 11/24/22 13:23 of Lip/Tongue/Throat tazobactam [From Zosyn] Allergy Severe Swelling Verified 11/24/22 13:23 of Lip/Tongue/Throat latex [LATEX] Allergy Mild Rash Verified 11/24/22 13:23 Review of Systems <Lexus Licona DO - Last Filed: 11/29/22 02:17> Review of Systems ROS Unobtainable: All systems reviewed & are unremarkable except as noted in HPI and below Patient History <Lexus Licona DO - Last Filed: 11/29/22 02:17> Medical History AAA (abdominal aortic aneurysm) Arthritis BPH (benign prostatic hyperplasia) Former smoker GERD (gastroesophageal reflux disease) HLD (hyperlipidemia) HTN (hypertension) Hyponatremia Osteoarthritis PAD (peripheral artery disease) PVD (peripheral vascular disease) Shingles TIA (transient ischemic attack) Surgical History History of bilateral cataract extraction (~2018) History of colonoscopy History of total right hip arthroplasty Hx of appendectomy Hx of bone graft S/P cervical spinal fusion (08/09/15) Social History household members: none Smoking Status: Former smoker alcohol intake: current Smoking Status: Former smoker alcohol intake frequency: 3 or more drinks per day Substance Use Type: does not use Exam <Lexus Licona DO - Last Filed: 11/29/22 02:17> Narrative Exam Narrative: GEN: well nourished elderly male, alert and oriented x 3, patient appears to be in mild distress. HEENT: Atraumatic, pupils are equal round reactive to light, extraocular movements are intact, nares are clear, TMs are clear with no fluid, there is no conjunctival pallor. Throat is clear without any exudates, erythema, tonsillar enlargement or uvular deviation, no facial droop appreciated. HEART: Regular rate and rhythm without murmur, clicks, rubs. Pulses are equal in upper and lower extremities LUNGS:Lungs clear to auscultation, no wheezes, rales, crackles, chest moves symmetrically, no tachypnea accessory muscle use. ABD:bowel sounds normal, soft, non-tender, no guarding, rebound, rigidity, no masses noted, no hepatosplenomegaly :No CVA tenderness MSCL: Non-tender, no muscle atrophy, muscles strength 5/5 upper and lower extremities, patient has some decreased ability to lift both arms secondary to pain at the shoulders but can hold them down low without any drift. No problem with finger-nose. If he does not have to lift his arms high. NEURO:CN 2-12 intact, sensation normal, finger nose finger test normal, heel lynn test normal, dysarthria or aphasia. Patient does appear to have a right-sided hemianopsia which he states is baseline. Patient ambulates with a fairly steady gait with no ataxia noted he does use walking sticks on both sides at his baseline and use these today. Initial Vital Signs Initial Vital Signs: Vital Signs Temperature 97.8 F 11/24/22 13:10 Pulse Rate 60 11/24/22 13:10 Respiratory Rate 14 11/24/22 13:10 Blood Pressure 150/65 H 11/24/22 13:10 Pulse Oximetry 99 11/24/22 13:10 Oxygen Delivery Method Room Air 11/24/22 13:10 <Ian Riley, DO - Last Filed: 11/24/22 22:59> Initial Vital Signs Initial Vital Signs: Vital Signs Temperature 97.8 F 11/24/22 13:10 Pulse Rate 60 11/24/22 13:10 Respiratory Rate 14 11/24/22 13:10 Blood Pressure 150/65 H 11/24/22 13:10 Pulse Oximetry 99 11/24/22 13:10 Oxygen Delivery Method Room Air 11/24/22 13:10 Scores <Lexus Licona, DO - Last Filed: 11/29/22 02:17> NIH Stroke Scale Level of Conciousness: Alert, keenly responsive Ask month/age: Answers both questions correctly. Open/close eyes, close hand: Performs both tasks correctly Best gaze horizontal: Normal Visual serna: Complete hemianopia (right) Facial palsy: Normal symetrical movement Left arm drift: No drift for full 10 sec Right arm drift: No drift for full 10 sec Left leg drift: No drift for full 5 sec Right leg drift: No drift for full 5 sec Limb ataxia: Absent Sensory on face/arms/legs: Normal, no sensory loss Best language: No aphasia, normal Dysarthria: Normal Extinction or inattention: No abnormality Total NIH Stroke scale score: 2 <Ian Riley, DO - Last Filed: 11/24/22 22:59> NIH Stroke Scale Total NIH Stroke scale score: 2 Course <Lexus Harrell Bobarsenio, DO - Last Filed: 11/29/22 02:17> Orders Ordered: ED Orders 11/24/22 13:58 EKG-12 Lead Stat 11/24/22 14:19 Consult to [facility] KEEPER - Integration Developer Stat 11/24/22 14:39 CT angio head and neck Stat 11/24/22 15:37 COVID19 -Nasal RAPID Stat 11/24/22 17:08 Urine Culture Stat Urine Microscopic Stat 11/24/22 17:57 MR head/brain wo con Stat 11/24/22 18:36 Consult to Home Health Stat Vital Signs Vital signs: Vital Signs - 8 hr 11/24/22 15:00 11/24/22 15:00 11/24/22 15:30 Pulse Rate 56 L 57 L Respiratory Rate 20 16 Blood Pressure 158/70 H Pulse Oximetry 98 100 Oxygen Delivery Method 11/24/22 15:31 11/24/22 15:31 11/24/22 16:00 Pulse Rate 57 L Respiratory Rate 19 Blood Pressure 189/74 H 177/122 H Pulse Oximetry 100 Oxygen Delivery Method 11/24/22 16:00 11/24/22 16:30 11/24/22 16:30 Pulse Rate 54 L 57 L Respiratory Rate 26 H 20 Blood Pressure 139/65 Pulse Oximetry 95 Oxygen Delivery Method 11/24/22 16:31 11/24/22 16:31 11/24/22 16:43 Pulse Rate 58 L 57 L Respiratory Rate 21 Blood Pressure 139/65 Pulse Oximetry 96 96 Oxygen Delivery Method 11/24/22 16:43 11/24/22 17:00 11/24/22 17:04 Pulse Rate 61 57 L Respiratory Rate 22 20 Blood Pressure 132/63 Pulse Oximetry 100 99 Oxygen Delivery Method 11/24/22 17:04 11/24/22 17:30 11/24/22 17:31 Pulse Rate 60 57 L Respiratory Rate 21 20 Blood Pressure 162/72 H Pulse Oximetry 100 100 Oxygen Delivery Method 11/24/22 17:31 11/24/22 18:00 11/24/22 18:01 Pulse Rate 57 L 56 L Respiratory Rate 21 22 Blood Pressure 185/82 H Pulse Oximetry 98 98 Oxygen Delivery Method 11/24/22 18:01 11/24/22 18:30 11/24/22 18:30 Pulse Rate 59 L Respiratory Rate 27 H Blood Pressure 142/64 H 143/68 H Pulse Oximetry 98 Oxygen Delivery Method 11/24/22 19:12 11/24/22 19:30 11/24/22 19:37 Pulse Rate 95 H 60 Respiratory Rate 24 22 Blood Pressure Pulse Oximetry 97 97 98 Oxygen Delivery Method 11/24/22 19:37 Pulse Rate Respiratory Rate 20 Blood Pressure 169/69 H Pulse Oximetry 98 Oxygen Delivery Method Room Air <Ian Riley, - Last Filed: 11/24/22 22:59> Orders Ordered: ED Orders 11/24/22 13:58 EKG-12 Lead Stat 11/24/22 14:19 Consult to TURF KEEPER - Integration Developer Stat 11/24/22 14:39 CT angio head and neck Stat 11/24/22 15:37 COVID19 -Nasal RAPID Stat 11/24/22 17:08 Urine Culture Stat Urine Microscopic Stat 11/24/22 17:57 MR head/brain wo con Stat 11/24/22 18:36 Consult to Home Health Stat Vital Signs Vital signs: Vital Signs - 8 hr 11/24/22 15:00 11/24/22 15:00 11/24/22 15:30 Pulse Rate 56 L 57 L Respiratory Rate 20 16 Blood Pressure 158/70 H Pulse Oximetry 98 100 Oxygen Delivery Method 11/24/22 15:31 11/24/22 15:31 11/24/22 16:00 Pulse Rate 57 L Respiratory Rate 19 Blood Pressure 189/74 H 177/122 H Pulse Oximetry 100 Oxygen Delivery Method 11/24/22 16:00 11/24/22 16:30 11/24/22 16:30 Pulse Rate 54 L 57 L Respiratory Rate 26 H 20 Blood Pressure 139/65 Pulse Oximetry 95 Oxygen Delivery Method 11/24/22 16:31 11/24/22 16:31 11/24/22 16:43 Pulse Rate 58 L 57 L Respiratory Rate 21 Blood Pressure 139/65 Pulse Oximetry 96 96 Oxygen Delivery Method 11/24/22 16:43 11/24/22 17:00 11/24/22 17:04 Pulse Rate 61 57 L Respiratory Rate 22 20 Blood Pressure 132/63 Pulse Oximetry 100 99 Oxygen Delivery Method 11/24/22 17:04 11/24/22 17:30 11/24/22 17:31 Pulse Rate 60 57 L Respiratory Rate 21 20 Blood Pressure 162/72 H Pulse Oximetry 100 100 Oxygen Delivery Method 11/24/22 17:31 11/24/22 18:00 11/24/22 18:01 Pulse Rate 57 L 56 L Respiratory Rate 21 22 Blood Pressure 185/82 H Pulse Oximetry 98 98 Oxygen Delivery Method 11/24/22 18:01 11/24/22 18:30 11/24/22 18:30 Pulse Rate 59 L Respiratory Rate 27 H Blood Pressure 142/64 H 143/68 H Pulse Oximetry 98 Oxygen Delivery Method 11/24/22 19:12 11/24/22 19:30 11/24/22 19:37 Pulse Rate 95 H 60 Respiratory Rate 24 22 Blood Pressure Pulse Oximetry 97 97 98 Oxygen Delivery Method 11/24/22 19:37 Pulse Rate Respiratory Rate 20 Blood Pressure 169/69 H Pulse Oximetry 98 Oxygen Delivery Method Room Air MDM - Dizziness <Lexus Licona, DO - Last Filed: 11/29/22 02:17> Lab Data 11/24/22 13:25 11/24/22 13:25 Labs: Lab Results 11/24/22 11/24/22 11/24/22 Range/Units 13:25 13:25 13:25 WBC 5.6 (4.5-11.0) X10^3/uL RBC 3.77 L (4.5-5.9) X10^6/uL Hgb 10.6 L (13.5-17.5) g/dL Hct 31.4 L (41-53) % MCV 83.3 (80-100) fL MCH 28.1 (26-34) PG MCHC 33.7 (30-36) % RDW 15.1 H (11.6-14.8) % Plt Count 247 (150-400) X10^3/uL Neut % (Auto) 68.3 (50-75) % Lymph % (Auto) 18.0 L (25-40) % [place] % (Auto) 8.1 (3-14) % Eos % (Auto) 4.7 H (2-4) % Baso % (Auto) 0.9 (0-2) % Neut # (Auto) 3800 (1817-6336) /uL Lymph # (Auto) 1000 L (0452-0726) /uL [place] # (Auto) 500 (0-900) /uL Eos # (Auto) 300 (0-450) /uL Baso # (Auto) 100 (0-100) /uL PT 14.4 H (10.1-12.7) SECONDS INR 1.3 (0.9-1.3) APTT 33 (26-36) SECONDS Sodium 136 L (137-145) mmol/L Potassium 4.2 (3.4-5.1) mmol/L Chloride 101 (98-107) mmol/L Carbon Dioxide 31 (22-32) mmol/L BUN 19 (9-20) mg/dL Creatinine 0.80 (0.66-1.25) mg/dL Estimated GFR > 60 (>60) mL/min BUN/Creatinine Ratio 23.8 H (6-22) Glucose 90 (80-110) mg/dL Calcium 8.6 (8.4-10.2) mg/dL Magnesium 2.1 (1.6-2.3) mg/dL Total Bilirubin 0.4 (0.2-1.3) mg/dL AST 25 (17-59) IU/L ALT 15 (<50) IU/L Alkaline Phosphatase 69 (38-126) U/L Total Creatine Kinase < 20 L (55-170) U/L CK-MB (CK-2) TNP CK-MB (CK-2) Rel Index TNP Troponin I < 0.012 (0.01-0.034) ng/mL NT-Pro-B Natriuret Pep (<450) pg/mL Total Protein 7.2 (6.3-8.2) g/dL Albumin 3.4 L (3.5-5.0) g/dL Globulin 3.8 (1.7-4.1) g/dL Albumin/Globulin Ratio 0.9 L (1.0-2.8) Lipase 68 (23-300) U/L Urine RBC (0-5/HPF) Urine WBC (0-5/HPF) Ur Squamous Epith Cells (0-5/HPF) Ur Transition Epith Cell (0-5/HPF) Urine Bacteria (None) Ur Culture Indicated? Ethyl Alcohol < 10 ( - 10) mg/dL SARS-CoV-2 (PCR) (Negative) 11/24/22 11/24/22 11/24/22 Range/Units 13:25 15:37 17:08 WBC (4.5-11.0) X10^3/uL RBC (4.5-5.9) X10^6/uL Hgb (13.5-17.5) g/dL Hct (41-53) % MCV (80-100) fL MCH (26-34) PG MCHC (30-36) % RDW (11.6-14.8) % Plt Count (150-400) X10^3/uL Neut % (Auto) (50-75) % Lymph % (Auto) (25-40) % [place] % (Auto) (3-14) % Eos % (Auto) (2-4) % Baso % (Auto) (0-2) % Neut # (Auto) (2646-2841) /uL Lymph # (Auto) (7917-8373) /uL [place] # (Auto) (0-900) /uL Eos # (Auto) (0-450) /uL Baso # (Auto) (0-100) /uL PT (10.1-12.7) SECONDS INR (0.9-1.3) APTT (26-36) SECONDS Sodium (137-145) mmol/L Potassium (3.4-5.1) mmol/L Chloride (98-107) mmol/L Carbon Dioxide (22-32) mmol/L BUN (9-20) mg/dL Creatinine (0.66-1.25) mg/dL Estimated GFR (>60) mL/min BUN/Creatinine Ratio (6-22) Glucose (80-110) mg/dL Calcium (8.4-10.2) mg/dL Magnesium (1.6-2.3) mg/dL Total Bilirubin (0.2-1.3) mg/dL AST (17-59) IU/L ALT (<50) IU/L Alkaline Phosphatase (38-126) U/L Total Creatine Kinase (55-170) U/L CK-MB (CK-2) CK-MB (CK-2) Rel Index Troponin I (0.01-0.034) ng/mL NT-Pro-B Natriuret Pep 1500 H (<450) pg/mL Total Protein (6.3-8.2) g/dL Albumin (3.5-5.0) g/dL Globulin (1.7-4.1) g/dL Albumin/Globulin Ratio (1.0-2.8) Lipase (23-300) U/L Urine RBC 5-10/hpf H (0-5/HPF) Urine WBC 10-30/hpf H (0-5/HPF) Ur Squamous Epith Cells 0-1 /hpf (0-5/HPF) Ur Transition Epith Cell 0-1/hpf (0-5/HPF) Urine Bacteria Few (2-10) H (None) Ur Culture Indicated? Specimen cultured Ethyl Alcohol ( - 10) mg/dL SARS-CoV-2 (PCR) Negative (Negative) Urine Dip Bedside Urine Glucose Negative Bedside Urine Bilirubin - Negative Bedside Urine Ketone - Negative Urine Specific [place] 1.010 Bedside Urine Occult Blood +/- Bedside Urine pH 7.0 Bedside Urine Protein ++ 100 Bedside Urine Urobilinogen - Negative Bedside Urine Nitrite - Negative Bedside Urine Leukocytes +/- 15 Esterase Imaging Data CTA - brain/neck: Radiologist's Impression: [address] [address] [address] Scan Report Signed Patient: Brennen Levin MR#: [id number] : 1940 Acct:[id number] Age/Sex: 82 / M Date of Service: 11/24/22 Loc: ED Accession Number: [id number] ?? Procedure: CT angio head and neck Ordering Provider: Lexus Licona D.O. PROCEDURE:? CT ANGIO HEAD AND NECK ? INDICATIONS:? dizziness, h/o CVA ? TECHNIQUE:? Pre-contrast 4.5 mm thick sections acquired from the foramen magnum to the vertex.? After the administration of intravenous contrast, 1 mm thick sections acquired from the aortic arch through the [place].? Post-contrast 4.5 mm thick sections then re-acquired from the foramen magnum to the vertex.? 3-dimensional lfvrxri-xuimipber-vrvszlqygw (MIP) and/or volume rendering reformats were acquired of the central intracranial vasculature and neck separately. For radiation dose reduction, the following was used:? automated exposure control, adjustment of mA and/or kV according to patient size.? ? COMPARISON:? [facility], CT, CT HEAD/BRAIN WO CON, 10/03/2022, 12:56. ? FINDINGS:? Image quality:? Excellent.? ? BRAIN:? CSF spaces:? Ventricles are normal in size and shape.? Basal cisterns are patent.? No extra-axial fluid collections.? ? Brain:? No midline shift.? No intracranial bleeds or masses.? Dubois-white matter interface appears intact.? Old multifocal bilateral cerebellar infarcts, old focal left posterior cerebral artery distribution occipital infarct.? Dense cavernous carotid calcifications.? Dense left vertebral artery calcifications.? Age-related volume loss and mild small vessel ischemic change. ? Skull and face:? Calvarium and facial bones appear intact, without suspicious lesions.? Orbits appear normal.? ? Sinuses:? Bilateral maxillary sinus mucous retention cyst.? Mastoids are clear. ? HEAD CT ANGIOGRAPHY:? Anterior circulation:? Intracranial internal carotid arteries are normal in size and flow.? The right A1 segment anterior cerebral artery is widely patent.? The left A1 segment anterior cerebral artery is diminutive.? There is a patent anterior communicating artery.? There is variant anatomy in which the A2 segment is a single prominent vessel.? No aneurysms are seen.? ? Posterior circulation:? The entirety of the right vertebral artery is diffusely diminutive.? There is probable V4 segment occlusion rather than the vertebral artery ending in PICA.? The left vertebral artery is a dominant vessel.? There is a focal filling defect causing a focal severe or high-grade stenosis in the V4 segment in a location with significant calcifications.? The filling defect measures 3 mm in length.? Reference image 34/12.? The vertebral arteries join to form a normal proximal basilar artery.? The distal basilar artery is somewhat diminutive.? Flow within the posterior cerebral arteries is normal and symmetric.? No aneurysms are seen.? ? NECK CT ANGIOGRAPHY:? Carotid system:? The great vessels demonstrate a conventional anatomy as they arise from the aortic arch.? The origins of the common carotid arteries appear patent.? The common carotid arteries demonstrate normal caliber and courses.? The bifurcation regions are both widely patent.? The internal carotid arteries demonstrate normal calibers and courses.? ? Posterior circulation:? The entirety of the right vertebral artery is diffusely diminutive.? There is probable V4 segment occlusion rather than the vertebral artery ending in PICA.? The left vertebral artery is a dominant vessel.? There is a focal filling defect causing a focal severe or high-grade stenosis in the V4 segment in a location with significant calcifications.? The filling defect measures 3 mm in length.? Reference image 34/12.? The vertebral arteries join to form a normal proximal basilar artery.? The distal basilar artery is somewhat diminutive.? ? Soft tissues:? Visualized neck soft tissues demonstrate no suspicious abnormalities.? Extensive cervical orthopedic surgeries.? This includes multilevel ACDF and multilevel posterior lateral mechelle and pedicle screw fixation and posterior decompression.? ? Bones:? No suspicious bony lesions.? Visualized cervical spine appears normally aligned.? IMPRESSION:? ? 1. There are multiple old bilateral relatively small cerebellar infarcts and a focal left occipital posterior cerebral artery infarct.? 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 ? 2. The right vertebral artery is diffusely diminutive in is likely occluded at the V4 segment, likely a chronic finding. ? 3. In an area of significant left vertebral artery V4 segment calcifications, there is a focal low-density filling defect measuring 3 mm which results in focal severe or high-grade left V4 segment stenosis.? This is most likely a chronic finding.? However, cannot exclude a small acute distal left vertebral artery clot. ? 4. Patent carotids. ? 5. No acute intracranial process. ? Comment: Findings were discussed with Dr. Licona on? 11/24/2022 at 1531 hours. ? ? Any quantitative measurements of stenosis were performed using NASCET criteria.? ? ? Dictated by: Jeremiah Abrams M.D. on 11/24/2022 at 15:16 ? ? Approved by: Jeremiah Abrams M.D. on 11/24/2022 at 15:36?? ECG Data Attestation: I personally reviewed and interpreted this ECG as follows: Interpretation: Sinus bradycardia with first-degree AV block, left axis deviation, right bundle-branch. A rate of 57 WI 210 QRS of 148 QTC 455. No acute ST changes appreciated. MDM Narrative Medical decision making narrative: This is an 82-year-old male who describes dizziness for several months, he states today had an acute worsening with significant vertigo like symptoms started about 11 30 this morning. Has improved he is able to ambulate now he was feeling very off balance before. He denies any other neurologic changes acutely. Does have a hemianopsia from a prior stroke and has no other acute changes. NIH is 2, which is likely his baseline as it is based only on his vision. 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 Reviewed with Stroke neurology at [facility] spoke with Dr. Benites. He reviewed patient's imaging called back plan for MRI if unremarkable can discharge home but would continue with his Plavix 75 mg and aspirin for 21 days and then proceed with just his Plavix 75 mg. If positive for stroke would recommend observation, still continuing with aspirin and Plavix for 21 days and then continuing on patient's daily Plavix dose. Also recommends adding and atorvastatin either 40 or 80 mg. Discussed with patient were able to obtain an MRI this evening, reviewed plan patient is agreeable with this. <Ian Riley, DO - Last Filed: 11/24/22 22:59> Lab Data Labs: Lab Results 11/24/22 11/24/22 11/24/22 Range/Units 13:25 13:25 13:25 WBC 5.6 (4.5-11.0) X10^3/uL RBC 3.77 L (4.5-5.9) X10^6/uL Hgb 10.6 L (13.5-17.5) g/dL Hct 31.4 L (41-53) % MCV 83.3 (80-100) fL MCH 28.1 (26-34) PG MCHC 33.7 (30-36) % RDW 15.1 H (11.6-14.8) % Plt Count 247 (150-400) X10^3/uL Neut % (Auto) 68.3 (50-75) % Lymph % (Auto) 18.0 L (25-40) % [place] % (Auto) 8.1 (3-14) % Eos % (Auto) 4.7 H (2-4) % Baso % (Auto) 0.9 (0-2) % Neut # (Auto) 3800 (4809-8775) /uL Lymph # (Auto) 1000 L (8199-9099) /uL [place] # (Auto) 500 (0-900) /uL Eos # (Auto) 300 (0-450) /uL Baso # (Auto) 100 (0-100) /uL PT 14.4 H (10.1-12.7) SECONDS INR 1.3 (0.9-1.3) APTT 33 (26-36) SECONDS Sodium 136 L (137-145) mmol/L Potassium 4.2 (3.4-5.1) mmol/L Chloride 101 (98-107) mmol/L Carbon Dioxide 31 (22-32) mmol/L BUN 19 (9-20) mg/dL Creatinine 0.80 (0.66-1.25) mg/dL Estimated GFR > 60 (>60) mL/min BUN/Creatinine Ratio 23.8 H (6-22) Glucose 90 (80-110) mg/dL Calcium 8.6 (8.4-10.2) mg/dL Magnesium 2.1 (1.6-2.3) mg/dL Total Bilirubin 0.4 (0.2-1.3) mg/dL AST 25 (17-59) IU/L ALT 15 (<50) IU/L Alkaline Phosphatase 69 (38-126) U/L Total Creatine Kinase < 20 L (55-170) U/L CK-MB (CK-2) TNP CK-MB (CK-2) Rel Index TNP Troponin I < 0.012 (0.01-0.034) ng/mL NT-Pro-B Natriuret Pep (<450) pg/mL Total Protein 7.2 (6.3-8.2) g/dL Albumin 3.4 L (3.5-5.0) g/dL Globulin 3.8 (1.7-4.1) g/dL Albumin/Globulin Ratio 0.9 L (1.0-2.8) Lipase 68 (23-300) U/L Urine RBC (0-5/HPF) Urine WBC (0-5/HPF) Ur Squamous Epith Cells (0-5/HPF) Ur Transition Epith Cell (0-5/HPF) Urine Bacteria (None) Ur Culture Indicated? Ethyl Alcohol < 10 ( - 10) mg/dL SARS-CoV-2 (PCR) (Negative) 11/24/22 11/24/22 11/24/22 Range/Units 13:25 15:37 17:08 WBC (4.5-11.0) X10^3/uL RBC (4.5-5.9) X10^6/uL Hgb (13.5-17.5) g/dL Hct (41-53) % MCV (80-100) fL MCH (26-34) PG MCHC (30-36) % RDW (11.6-14.8) % Plt Count (150-400) X10^3/uL Neut % (Auto) (50-75) % Lymph % (Auto) (25-40) % [place] % (Auto) (3-14) % Eos % (Auto) (2-4) % Baso % (Auto) (0-2) % Neut # (Auto) (5944-0324) /uL Lymph # (Auto) (1327-2948) /uL [place] # (Auto) (0-900) /uL Eos # (Auto) (0-450) /uL Baso # (Auto) (0-100) /uL PT (10.1-12.7) SECONDS INR (0.9-1.3) APTT (26-36) SECONDS Sodium (137-145) mmol/L Potassium (3.4-5.1) mmol/L Chloride (98-107) mmol/L Carbon Dioxide (22-32) mmol/L BUN (9-20) mg/dL Creatinine (0.66-1.25) mg/dL Estimated GFR (>60) mL/min BUN/Creatinine Ratio (6-22) Glucose (80-110) mg/dL Calcium (8.4-10.2) mg/dL Magnesium (1.6-2.3) mg/dL Total Bilirubin (0.2-1.3) mg/dL AST (17-59) IU/L ALT (<50) IU/L Alkaline Phosphatase (38-126) U/L Total Creatine Kinase (55-170) U/L CK-MB (CK-2) CK-MB (CK-2) Rel Index Troponin I (0.01-0.034) ng/mL NT-Pro-B Natriuret Pep 1500 H (<450) pg/mL Total Protein (6.3-8.2) g/dL Albumin (3.5-5.0) g/dL Globulin (1.7-4.1) g/dL Albumin/Globulin Ratio (1.0-2.8) Lipase (23-300) U/L Urine RBC 5-10/hpf H (0-5/HPF) Urine WBC 10-30/hpf H (0-5/HPF) Ur Squamous Epith Cells 0-1 /hpf (0-5/HPF) Ur Transition Epith Cell 0-1/hpf (0-5/HPF) Urine Bacteria Few (2-10) H (None) Ur Culture Indicated? Specimen cultured Ethyl Alcohol ( - 10) mg/dL SARS-CoV-2 (PCR) Negative (Negative) Urine Dip Bedside Urine Glucose Negative Bedside Urine Bilirubin - Negative Bedside Urine Ketone - Negative Urine Specific [place] 1.010 Bedside Urine Occult Blood +/- Bedside Urine pH 7.0 Bedside Urine Protein ++ 100 Bedside Urine Urobilinogen - Negative Bedside Urine Nitrite - Negative Bedside Urine Leukocytes +/- 15 Esterase Imaging Data brain MRI: Radiologist's Impression: PROCEDURE:? MR HEAD/BRAIN WO CON ? INDICATIONS:? vertigo ? TECHNIQUE:? Non-contrast axial T1 spin echo, axial T2 fast spin echo, sagittal and axial FLAIR, coronal T2 fast spin echo, axial gradient echo, axial diffusion and ADC through the brain.? ? COMPARISON:? [facility], CT, CT ANGIO HEAD AND NECK, 11/24/2022, 14:37. ? FINDINGS:? Image quality:? Excellent.? ? CSF spaces:? Ventricles appear symmetric in size and shape.? Basal cisterns are patent.? No extra-axial fluid collections.? ? Brain:? No acute intracranial hemorrhage or mass effect.? Small areas of chronic encephalomalacia are seen in the left cerebellar hemisphere and posterior left occipital lobe as well as likely the right cerebellar hemisphere without associated diffusion restriction or magnetic susceptibility, consistent with prior infarcts.? There is cerebral volume loss for age.? There are minimal periventricular and deep white matter chronic small vessel ischemic changes.? Brainstem appears normal.? Diffusion-weighted images show no acute ischemic insults.? No chronic ischemic insults.? Vascular structures are better demonstrated on the CT angiogram performed earlier the same day.? ? Skull and face:? Calvarial bone marrow is normal in signal.? Orbits are normal.? ? Sinuses:? Sinuses and mastoids are clear.? ? IMPRESSION:? 1. No acute intracranial hemorrhage or recent infarct. 2. 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 3. Mild chronic microvascular ischemic changes. MDM Narrative Medical decision making narrative: This is an 82-year-old male who describes dizziness for several months, he states today had an acute worsening with significant vertigo like symptoms started about 11 30 this morning. Has improved he is able to ambulate now he was feeling very off balance before. He denies any other neurologic changes acutely. Does have a hemianopsia from a prior stroke and has no other acute changes. NIH is 2, which is likely his baseline as it is based only on his vision. 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 Reviewed with Stroke neurology at [facility] spoke with Dr. Benites. He reviewed patient's imaging called back plan for MRI if unremarkable can discharge home but would continue with his Plavix 75 mg and aspirin for 21 days and then proceed with just his Plavix 75 mg. If positive for stroke would recommend observation, still continuing with aspirin and Plavix for 21 days and then continuing on patient's daily Plavix dose. Also recommends adding and atorvastatin either 40 or 80 mg. Discussed with patient were able to obtain an MRI this evening, reviewed plan patient is agreeable with this. Dr riley: Received turned over. Reviewed patient's history and physical and workup up to this point. Patient's MRI shows old strokes but no new infarctions. I discuss this with the patient. The plan to be is to discharge the patient home having him do both aspirin and Plavix for the next 21 days and then returning back to his Plavix. Patient states understands this. He would like to be discharged home. He can ambulate with his walking sticks. He was given strict return precautions. He expressed understanding and agreement. Discharge Plan Departure Patient Disposition: Home Clinical Impression: Vertigo Activity Restrictions/Additional Instructions: Please continue Plavix 75 mg daily along with an aspirin 81 mg daily for the next 21 days. After this you may continue with her Plavix and may 5 mg daily only. It is also recommended you take atorvastatin 80mg daily. Please follow-up with your physician for recheck, call to set up an appointment. Please return for new or worsening symptoms, recurrent vertigo, lightheadedness or passing out, new numbness, tingling weakness, loss of sensation, persistent vomiting, sudden vision changes or other new or concerning changes. Prescriptions: No Action omeprazole 20 MG capsule,delayed release(DR/EC) 40 mg PO BID Qty: 0 acetaminophen 325 mg tablet 650 mg PO TID PRN (Reason: Pain, Mild) clopidogrel 75 mg Tablet 75 mg PO DAILY Qty: 30 1RF calcium carbonate 200 mg calcium (500 mg) Tablet,Chewable 500 mg PO TID Qty: 100 0RF losartan 25 mg Tablet 50 mg PO DAILY 60 Days Qty: 60 2RF levofloxacin 500 mg tablet 500 mg PO DAILY Qty: 7 0RF tamsulosin 0.4 mg Capsule 0.4 mg PO BID Referrals: Norberto Kapoor MD [Primary Care Provider] - Stand Alone Forms: Patient Portal/API
[2022-11-24 17:43] LABS: Bacteria Urine Few (2-10); Culture Indicated Urine Specimen Cultured; RBC Urine 5-10/HPF (0-5/HPF); Squamous Epithelial Cell Urine 0-1 /HPF (0-5/HPF); Transitional Epi Cells Urine 0-1/HPF (0-5/HPF); WBC Urine 10-30/HPF (0-5/HPF)
--- NOTE | 2022-11-24 17:57 | DI.MRI.S_ITS ---
PROCEDURE: MR HEAD/BRAIN WO CON INDICATIONS: vertigo TECHNIQUE: Non-contrast axial T1 spin echo, axial T2 fast spin echo, sagittal and axial FLAIR, coronal T2 fast spin echo, axial gradient echo, axial diffusion and ADC through the brain. COMPARISON: [facility], CT, CT ANGIO HEAD AND NECK, 11/24/2022, 14:37. FINDINGS: Image quality: Excellent. CSF spaces: Ventricles appear symmetric in size and shape. Basal cisterns are patent. No extra-axial fluid collections. Brain: No acute intracranial hemorrhage or mass effect. Small areas of chronic encephalomalacia are seen in the left cerebellar hemisphere and posterior left occipital lobe as well as likely the right cerebellar hemisphere without associated diffusion restriction or magnetic susceptibility, consistent with prior infarcts. There is cerebral volume loss for age. There are minimal periventricular and deep white matter chronic small vessel ischemic changes. Brainstem appears normal. Diffusion-weighted images show no acute ischemic insults. No chronic ischemic insults. Vascular structures are better demonstrated on the CT angiogram performed earlier the same day. Skull and face: Calvarial bone marrow is normal in signal. Orbits are normal. Sinuses: Sinuses and mastoids are clear. IMPRESSION: 1. No acute intracranial hemorrhage or recent infarct. 2. 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 3. Mild chronic microvascular ischemic changes. Approved by: Herrera Ray M.D. on 11/24/2022 at 20:06
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
== END 2022-11-24 20:39 | disposition home or self-care (01) ==
PROVIDERS: Emergency Provider Emergency Medicine; Family Provider Student in an Organized Health Care Education/Training Program; PCP Family Medicine
DX: R42 Dizziness and giddiness (principal); R07.9 Chest pain, unspecified; Z20.822 Contact with and (suspected) exposure to COVID-19
CPT/HCPCS: 36415; 70496; 70498; 70551; 71045; 80053; 80320; 81003; 81015; 82550; 83690; 83735; 83880; 84484; 85025; 85610; 85730; 87086; 87635; 93005; 93010; 99284; C9803

== ENCOUNTER 2023-01-07 22:46 | Observation (INO) | payer MEDICARE, OTHER, SELFPAY ==
[2022-03-02 13:36] VITALS: BMI 28.0
[2023-01-07 22:54] VITALS: BP 101/54; PULSE 71; RESP 22; TEMP 36.9; O2SAT 100; BMI 25.4
--- NOTE | 2023-01-07 22:57 | DI.RAD.S_ITS ---
PROCEDURE: XR CHEST 1V INDICATIONS: chest pain TECHNIQUE: One view of the chest was acquired. COMPARISON: [facility], CR, XR CHEST 1V, 11/24/2022, 13:32. FINDINGS: Surgical changes and devices: Postsurgical changes redemonstrated within the cervical spine and left clavicle Lungs and pleura: There are slightly increased linear opacities within the left retrocardiac region suggestive of atelectasis. No pleural effusions or pneumothorax. Mediastinum: Mediastinal contours appear unchanged. Heart size is normal. Bones and chest wall: No suspicious bony lesions. Overlying soft tissues appear unremarkable. IMPRESSION: 1. Linear left retrocardiac opacities likely represent atelectasis. Dictated by: Veto Sr M.D. on 01/08/2023 at 1:23 Approved by: Veto Sr M.D. on 01/08/2023 at 1:24
[2023-01-07 23:03] VITALS: BP 108/69; PULSE 70; RESP 20; O2SAT 100
--- NOTE | 2023-01-07 23:06 | DI.CT.S_ITS ---
PROCEDURE: CT HEAD/BRAIN WO CON INDICATIONS: fell, hit head, on plavix, also weakness and vision loss TECHNIQUE: Noncontrast 4.5 mm thick angled axial sections acquired from the foramen magnum to the vertex, with coronal and sagittal reformats. For radiation dose reduction, the following was used: automated exposure control, adjustment of mA and/or kV according to patient size. COMPARISON: [facility], CT, CT HEAD/BRAIN WO CON, 10/03/2022, 12:56. FINDINGS: Image quality: Excellent. CSF spaces: Basal cisterns are patent. No extra-axial fluid collections. The ventricles are symmetric in size and shape. There is cerebral volume loss, with resultant ventricular and sulcal prominence. Brain: No intracranial hemorrhage, mass, or mass effect. There are subcortical, periventricular and deep white matter hypodensities consistent with mild chronic small vessel ischemic changes. There is encephalomalacia redemonstrated medially within the left occipital lobe and in the left cerebellar hemisphere consistent with sequelae of prior infarcts. Skull and face: Calvarium and visualized facial bones appear intact, without suspicious lesions. Sinuses: Visualized sinuses demonstrate a sinus retention cyst or mucosal polyp within the inferior left maxillary sinus. Mastoid air cells are clear. IMPRESSION: 1. No acute intracranial abnormality. 2. Sequelae of prior infarcts in the left occipital lobe and left cerebellar hemisphere redemonstrated. Dictated by: Veto Sr M.D. on 01/08/2023 at 0:47 Approved by: Veto Sr M.D. on 01/08/2023 at 0:49
--- NOTE | 2023-01-07 23:07 | DI.CT.S_ITS ---
PROCEDURE: CT CERVICAL SPINE WO CON INDICATIONS: fall TECHNIQUE: Noncontrast 3 mm thick sections acquired from the skull base to the T4 level. Sagittal and coronal reformats were then constructed. For radiation dose reduction, the following was used: automated exposure control, adjustment of mA and/or kV according to patient size. COMPARISON: [facility], CT, CT CERVICAL SPINE WO CON, 10/03/2022, 12:56. FINDINGS: Image quality: There is metallic streak artifact from patient's surgical hardware limiting evaluation. Motion artifact is also present limiting evaluation. Bones: No definite acute fracture or subluxation. There are postsurgical changes redemonstrated status post ACDF at C4 through C7. Posterior fixation also demonstrated at C5 through T2. There is multilevel moderate degenerative disc disease as well as multilevel facet arthropathy throughout the cervical spine. Visualized superior ribs are intact. Soft tissues: Prevertebral soft tissues are normal in thickness. No paravertebral hematomas. No apical pneumothoraces. IMPRESSION: 1. No acute fracture or subluxation. 2. Extensive postsurgical changes redemonstrated in the cervical spine. Dictated by: Veto Sr M.D. on 01/08/2023 at 0:49 Approved by: Veto Sr M.D. on 01/08/2023 at 0:52
--- NOTE | 2023-01-07 23:08 | ED.FALL ---
HPI - Fall General Chief Complaint: Fall Stated Complaint: GLZainab thinners Time Seen by Provider: 01/07/23 22:52 Source: patient and EMS Mode of arrival: EMS History of Present Illness HPI Narrative: 82-year-old gentleman who lives independently with chronic complaints of weakness, hypertension, prior stroke with reported hemianopsia, prior fall with cervical spine fracture complains of increasing weakness over the last week with dramatic weakness since noon today. He notes that his vision has been getting worse over the last week and he finds that his depth perception is significantly off. He was reaching for his walker and because of depth perception issues missed and ended up falling between the table and chair hitting his head. He comes in by medics. He complains of frequent urination and is on tamsulosin, he is not complaining of any dysuria, abdominal pain, fevers. He does not complain of cough or dyspnea however he is fairly tachypneic on exam today. He describes no abdominal pain. He has chronic right lower extremity edema after right hip replacement that he feels is at its baseline. Related Data Home Medications Medication Instructions Recorded Confirmed omeprazole 20 mg capsule,delayed 40 mg PO BID ##0 11/09/11 03/02/22 release tamsulosin 0.4 mg capsule 0.4 mg PO BID 01/15/18 03/02/22 acetaminophen 325 mg tablet 650 mg PO TID PRN Pain, Mild 02/11/22 03/02/22 Previous Rx's Medication Instructions Recorded calcium carbonate 200 mg calcium 500 mg PO TID #100 tabs 02/14/22 (500 mg) chewable tablet clopidogrel 75 mg tablet 75 mg PO DAILY #30 tabs 02/14/22 levofloxacin 500 mg tablet 500 mg PO DAILY #7 tabs 02/14/22 losartan 25 mg tablet 50 mg PO DAILY 60 days #60 tabs 02/14/22 Allergies Allergy/AdvReac Type Severity Reaction Status Date / Time piperacillin [From Zosyn] Allergy Severe Swelling Verified 01/07/23 22:54 of Lip/Tongue/Throat tazobactam [From Zosyn] Allergy Severe Swelling Verified 01/07/23 22:54 of Lip/Tongue/Throat latex [LATEX] Allergy Mild Rash Verified 01/07/23 22:54 Review of Systems Review of Systems Narrative: Pertinent positive and negative findings as per HPI Patient History Medical History AAA (abdominal aortic aneurysm) Arthritis BPH (benign prostatic hyperplasia) Former smoker GERD (gastroesophageal reflux disease) HLD (hyperlipidemia) HTN (hypertension) Hyponatremia Osteoarthritis PAD (peripheral artery disease) PVD (peripheral vascular disease) Shingles TIA (transient ischemic attack) Surgical History History of bilateral cataract extraction (~2018) History of colonoscopy History of total right hip arthroplasty Hx of appendectomy Hx of bone graft S/P cervical spinal fusion (08/09/15) Social History household members: none Smoking Status: Former smoker alcohol intake: current Smoking Status: Former smoker alcohol intake frequency: 3 or more drinks per day Substance Use Type: does not use Exam Initial Vital Signs Initial Vital Signs: Vital Signs Temperature 98.5 F 01/07/23 22:54 Pulse Rate 71 01/07/23 22:54 Respiratory Rate 22 01/07/23 22:54 Blood Pressure 101/54 L 01/07/23 22:54 Pulse Oximetry 100 01/07/23 22:54 Oxygen Delivery Method Room Air 01/07/23 22:54 General: Chronically ill-appearing, globally weak, mild tachypnea HEENT: Moist mucous membranes, normal sclera with reactive pupils, atraumatic, normocephalic Neck: No JVD, supple, he has midline cervical spine tenderness and he is unsure if this is new or chronic Respiratory: Lungs are clear to auscultation, no wheezing no rales no rhonchi. Full and symmetrical air movement Cardiac: Regular rate and rhythm no murmurs no bruits Abdomen: Soft, nontender, good bowel tones, no flank pain Skin: Warm and dry, no rashes Neurologic: Globally weak, not opening his eyes while he is speaking. States that his vision that had been poor on the left side of already has worsened over the last week. No dysarthria, fluent speech Extremities: No trauma, right leg is more swollen than the left leg, Psych: Cooperative, poor overall insight Course Orders Ordered: ED Orders 01/07/23 22:50 Complete Blood Count AUTO DIFF Stat Comprehensive Metabolic Panel Stat Lactate (Lactic Acid) Stat Lipase Stat Magnesium Stat NT-proBNP (BNP-Adult 18+) Stat PTT Partial Thromboplastin Jeffrey Stat Procalcitonin Stat Prothrombin Time INR Stat Troponin & CK Cardiac Panel Stat 01/07/23 22:57 XR chest 1V Stat EKG-12 Lead Stat 01/07/23 23:00 Respiratory Panel (Film Array) Stat 01/07/23 23:06 CT head/brain wo con Stat 01/07/23 23:07 CT cervical spine wo con Stat 01/07/23 23:20 Blood Culture Stat Discontinued Medications Sodium Chloride (Normal Saline 0.9%) 1,000 mls @ 1,000 mls/hr IV BOLUS ONE Stop: 01/08/23 00:04 Last Infusion: 01/08/23 00:34 Dose: 0 mls/hr Documented By: Admin: 01/07/23 23:15 Dose: 1,000 mls/hr Documented By: Vital Signs Vital signs: Vital Signs - 8 hr 01/07/23 22:54 01/07/23 23:03 01/07/23 23:30 Temperature 98.5 F Pulse Rate 71 70 66 Respiratory Rate 22 20 14 Blood Pressure 101/54 L 108/69 Pulse Oximetry 100 100 100 Oxygen Delivery Method Room Air Room Air 01/07/23 23:31 01/07/23 23:31 01/07/23 23:51 Temperature Pulse Rate 69 Respiratory Rate 32 H Blood Pressure 135/63 115/56 L Pulse Oximetry 96 Oxygen Delivery Method 01/07/23 23:51 01/08/23 00:00 01/08/23 00:00 Temperature Pulse Rate 65 65 Respiratory Rate 28 H 17 Blood Pressure 146/63 H Pulse Oximetry 100 100 Oxygen Delivery Method 01/08/23 00:30 01/08/23 00:30 01/08/23 01:00 Temperature Pulse Rate 63 Respiratory Rate 20 Blood Pressure 139/63 158/70 H Pulse Oximetry 98 Oxygen Delivery Method 01/08/23 01:00 Temperature Pulse Rate 66 Respiratory Rate 22 Blood Pressure Pulse Oximetry 98 Oxygen Delivery Method Room Air MDM - Fall Lab Data 01/07/23 22:50 01/07/23 22:50 Labs: Lab Results 01/07/23 01/07/23 01/07/23 Range/Units 22:50 22:50 22:50 WBC 5.8 (4.5-11.0) X10^3/uL RBC 3.88 L (4.5-5.9) X10^6/uL Hgb 10.7 L (13.5-17.5) g/dL Hct 32.2 L (41-53) % MCV 82.9 (80-100) fL MCH 27.5 (26-34) PG MCHC 33.1 (30-36) % RDW 18.4 H (11.6-14.8) % Plt Count 213 (150-400) X10^3/uL Neut % (Auto) 71.4 (50-75) % Lymph % (Auto) 18.4 L (25-40) % [place] % (Auto) 7.2 (3-14) % Eos % (Auto) 2.1 (2-4) % Baso % (Auto) 0.9 (0-2) % Neut # (Auto) 4100 (5974-0504) /uL Lymph # (Auto) 1100 (7543-3830) /uL [place] # (Auto) 400 (0-900) /uL Eos # (Auto) 100 (0-450) /uL Baso # (Auto) 100 (0-100) /uL PT 13.8 H (10.1-12.7) SECONDS INR 1.2 (0.9-1.3) APTT 28 (26-36) SECONDS Sodium 138 (137-145) mmol/L Potassium 3.6 (3.4-5.1) mmol/L Chloride 108 H (98-107) mmol/L Carbon Dioxide 24 (22-32) mmol/L BUN 36 H (9-20) mg/dL Creatinine 0.90 (0.66-1.25) mg/dL Estimated GFR > 60 (>60) mL/min BUN/Creatinine Ratio 40.0 H (6-22) Glucose 153 H (80-110) mg/dL Lactate (0.7-2.1) mmol/L Calcium 8.4 (8.4-10.2) mg/dL Magnesium 2.1 (1.6-2.3) mg/dL Total Bilirubin 0.5 (0.2-1.3) mg/dL AST 24 (17-59) IU/L ALT 21 (<50) IU/L Alkaline Phosphatase 66 (38-126) U/L Total Creatine Kinase < 20 L (55-170) U/L Troponin I 0.022 (0.01-0.034) ng/mL NT-Pro-B Natriuret Pep (<450) pg/mL Total Protein 6.6 (6.3-8.2) g/dL Albumin 3.0 L (3.5-5.0) g/dL Globulin 3.6 (1.7-4.1) g/dL Albumin/Globulin Ratio 0.8 L (1.0-2.8) Lipase 125 (23-300) U/L Procalcitonin (<0.5) ng/mL Chlamy pneumoniae PCR (Not Detect) Adenovirus (PCR) (Not Detect) B. pertussis DNA (PCR) (Not Detecte) B.parapertussis DNA PCR (Not Detecte) Coronavirus OC43 (PCR) (Not Detect) Coronavirus HKU1 (PCR) (Not Detect) Coronavirus 229E (PCR) (Not Detect) SARS-CoV-2 (PCR) (Not Detecte) Coronavirus NL63 (PCR) (Not Detect) Human Metapneumovir PCR (Not Detect) Influenza Type A (PCR) (Not Detect) Influenza Type B (PCR) (Not Detect) M. pneumoniae (PCR) (Not Detect) Parainfluenza 1 (PCR) (Not Detect) Parainfluenza 2 (PCR) (Not Detect) Parainfluenza 3 (PCR) (Not Detect) Parainfluenza 4 (PCR) (Not Detect) RSV (PCR) (Not Detect) Entero/Rhino (PCR) (Not Detect) 01/07/23 01/07/23 01/07/23 Range/Units 22:50 22:50 23:00 WBC (4.5-11.0) X10^3/uL RBC (4.5-5.9) X10^6/uL Hgb (13.5-17.5) g/dL Hct (41-53) % MCV (80-100) fL MCH (26-34) PG MCHC (30-36) % RDW (11.6-14.8) % Plt Count (150-400) X10^3/uL Neut % (Auto) (50-75) % Lymph % (Auto) (25-40) % [place] % (Auto) (3-14) % Eos % (Auto) (2-4) % Baso % (Auto) (0-2) % Neut # (Auto) (2019-3474) /uL Lymph # (Auto) (4754-2069) /uL [place] # (Auto) (0-900) /uL Eos # (Auto) (0-450) /uL Baso # (Auto) (0-100) /uL PT (10.1-12.7) SECONDS INR (0.9-1.3) APTT (26-36) SECONDS Sodium (137-145) mmol/L Potassium (3.4-5.1) mmol/L Chloride (98-107) mmol/L Carbon Dioxide (22-32) mmol/L BUN (9-20) mg/dL Creatinine (0.66-1.25) mg/dL Estimated GFR (>60) mL/min BUN/Creatinine Ratio (6-22) Glucose (80-110) mg/dL Lactate 2.2 H (0.7-2.1) mmol/L Calcium (8.4-10.2) mg/dL Magnesium (1.6-2.3) mg/dL Total Bilirubin (0.2-1.3) mg/dL AST (17-59) IU/L ALT (<50) IU/L Alkaline Phosphatase (38-126) U/L Total Creatine Kinase (55-170) U/L Troponin I (0.01-0.034) ng/mL NT-Pro-B Natriuret Pep 1370 H (<450) pg/mL Total Protein (6.3-8.2) g/dL Albumin (3.5-5.0) g/dL Globulin (1.7-4.1) g/dL Albumin/Globulin Ratio (1.0-2.8) Lipase (23-300) U/L Procalcitonin 0.51 H (<0.5) ng/mL Chlamy pneumoniae PCR Not detected (Not Detect) Adenovirus (PCR) Not detected (Not Detect) B. pertussis DNA (PCR) Not detected (Not Detecte) B.parapertussis DNA PCR Not detected (Not Detecte) Coronavirus OC43 (PCR) Not detected (Not Detect) Coronavirus HKU1 (PCR) Not detected (Not Detect) Coronavirus 229E (PCR) Not detected (Not Detect) SARS-CoV-2 (PCR) Not detected (Not Detecte) Coronavirus NL63 (PCR) Not detected (Not Detect) Human Metapneumovir PCR Not detected (Not Detect) Influenza Type A (PCR) Not detected (Not Detect) Influenza Type B (PCR) Not detected (Not Detect) M. pneumoniae (PCR) Not detected (Not Detect) Parainfluenza 1 (PCR) Not detected (Not Detect) Parainfluenza 2 (PCR) Not detected (Not Detect) Parainfluenza 3 (PCR) Not detected (Not Detect) Parainfluenza 4 (PCR) Not detected (Not Detect) RSV (PCR) Not detected (Not Detect) Entero/Rhino (PCR) Detected H (Not Detect) MDM Narrative Medical decision making narrative: CC: Weakness precipitating fall, this is an acute problem uncertain prognosis Complicating co-morbidities: Chronic weakness, prior stroke, prior cervical spine injury, BPH with frequent urination Data collected from: patient, medics Social determinants of health that may influence the patients condition: Independent living Medical records reviewed: Recent primary care and urgent care notes reviewed. Discharge summary from hospitalization February 2022 was reviewed Differential considered: Stroke, acute coronary syndrome, infection, sepsis Exam documented above, pertinent findings include: Globally weak, tachypneic nonlocalizing exam Lab Test results independently reviewed as above. Pertinent findings: CBC is unremarkable with chronic stable anemia Chemistries are unremarkable normal creatinine Lactic acid is slightly elevated at 2.2 BNP appears to be close to his baseline at 1370 Procalcitonin is slightly elevated at 0.51 Respiratory panel shows positive for entero/rhino virus Independently reviewed EKG shows sinus rhythm, right bundle branch block, left axis deviation, no acute ischemic changes Imaging studies independently reviewed: Brain MRI and head and neck CTA from November of this year are reviewed. No acute findings and note made of remote prior infarcts in the bilateral cerebellar hemispheres and left occipital lobes Chest x-ray shows linear left retrocardiac opacity likely atelectasis. CT of the head shows sequelae of prior infarcts without new findings CT of the cervical spine shows no acute fractures. He has had prior C4 through 7 fixation Consultations: 2am discussion with Dr. Kapoor. He will admit the patient. We discussed maintenance fluid for a number of hours but the importance of making sure those get discontinued if needed with evaluation in the morning. Treatments: Fluids. There is no indication for antibiotics at this time. Re-evaluations: 11pm Patient complains of needing to void every 5 minutes without dysuria. Bladder scan has a urine volume of 100 cc. Discussion: 82-year-old gentleman who lives independently with a baseline problem of mild weakness depth perception and falling now with rhino entero virus increasing weakness and fall this evening. No evidence of intracranial hemorrhage. His lactic acid is lately elevated. He has been given a L of fluid and I suspect that he is mildly intravascularly dry. He is not showing any acute kidney injury or urinary tract infection. At this point I am not seeing signs of bacterial infection and do not suspect sepsis. Because of his weakness, syncopal episode because of his weakness due to presumably his entero rhino virus and baseline age, independent living and prior stroke will recommend observation hospitalization with gentle hydration and physical therapy to make sure that he is strong enough to be discharged home. Discharge Plan Departure Patient Disposition: Admitted as Observation Clinical Impression: Weakness, Enterovirus infection Syncope Qualifiers: Syncope type: unspecified Qualified Code(s): R55 - Syncope and collapse Admit Date/Time: 01/08/23 02:14 Admit Provider: Norberto Kapoor
[2023-01-07 23:09] LABS: INR 1.2 (0.9-1.3); Prothrombin Time 13.8 SECONDS (10.1-12.7)
[2023-01-07 23:10] LABS: Add Manual Diff / Slide Review NO; Basophils Absolute Auto 100 /uL (0-100); Basophils Percent Auto 0.9 % (0-2); Eosinophils Absolute Auto 100 /uL (0-450); Eosinophils Percent Auto 2.1 % (2-4); Hematocrit 32.2 % (41-53); Hemoglobin 10.7 g/dL (13.5-17.5); Lymphocytes Absolute Auto 1100 /uL (1100-4500); Lymphocytes Percent Auto 18.4 % (25-40); Mean Corpuscular HGB Conc 33.1 % (30-36); Mean Corpuscular Hemoglobin 27.5 PG (26-34); Mean Corpuscular Volume 82.9 fL (80-100); Monocytes Absolute Auto 400 /uL (0-900); Monocytes Percent Auto 7.2 % (3-14); Neutrophils Absolute Auto 4100 /uL (1500-7000); Neutrophils Percent Auto 71.4 % (50-75); Platelet Count 213 X10^3/uL (150-400); Red Blood Cell Count 3.88 X10^6/uL (4.5-5.9); Red Cell Distribution Width 18.4 % (11.6-14.8); White Blood Cell Count 5.8 X10^3/uL (4.5-11.0)
[2023-01-07 23:12] LABS: PTT Partial Thromboplastin Tim 28 SECONDS (26-36)
[2023-01-07 23:14] LABS: Alanine Aminotransferase 21 IU/L (<50); Albumin Globulin Ratio 0.8 (1.0-2.8); Alkaline Phosphatase 66 U/L (38-126); Aspartate Aminotransferase 24 IU/L (17-59); Bilirubin Total 0.5 mg/dL (0.2-1.3); Blood Urea Nitrogen 36 mg/dL (9-20); Calcium 8.4 mg/dL (8.4-10.2); Carbon Dioxide 24 mmol/L (22-32); Chloride 108 mmol/L (98-107); Creatine Kinase < 20 U/L (55-170); Estimated Glomerular Filt Rate > 60 mL/min (>60); Globulin 3.6 g/dL (1.7-4.1); Glucose 153 mg/dL (80-110); HEMOLYSIS < 15 (0-50); Lipase 125 U/L (23-300); Magnesium 2.1 mg/dL (1.6-2.3); Potassium 3.6 mmol/L (3.4-5.1); Sodium 138 mmol/L (137-145); Total Protein 6.6 g/dL (6.3-8.2)
[2023-01-07] MEDS: SODIUM CHLORIDE 0.9% 1,000 ML 1000 ML IV (23:15)
[2023-01-07 23:25] LABS: Lactate (Lactic Acid) 2.2 mmol/L (0.7-2.1); Troponin I 0.022 ng/mL (0.01-0.034)
[2023-01-07 23:30] VITALS: PULSE 66; RESP 14; O2SAT 100
[2023-01-07 23:31] VITALS: BP 135/63; PULSE 69; RESP 32; O2SAT 96
[2023-01-07 23:46] LABS: NT-proBNP (BNP-Adult 18+) 1370 pg/mL (<450)
[2023-01-07 23:51] VITALS: BP 115/56; PULSE 65; RESP 28; O2SAT 100
[2023-01-07 23:54] LABS: Procalcitonin 0.51 ng/mL (<0.5)
[2023-01-08] VITALS (11 sets, daily range): BP systolic 120–158; BP diastolic 40–70; PULSE 58–92; RESP 17–22; TEMP 36.7–37.4; O2SAT 94–100; BMI 25.4
[2023-01-08 00:34] LABS: Adenovirus Not Detected (Not Detect); B. parapertussis Not Detected (Not Detecte); Bordetella pertussis Not Detected (Not Detecte); Chlamydophila pneumoniae Not Detected (Not Detect); Coronavirus 229E Not Detected (Not Detect); Coronavirus HKU1 Not Detected (Not Detect); Coronavirus NL 63 Not Detected (Not Detect); Coronavirus OC43 Not Detected (Not Detect); Human Metapneumovirus Not Detected (Not Detect); Human Rhinovirus/Enterovirus Detected (Not Detect); Influenza A Not Detected (Not Detect); Influenza B Not Detected (Not Detect); Mycoplasma pneumoniae Not Detected (Not Detect); Parainfluenza Virus 1 Not Detected (Not Detect); Parainfluenza Virus 2 Not Detected (Not Detect); Parainfluenza Virus 3 Not Detected (Not Detect); Parainfluenza Virus 4 Not Detected (Not Detect); Respiratory Syncytial Virus Not Detected (Not Detect); SARS- CoV-2 Not Detected (Not Detecte)
[2023-01-08 01:13] LABS: Reflexed Lactate in 2 Hours Y
[2023-01-08 02:19] LABS: Lactate 2HR (Lactic Acid Rflx) 0.7 mmol/L (0.7-2.1)
[2023-01-08] MEDS: SODIUM CHLORIDE 0.9% 1,000 ML 125 ML IV ×3 (04:01→20:43)
[2023-01-08 04:51] LABS: Lactate (Lactic Acid) 0.7 mmol/L (0.7-2.1)
--- NOTE | 2023-01-08 09:54 | PM.HP.1 ---
History of Present Illness History of Present Illness Date Patient Seen: 01/08/23 Time Patient Seen: 09:00 Chief complaint: GLF, thinners Narrative: chief complaint: viral infection This is a pleasant [id number] 82-year-old gentleman who lives independently with chronic complaints of weakness, hypertension, prior stroke with reported hemianopsia, prior fall with cervical spine fracture. He has been having increasing malaise and weakness for the last week with significant decline since noon yesterday. He notes that his vision has been getting worse over the last week and he finds that his depth perception is significantly off, causing him to fall while reaching for his walker and hit his head.? EMS was summoned and brought him in for eval. He has chronic urinary frequency and RLE edema 2/2 hip replacement but his main issue is malaise -found to have a viral infection. Given his weakness and recent fall it is certainly appropriate to observe him hydrate him and feed him. This morning he is alert and awake eating breakfast with gusto but still feels sick. vitals are stable. [facility] Medical History AAA (abdominal aortic aneurysm) Arthritis BPH (benign prostatic hyperplasia) Former smoker GERD (gastroesophageal reflux disease) HLD (hyperlipidemia) HTN (hypertension) Hyponatremia Osteoarthritis PAD (peripheral artery disease) PVD (peripheral vascular disease) Shingles TIA (transient ischemic attack) Surgical History History of bilateral cataract extraction (~2018) History of colonoscopy History of total right hip arthroplasty Hx of appendectomy Hx of bone graft S/P cervical spinal fusion (08/09/15) Social History household members: none Smoking Status: Former smoker alcohol intake: current Meds Home Medications and Allergies Home Medications Medication Instructions Recorded Confirmed Type acetaminophen 325 mg tablet 650 mg PO TID PRN Pain, Mild 02/11/22 03/02/22 History calcium carbonate 200 mg calcium 500 mg PO TID #100 tabs 02/14/22 03/02/22 Rx (500 mg) chewable tablet clopidogrel 75 mg tablet 75 mg PO DAILY #30 tabs 02/14/22 01/08/23 Rx levofloxacin 500 mg tablet 500 mg PO DAILY #7 tabs 02/14/22 03/02/22 Rx pantoprazole 20 mg tablet,delayed 20 mg PO DAILY 01/08/23 01/08/23 History release rosuvastatin 20 mg tablet 20 mg PO BEDTIME 01/08/23 01/08/23 History torsemide 20 mg tablet 20 mg PO USEASDIRECTD 01/08/23 01/08/23 History Allergies Allergy/AdvReac Type Severity Reaction Status Date / Time piperacillin [From Zosyn] Allergy Severe Swelling Verified 01/07/23 22:54 of Lip/Tongue/Throat tazobactam [From Zosyn] Allergy Severe Swelling Verified 01/07/23 22:54 of Lip/Tongue/Throat latex [LATEX] Allergy Mild Rash Verified 01/07/23 22:54 Review of Systems Review of Systems Narrative: All systems reviewed and negative except as otherwise documented in HPI Exam Vital Signs (past 8 hours): - 01/08/23 02:00 01/08/23 02:00 01/08/23 02:30 Temperature Pulse Rate 64 Respiratory Rate 22 Blood Pressure 123/58 L 120/56 L Pulse Oximetry 98 Oxygen Delivery Method 01/08/23 02:30 01/08/23 03:00 01/08/23 03:00 Temperature Pulse Rate 65 62 Respiratory Rate 20 20 Blood Pressure 127/58 L Pulse Oximetry 95 94 Oxygen Delivery Method Room Air 01/08/23 03:47 Temperature 98.3 F Pulse Rate 60 Respiratory Rate 20 Blood Pressure 136/43 L Pulse Oximetry 98 Oxygen Delivery Method Oxygen Delivery Method Room Air Narrative Exam Narrative: sweaty ill-looking elder eating breakfast in bed Resp Other: moving air well on room air no wheezing no cough Cardio Other: good strong regular pulse GI Other: active bowel sounds nontender Neuro General: patient alert, patient awake, patient oriented x3 and moves all extremities Objective Labs 01/07/23 22:50 01/07/23 22:50 Labs: Laboratory Results - last 24 hr 01/07/23 01/07/23 01/07/23 22:50 22:50 22:50 WBC 5.8 RBC 3.88 L Hgb 10.7 L Hct 32.2 L MCV 82.9 MCH 27.5 MCHC 33.1 RDW 18.4 H Plt Count 213 Neut % (Auto) 71.4 Lymph % (Auto) 18.4 L [place] % (Auto) 7.2 Eos % (Auto) 2.1 Baso % (Auto) 0.9 Neut # (Auto) 4100 Lymph # (Auto) 1100 [place] # (Auto) 400 Eos # (Auto) 100 Baso # (Auto) 100 PT 13.8 H INR 1.2 APTT 28 Sodium 138 Potassium 3.6 Chloride 108 H Carbon Dioxide 24 BUN 36 H Creatinine 0.90 Estimated GFR > 60 BUN/Creatinine Ratio 40.0 H Glucose 153 H Lactate Calcium 8.4 Magnesium 2.1 Total Bilirubin 0.5 AST 24 ALT 21 Alkaline Phosphatase 66 Total Creatine Kinase < 20 L Troponin I 0.022 NT-Pro-B Natriuret Pep Total Protein 6.6 Albumin 3.0 L Globulin 3.6 Albumin/Globulin Ratio 0.8 L Lipase 125 Procalcitonin Chlamy pneumoniae PCR Adenovirus (PCR) B. pertussis DNA (PCR) B.parapertussis DNA PCR Coronavirus OC43 (PCR) Coronavirus HKU1 (PCR) Coronavirus 229E (PCR) SARS-CoV-2 (PCR) Coronavirus NL63 (PCR) Human Metapneumovir PCR Influenza Type A (PCR) Influenza Type B (PCR) M. pneumoniae (PCR) Parainfluenza 1 (PCR) Parainfluenza 2 (PCR) Parainfluenza 3 (PCR) Parainfluenza 4 (PCR) RSV (PCR) Entero/Rhino (PCR) 01/07/23 01/07/23 01/07/23 22:50 22:50 23:00 WBC RBC Hgb Hct MCV MCH MCHC RDW Plt Count Neut % (Auto) Lymph % (Auto) [place] % (Auto) Eos % (Auto) Baso % (Auto) Neut # (Auto) Lymph # (Auto) [place] # (Auto) Eos # (Auto) Baso # (Auto) PT INR APTT Sodium Potassium Chloride Carbon Dioxide BUN Creatinine Estimated GFR BUN/Creatinine Ratio Glucose Lactate 2.2 H Calcium Magnesium Total Bilirubin AST ALT Alkaline Phosphatase Total Creatine Kinase Troponin I NT-Pro-B Natriuret Pep 1370 H Total Protein Albumin Globulin Albumin/Globulin Ratio Lipase Procalcitonin 0.51 H Chlamy pneumoniae PCR Not detected Adenovirus (PCR) Not detected B. pertussis DNA (PCR) Not detected B.parapertussis DNA PCR Not detected Coronavirus OC43 (PCR) Not detected Coronavirus HKU1 (PCR) Not detected Coronavirus 229E (PCR) Not detected SARS-CoV-2 (PCR) Not detected Coronavirus NL63 (PCR) Not detected Human Metapneumovir PCR Not detected Influenza Type A (PCR) Not detected Influenza Type B (PCR) Not detected M. pneumoniae (PCR) Not detected Parainfluenza 1 (PCR) Not detected Parainfluenza 2 (PCR) Not detected Parainfluenza 3 (PCR) Not detected Parainfluenza 4 (PCR) Not detected RSV (PCR) Not detected Entero/Rhino (PCR) Detected H 01/08/23 01/08/23 02:00 04:30 WBC RBC Hgb Hct MCV MCH MCHC RDW Plt Count Neut % (Auto) Lymph % (Auto) [place] % (Auto) Eos % (Auto) Baso % (Auto) Neut # (Auto) Lymph # (Auto) [place] # (Auto) Eos # (Auto) Baso # (Auto) PT INR APTT Sodium Potassium Chloride Carbon Dioxide BUN Creatinine Estimated GFR BUN/Creatinine Ratio Glucose Lactate 0.7 0.7 Calcium Magnesium Total Bilirubin AST ALT Alkaline Phosphatase Total Creatine Kinase Troponin I NT-Pro-B Natriuret Pep Total Protein Albumin Globulin Albumin/Globulin Ratio Lipase Procalcitonin Chlamy pneumoniae PCR Adenovirus (PCR) B. pertussis DNA (PCR) B.parapertussis DNA PCR Coronavirus OC43 (PCR) Coronavirus HKU1 (PCR) Coronavirus 229E (PCR) SARS-CoV-2 (PCR) Coronavirus NL63 (PCR) Human Metapneumovir PCR Influenza Type A (PCR) Influenza Type B (PCR) M. pneumoniae (PCR) Parainfluenza 1 (PCR) Parainfluenza 2 (PCR) Parainfluenza 3 (PCR) Parainfluenza 4 (PCR) RSV (PCR) Entero/Rhino (PCR) Assessment & Plan Assessment & Plan narrative: #acute rhino/enteroviral infection supportive care with IVF #s/p recent GLF denies LOC but is weak and wobbly at baseline. PT/OT eval pending #BPH with urinary obstruction stable continue home flomax controlled - checking UA #hx of 7th cervical vertebral fracture fall risk #hx of afib stable continue home meds dispo: admit obs Code: DNR PCP: T[facility]ruz diet: heart healthy
--- NOTE | 2023-01-08 10:53 | CM.DANOTE ---
Addendum entered by ABIGAIL Kapadia 01/08/23 11:28: ADD: Return call from Leonor at [facility] and confirms pt is open to HH services with them and just need d/c summary and Resume Orders at discharge. BF Original Note: Patient is an 82 yo male who was admitted on 01/08/23 for GLF, weakness. Pt has [place] and [place] for insurance and his PCP is Dr. Norberto Kapoor. EMR was reviewed. Per MD, pt admitted with virus and weakness and to get fluids and check labs and to confirm pt safe for d/c home as pt feels weak and fatigued. PT/OT ordered and pending. SW met bedside with pt and explained role and he confirms he still lives alone in [place] in a [facility] and has no local family. Pt states his sister still lives in [place] and mostly has local supportive friends and thinks his DPOA is likely his closest friend Ang. Pt denies any other supportive services in place other than he states he is currently open with [facility]. Pt has been considering hiring a data processing mechanic to assist with chores. Pt does not drive and relies on local friends for transport and does not leave his house very often. Pt preference is to d/c home with [facility] and hopeful he feels better by tomorrow. SW called [facility] and left ms to confirm if pt is open with [facility] still or if needs new orders and F2F. Plan: SW to follow for PT/OT to confirm safe d/c to home with HH and if [facility] is currently open for Resume Orders and pt currently OBS status and SNF would be a barrier if needed. ABIGAIL Kapadia Discharge Planning/Care Management CM Discharge Assessment Start: 01/08/23 10:51 Freq: Status: Active Protocol: Document 01/08/23 10:51 BF (Rec: 01/08/23 10:53 BF [id number]) Discharge Planning Assessment Assigned Slag Production Worker ABIGAIL Mccain DPOA/Assigned Designee Name friend Ang Contact Information [phone] Advance Directives? Yes: POLST Advance Directives on File Yes History Provided By Patient,Medical Record Has Patient been admitted in last 30 No days? Prior Living Arrangements Apartment/Condo Household Members none Type of transporation used prior to Relies on Others admit Independent with ADL's Yes Is patient alert and oriented? Yes Needs Assistance With Home Chores / Shopping Caregiver for Another No Patient/Family Preference Home with Home Health Barriers to Discharge No Comment Not medically stable at this time, likely home w/friends, r /o need for HH Discharge Plan Home Transportation Arrangement friend to provide transport Referrals Initiated Home Health Additional Comment Pt thinks he is still open with [facility], SW left msg to confirm Whiteboard Updated in Patient Room with Yes name and ext. # of Slag Production Worker Review Status In Process Please Provide Date Initial DC 01/08/23 Assessment Was Performed Next Review Type Continued Stay Review
[2023-01-08] MEDS: CLOPIDOGREL 75 MG TABLET PO (11:13)
[2023-01-08 14:12] LABS: Appearance Urine UA SL CLOUDY; Bilirubin Urine UA NEGATIVE (NEGATIVE); Color Urine UA YELLOW; Glucose Urine UA NEGATIVE (Negative); Ketones Urine UA NEGATIVE (NEGATIVE); Leukocyte Esterase Urine UA TRACE (NEGATIVE); Nitrite Urine UA NEGATIVE (Negative); Occult Blood Urine UA NEGATIVE (Negative); Protein Urine UA 1+ (Negative)
[2023-01-08 14:19] LABS: Amorphous Sediment Urine 2+; Bacteria Urine Occasional (0-1); Culture Indicated Urine Specimen Cultured; RBC Urine None Seen (0-5/HPF); WBC Urine 5-10/HPF (0-5/HPF)
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
[2023-01-08] MEDS: ATORVASTATIN 20 MG TABLET 40 MG PO (20:39)
[2023-01-09] VITALS (7 sets, daily range): BP systolic 120–137; BP diastolic 46–59; PULSE 57–65; RESP 17–18; TEMP 36.6–37.5; O2SAT 93–98
[2023-01-09] MEDS: SODIUM CHLORIDE 0.9% 1,000 ML 125 ML IV ×3 (04:43→23:13)
[2023-01-09] MEDS: PANTOPRAZOLE DR 20 MG TABLET PO (05:54)
--- NOTE | 2023-01-09 08:26 | CM.DPC ---
Addendum entered by Giselle Britton R.N. 01/09/23 13:43: Several family members have called with updates, one is a nephew, the other, his sister, Razia, who resides in [place]. Spoke to Ang Fierro, patient's DPOA, let him know that several family members have called, and would prefer that he be the main contact, and can update other family members. Ang indicated, he would do so. Dr. Smith had seen patient, let her know from DCP stand point, patient under observation, barriers are falls at home, if she discharges today, can ensure that [facility] add SECURITY MANAGEMENT SPECIALIST to current orders. She indicated, she would see him and see if he is ready for discharge, does not know patient very well. Dr. Smith did come back and stated, have you seen him, he looks like shit. Stated that lungs noted some rhonchi, cultures still pending, needs to work more with therapy, and ensure that he is not in fluid overload. She ordered chest x-ray, so she is not discharging him today. Planning on meeting with patient's DPOA today to discuss resources, has no resources at this time. Mentioned the possiblilty of going to a skilled facility, [facility] does have a bed tomorrow, if patient can pay privately. Did let him know the cost, about 12.000 deposit for the first month, about 450.00 a day. He will look into finances. It is noted that patient is having a new home built as well. Has assets, according to Ang. Will plan on meeting him at 1530 today. Larisa at [facility] is reviewing, gave her update on patient. Addendum entered by Giselle Britton R.N. 01/09/23 10:33: Met briefly with patient, confirmed that Ang is his POA, and can give information. Asked patient what he wanted to do, since he is decisional, would prefer home, but is willing to do what is recommended. Let him know that for skilled placement, would not be covered by insurance, would have to be out of pay. Can go home and resume home health. Have not yet seen Dr. Kapoor today as of yet. Will bring in resources for POA today Original Note: DCP Cont: Patients friend, Ang, called regarding concern about patient falling at home. Stated that he is patient's POA, plans on coming to see patient today. Encouraged him to start looking for rn long term care care placement. Stated that this DC Prepleater can give him some resources, should look into private caregivers, versus going to long-term, such as [facility], on private pay. Let him know that estimate cost of long-term. Reminded that patient can't stay in the hospital due to falls, can add SECURITY MANAGEMENT SPECIALIST with [facility], and can provide resources for caregivers. This also depends upon patient, as he most likely will want to be home, and is his decision. P: DCP to follow. Will work on home plan and provide resources in caregivers. Will discuss with patient as well. Giselle Britton RN/Powertrain Design Engineer
[2023-01-09] MEDS: ENOXAPARIN 40 MG/0.4 ML SYRINGE SUBCUT (09:33)
[2023-01-09] MEDS: CLOPIDOGREL 75 MG TABLET PO (09:33)
--- NOTE | 2023-01-09 09:41 | OT.IPNOTE ---
Patient with NSG and unavailable for evaluation. OT to attempt at later time.
--- NOTE | 2023-01-09 13:10 | DI.RAD.S_ITS ---
PROCEDURE: XR CHEST 2V INDICATIONS: rhonchi TECHNIQUE: 2 views of the chest were acquired. COMPARISON: [facility], CR, XR CHEST 2V, 02/12/2022, 10:42. FINDINGS: Surgical changes and devices: Stable left clavicle and cervical spine fixation hardware. Lungs and pleura: Mild central pulmonary vascular congestion and subtle increased perihilar opacification. No pleural effusions or pneumothorax. Mediastinum: Mediastinal contours are normal. Heart size is normal. Bones and chest wall: No suspicious bony abnormalities. Soft tissues appear unremarkable. IMPRESSION: Mild central pulmonary vascular congestion and perihilar opacification concerning for CHF/fluid overload. Dictated by: Matilda Simmons MD, PhD on 01/09/2023 at 13:52 Approved by: Matilda Simmons MD, PhD on 01/09/2023 at 13:53
--- NOTE | 2023-01-09 13:14 | PM.PN.1 ---
Subjective Subjective Date Patient Seen: 01/09/23 Time Patient Seen: 13:15 Interval history: Patient is new to me and is seen in cross cover for his PCP Dr. Klein. Patient admitted late on 01 07 23 due to enterovirus infection. Reviewed chart and workup thus far. Patient has been on IV fluids 125 an hours since admission. States he is taking in fluids and tolerating p.o. but does not have much appetite. When he is asked how he is feeling today he states ?I feel like crap?. He states that he is incredibly weak and is only sleeping and has a slight cough and runny nose. He denies chest pain or abdominal pain. He denies diarrhea or urinary difficulties but he currently has a catheter in place. He is had 3 L in and 1 L out last for hours Review of systems is otherwise negative Exam Vital Signs (past 8 hours): - 01/09/23 08:00 01/09/23 12:40 Temperature 98.8 F 97.9 F Pulse Rate 63 60 Respiratory Rate 17 17 Blood Pressure 129/56 L 120/46 L Pulse Oximetry 96 97 Oxygen Flow Rate 0 0 Oxygen Delivery Method Room Air Oxygen Flow Rate 0 Narrative Exam Narrative: Patient T-max 99.5? early this morning. T current 988 and vital signs are otherwise stable and he is stable on room air. Patient is lying in the hospital bed and appears lethargic and in no apparent distress but clearly feeling ill. HEENT shows mucous membranes are moist and pink without lesions Neck: Shows no obvious jugular venous distention and no bruits and no masses Chest: Shows rhonchi diffusely through the left lung field, mild, no wheeze. Decreased breath sounds bibasilar. Abdomen: Positive bowel sounds, soft, nontender maybe mild suprapubic tenderness Extremities: He has 1+ pitting edema right lower extremity and trace edema left lower extremity Neurologic exam is grossly intact Skin exam no evidence of rashes or bruising Objective Labs 01/07/23 22:50 01/07/23 22:50 Labs: Laboratory Results - last 24 hr 01/08/23 13:55 Urine Color Yellow Urine Appearance Sl cloudy Urine pH 8.0 Ur Specific [place] 1.010 Urine Protein 1+ H Urine Glucose (UA) Negative Urine Ketones Negative Urine Occult Blood Negative Urine Nitrate Negative Urine Bilirubin Negative Urine Urobilinogen 4.0 H Ur Leukocyte Esterase Trace H Urine RBC None seen Urine WBC 5-10/hpf H Ur Squamous Epith Cells Not Reportable Amorphous Sediment 2+ Urine Bacteria Occasional (0-1) Ur Culture Indicated? Specimen cultured [facility] Medical History AAA (abdominal aortic aneurysm) Arthritis BPH (benign prostatic hyperplasia) Former smoker GERD (gastroesophageal reflux disease) HLD (hyperlipidemia) HTN (hypertension) Hyponatremia Osteoarthritis PAD (peripheral artery disease) PVD (peripheral vascular disease) Shingles TIA (transient ischemic attack) Surgical History History of bilateral cataract extraction (~2018) History of colonoscopy History of total right hip arthroplasty Hx of appendectomy Hx of bone graft S/P cervical spinal fusion (08/09/15) Social History household members: none Smoking Status: Former smoker alcohol intake: current Assessment & Plan Assessment & Plan narrative: 82-year-old male admitted with enterovirus hospital day 2. Assessment 1. Enterovirus now with rhonchi Plan: Will get labs, chest x-ray and BNP Assessment 2. Possible fluid overload Plan: Will decrease IV fluids and check BNP and chest x-ray and treat with Lasix as indicated. Pending how he does we may need to update echo. Assessment 3. Atrial fibrillation with well-controlled rate Plan: Continue outpatient medications. Assessment 4. Possible UTI with urine culture pending but urinalysis showing trace leukocyte esterase positive. Plan: Will await urine culture. If white blood cell count is elevated we will go ahead and initiate antibiotics. Patient did have low-grade fever overnight. Assessment 5. Recurrent falls with previous fall and C7 cervical fracture Plan: PT and OT. Patient will likely need skilled care facility versus home with home health but it will depend how he does over the next day Assessment 6. Diet Plan: Continue heart healthy diet. Assessment 7. GERD Plan: Continue outpatient anti-reflux therapy with pantoprazole Code status is DNR 61 minutes spent with patient reviewing the chart discussing with Care management and nursing staff as well as meeting with patient formulating a plan and documentation. At this point he is not medically stable to be discharged home due to new concerns of possible UTI and possible secondary pneumonia or fluid overload and more evaluation and treatment is indicated..
--- NOTE | 2023-01-09 13:50 | PT.IPTN ---
Physical Therapy Treatment Note M2 PT-IP Current Condition Start: 01/08/23 18:16 Freq: NEEDED Status: Active Protocol: Document 01/08/23 18:17 JH (Rec: 01/08/23 18:42 [id number]) Physical Therapy Current Condition Current Condition Evaluation Date 01/08/23 Treatment Diagnosis GLF, thinners M3 PT-IP Subjective Start: 01/08/23 18:16 Freq: NEEDED Status: Active Protocol: Document 01/09/23 14:25 TS (Rec: 01/09/23 14:39 TS [id number]) Subjective Physical Therapy Visit Type Type Treatment Note Visit Start Time 13:50 Visit Stop Time 14:15 Total Visit Minutes 25 Notes Freind present Number of ROUSTABOUT Visits 1 Physical Therapy Visit Comments Patient Comments Pt found resting in bed, agreeable to PT. M4 PT-IP Mobility and Gait Start: 01/08/23 18:16 Freq: NEEDED Status: Active Protocol: Document 01/09/23 14:25 TS (Rec: 01/09/23 14:39 TS [id number]) PT-Bed Mobility Assessment Supine to Sit Supine to Sit Standby Assistance Sit to Supine Sit to Supine Standby Assistance Scooting Scooting to Edge of Bed Independent Scooting Up and Down in Bed Standby Assistance PT-Transfer Assessment Sit to and From Stand Sit to and from Stand Contact Guard Assistance Equipment Transfer Assistive Device Gait Belt,Front Wheeled Walker Orthotic/Prosthetic Devices or Brace: No Comments Mobility Comments Sit to stand CGA with FWW, pt reports some dizziness, BP unremarkable. Pt ambulated ~60 ' SBA with FWW emerging step thru antalgic gait, slightly unsteady with no buckling or LOB. Sit to supine SBA with BUE support for repositioning into bed. Pt was left in bed with call light nearby, all needs met. Gait Assessment Gait Gait Assistance Required: Standby Assistance Distance (Feet) 60 Assistive Devices Assistive Device Gait Belt,Front Wheeled Walker Orthotic/Prosthetic Devices or Brace: No Gait Deviations General Gait Pattern Antalgic,Decreased Stride Length,Decreased Feet Clearance Factors Limiting Gait Function Factors Limiting Gait Function Decreased Activity Tolerance, Decreased Strength,Pain,Poor Balance Comments Gait Comments See mobility comments. PT-Balance Assessment Sitting Balance and Reactions Static Sitting Balance Ability Good Dynamic Sitting Balance Ability Good Standing Balance and Reactions Static Standing Balance Ability Good Dynamic Standing Balance Ability Good M5 PT-IP Objective Assessments Start: 01/08/23 18:16 Freq: NEEDED Status: Active Protocol: Document 01/08/23 18:17 JH (Rec: 01/08/23 18:42 [id number]) Orientation Orientation/Cognition Level of Alertness Alert Orientation Name,Age,Year,Day of Week, Place Language Function Ability No Deficits Noted Strength Lower Extremity Strength Assessment Within Functional Limits Comments Strength Comments hip flexion and ankle PF/DF was strong. Knee flexion was 4 +, knee ext was 3+ Sensation Assessment Sensation Gross Sensation WNL M7 PT-IP Assessment and Plan Start: 01/08/23 18:16 Freq: NEEDED Status: Active Protocol: Document 01/09/23 14:25 TS (Rec: 01/09/23 14:39 TS [id number]) PT Summary Assessment and Plan Potential Rehabilitation Potential Good Summary Impairments Strength,Balance,Coordination, Cognition,Bed Mobility,Gait, Activity Tolerance Progress Towards Goals Progressing Toward Goals Assessment Summary Pt progressed gait to 60' SBA in room with step thru gait. He performed all bed mobility SBA-Ind and sit to stands CGA, did use momentum to stand. PT is recommending SNF vs home with assist and HHPT. Pt lives alone and would benefit from SNF to progress to independent before safe d/c home. Goals Bed Mobility Goal Independent Transfer Goal Independent,Front Wheeled Walker Gait Goal Independent,Front Wheel Walker Gait Distance 150ft Other Goals Be able to go up and down 8 steps with a rail Days to Meet Goals 8 Frequency of Treatment Frequency Of Treatment Once a Day Treatment Plan Physical Therapy Treatment Plan Bed Mobility Training,Transfer Training,Gait Training, Therapeutic Exercise,Balance Retraining,Discharge Planning, Coordination Retraining Other Recommendations and Next Treatment further vision training as Focus coordinated with OT, dynamic balance activities, gait w/ LRAD if stable. Recommendations To Nursing Amount of Assist Needed Standby Assistance Discharge Recommendations PT Discharge Recommendations Home Health,SNF Rehab,Home vs SNF Transportation Needs at Discharge Private Vehicle
[2023-01-09 15:07] LABS: Add Manual Diff / Slide Review NO; Basophils Absolute Auto 0 /uL (0-100); Basophils Percent Auto 0.6 % (0-2); Eosinophils Absolute Auto 200 /uL (0-450); Eosinophils Percent Auto 3.8 % (2-4); Hematocrit 31.4 % (41-53); Hemoglobin 10.4 g/dL (13.5-17.5); Lymphocytes Absolute Auto 800 /uL (1100-4500); Lymphocytes Percent Auto 18.7 % (25-40); Mean Corpuscular HGB Conc 33.2 % (30-36); Mean Corpuscular Hemoglobin 27.6 PG (26-34); Mean Corpuscular Volume 83.1 fL (80-100); Monocytes Absolute Auto 200 /uL (0-900); Monocytes Percent Auto 5.3 % (3-14); Neutrophils Absolute Auto 3300 /uL (1500-7000); Neutrophils Percent Auto 71.6 % (50-75); Platelet Count 168 X10^3/uL (150-400); Red Blood Cell Count 3.78 X10^6/uL (4.5-5.9); Red Cell Distribution Width 18.6 % (11.6-14.8); White Blood Cell Count 4.5 X10^3/uL (4.5-11.0)
[2023-01-09 15:14] LABS: BUN Creatinine Ratio 22.5 (6-22); Blood Urea Nitrogen 18 mg/dL (9-20); Calcium 7.6 mg/dL (8.4-10.2); Carbon Dioxide 27 mmol/L (22-32); Chloride 108 mmol/L (98-107); Estimated Glomerular Filt Rate > 60 mL/min (>60); Glucose 98 mg/dL (80-110); HEMOLYSIS < 15 (0-50); Potassium 3.9 mmol/L (3.4-5.1); Sodium 137 mmol/L (137-145)
[2023-01-09 15:23] LABS: NT-proBNP (BNP-Adult 18+) 2490 pg/mL (<450)
[2023-01-09] MEDS: FUROSEMIDE 40 MG/4 ML VIAL IV (16:00)
[2023-01-09] MEDS: ATORVASTATIN 20 MG TABLET 40 MG PO (21:14)
[2023-01-10] MEDS: PANTOPRAZOLE DR 20 MG TABLET PO (05:35)
[2023-01-10 05:50] VITALS: BP 132/55; PULSE 60; RESP 18; TEMP 37.4; O2SAT 92
[2023-01-10 06:12] LABS: Add Manual Diff / Slide Review NO; Basophils Absolute Auto 0 /uL (0-100); Basophils Percent Auto 0.9 % (0-2); Eosinophils Absolute Auto 200 /uL (0-450); Eosinophils Percent Auto 4.4 % (2-4); Hematocrit 29.3 % (41-53); Hemoglobin 9.8 g/dL (13.5-17.5); Lymphocytes Absolute Auto 1000 /uL (1100-4500); Lymphocytes Percent Auto 21.8 % (25-40); Mean Corpuscular HGB Conc 33.3 % (30-36); Mean Corpuscular Hemoglobin 27.6 PG (26-34); Mean Corpuscular Volume 82.9 fL (80-100); Monocytes Absolute Auto 300 /uL (0-900); Monocytes Percent Auto 5.8 % (3-14); Neutrophils Absolute Auto 3000 /uL (1500-7000); Neutrophils Percent Auto 67.1 % (50-75); Platelet Count 166 X10^3/uL (150-400); Red Blood Cell Count 3.53 X10^6/uL (4.5-5.9); Red Cell Distribution Width 18.3 % (11.6-14.8); White Blood Cell Count 4.5 X10^3/uL (4.5-11.0)
[2023-01-10 06:20] LABS: Alanine Aminotransferase 16 IU/L (<50); Albumin 2.4 g/dL (3.5-5.0); Albumin Globulin Ratio 0.7 (1.0-2.8); Alkaline Phosphatase 55 U/L (38-126); Aspartate Aminotransferase 20 IU/L (17-59); BUN Creatinine Ratio 25.8 (6-22); Bilirubin Total 0.6 mg/dL (0.2-1.3); Blood Urea Nitrogen 16 mg/dL (9-20); Calcium 7.5 mg/dL (8.4-10.2); Carbon Dioxide 25 mmol/L (22-32); Chloride 106 mmol/L (98-107); Estimated Glomerular Filt Rate > 60 mL/min (>60); Globulin 3.3 g/dL (1.7-4.1); Glucose 90 mg/dL (80-110); HEMOLYSIS < 15 (0-50); Potassium 3.4 mmol/L (3.4-5.1); Sodium 134 mmol/L (137-145); Total Protein 5.7 g/dL (6.3-8.2)
[2023-01-10 08:00] VITALS: BP 134/50; PULSE 58; RESP 16; TEMP 36.9; O2SAT 95
[2023-01-10] MEDS: CLOPIDOGREL 75 MG TABLET PO (08:21)
[2023-01-10] MEDS: ENOXAPARIN 40 MG/0.4 ML SYRINGE SUBCUT (08:21)
--- NOTE | 2023-01-10 10:31 | CM.DPC ---
Addendum entered by Giselle Britton R.N. 01/10/23 14:25: Spoke to Ang ROBERTA, unable to get finances squared away. He had been spending time on the phone with patient's nephew, and sister. Patient has been willing to go where needed, but prefers home. Ang did get in touch with [facility], spoke to Danielle, and found out that they have a respite room, could have taken him today, but would get no assistance. Patient also is in isolation with virus, and unsteady. At this time, Ang is making several phone calls today, and working on getting friend/private caregiver to stay with patient. Asked Ang to prepare for home tomorrow with resumption of [facility]. He seems to think that he can arrange it. Updated Dr. Kapoor as well. Addendum entered by Giselle Britton R.N. 01/10/23 11:21: Ang called back, stated, he wanted to intervene with other family members, patient does not have blue on hand. Let him know that patient is medically stable for discharge, could acrue costs if he continues to stay here. Asked him if he could stay with patient until home care is set up, stated, could not. Asked if patient has a credit card, he does have assets, patient is having a condo built. Ang will attempt to call Larisa with more financial information, and will call back. Still have a possibility of getting patient to [facility] around 1430. Giselle Britton RN/Pillow Agent Original Note: DCP Cont: Left a message with patient's friend, RAFAELAng FIERRO, letting him know that patient is medically ready for discharge. Larisa at [facility] needs financial information, Larisa has not yet heard from him. This DC Lathe Machine Operator reminded friend that patient is discharging today, [facility] can accept at [address] Dr[address] Kapoor was already by the care management office, stated, patient does need a safe discharge plan, can discharge him to [facility] as soon as everything is confirmed. P: DCP to continue to follow and work on discharge planning. Only other option is for patient to go home with home health, but friend would have to stay with him. Had meeting with Ang yesterday, went over home caregivers in the [employer] Book. Encouraged him to start calling some caregivers. Will continue to attempt to reach him. Giselle Britton RN/Pillow Agent
[2023-01-10] MEDS: POTASSIUM CHLORIDE 20 MEQ TAB 40 MEQ PO (10:44)
[2023-01-10] MEDS: SODIUM CHLORIDE 0.9% 1,000 ML 125 ML IV (10:45)
[2023-01-10 12:00] VITALS: BP 121/51; PULSE 53; RESP 16; TEMP 36.6; O2SAT 100
--- NOTE | 2023-01-10 13:15 | PT.IPTN ---
Physical Therapy Treatment Note M2 PT-IP Current Condition Start: 01/08/23 18:16 Freq: NEEDED Status: Active Protocol: Document 01/08/23 18:17 JH (Rec: 01/08/23 18:42 [id number]) Physical Therapy Current Condition Current Condition Evaluation Date 01/08/23 Treatment Diagnosis GLF, thinners M3 PT-IP Subjective Start: 01/08/23 18:16 Freq: NEEDED Status: Active Protocol: Document 01/10/23 13:41 SW (Rec: 01/10/23 14:15 SW [id number]) Subjective Physical Therapy Visit Type Type Treatment Note Visit Start Time 13:15 Visit Stop Time 13:35 Total Visit Minutes 20 Number of FRONT LOADER RESIDENTIAL DRIVER Visits 2 Physical Therapy Visit Comments Patient Comments Pt found resting in bed, agreeable to PT. M4 PT-IP Mobility and Gait Start: 01/08/23 18:16 Freq: NEEDED Status: Active Protocol: Document 01/10/23 13:41 SW (Rec: 01/10/23 14:15 SW [id number]) PT-Bed Mobility Assessment Supine to Sit Supine to Sit Standby Assistance Sit to Supine Sit to Supine Standby Assistance Scooting Scooting to Edge of Bed Independent Scooting Up and Down in Bed Standby Assistance PT-Transfer Assessment Sit to and From Stand Sit to and from Stand Contact Guard Assistance Equipment Transfer Assistive Device Gait Belt,Front Wheeled Walker Orthotic/Prosthetic Devices or Brace: No Comments Mobility Comments Pt used momentum for supine to sit, requiring multiple attempts, would benefit from continued bed mobility training. Sit to stand requires use of BUE, with multiple attempts. Ambulated ~ 250ft w/ FWW slow arlyn, step thru gait pattern w/ verbal cues required for foot clearance L>R. Gait Assessment Gait Gait Assistance Required: Standby Assistance Distance (Feet) 250 Assistive Devices Assistive Device Gait Belt,Front Wheeled Walker Orthotic/Prosthetic Devices or Brace: No Factors Limiting Gait Function Factors Limiting Gait Function Decreased Activity Tolerance, Decreased Strength,Pain,Poor Balance Comments Gait Comments See mobility comments. Stair Climbing Assessment Devices Stair Climbing Assistive Devices Left Railing,Right Railing Technique/Endurance Stair Climbing Direction Ascend and Descend Stair Climbing Technique Step to Step Number of Steps Climbed 4 PT-Balance Assessment Sitting Balance and Reactions Static Sitting Balance Ability Good Dynamic Sitting Balance Ability Good Standing Balance and Reactions Static Standing Balance Ability Good Dynamic Standing Balance Ability Good M5 PT-IP Objective Assessments Start: 01/08/23 18:16 Freq: NEEDED Status: Active Protocol: Document 01/08/23 18:17 (Rec: 01/08/23 18:42 [id number]) Orientation Orientation/Cognition Level of Alertness Alert Orientation Name,Age,Year,Day of Week, Place Language Function Ability No Deficits Noted Strength Lower Extremity Strength Assessment Within Functional Limits Comments Strength Comments hip flexion and ankle PF/DF was strong. Knee flexion was 4 +, knee ext was 3+ Sensation Assessment Sensation Gross Sensation WNL M7 PT-IP Assessment and Plan Start: 01/08/23 18:16 Freq: NEEDED Status: Active Protocol: Document 01/10/23 13:41 SW (Rec: 01/10/23 14:15 SW [id number]) PT Summary Assessment and Plan Potential Rehabilitation Potential Good Summary Impairments Strength,Balance,Coordination, Cognition,Bed Mobility,Gait, Activity Tolerance Assessment Summary Pt progressed ambulation distance this session, w/FWW, slow arlyn, step thru pattern, verbal cues required for foot clearance, mod amount of fatigue upon return to bed . Ascended/descended x 4 stairs, CGA require use of BUE on handrail. SBA for bed mobility, CGA for sit to stand transfer required x 3 attempts. Pt lives alone and has nobody that is able to assist him. Pt would benefit from SNF to progress to independent to safely discharge home. Goals Bed Mobility Goal Independent Transfer Goal Independent,Front Wheeled Walker Gait Goal Independent,Front Wheel Walker Gait Distance 150ft Other Goals Be able to go up and down 8 steps with a rail Days to Meet Goals 8 Frequency of Treatment Frequency Of Treatment Once a Day Treatment Plan Physical Therapy Treatment Plan Bed Mobility Training,Transfer Training,Gait Training, Therapeutic Exercise,Balance Retraining,Discharge Planning, Coordination Retraining Other Recommendations and Next Treatment further vision training as Focus coordinated with OT, dynamic balance activities, gait w/ LRAD if stable. Recommendations To Nursing Amount of Assist Needed Standby Assistance Discharge Recommendations PT Discharge Recommendations Home Health,SNF Rehab Transportation Needs at Discharge Private Vehicle
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
[2023-01-10 16:00] VITALS: BP 135/52; PULSE 60; RESP 18; TEMP 36.7; O2SAT 99
--- NOTE | 2023-01-10 17:39 | PM.PN.1 ---
Subjective Subjective Date Patient Seen: 01/10/23 Time Patient Seen: 09:30 Interval history: CC: feeling ill, falls Eating and feeling less sick today. Doing better today but still feeling weak and wobbly - working on discharge options for tomorrow, either facility with private pay or home with HH and support - friend Ang is helping get this arranged. Exam Vital Signs (past 8 hours): - 01/10/23 12:00 01/10/23 16:00 Temperature 97.9 F 98.1 F Pulse Rate 53 L 60 Respiratory Rate 16 18 Blood Pressure 121/51 L 135/52 L Pulse Oximetry 100 99 Oxygen Delivery Method Room Air Oxygen Flow Rate 0 Narrative Exam Narrative: alert elder just finished meal Resp Other: generally clear to auscultation bilaterally mild bibasilar crackles Cardio Other: regular rate, S1/S2 GI Other: soft nontender active bowel sounds Neuro General: patient alert, patient awake and moves all extremities Objective Labs 01/10/23 05:46 01/10/23 05:46 Labs: Laboratory Results - last 24 hr 01/10/23 01/10/23 05:46 05:46 WBC 4.5 RBC 3.53 L Hgb 9.8 L Hct 29.3 L MCV 82.9 MCH 27.6 MCHC 33.3 RDW 18.3 H Plt Count 166 Neut % (Auto) 67.1 Lymph % (Auto) 21.8 L Warren % (Auto) 5.8 Eos % (Auto) 4.4 H Baso % (Auto) 0.9 Neut # (Auto) 3000 Lymph # (Auto) 1000 L Warren # (Auto) 300 Eos # (Auto) 200 Baso # (Auto) 0 Sodium 134 L Potassium 3.4 Chloride 106 Carbon Dioxide 25 BUN 16 Creatinine 0.62 L Estimated GFR > 60 BUN/Creatinine Ratio 25.8 H Glucose 90 Calcium 7.5 L Total Bilirubin 0.6 AST 20 ALT 16 Alkaline Phosphatase 55 Total Protein 5.7 L Albumin 2.4 L Globulin 3.3 Albumin/Globulin Ratio 0.7 L [facility] Medical History AAA (abdominal aortic aneurysm) Arthritis BPH (benign prostatic hyperplasia) Former smoker GERD (gastroesophageal reflux disease) HLD (hyperlipidemia) HTN (hypertension) Hyponatremia Osteoarthritis PAD (peripheral artery disease) PVD (peripheral vascular disease) Shingles TIA (transient ischemic attack) Surgical History History of bilateral cataract extraction (~2018) History of colonoscopy History of total right hip arthroplasty Hx of appendectomy Hx of bone graft S/P cervical spinal fusion (08/09/15) Social History household members: none Smoking Status: Former smoker alcohol intake: current Assessment & Plan Assessment & Plan narrative: 82-year-old male admitted with enterovirus and fall hospital day 3. #Acute enterovirus Doing better off fluids, encourage oral intake #Fluid overload doing better off fluids, will get echo now or as outpatient. #Atrial fibrillation with well-controlled rate Stable continue outpatient medications. #Possible UTI with urine culture pending but urinalysis showing trace leukocyte esterase positive. Will await urine culture and track WBCs? #Recurrent falls with previous fall and C7 cervical fracture PT and OT ordered.? Patient will likely need skilled care facility versus home with home health Code status is DNR time spent: 40 min
[2023-01-10 19:45] VITALS: BP 122/47; PULSE 61; RESP 19; TEMP 36.2; O2SAT 95
[2023-01-10] MEDS: ATORVASTATIN 20 MG TABLET 40 MG PO (21:07)
[2023-01-10 23:35] VITALS: BP 129/55; PULSE 57; RESP 21; TEMP 36.3; O2SAT 98
[2023-01-11 03:20] VITALS: BP 142/95; PULSE 55; RESP 20; TEMP 37.2; O2SAT 98
--- NOTE | 2023-01-11 03:40 | PC.NURSE ---
C/O chest pain, pain level @ 3/10 RT. here doing ECG.
--- NOTE | 2023-01-11 04:08 | PC.NURSE ---
Dr. Maryann novak reported C/O CP & elevated B/P 145/95, heart rate 55. Ordered received to do stat troponin, lab. here to draw. Will monitor.
[2023-01-11 04:46] LABS: BUN Creatinine Ratio 32.1 (6-22); Blood Urea Nitrogen 17 mg/dL (9-20); Calcium 7.9 mg/dL (8.4-10.2); Carbon Dioxide 25 mmol/L (22-32); Chloride 106 mmol/L (98-107); Estimated Glomerular Filt Rate > 60 mL/min (>60); Glucose 102 mg/dL (80-110); HEMOLYSIS < 15 (0-50); Potassium 3.8 mmol/L (3.4-5.1); Sodium 134 mmol/L (137-145)
[2023-01-11 04:57] LABS: Troponin I 0.014 ng/mL (0.01-0.034)
[2023-01-11] MEDS: PANTOPRAZOLE DR 20 MG TABLET PO (05:30)
--- NOTE | 2023-01-11 07:26 | PC.NURSE ---
Bilateral groins erythema R>L. Reported to day RN to notify MD this morning.
--- NOTE | 2023-01-11 08:03 | CM.DPC ---
Addendum entered by Giselle Britton R.N. 01/11/23 13:45: Finances have gone through, sister, had contacted Larisa with credit card information. Dr. Kapoor has come over to sign med sheets, he is working on DC Summary, completed PASSR. ROBERTA Fry friend, is updated that [facility] will pick patient up. Addendum entered by Giselle Britton R.N. 01/11/23 13:05: Brought in GROCERY MANAGER, Jackie, to speak to patient on speaker phone with ROBERTA Fry. He stated, I'm fng trying to call places, but I just can't get caregivers in the home that fast. Reminded patient that he is medically stable, and the cost of him staying here can accrue, since he most likely needs longterm care. After conversing, Ang stated, he was going to pick patient up at 1430. Did receive a call back from Larisa at [facility], indicating that she received a call from patient's sister, Razia, who has a credit card and is attempting to get patient to [facility] for 30 days. Met with patient again to see if this is what he wants, and stated, I really don't want to go, but will, if I have to. Larisa is still working out the finances. Updated Dr. Kapoor. Addendum entered by Giselle Britton R.N. 01/11/23 10:59: Patient's DPOA, Ang, called back. Stated that now patient does not have a place to go, they are working on his condo. Reminded him that this DC [employer] told him that he would be discharged home today. Ang is now wanting him to go to [facility] for a week. Let him know that he will have to contact [facility] at [facility]. Asked him if he has arranged the finances, stated, they have arranged finances. Called Larisa at [facility], has to clear this with her websphere administrator, and will call back. Will update Dr. Kapoor as well. Addendum entered by Giselle Britton R.N. 01/11/23 09:38: Left Ang another message letting him know that patient is being discharged home today. Will update [facility], and will send resumption orders. Will ensure that GROCERY MANAGER is added. Addendum entered by Giselle Britton R.N. 01/11/23 08:47: Updated Dr. Kapoor, that patient most likely will go home today. He does not want to discharge patient until he knows that he will be picked up. Have a call out to friend currently. Original Note: DCP Cont: Left a message with Ang GRANADOS, to let him know that patient most likely will discharge home today. He indicated that he was working on finding individuals to stay with patient. Will also ensure that [facility] resumes. P: DCP working on getting patient discharged home, has refused private pay shelter. Giselle Britton RN/Taxonomy Teacher
[2023-01-11 08:44] VITALS: BP 131/52; PULSE 54; RESP 24; TEMP 36.5; O2SAT 97
[2023-01-11] MEDS: ENOXAPARIN 40 MG/0.4 ML SYRINGE SUBCUT (09:18)
[2023-01-11] MEDS: CLOPIDOGREL 75 MG TABLET PO (09:19)
--- NOTE | 2023-01-11 09:24 | PM.DS.1 ---
History of Present Illness History of Present Illness Date Patient Seen: 01/11/23 Time Patient Seen: 08:30 Chief complaint: GLF, thinners Narrative: chief complaint: viral infection Feeling well this morning ate breakfast able to go to bathroom breathing improved exam reassuring his infection appears to be resolved I think he still will need an echocardiogram that we can get that as an outpatient at this point will be discharging to [facility] rehab to get his feet back under him. Still wobbly needs to work with PT concern for gait given his history of falls Discharge Providers Provider Date of admission: 01/08/23 02:14 Discharge Date: 01/11/23 Primary care physician: Norberto Kapoor MD Consults: 01/08/23 09:01 Consult to Occupational Therapy Evaluate & Treat Comment: Physician Instructions: Evaluate and treat Consult to Physical Therapy Evaluate & Treat Comment: Physician Instructions: Evaluate and Treat Discharge provider: Norberto Kapoor MD Summary Hospital Course Discharge Diagnosis: #Acute rhino/enterovirus infection #Fluid overload #Atrial fibrillation with well-controlled rate #Possible UTI with urine culture pending but urinalysis showing trace leukocyte esterase positive. #Recurrent falls with previous fall and C7 cervical fracture Hospital Course: This is a pleasant [id number] 82-year-old gentleman who lives independently with chronic complaints of weakness, hypertension, prior stroke with reported hemianopsia, prior fall with cervical spine fracture and repeated falls at home per friends and family. He has been having increasing malaise and weakness for the last week with significant decline the day before admission. He notes that his vision had been getting worse over the last week and he finds that his depth perception is significantly off, causing him to fall while reaching for his walker and hit his head; EMS was summoned and brought him in for evaluation. He has chronic urinary frequency and RLE edema 2/2 hip replacement but his main issue is general malaise -he was found in ED to have a rhino/enteroviral infection. Given his weakness and recent fall it was deemed appropriate to observe him hydrate him and feed him. He improved with this course of action and by DoD he was working with PT eating meals and going to bathroom ok. With help from friends and family we were fortunately able to arrange private pay rehab placement for him - given his recent falls and declining status eventual placement may be necessary. Status at Discharge Cognitive/behavioral status at discharge: at baseline, oriented and calm Functional status at discharge: uses cane/walker Overall status at discharge: patient is progressing back to baseline Exam Vital Signs (past 8 hours): - 01/11/23 03:20 01/11/23 08:44 Temperature 98.9 F 97.7 F Pulse Rate 55 L 54 L Respiratory Rate 20 24 Blood Pressure 142/95 H 131/52 L Pulse Oximetry 98 97 Oxygen Flow Rate 0 Oxygen Delivery Method Room Air Oxygen Flow Rate 0 Narrative Exam Narrative: Pleasant alert elderly lying in bed Const Other: Well-nourished well-developed HENMT Other: Well healing bruise on back of head Resp Other: Grossly clear to auscultation bilaterally perhaps some slight bilateral bibasilar crackles Cardio Other: Regular rate S1-S2 perhaps 1+ pedal edema bilateral GI Other: Soft nontender nondistended active bowel sounds Neuro Other: Alert awake oriented Objective Labs 01/10/23 05:46 01/11/23 04:20 Labs: Laboratory Results - last 24 hr 01/11/23 01/11/23 04:20 04:20 Sodium 134 L Potassium 3.8 Chloride 106 Carbon Dioxide 25 BUN 17 Creatinine 0.53 L Estimated GFR > 60 BUN/Creatinine Ratio 32.1 H Glucose 102 Calcium 7.9 L Troponin I 0.014 [facility] Medical History AAA (abdominal aortic aneurysm) Arthritis BPH (benign prostatic hyperplasia) Former smoker GERD (gastroesophageal reflux disease) HLD (hyperlipidemia) HTN (hypertension) Hyponatremia Osteoarthritis PAD (peripheral artery disease) PVD (peripheral vascular disease) Shingles TIA (transient ischemic attack) Surgical History History of bilateral cataract extraction (~2018) History of colonoscopy History of total right hip arthroplasty Hx of appendectomy Hx of bone graft S/P cervical spinal fusion (08/09/15) Social History household members: none Smoking Status: Former smoker alcohol intake: current Discharge Assessment & Plan Assessment and Plan Assessment: 82-year-old male admitted with enterovirus and fall hospital day 4. #Acute rhino/enterovirus infection Doing better off fluids, encourage oral intake, labs reassuring #Fluid overload doing better off fluids,? will get echo at outpatient follow-up. #Atrial fibrillation with well-controlled rate Stable continue outpatient medications. #Possible UTI with urine culture pending but urinalysis showing trace leukocyte esterase positive. Normal WBCs good urine output urine and blood cultures unremarkable #Recurrent falls with previous fall and C7 cervical fracture PT and OT ordered.? I agree with discharge to facility rather than home may benefit from placement Code status is DNR time spent: 45 min Discharge Plan Discharge Plan Patient Disposition: Home Health Service Transfer to: [facility] Provider Discharge Comment: to [facility] Discharge orders & Medications Prescriptions: Continued acetaminophen 325 mg tablet 650 mg PO TID PRN (Reason: Pain, Mild) clopidogrel 75 mg Tablet 75 mg PO DAILY Qty: 30 1RF calcium carbonate 200 mg calcium (500 mg) Tablet,Chewable 500 mg PO TID Qty: 100 0RF rosuvastatin 20 mg Tablet 20 mg PO BEDTIME torsemide 20 mg Tablet 20 mg PO USEASDIRECTD Rx Instructions: every other day pantoprazole 20 mg Tablet,Delayed Release (Dr/Ec) 20 mg PO DAILY Discontinued levofloxacin 500 mg tablet 500 mg PO DAILY Qty: 7 0RF Follow up/Referrals: Norberto Kapoor MD [Primary Care Provider] - Diet/Activity/Treatments Diet: Diet as Tolerated Visit Report/Discharge Packet Stand Alone Forms: Patient Portal/API, Stroke Signs & Symptoms Discharge Data Primary Care Provider: Norberto Kapoor Attending Provider: Norberto Kapoor Admit Date/Time: 01/08/23 02:14
[2023-01-11] MEDS: SODIUM CHLORIDE 0.9% FLUSH 10 ML IV (09:25)
--- NOTE | 2023-01-11 15:21 | PC.NURSE ---
Patient is A&OX4, VSS, afebrile on RA. He reports his vision is poor and asks for assistance reading on his phone this a.m. He is able to participate with PT/OT and ambulate with FWW, CGA. He is medically cleared for discharge home today by MD Kapoor and is aggreeable to discharge. digital program manager discussing discharge plan and options with patient. After much discussion he is agreeable to SNF and transport arranged this afternoon. He verbalizes understanding of discharge plan to SNF [facility]. He is transported via w/ch w/ facility designee with all of his belongings including cell phone, tariff clerk, robe and shoes at approximately 1445. Report called to Kin at [facility].
== END 2023-01-11 14:45 | disposition home health service (06) ==
LOC: ED 01-08 02:14 → AC 01-08 02:15
PROVIDERS: Family Medicine; Admitting Provider Family Medicine; Emergency Provider Emergency Medicine; Family Provider Student in an Organized Health Care Education/Training Program; PCP Family Medicine; Referring Provider Emergency Medicine; Visit Provider Family Medicine
DX: B34.8 Other viral infections of unspecified site (principal); E87.70 Fluid overload, unspecified; R06.82 Tachypnea, not elsewhere classified; I10 Essential (primary) hypertension; I69.398 Other sequelae of cerebral infarction; H53.47 Heteronymous bilateral field defects; R35.0 Frequency of micturition; I48.91 Unspecified atrial fibrillation; Z91.81 History of falling
CPT/HCPCS: 36415; 51798; 70450; 71045; 71046; 72125; 80048; 80053; 81001; 82550; 83605; 83690; 83735; 83880; 84145; 84484; 85025; 85610; 85730; 87040; 87086; 87633; 93005; 96361; 96372; 96374; 97116; 97162; 97166; 97530; 99284; G0378; J1650; J1940

== ENCOUNTER 2023-10-23 14:51 | Emergency (ER) | payer OTHER, MEDICARE, SELFPAY ==
[2023-01-08 03:34] VITALS: BMI 25.4
[2023-10-23 15:03] VITALS: BP 159/67; PULSE 63; RESP 18; TEMP 36.5; O2SAT 200
--- NOTE | 2023-10-23 15:07 | DI.RAD.S_ITS ---
PROCEDURE: XR HUMERUS LT 2V INDICATIONS: pain TECHNIQUE: 2 views of the humerus were acquired. COMPARISON: None. FINDINGS: Bones: No displaced fracture of the humeral shaft. Partially seen shoulder degenerative changes. Soft tissues: No suspicious calcifications. IMPRESSION: No acute radiographic abnormality. If there is high concern for occult injury, consider repeat radiography or cross-sectional imaging. Dictated by: Denzel Aguilar M.D. on 10/23/2023 at 16:17 Approved by: Denzel Aguilar M.D. on 10/23/2023 at 16:18
--- NOTE | 2023-10-23 15:08 | DI.RAD.S_ITS ---
PROCEDURE: XR ELBOW LT MIN 3V INDICATIONS: pain after injury TECHNIQUE: 3 views of the elbow were acquired. COMPARISON: None. FINDINGS: Bones: No displaced fracture or dislocation. Mild degenerative changes. Olecranon enthesopathy. Soft tissues: No significant effusion. Nonspecific small soft tissue calcifications. IMPRESSION: Mild degenerative changes. No acute fracture or dislocation. If there is high concern for occult injury, consider repeat radiography or cross-sectional imaging. Dictated by: Denezl Aguilar M.D. on 10/23/2023 at 16:16 Approved by: Denzel Aguilar M.D. on 10/23/2023 at 16:17
[2023-10-23] MEDS: IBUPROFEN 400 MG TABLET PO (16:38)
[2023-10-23 16:43] VITALS: BP 150/65; PULSE 60; RESP 18; O2SAT 100
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
== END 2023-10-23 16:45 | disposition home or self-care (01) ==
PROVIDERS: Emergency Provider Student in an Organized Health Care Education/Training Program; Family Provider Student in an Organized Health Care Education/Training Program; PCP Family Medicine
DX: M79.602 Pain in left arm (principal)
CPT/HCPCS: 73060; 73080; 99283

== ENCOUNTER → 2023-11-12 10:55 | Outpatient (CLI) | payer MEDICARE, OTHER, SELFPAY ==
[2023-01-08 03:34] VITALS: BMI 25.4
--- NOTE | 2023-11-12 10:57 | DI.RAD.S_ITS ---
PROCEDURE: XR HIP W PEL IF DONE LT 2V INDICATIONS: Ground level fall TECHNIQUE: 3 views of the hip were acquired. COMPARISON: [facility], CR, XR HIP W PEL IF DONE LT 2V, 10/03/2022, 19:06. FINDINGS: Bones: Bilateral hip prosthesis in good position. No evidence of dislocation or fracture. Diffuse small vessel atherosclerotic vascular calcification. Soft tissues: No suspicious soft tissue calcifications or masses. IMPRESSION: Bilateral hip prosthesis in good position without fracture Approved by: Sanchez Moran M.D. on 11/12/2023 at 17:33
== END ==
PROVIDERS: Family Provider Student in an Organized Health Care Education/Training Program; PCP Family Medicine; Referring Provider Nurse Practitioner Family; Visit Provider Nurse Practitioner Family
DX: S39.92XA Unspecified injury of lower back, initial encounter (principal); W18.30XA Fall on same level, unspecified, initial encounter; Z96.643 Presence of artificial hip joint, bilateral
CPT/HCPCS: 73502

== ENCOUNTER 2023-12-31 08:26 | Emergency (ER) | payer MEDICARE, OTHER, SELFPAY ==
[2023-01-08 03:34] VITALS: BMI 25.4
[2023-12-31] VITALS (18 sets, daily range): BP systolic 161–216; BP diastolic 70–91; PULSE 41–53; RESP 15–19; TEMP 37.1; O2SAT 96–100; BMI 25.7
--- NOTE | 2023-12-31 08:34 | EKG_ITS ---
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
[2023-12-31 08:39] LABS: Add Manual Diff / Slide Review NO; Basophils Absolute Auto 100 /uL (0-100); Basophils Percent Auto 1.1 % (0-2); Eosinophils Absolute Auto 200 /uL (0-450); Eosinophils Percent Auto 3.1 % (2-4); Hematocrit 40.4 % (41-53); Hemoglobin 13.5 g/dL (13.5-17.5); Lymphocytes Absolute Auto 1900 /uL (1100-4500); Mean Corpuscular HGB Conc 33.4 % (30-36); Mean Corpuscular Hemoglobin 30.1 PG (26-34); Mean Corpuscular Volume 89.9 fL (80-100); Monocytes Absolute Auto 400 /uL (0-900); Monocytes Percent Auto 7.3 % (3-14); Neutrophils Absolute Auto 3400 /uL (1500-7000); Neutrophils Percent Auto 57.5 % (50-75); Platelet Count 233 X10^3/uL (150-400); Red Blood Cell Count 4.49 X10^6/uL (4.5-5.9); Red Cell Distribution Width 14.8 % (11.6-14.8)
--- NOTE | 2023-12-31 08:47 | ED.GENADULT ---
HPI - General Adult General Chief complaint: Dizziness Stated complaint: dizziness/ HTN Time Seen by Provider: 12/31/23 08:27 Source: patient and EMS Mode of arrival: EMS Limitations: no limitations History of Present Illness HPI narrative: Patient is an 83-year-old male. Does have a history of high blood pressure. Has also had a history of a stroke with visual deficits resulting from that. Is here for evaluation of dizziness. He states that yesterday he generally did not feel very good. Had some slight shortness of breath but no chest discomfort. He stated that today he went to the pool where he does quite a bit of exercise. He states that while he was in the pool he became lightheaded. It was not a room spinning sensation but more of just a lightheadedness. He also is reporting some shortness of breath but that is not any worse or different than what it was yesterday. No chest pain. No change in his in his vision. No headache. No numbness and tingling in his upper and lower extremities. He states that his heart rate is normally in the 50s or 60s. Blood pressure is normally in the 130s to 140 systolic. He stated that the lightheadedness today was at a point where he could not finish his exercise. Related Data Home Medications Medication Instructions Recorded Confirmed acetaminophen 325 mg tablet 650 mg PO TID PRN Pain, Mild 02/11/22 11/12/23 pantoprazole 20 mg tablet,delayed 20 mg PO DAILY 01/08/23 11/12/23 release rosuvastatin 20 mg tablet 20 mg PO BEDTIME 01/08/23 11/12/23 torsemide 20 mg tablet 20 mg PO USEASDIRECTD 01/08/23 11/12/23 Previous Rx's Medication Instructions Recorded calcium carbonate 500 mg (2.5 x 200 mg calcium (500 02/14/22 mg)) PO TID #100 tabs clopidogrel 75 mg tablet 75 mg PO DAILY #30 tabs 02/14/22 Allergies Allergy/AdvReac Type Severity Reaction Status Date / Time piperacillin [From Zosyn] Allergy Severe Swelling Verified 11/12/23 10:24 of Lip/Tongue/Throat tazobactam [From Zosyn] Allergy Severe Swelling Verified 11/12/23 10:24 of Lip/Tongue/Throat latex [LATEX] Allergy Mild Rash Verified 05/20/24 10:24 Review of Systems Review of Systems Narrative: See HPI Patient History Medical History Former smoker Hyponatremia AAA (abdominal aortic aneurysm) TIA (transient ischemic attack) Shingles GERD (gastroesophageal reflux disease) Arthritis Osteoarthritis BPH (benign prostatic hyperplasia) PVD (peripheral vascular disease) PAD (peripheral artery disease) HLD (hyperlipidemia) HTN (hypertension) Surgical History History of bilateral cataract extraction (~2017) S/P cervical spinal fusion (08/09/15) History of colonoscopy Hx of bone graft History of total right hip arthroplasty Hx of appendectomy Social History household members: none Smoking Status: Former smoker alcohol intake: current Smoking Status: Former smoker alcohol intake frequency: 0-2 drinks per day Substance Use Type: does not use Exam Initial Vital Signs Initial Vital Signs: Vital Signs Pulse Rate 46 L 12/31/23 08:29 Pulse Oximetry 100 12/31/23 08:29 Const General: cooperative, comfortable and No ill appearing HENMT Head: normal to inspection and normocephalic Resp Effort & Inspection: normal respiratory effort Auscultation: clear to auscultation bilaterally Cardio Rate: bradycardic Rhythm: regular rhythm GI Inspection: normal to inspection Skin General: no rashes or lesions noted Neuro General: patient alert, patient awake, patient oriented x3 and moves all extremities Extrem General: No edema Course Orders Ordered: ED Orders 12/31/23 08:28 EKG-12 Lead Stat 12/31/23 08:30 Complete Blood Count AUTO DIFF Stat Comprehensive Metabolic Panel Stat Lipase Stat Troponin & CK Cardiac Panel Stat 12/31/23 08:40 BNP [NT-proBNP (BNP-Adult 18+)] Stat 12/31/23 08:48 XR chest 1V Stat 12/31/23 10:40 Troponin I Stat Vital Signs Vital signs: Vital Signs - 8 hr 12/31/23 08:29 12/31/23 08:30 12/31/23 08:32 Temperature Pulse Rate 46 L 47 L Respiratory Rate 15 Blood Pressure 216/91 H Pulse Oximetry 100 100 Oxygen Delivery Method 12/31/23 08:32 12/31/23 08:34 12/31/23 09:00 Temperature 98.7 F Pulse Rate 43 L 44 L 48 L Respiratory Rate 15 18 18 Blood Pressure 216/91 H Pulse Oximetry 100 100 99 Oxygen Delivery Method Room Air 12/31/23 09:27 12/31/23 09:27 12/31/23 09:30 Temperature Pulse Rate 44 L 45 L Respiratory Rate 19 19 Blood Pressure 180/77 H Pulse Oximetry 99 97 Oxygen Delivery Method 12/31/23 09:35 12/31/23 09:35 12/31/23 09:55 Temperature Pulse Rate 53 L Respiratory Rate Blood Pressure 210/87 H 167/70 H Pulse Oximetry 99 Oxygen Delivery Method 12/31/23 09:55 12/31/23 09:56 12/31/23 09:56 Temperature Pulse Rate 49 L 50 L Respiratory Rate Blood Pressure 184/77 H Pulse Oximetry 99 99 Oxygen Delivery Method 12/31/23 10:00 12/31/23 10:01 12/31/23 10:01 Temperature Pulse Rate 50 L 41 L Respiratory Rate Blood Pressure 199/81 H Pulse Oximetry 99 98 Oxygen Delivery Method 12/31/23 10:30 12/31/23 10:31 12/31/23 10:31 Temperature Pulse Rate 44 L 43 L Respiratory Rate Blood Pressure 161/70 H Pulse Oximetry 98 99 Oxygen Delivery Method 12/31/23 11:00 12/31/23 11:01 12/31/23 11:01 Temperature Pulse Rate 48 L 51 L Respiratory Rate Blood Pressure 191/77 H Pulse Oximetry 96 97 Oxygen Delivery Method 12/31/23 11:30 12/31/23 11:32 12/31/23 11:32 Temperature Pulse Rate 46 L 45 L Respiratory Rate Blood Pressure 176/81 H Pulse Oximetry 99 99 Oxygen Delivery Method Medical Decision Making Medical Records Medical records reviewed: Yes I reviewed the patient's medical records. Lab Data 12/31/23 08:30 12/31/23 08:30 Labs: Lab Results 12/31/23 12/31/23 12/31/23 Range/Units 08:30 08:40 10:40 WBC 6.0 (4.5-11.0) X10^3/uL RBC 4.49 L (4.5-5.9) X10^6/uL Hgb 13.5 (13.5-17.5) g/dL Hct 40.4 L (41-53) % MCV 89.9 (80-100) fL MCH 30.1 (26-34) PG MCHC 33.4 (30-36) % RDW 14.8 (11.6-14.8) % Plt Count 233 (150-400) X10^3/uL Neut % (Auto) 57.5 (50-75) % Lymph % (Auto) 31.0 (25-40) % [place] % (Auto) 7.3 (3-14) % Eos % (Auto) 3.1 (2-4) % Baso % (Auto) 1.1 (0-2) % Neut # (Auto) 3400 (5848-4814) /uL Lymph # (Auto) 1900 (6640-6406) /uL [place] # (Auto) 400 (0-900) /uL Eos # (Auto) 200 (0-450) /uL Baso # (Auto) 100 (0-100) /uL Sodium 136 L (137-145) mmol/L Potassium 4.2 (3.4-5.1) mmol/L Chloride 104 (98-107) mmol/L Carbon Dioxide 28 (22-32) mmol/L BUN 15 (9-20) mg/dL Creatinine 0.82 (0.66-1.25) mg/dL Estimated GFR > 60 (>60) mL/min BUN/Creatinine Ratio 18.3 (6-22) Glucose 99 (80-110) mg/dL Calcium 9.1 (8.4-10.2) mg/dL Total Bilirubin 0.7 (0.2-1.3) mg/dL AST 29 (17-59) IU/L ALT 16 (<50) IU/L Alkaline Phosphatase 67 (38-126) U/L Total Creatine Kinase 53 L (55-170) U/L Troponin I < 0.012 < 0.012 (0.01-0.034) ng/mL NT-Pro-B Natriuret Pep 2480 H (<450) pg/mL Total Protein 8.4 H (6.3-8.2) g/dL Albumin 4.2 (3.5-5.0) g/dL Globulin 4.2 H (1.7-4.1) g/dL Albumin/Globulin Ratio 1.0 (1.0-2.8) Lipase 70 (23-300) U/L Imaging Data Chest x-ray: Radiologist's Impression: PROCEDURE: XR CHEST 1V INDICATIONS: SOB TECHNIQUE: One view of the chest was acquired. COMPARISON: [facility], CR, XR CHEST 1V, 01/07/2023, 23:40. [facility], CR, XR CHEST 1V, 11/24/2022, 13:32. FINDINGS: Surgical changes and devices: Postsurgical changes are seen in the cervical spine and left clavicle. Lungs and pleura: Lungs are clear. No pleural effusions or pneumothorax. Mediastinum: Mediastinal contours appear normal. Heart size is normal. Bones and chest wall: No suspicious bony lesions. Overlying soft tissues appear unremarkable. IMPRESSION: No acute cardiopulmonary abnormality is seen. ECG Data Attestation: I personally reviewed and interpreted this ECG as follows: Interpretation: Sinus bradycardia Ventricular rate of 48 Left axis deviation LVH Inverted T-waves V2 V3 V4 V5 V6 lead [address] changes MDM Narrative Medical decision making narrative: Patient is bradycardic here in the emergency department. He was in a sinus bradycardia. With ambulation his heart rate did increase into the 50s which is his baseline. Has been somewhat hypertensive. 2- troponins. Low suspicion for an acute CVA. Labs unremarkable. After time here in the emergency department he stated that he was feeling better. He was not on any rosa maria blocking agents. He was able to walk here in the emergency department and stated that he was almost back to baseline. Will not make any changes to his medications for now. Will have him contact his natural resource economist and also his primary doctor for a follow-up. He was return precautions. He expressed understanding and agreement. Discharge Plan Departure Patient Disposition: Home Clinical Impression: Bradycardia, Hypertension, Lightheadedness Instructions: DI for Dizziness-Nonvertigo Activity Restrictions/Additional Instructions: Recommend that you contact your primary care doctor and your natural resource economist for a follow-up within the next week. Continue to take all of your medications as directed. I also recommend that you continue to take your blood pressure at home and record the values to include your heart rate. Return to the emergency department for new or worsening symptoms Prescriptions: No Action acetaminophen 325 mg tablet 650 mg PO TID PRN (Reason: Pain, Mild) clopidogrel 75 mg Tablet 75 mg PO DAILY Qty: 30 1RF calcium carbonate 200 mg calcium (500 mg) Tablet,Chewable 500 mg PO TID Qty: 100 0RF rosuvastatin 20 mg Tablet 20 mg PO BEDTIME torsemide 20 mg Tablet 20 mg PO USEASDIRECTD Rx Instructions: every other day pantoprazole 20 mg Tablet,Delayed Release (Dr/Ec) 20 mg PO DAILY Referrals: Norberto Kapoor MD [Primary Care Provider] - Stand Alone Forms: Patient Portal/API
--- NOTE | 2023-12-31 08:48 | DI.RAD.S_ITS ---
PROCEDURE: XR CHEST 1V INDICATIONS: SOB TECHNIQUE: One view of the chest was acquired. COMPARISON: [facility], , XR CHEST 1V, 01/07/2023, 23:40. [facility], CR, XR CHEST 1V, 11/24/2022, 13:32. FINDINGS: Surgical changes and devices: Postsurgical changes are seen in the cervical spine and left clavicle. Lungs and pleura: Lungs are clear. No pleural effusions or pneumothorax. Mediastinum: Mediastinal contours appear normal. Heart size is normal. Bones and chest wall: No suspicious bony lesions. Overlying soft tissues appear unremarkable. IMPRESSION: No acute cardiopulmonary abnormality is seen. Approved by: Herrera Ray M.D. on 12/31/2023 at 9:23
[2023-12-31 08:56] LABS: Alanine Aminotransferase 16 IU/L (<50); Albumin 4.2 g/dL (3.5-5.0); Alkaline Phosphatase 67 U/L (38-126); Aspartate Aminotransferase 29 IU/L (17-59); BUN Creatinine Ratio 18.3 (6-22); Bilirubin Total 0.7 mg/dL (0.2-1.3); Blood Urea Nitrogen 15 mg/dL (9-20); Calcium 9.1 mg/dL (8.4-10.2); Carbon Dioxide 28 mmol/L (22-32); Chloride 104 mmol/L (98-107); Creatine Kinase 53 U/L (55-170); Estimated Glomerular Filt Rate > 60 mL/min (>60); Globulin 4.2 g/dL (1.7-4.1); Glucose 99 mg/dL (80-110); HEMOLYSIS 28 (0-50); Lipase 70 U/L (23-300); Potassium 4.2 mmol/L (3.4-5.1); Sodium 136 mmol/L (137-145); Total Protein 8.4 g/dL (6.3-8.2)
[2023-12-31 09:07] LABS: Troponin I < 0.012 ng/mL (0.01-0.034)
[2023-12-31 09:11] LABS: NT-proBNP (BNP-Adult 18+) 2480 pg/mL (<450)
--- NOTE | 2023-12-31 10:05 | PC.NURSE ---
Orthostatics obtained prior to ambulation and pt is not orthostatic, overall states he feels better then before. Pt was ambulated on monitors and was not hypoxic, HR was consistantly in the 50s with ambulation, pt did report feeling dizzy and was slightly off balance.
[2023-12-31 11:24] LABS: Troponin I < 0.012 ng/mL (0.01-0.034)
== END 2023-12-31 12:05 | disposition home or self-care (01) ==
PROVIDERS: Emergency Provider Emergency Medicine; Family Provider Student in an Organized Health Care Education/Training Program; PCP Family Medicine
DX: R42 Dizziness and giddiness (principal); R00.1 Bradycardia, unspecified; I10 Essential (primary) hypertension; Z87.891 Personal history of nicotine dependence
CPT/HCPCS: 36415; 71045; 80053; 82550; 83690; 83880; 84484; 85025; 93005; 99283; 99284

== ENCOUNTER → 2024-05-09 13:41 | Outpatient (CLI) | payer MEDICARE, OTHER, SELFPAY ==
[2023-01-08 03:34] VITALS: BMI 25.4
[2024-05-09 15:11] LABS: Prostate Specific Antigen 2.01 ng/mL (0.10-4.00)
== END ==
LOC: LAB 13:43
PROVIDERS: Family Provider Student in an Organized Health Care Education/Training Program; PCP Family Medicine; Referring Provider Urology; Visit Provider Urology
DX: N40.1 Benign prostatic hyperplasia with lower urinary tract symptoms (principal)
CPT/HCPCS: 36415; 84153

== ENCOUNTER → 2024-05-14 06:59 | Outpatient (CLI) | payer MEDICARE, OTHER, SELFPAY ==
[2023-01-08 03:34] VITALS: BMI 25.4
--- NOTE | 2024-05-14 07:00 | DI.ECHO.S_ITS ---
[place] [facility]+ [facility] : : [id number] : [place] : : [id number] : : Phone: [phone] Echocardiogram Report + + :Name: STAN MATTHEWS Study Date: 05/14/2024 Height: 72 in : :[facility] ReadingLocation: Weight: 200 lb : : Gender: Male BSA: 2.1 m2 : :: 1940 Age: 84 yrs BP: 140/72 mmHg: :Reason For Study: DYSPNEA ON EXERTION : :Ordering Physician: CHUCK, : :NEIL Performed By: Linsey Arora : :Referring: NEIL VAZQUEZ : + + Interpretation Summary 1) Mildly increased left ventricular thickness (concentric) with normal size, normal wall motion, and normal systolic function (EF 60-65%). 2) Mildly enlarged right ventricle with normal function. 3) There is mild to moderate aortic regurgitation. 4) Compared to the Echo done 12/08/2021, aortic regurgitation has increased from mild to mild-moderate on this study. Procedure: A two-dimensional transthoracic echocardiogram with color flow and Doppler was performed. The study quality was technically adequate. Comparison is made with the echocardiogram of 12/08/2021. The patient was in sinus bradycardia with heart rates between 49-63 bpm during the exam. Left Ventricle: The left ventricle is normal in size. There is mild concentric left ventricular hypertrophy. The ejection fraction is estimated to be 60-65%. Left ventricular systolic function appears normal without focal wall motion abnormalities. Diastolic parameters suggest a relaxation abnormality of the left ventricle, consistent with probable normal filling pressures. Right Ventricle: The right ventricle is mildly dilated. The right ventricular systolic function is normal. Atria: The left atrium is mildly dilated. Right atrial size is normal. There is no Doppler evidence for an interatrial shunt. Mitral Valve: The mitral valve is grossly normal. There is mild mitral regurgitation. Aortic Valve: The aortic valve is trileaflet. The aortic valve is mildly calcified. The peak aortic velocity is 2.5 m/sec. There is no aortic valve stenosis. The aortic valve mean gradient is 15 mmHg, probably due to high flow state (stroke volume 128cc). There is mild to moderate aortic regurgitation. Tricuspid Valve: The tricuspid valve is normal in structure and function. There is mild tricuspid regurgitation. The right ventricular systolic pressure is estimated to be at least 25 mmHg based on an estimated right atrial pressure of 3 mm Hg. Pulmonic Valve: The pulmonic valve leaflets are thin and pliable; valve motion is normal. There is mild pulmonic regurgitation. Great Vessels: The aortic root is normal size. The ascending aorta is at the upper limits of normal in size. The IVC is of normal diameter and collapses greater than 50% with a sniff. This suggests a low right atrial pressure of 3 mm Hg. Pericardium/ Pleura There is no pericardial effusion. There is no pleural effusion. MMode/2D Measurements & Calculations LVIDd: 5.3 cm LVOT diam: 2.4 cm LVIDs: 3.7 cm Ao root diam: 3.6 cm FS: 31.0 % asc Aorta Diam: 4.1 cm EPSS: 1.3 cm Ao Arch Diam (Prox Trans): 3.0 cm IVSd: 1.2 cm LVPWd: 1.3 cm LV valles. diameter/BSA (cm/m^2): 2.5 LV sys. diameter/BSA (cm/m^2): 1.7 LA A2 area: 23.2 cm2 RA long axis: 5.2 cm LA A4 area: 21.9 cm2 RA area: 19.7 cm2 LA length (vol): 5.6 cm RA vol: 63.8 ml LA vol: 76.6 ml RA : 29.9 ml/m2 LA vol index: 35.9 ml/m2 IVC diam: 0.99 cm RVD1 (basal): 4.5 cm TAPSE: 2.5 cm Doppler Measurements & Calculations Ao V2 max: 249.6 cm/sec LVOT Max Erick: 122.2 cm/sec Ao V2 mean: 181.3 cm/sec LV V1 max P.0 mmHg Ao max P.1 mmHg LV V1 VTI: 27.8 cm Ao mean P.7 mmHg DAVID(I,D): 2.2 cm2 Ao V2 VTI: 59.6 cm DAVID(V,D): 2.3 cm2 sev ratio: 0.47 DAVID indexed to BSA (cm^2/m^2): 1.0 AI P1/2t: 631.6 msec AI dec slope: 209.4 cm/sec2 MV E max erick: 60.3 cm/sec TR max erick: 236.2 cm/sec MV A max erick: 87.4 cm/sec TR max P.3 mmHg MV E/A: 0.69 PA V2 max: 106.5 cm/sec Med Peak E' Erick: 6.3 cm/sec PA V2 mean: 74.6 cm/sec E/E' med: 9.6 PA mean P.5 mmHg Lat Peak E' Erick: 5.0 cm/sec PA pr(Accel): 31.0 mmHg E/E' lat: 12.0 E/e' average: 10.8 MV dec time: 0.28 sec SV(LVOT): 128.3 ml Reading Physician:11:37 AM
== END ==
PROVIDERS: Family Provider Student in an Organized Health Care Education/Training Program; PCP Family Medicine; Referring Provider Internal Medicine Cardiovascular Disease; Visit Provider Internal Medicine Cardiovascular Disease
DX: R06.09 Other forms of dyspnea (principal); I08.3 Combined rheumatic disorders of mitral, aortic and tricuspid valves
CPT/HCPCS: 93306

== ENCOUNTER → 2024-07-16 13:47 | Outpatient (CLI) | payer MEDICARE, OTHER, SELFPAY ==
[2023-01-08 03:34] VITALS: BMI 25.4
== END ==
PROVIDERS: Family Provider Student in an Organized Health Care Education/Training Program; PCP Family Medicine; Visit Provider Urology
DX: N40.1 Benign prostatic hyperplasia with lower urinary tract symptoms (principal)
CPT/HCPCS: 87086; 99214

== ENCOUNTER 2024-07-21 06:38 | Day surgery (SDC) | payer MEDICARE, OTHER, SELFPAY ==
[2023-01-08 03:34] VITALS: BMI 25.4
[2024-07-14 14:17] VITALS: BMI 27.1
[2024-07-21] VITALS (11 sets, daily range): BP systolic 120–172; BP diastolic 60–107; PULSE 4–60; RESP 12–18; TEMP 36.1–36.6; O2SAT 94–100; BMI 27.1
--- NOTE | 2024-07-21 | PATH_ITS ---
[facility] Accession Number: [id number] No. of containers..01 Tissue . 01 Material submitted: . prostate - PROSTATE CHIPS . 01 Diagnosis: PROSTATE CHIPS (WEIGHT 6 GRAMS): Portions of benign prostatic tissue with glandular and stromal hyperplasia and mild chronic inflammation. MRV 07/24/2024 1338 Local . 01 Electronically signed: . Clemencia Rangel MD, Pathologist NPI- [id number] . 01 Gross description: . Received in formalin with two patient identifiers and prostate chips, are multiple roper soft tissue fragments admixed with a moderate amount of hemorrhagic material weighing 6 grams and aggregating to 6.5 x 5.6 x 1.5 cm. Submitted entirely in A1-A5. ([id number]) /MRV 07/22/2024 1539 Local . 01 Pathologist provided ICD-10: N40.1 . 01 CPT . 610595 Specimen Comment: A courtesy copy of this report has been sent to [facility] Pathology Performed at: [address] [id number] MD Veto Campos MD Phone: [phone]
[2024-07-21] MEDS: LACTATED RINGERS 1,000 ML 42 ML IV (06:30)
[2024-07-21] MEDS: LACTATED RINGERS 1,000 ML 21 ML IV ×2 (07:17→10:49)
[2024-07-21] MEDS: ACETAMINOPHEN 325 MG TABLET 975 MG PO (07:19)
--- NOTE | 2024-07-21 07:27 | PM.PREOP ---
Pre-operative Note COVID-19 COVID-19 status: Not tested Interval Note History & Physical reviewed/Exam performed by Physician: Yes Changes to H&P: No
[2024-07-21] MEDS: CLINDAMYCIN 900 MG/50 ML PIGGYBACK 50 MG IV (08:00)
--- NOTE | 2024-07-21 08:25 | SUR.OPER ---
Lithotomy on padded OR bed, head on pillow, arms secured on padded arm boards at <90 degrees abduction. Legs secured in padded yellow fins stirrups. Final adjustment made by surgeon.
--- NOTE | 2024-07-21 09:44 | P.OP_ITS ---
Procedure & Clinicians Procedure: Cystoscopy Aquablation Same procedure as scheduled: Yes Indications: 84 y/o M w/ BPH and bothersome LUTS that have been unresponsive to medical therapy and desires management via an Aquablation procedure. Surgeon: Bryan Alanis Click Yes if Unassisted: Yes Anesthesia Type: General Operative Notes Findings: Coaptating lateral prostatic lobes, moderate sized intravesical median lobe Closure Type: not applicable Specimen(s): other (prostate chips) Applied: catheter Estimated Blood Loss (mL): 2 Blood products transfused: none Procedure in detail: After informed consent was obtained, the patient was identified brought to the operating room where he was placed in his supine position on the table.? Once there anesthesia was induced and maintained.? Ensuring an adequate level of anesthesia the patient was transitioned to the lithotomy position where after time-out he was prepped.? After prepping, ensuring an adequate level of anesthesia, administration IV antibiotics and time-out 60 cc of ultrasound gel was instilled within the rectum and the ultrasound probe which had been attached to the TRUS stepper which was attached to the TRUS stepper articulating arm which was secured to the bed was advanced into the rectum under direct vision via the ultrasound.? The ultrasound probe was then aligned and confirmation made that the prostate was centered and aligned in both the sagittal and transverse views.? The bladder neck, verumontanum, central and transitional zones were identified.? With the ultrasound in place and adjusted the patient was then draped in a sterile fashion. With the patient draped the 24 Arabic aqua beam handpiece was then inserted through the urethra and advanced into the bladder.? Cystoscopy was then performed and no concerning bladder mass or lesions were noted.? Bilateral ureteral orifices were noted to be orthotopic in nature.? As the cystoscope was advanced the level of the sphincter, verumontanum, bladder neck were all identified via ultrasound and under direct vision.? The aqua beam hand place was then secured to the handpiece articulating arm which had been secured to the bed.? The Aquablation handpiece and TRUS probe were confirmed to be parallel and colinear.? Confirmation was then made that the aqua beam handpiece and nozzle was centered and anterior to the bladder neck. ?The cystoscope was then retracted under direct vision in the sphincter and verumontanum were identified.? The tip of the cystoscope was then placed proximal to the external sphincter.? Compression was applied with the TRUS probe to the prostate.? The alignment of the TRUS probe and aqua beam handpiece was once again confirmed.? Horizontal alignment of the handpiece water jet was then performed.? With these adjustments made, the treatment zones were then planned using real-time ultrasound.? In the largest transverse view of the prostate the depth and radial angles were determined and set again in the transverse view of the prostate.? In the longitudinal and sagittal view the Aquablation nozzle was identified and its position registered with the software and robot.? The treatment contours were then determined and adjusted to reflect the intended margins of resection.? Following our plan confirmation, the Aquablation resection treatment was started.? A 2nd pass was then completed in similar fashion after the 1st pass had been completed.? At this point, the Aqua hand piece was removed from the urethra. The 26Fr resectoscope was then inserted into the urethra and cystoscopy was repeated.? The [place] extension service agent was utilized to evacuate the blood clots from the bladder.? The bladder neck was then resected using the bipolar Gyrus loop.? Bilateral ureteral orifices were again identified and noted to be intact at case end.? Hemostasis was obtained and noted to be excellent at case end.? The resectoscope was then removed and a 22Fr Tracey 3-way hematuria catheter was inserted through the urethra and into the bladder.? 45cc of sterile water was utilized for balloon insufflation.? Efflux was noted to be clear at case end.? Anesthesia was reversed, he was extubated in the OR and transferred to the PACU in stable condition for recovery. Complications: none Post-operative Condition: stable Disposition: PACU Plan for aftercare: Will continue to run CBI for a few hours to evaluate the efflux from his catheter.? Should it remain relatively clear and with minimal blood clots, will discharge home with catheter in place and have him return to Urology clinic in 2 days for a voiding trial.? Should his efflux remain red or have significant clot burden, will admit overnight for observation and continued CBI.
[2024-07-21] MEDS: ONDANSETRON 4 MG/2 ML INJ IV (11:50)
--- NOTE | 2024-07-21 11:53 | SUR.PHASEII ---
Assumed care. Patient denied pain but c/o nausea. NEWSPAPER ILLUSTRATORKenneth notified, VVO Zofran 4mg IV. Zofran given.
--- NOTE | 2024-07-21 15:29 | SUR.PHASEII ---
Discussed how to flush catheter and empty mcfarlane. Patient was also shown how to flush and empty. Within 10 minutes patient was asking how to flush and empty catheter and did not seem to remember the previous instructions. Mcfarlane was draining grade 3-4 urine. Water provided and encouraged. Dr. Alanis notified and MD evaluated patient. Patient expressed desire to discharge due to insurance concerns. Patient was monitored for additional time and then mcfarlane care was reviewed again. The mcfarlane clips were marked with a marker and the patient was able to slowly open the clip multiple times to drain the mcfarlane. Patient was assisted to dress and left in stable condition.
== END 2024-07-21 14:53 | disposition home or self-care (01) ==
LOC: OR 06:39 → AC 06:39
PROVIDERS: Family Provider Student in an Organized Health Care Education/Training Program; PCP Family Medicine; Referring Provider Urology; Visit Provider Urology
PROC: 0VT08ZZ Resection of Prostate, Via Natural or Artificial Opening Endoscopic (ICD-10-PCS; CPT 52597; principal; 2024-07-21 07:45)
DX: N40.1 Benign prostatic hyperplasia with lower urinary tract symptoms (principal); N13.8 Other obstructive and reflux uropathy; N41.1 Chronic prostatitis; R39.12 Poor urinary stream; R33.9 Retention of urine, unspecified; R35.0 Frequency of micturition; R39.15 Urgency of urination; R35.1 Nocturia; I49.3 Ventricular premature depolarization; I10 Essential (primary) hypertension; I73.9 Peripheral vascular disease, unspecified; K21.9 Gastro-esophageal reflux disease without esophagitis; E78.5 Hyperlipidemia, unspecified; Z79.02 Long term (current) use of antithrombotics/antiplatelets; Z86.73 Personal history of transient ischemic attack (TIA), and cerebral infarction without residual deficits; Z87.891 Personal history of nicotine dependence; L76.22 Postprocedural hemorrhage of skin and subcutaneous tissue following other procedure; R31.0 Gross hematuria; Z98.890 Other specified postprocedural states
CPT/HCPCS: 0421T; 99281; 99282; C2596; J2405; J2704; J3010

== ENCOUNTER 2024-07-21 19:05 | Emergency (ER) | payer MEDICARE, OTHER, SELFPAY ==
[2024-07-21 11:43] VITALS: BMI 25.4
[2024-07-21 19:08] VITALS: BP 214/93; PULSE 66; RESP 18; TEMP 36.2; O2SAT 98; BMI 26.8
[2024-07-21 22:58] VITALS: PULSE 70; O2SAT 98
[2024-07-21 23:00] VITALS: BP 196/86; PULSE 67; RESP 18; O2SAT 99
[2024-07-21 23:30] VITALS: O2SAT 96
[2024-07-21 23:31] VITALS: BP 162/69; PULSE 60; RESP 17; O2SAT 95
--- NOTE | 2024-07-21 23:41 | ED.GENADULT ---
HPI - General Adult General Chief complaint: Urogenital-Male Stated complaint: sx this morning, incision bleeding Time Seen by Provider: 07/21/24 23:06 Source: patient Mode of arrival: Ambulatory History of Present Illness HPI narrative: 84-year-old male with history of prostate enlargement, status post Aquablation procedure this morning by local urologist Dr. Alanis, was discharged home a proximally 4:00 p.m., 2 hours later started having bleeding, persistent bleeding in the bag since that time. Was told to be re-checked if having significant bleeding. Had some bleeding around the catheter into his underpants. No fevers or chills. No chest pain or trouble breathing. Related Data Home Medications Medication Instructions Recorded Confirmed acetaminophen 325 mg tablet 650 mg PO TID PRN Pain, Mild 02/11/22 07/16/24 pantoprazole 20 mg tablet,delayed 20 mg PO DAILY 01/08/23 07/16/24 release rosuvastatin 20 mg tablet 20 mg PO BEDTIME 01/08/23 07/16/24 torsemide 20 mg tablet 20 mg PO USEASDIRECTD 01/08/23 07/16/24 amlodipine 5 mg tablet 5 mg PO DAILY 03/07/24 07/21/24 cholecalciferol (vitamin D3) 25 25 mcg PO DAILY 03/07/24 07/16/24 mcg (1,000 unit) capsule coenzyme Q10 100 mg capsule 100 mg PO DAILY 03/07/24 07/16/24 cyanocobalamin (vitamin B-12) 1,000 mcg PO DAILY 03/07/24 07/16/24 1,000 mcg capsule losartan 25 mg tablet 25 mg PO DAILY 03/07/24 07/21/24 multivitamin 1 tab PO DAILY 03/07/24 07/16/24 nitroglycerin 0.4 mg sublingual 0.4 mg sublingual Q5-15M PRN 03/07/24 07/16/24 tablet Previous Rx's Medication Instructions Recorded calcium carbonate 500 mg (2.5 x 200 mg calcium (500 02/14/22 mg)) PO TID #100 tabs clopidogrel 75 mg tablet 75 mg PO DAILY #30 tabs 02/14/22 Allergies Allergy/AdvReac Type Severity Reaction Status Date / Time piperacillin [From Zosyn] Allergy Severe Swelling Verified 07/21/24 07:26 of Lip/Tongue/Throat tazobactam [From Zosyn] Allergy Severe Swelling Verified 07/21/24 07:26 of Lip/Tongue/Throat latex [LATEX] Allergy Mild Rash Verified 07/21/24 07:26 Penicillins Allergy Unknown Verified 07/21/24 07:26 Patient History Medical History Frequent PVCs HEARN (dyspnea on exertion) Sleep apnea Hearing loss History of stroke (01/2022) History of high blood pressure Hx of acute arthritis Former smoker Hyponatremia AAA (abdominal aortic aneurysm) TIA (transient ischemic attack) Shingles GERD (gastroesophageal reflux disease) Arthritis Osteoarthritis BPH (benign prostatic hyperplasia) PVD (peripheral vascular disease) PAD (peripheral artery disease) HLD (hyperlipidemia) HTN (hypertension) Surgical History 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 HEAD: Atraumatic. Normocephalic. EYES: Pupils equal round and reactive. Extraocular motions intact. No scleral icterus. No injection or drainage. ENT: Nose without bleeding, purulent drainage. Throat without erythema, tonsillar hypertrophy or exudate. Airway patent. NECK: Trachea midline. Non tender CARDIOVASCULAR: Regular rate and rhythm without murmurs, gallops, or rubs. RESPIRATORY: Clear to auscultation. Breath sounds equal bilaterally. No wheezes, rales, or rhonchi. GASTROINTESTINAL: Abdomen soft, non-tender, nondistended. : Postop catheter in place, burgundy fluid in catheter and collection bag, no purulent material. No active bleeding at meatus around the catheter at this time EXTREMITIES: No edema or joint tenderness. BACK: Nontender without deformity or crepitance. No flank tenderness. NEURO: AOx3. Motor functions grossly nonfocal SKIN: No rash or erythema of visible areas Initial Vital Signs Initial Vital Signs: Vital Signs Temperature 97.2 F L 07/21/24 19:08 Pulse Rate 66 07/21/24 19:08 Respiratory Rate 18 07/21/24 19:08 Blood Pressure 214/93 H 07/21/24 19:08 Pulse Oximetry 98 07/21/24 19:08 Oxygen Delivery Method Room Air 07/21/24 19:08 Course Orders Ordered: ED Orders 07/21/24 23:47 CBC Auto Diff [Complete Blood Count AUTO DIFF] Stat CMP [Comprehensive Metabolic Panel] Stat Prothrombin Time INR Stat 07/21/24 23:48 Urinalysis and Microscopic Stat Vital Signs Vital signs: Vital Signs - 8 hr 07/21/24 19:08 07/21/24 22:58 07/21/24 23:00 Temperature 97.2 F L Pulse Rate 66 70 Respiratory Rate 18 Blood Pressure 214/93 H 196/86 H Pulse Oximetry 98 98 Oxygen Delivery Method Room Air 07/21/24 23:00 Temperature Pulse Rate 67 Respiratory Rate 18 Blood Pressure Pulse Oximetry 99 Oxygen Delivery Method Medical Decision Making [facility] Narrative Medical decision making narrative: Postop prostate aquablation surgery yesterday with bleeding around catheter into pants. No fevers. SIRS screen negative vitals. Possible catheter clog, will flush. Seems to be draining into collection bag however. 0015, case discussed with his urologist Dr. Alanis, bleeding as expected, can flush the catheter if there is any concern that it was clogged and not draining but it already seems to be draining. Nursing did flush the catheter. No further treatment advised for this time. Urology feedback relayed to patient, no further workup for now, follow up with Urology as planned. Discharge Plan Departure Patient Disposition: Home Clinical Impression: Post-operative hemorrhage, Gross hematuria, History of prostate surgery Activity Restrictions/Additional Instructions: Postoperative bleeding after Aquablation prostate surgery yesterday morning by your urologist Dr. Alanis, no trauma to the catheter, bag seemed to be flowing well with urine, blood colored, no significant clot burden. Nursing did go ahead and flush your catheter, although was already flowing well, before and after the flushing. Case discussed discussed tonight with your urologist who was on-call as well, no further treatment at this time, leave catheter in place, no continuous bladder irrigation indicated. Follow up with him as planned. Continue current medications as planned. Return earlier to this/nearest emergency department for any change worsening symptoms or any concerns prior Prescriptions: No Action acetaminophen 325 mg tablet 650 mg PO TID PRN (Reason: Pain, Mild) clopidogrel 75 mg Tablet 75 mg PO DAILY Qty: 30 1RF calcium carbonate 200 mg calcium (500 mg) Tablet,Chewable 500 mg PO TID Qty: 100 0RF rosuvastatin 20 mg Tablet 20 mg PO BEDTIME torsemide 20 mg Tablet 20 mg PO USEASDIRECTD Rx Instructions: every other day pantoprazole 20 mg Tablet,Delayed Release (Dr/Ec) 20 mg PO DAILY losartan 25 mg tablet 25 mg PO DAILY amlodipine 5 mg tablet 5 mg PO DAILY cholecalciferol (vitamin D3) 25 mcg (1,000 unit) capsule 25 mcg PO DAILY coenzyme Q10 100 mg capsule 100 mg PO DAILY cyanocobalamin (vitamin B-12) 1,000 mcg capsule 1,000 mcg PO DAILY multivitamin Tablet 1 tab PO DAILY nitroglycerin 0.4 mg tablet, sublingual 0.4 mg sublingual Q5-15M PRN Rx Instructions: do not exceed 3 doses per episode Referrals: Norberto Kapoor MD [Primary Care Provider] - Stand Alone Forms: Patient Portal/API/Survey
[2024-07-22] VITALS: PULSE 60; O2SAT 97
[2024-07-22 00:01] VITALS: BP 196/83; PULSE 60; RESP 16; O2SAT 96
== END 2024-07-22 00:38 | disposition home or self-care (01) ==
PROVIDERS: Emergency Provider Emergency Medicine; Family Provider Student in an Organized Health Care Education/Training Program; PCP Family Medicine
DX: L76.22 Postprocedural hemorrhage of skin and subcutaneous tissue following other procedure (principal); R31.0 Gross hematuria; Z98.890 Other specified postprocedural states
CPT/HCPCS: 99281

== ENCOUNTER → 2024-09-03 13:21 | Outpatient (CLI) | payer MEDICARE, OTHER, SELFPAY | PROVIDERS: Family Provider Student in an Organized Health Care Education/Training Program; PCP Family Medicine; Visit Provider Urology | DX: R39.9 Unspecified symptoms and signs involving the genitourinary system (principal); N40.1 Benign prostatic hyperplasia with lower urinary tract symptoms; R35.1 Nocturia; Z68.27 Body mass index [BMI] 27.0-27.9, adult | CPT/HCPCS: 51798; 81002; 87086; 99213 ==

== ENCOUNTER → 2024-12-22 09:04 | Outpatient (CLI) | payer MEDICARE, OTHER, SELFPAY ==
[2024-12-22 09:52] LABS: Add Manual Diff / Slide Review NO; Basophils Absolute Auto 0 /uL (0-100); Basophils Percent Auto 0.6 % (0-2); Eosinophils Absolute Auto 200 /uL (0-450); Eosinophils Percent Auto 3.5 % (2-4); Hematocrit 40.2 % (41-53); Hemoglobin 13.4 g/dL (13.5-17.5); Lymphocytes Absolute Auto 1500 /uL (1100-4500); Lymphocytes Percent Auto 24.6 % (25-40); Mean Corpuscular HGB Conc 33.4 % (30-36); Mean Corpuscular Hemoglobin 28.6 PG (26-34); Mean Corpuscular Volume 85.7 fL (80-100); Monocytes Absolute Auto 400 /uL (0-900); Monocytes Percent Auto 6.2 % (3-14); Neutrophils Absolute Auto 3900 /uL (1500-7000); Neutrophils Percent Auto 65.1 % (50-75); Platelet Count 274 X10^3/uL (150-400); Red Blood Cell Count 4.69 X10^6/uL (4.5-5.9); Red Cell Distribution Width 15.6 % (11.6-14.8)
[2024-12-22 10:12] LABS: Erythrocyte Sedimentation Rate 43 MM/HR (0-15)
[2024-12-22 10:27] LABS: C-Reactive Protein Quant < 0.5 mg/dL (<1.0)
[2024-12-23 09:36] LABS: Treponema pallidum Antibodies Reactive (Non Reactive)
[2024-12-24 11:09] LABS: QuantiFERON Mitogen Value >10.00 IU/mL (.); QuantiFERON Nil Value 0.04 IU/mL (.); QuantiFERON TB Gold Plus Negative (Negative); QuantiFERON TB1 Ag Value 0.08 IU/mL (.); QuantiFERON TB2 Ag Value 0.05 IU/mL (.)
[2024-12-24 21:36] LABS: ANA Screen, IFA Negative (.)
[2024-12-25 03:36] LABS: Angiotensin Converting Enzyme 50 U/L (14-82)
[2024-12-29 12:08] LABS: Lysozyme (Muramidase) 6.1 ug/mL (4.2-9.5)
[2024-12-31 09:09] LABS: HLA B27 Negative (.)
== END ==
PROVIDERS: Family Provider Student in an Organized Health Care Education/Training Program; PCP Family Medicine; Referring Provider Ophthalmology; Visit Provider Ophthalmology
DX: H43.89 Other disorders of vitreous body (principal)
CPT/HCPCS: 36415; 81374; 81381; 82164; 85025; 85549; 85651; 86038; 86140; 86480; 86780

== ENCOUNTER → 2025-03-11 07:01 | Outpatient (CLI) | payer MEDICARE, OTHER, SELFPAY ==
[2024-07-21 11:43] VITALS: BMI 25.4
[2025-03-11 07:29] LABS: Add Manual Diff / Slide Review NO; Hematocrit 40.4 % (41-53); Hemoglobin 13.4 g/dL (13.5-17.5); Lymphocytes Absolute Auto 1600 /uL (1100-4500); Mean Corpuscular HGB Conc 33.1 % (30-36); Mean Corpuscular Hemoglobin 28.1 PG (26-34); Mean Corpuscular Volume 85.0 fL (80-100); Platelet Count 242 X10^3/uL (150-400)
== END ==
PROVIDERS: Family Provider Student in an Organized Health Care Education/Training Program; PCP Family Medicine; Visit Provider Ophthalmology
DX: H53.131 Sudden visual loss, right eye (principal)
CPT/HCPCS: 36415; 85025; 85651; 86140

== ENCOUNTER → 2025-03-25 09:53 | Outpatient (CLI) | payer MEDICARE, OTHER, SELFPAY ==
[2024-07-21 11:43] VITALS: BMI 25.4
[2025-03-26 09:51] LABS: Add Manual Diff / Slide Review NO; Hematocrit 40.1 % (41-53); Hemoglobin 13.4 g/dL (13.5-17.5); Lymphocytes Absolute Auto 1300 /uL (1100-4500); Mean Corpuscular HGB Conc 33.4 % (30-36); Mean Corpuscular Hemoglobin 28.5 PG (26-34); Mean Corpuscular Volume 85.2 fL (80-100); Platelet Count 243 X10^3/uL (150-400)
[2025-03-28 08:36] LABS: RPR QNT 1:16 titer (NonRea<1:1)
[2025-03-28 16:08] LABS: QuantiFERON Mitogen Value >10.00 IU/mL (.); QuantiFERON Nil Value 0.08 IU/mL (.); QuantiFERON TB Gold Plus Negative (Negative); QuantiFERON TB1 Ag Value 0.08 IU/mL (.); QuantiFERON TB2 Ag Value 0.08 IU/mL (.)
[2025-03-30 11:39] LABS: Lysozyme (Muramidase) 4.2 ug/mL (4.2-9.5)
[2025-03-31 14:36] LABS: ANA Screen, IFA Negative (.)
[2025-04-03 14:36] LABS: HLA B27 Negative (.)
== END ==
PROVIDERS: Family Provider Student in an Organized Health Care Education/Training Program; PCP Family Medicine; Referring Provider Ophthalmology; Visit Provider Ophthalmology
DX: H43.89 Other disorders of vitreous body (principal)
CPT/HCPCS: 36415; 81374; 82164; 85025; 85549; 85651; 86038; 86140; 86480; 86592; 86780

== ENCOUNTER 2025-05-10 13:00 | Emergency (ER) | payer MEDICARE, OTHER, SELFPAY ==
[2024-07-21 11:43] VITALS: BMI 25.4
[2025-05-10 13:07] VITALS: BP 197/77; PULSE 55; RESP 18; TEMP 36.4; O2SAT 97; BMI 27.1
--- NOTE | 2025-05-10 14:05 | PC.NURSE ---
Patient in ed to get picc line removed. Denies any other symptoms.
[2025-05-10 14:07] VITALS: BP 172/74; PULSE 54; RESP 16; O2SAT 97
--- NOTE | 2025-05-10 14:08 | ED.RECABL ---
HPI - Recheck/Abnormal Lab/Rx General Chief Complaint: Recheck/Abnormal Lab/Rx Stated Complaint: PIC line cant get it taken out Time Seen by Provider: 05/10/25 14:08 Source: patient Mode of arrival: Ambulatory History of Present Illness HPI narrative: Patient is a healthy 85-year-old male with current PICC line and being treated for syphilis he reports that he is done with his infusion, home nurse tried to remove the PICC line but felt like there was resistance and stopped pulling it out. He is here the of the rest of his PICC line out. Related Data Home Medications ?Medication ?Instructions ?Recorded ?Confirmed acetaminophen 325 mg tablet 650 mg PO TID PRN Pain, Mild 02/11/22 03/04/25 pantoprazole 20 mg tablet,delayed 20 mg PO DAILY 01/08/23 03/04/25 release rosuvastatin 20 mg tablet 20 mg PO BEDTIME 01/08/23 03/04/25 cholecalciferol (vitamin D3) 25 25 mcg PO DAILY 03/07/24 03/04/25 mcg (1,000 unit) capsule cyanocobalamin (vitamin B-12) 1,000 mcg PO DAILY 03/07/24 03/04/25 1,000 mcg capsule multivitamin 1 tab PO DAILY 03/07/24 03/04/25 nitroglycerin 0.4 mg sublingual 0.4 mg sublingual Q5-15M PRN 03/07/24 03/04/25 tablet calcium carbonate 500 mg PO TID PRN 07/23/24 03/04/25 torsemide 20 mg tablet 20 mg PO USEASDIRECTD PRN 07/23/24 03/04/25 Previous Rx's ?Medication ?Instructions ?Recorded clopidogrel 75 mg tablet 75 mg PO DAILY #30 tabs 02/14/22 Allergies Allergy/AdvReac Type Severity Reaction Status Date / Time piperacillin (From Zosyn) Allergy Severe Swelling Verified 05/10/25 13:07 of Lip/Tongue/Throat tazobactam (From Zosyn) Allergy Severe Swelling Verified 05/10/25 13:07 of Lip/Tongue/Throat latex (LATEX) Allergy Mild Rash Verified 05/10/25 13:07 Penicillins Allergy Unknown Verified 05/10/25 13:07 Patient History Medical History Frequent PVCs HEARN (dyspnea on exertion) Sleep apnea Hearing loss History of stroke (01/2022) History of high blood pressure Hx of acute arthritis Former smoker Hyponatremia AAA (abdominal aortic aneurysm) TIA (transient ischemic attack) Shingles GERD (gastroesophageal reflux disease) Arthritis Osteoarthritis BPH (benign prostatic hyperplasia) PVD (peripheral vascular disease) PAD (peripheral artery disease) HLD (hyperlipidemia) HTN (hypertension) Surgical History History of total left hip replacement (11/11/18) History of hip replacement History of bilateral cataract extraction (~2017) S/P cervical spinal fusion (08/09/15) History of colonoscopy Hx of bone graft History of total right hip arthroplasty Hx of appendectomy Family History Mother Diabetes mellitus Social History marital status: unmarried,single household members: none Tobacco: How many years used: 15 alcohol intake: current caffeine: Yes alcohol intake frequency: 0-2 drinks per day Exam Initial Vital Signs Initial Vital Signs: Vital Signs Temperature 97.5 F L 05/10/25 13:07 Pulse Rate 55 L 05/10/25 13:07 Respiratory Rate 18 05/10/25 13:07 Blood Pressure 197/77 H 05/10/25 13:07 Pulse Oximetry 97 05/10/25 13:07 Oxygen Delivery Method Room Air 05/10/25 13:07 GENERAL: Well-appearing, well-nourished and in no acute distress. CARDIOVASCULAR: peripheral pulses in tact, cap refill <2 sec RESPIRATORY: No respiratory distress, speaks in full sentences without difficulty EXTREMITIES: Normal range of motion, no clubbing or edema. Neurovascularly intact PICC line right arm NEUROLOGICAL: Cranial nerves II through XII grossly intact. Normal gait and speech. SKIN: Warm, dry, no petechiae, no rashes or lesions. Course Vital Signs Vital signs: Vital Signs - 8 hr 05/10/25 13:07 05/10/25 14:07 Temperature 97.5 F L Pulse Rate 55 L 54 L Respiratory Rate 18 16 Blood Pressure 197/77 H 172/74 H Pulse Oximetry 97 97 Oxygen Delivery Method Room Air Room Air MDM - Recheck/Abnormal Lab/Rx MDM Narrative Medical decision making narrative: PICC line easily pulled out. No resistance. Appears complete and intact no concern for foreign body Discharge Plan Departure Patient Disposition: Home Clinical Impression: PIC line (peripherally inserted central catheter) removal Activity Restrictions/Additional Instructions: *You have been diagnosed with PICC line removed *What to do: At this time it appears to be intact, no concern for foreign body *Continue to take medications as directed *Follow up with your primary care provider in 2-3 days or call [phone] *Return to ER if you should have redness swelling pain or any new, worsening or concerning symptoms Prescriptions: No Action acetaminophen 325 mg tablet 650 mg PO TID PRN (Reason: Pain, Mild) clopidogrel 75 mg Tablet 75 mg PO DAILY Qty: 30 1RF rosuvastatin 20 mg Tablet 20 mg PO BEDTIME pantoprazole 20 mg Tablet,Delayed Release (Dr/Ec) 20 mg PO DAILY torsemide 20 mg tablet 20 mg PO USEASDIRECTD PRN Rx Instructions: every other day cholecalciferol (vitamin D3) 25 mcg (1,000 unit) capsule 25 mcg PO DAILY cyanocobalamin (vitamin B-12) 1,000 mcg capsule 1,000 mcg PO DAILY multivitamin Tablet 1 tab PO DAILY nitroglycerin 0.4 mg tablet, sublingual 0.4 mg sublingual Q5-15M PRN Rx Instructions: do not exceed 3 doses per episode calcium carbonate 200 mg calcium (500 mg) tablet,chewable 500 mg PO TID PRN Referrals: Norberto Kapoor MD [Primary Care Provider, [facility]] Stand Alone Forms: Patient Portal/API
[2025-05-10 15:25] VITALS: BP 156/70; PULSE 55; RESP 16; TEMP 36.6; O2SAT 98
== END 2025-05-10 15:29 | disposition home or self-care (01) ==
PROVIDERS: Emergency Provider Emergency Medicine; Family Provider Student in an Organized Health Care Education/Training Program; PCP Family Medicine
DX: Z45.2 Encounter for adjustment and management of vascular access device (principal)
CPT/HCPCS: 99281